=== PATIENT | female | born 1970 | race Caucasian/White ===

== ENCOUNTER 2020-11-17 12:54 | Outpatient (REF) | payer OTHER, SELFPAY | END 2020-11-17 12:55 | disposition home or self-care (01) | LOC: HO.LAB 12:54 | PROVIDERS: Visit Provider Internal Medicine | DX: Z20.822 Contact with and (suspected) exposure to COVID-19 (principal) | CPT/HCPCS: 36415; C9803; U0003; U0005 ==

== ENCOUNTER 2021-05-21 15:35 | Outpatient (REF) | payer OTHER, SELFPAY | END 2021-05-21 15:36 | disposition home or self-care (01) | LOC: HO.LNP 15:35 | PROVIDERS: Visit Provider Hospitalist | DX: Z20.822 Contact with and (suspected) exposure to COVID-19 (principal) | CPT/HCPCS: U0003; U0005 ==

== ENCOUNTER 2021-07-19 14:23 | Outpatient (REF) | payer OTHER, SELFPAY ==
--- NOTE | ~2021-07-19 | MM_ITS ---
EXAMINATION: MM SCREENING DIGITAL BREAST TOMOSYNTHESIS, BILATERAL CLINICAL INFORMATION: Screening. Asymptomatic. The lifetime risk of breast cancer based on the Tyrer-Cuzick Model is 16.9%. COMPARISON: Mammography: March 19, 2019 and studies dating back to April 08, 2013 TECHNIQUE: Digital breast tomosynthesis is performed in both the craniocaudal and mediolateral oblique views along with computer-aided detection (CAD). Synthesized 2D images are generated from the tomosynthesis. Bilateral exaggerated craniocaudal views also performed. FINDINGS: The breasts are heterogeneously dense, which may obscure small masses (ACR BI-RADS breast composition Category c). There are no significant masses, abnormal calcifications, or other abnormalities. MM/MM tomosynthesis screening BI IMPRESSION: There are no significant changes from prior study. ASSESSMENT: BI-RADS 1: Negative RECOMMENDATION: Routine annual mammography screening. This patient's information was entered into a reminder system with a target due date for their next mammogram.
== END 2021-07-19 14:24 | disposition home or self-care (01) ==
LOC: HO.MAMMO 14:23
PROVIDERS: Visit Provider Internal Medicine
DX: Z12.31 Encounter for screening mammogram for malignant neoplasm of breast (principal)
CPT/HCPCS: 77063; 77067

== ENCOUNTER 2022-04-06 11:19 | Outpatient (REF) | payer OTHER, SELFPAY ==
--- NOTE | ~2022-04-06 | XR_ITS ---
EXAMINATION: XR LUMBAR SPINE WITH BENDING VIEWS XR HIP, RIGHT CLINICAL INFORMATION: Low back pain. COMPARISON: None TECHNIQUE: Lumbar spine 6 views. Right hip 2 views. FINDINGS: LUMBAR SPINE: There is normal lumbar lordosis. The vertebral heights and alignment are normal. There is loss of the L5-S1 and L4-L5 disc heights. The rest of the disc heights are normal. There is mild ventral spondylosis throughout the lumbar spine. No acute fracture, lytic or sclerotic process seen. The neural foramina are patent bilaterally. On lateral bending views, the right lateral bending is limited. A normal left lateral bending is seen. There is mild bilateral facet joint hypertrophy at the L4-L5 and L5-S1 disc levels. There is no pars defect or listhesis. The SI joints are symmetrical and normal. The soft tissues are normal. Right hip: AP and frog-leg views right hip reveals a maintained hip joint space. No fracture, dislocation or loose body seen. No bony erosive changes. The soft tissues are normal. XR/XR lumbar spine 6V w bending IMPRESSION: Limited right lateral bending view. The left lateral bending is normal. No subluxation seen. No acute fracture, dislocation or lytic process seen. Mild L4-L5 and L5-S1 facet joint hypertrophy. No pars defect or listhesis seen. Unremarkable right hip exam.
--- NOTE | ~2022-04-06 | XR_ITS ---
EXAMINATION: XR LUMBAR SPINE WITH BENDING VIEWS XR HIP, RIGHT CLINICAL INFORMATION: Low back pain. COMPARISON: None TECHNIQUE: Lumbar spine 6 views. Right hip 2 views. FINDINGS: LUMBAR SPINE: There is normal lumbar lordosis. The vertebral heights and alignment are normal. There is loss of the L5-S1 and L4-L5 disc heights. The rest of the disc heights are normal. There is mild ventral spondylosis throughout the lumbar spine. No acute fracture, lytic or sclerotic process seen. The neural foramina are patent bilaterally. On lateral bending views, the right lateral bending is limited. A normal left lateral bending is seen. There is mild bilateral facet joint hypertrophy at the L4-L5 and L5-S1 disc levels. There is no pars defect or listhesis. The SI joints are symmetrical and normal. The soft tissues are normal. Right hip: AP and frog-leg views right hip reveals a maintained hip joint space. No fracture, dislocation or loose body seen. No bony erosive changes. The soft tissues are normal. XR/XR hip RT min 2V IMPRESSION: Limited right lateral bending view. The left lateral bending is normal. No subluxation seen. No acute fracture, dislocation or lytic process seen. Mild L4-L5 and L5-S1 facet joint hypertrophy. No pars defect or listhesis seen. Unremarkable right hip exam.
== END 2022-04-06 11:20 | disposition home or self-care (01) ==
LOC: HO.HMGCX 11:19
PROVIDERS: PCP Internal Medicine; Visit Provider Internal Medicine
DX: M54.50 Low back pain, unspecified (principal); M25.551 Pain in right hip
CPT/HCPCS: 72114; 73502

== ENCOUNTER 2022-07-13 15:46 | Outpatient (REF) | payer OTHER, SELFPAY ==
[2022-07-14 15:47] LABS: CT PCR NOT DETECTED (Not Detect.); NG PCR NOT DETECTED (Not Detect.)
[2022-07-15 11:50] LABS: BV Int Neg Control Negative (Negative); BV Int Pos Control Positive (Positive)
[2022-07-18 20:41] LABS: HPV mRNA E6/E7 rflx Not Detected (Not Detected)
== END 2022-07-13 15:47 | disposition home or self-care (01) ==
LOC: HO.LNP 15:46
PROVIDERS: Visit Provider Advanced Practice Midwife
DX: Z01.419 Encounter for gynecological examination (general) (routine) without abnormal findings (principal); N94.6 Dysmenorrhea, unspecified; N92.0 Excessive and frequent menstruation with regular cycle; L68.0 Hirsutism; Z11.51 Encounter for screening for human papillomavirus (HPV); Z11.3 Encounter for screening for infections with a predominantly sexual mode of transmission; Z11.8 Encounter for screening for other infectious and parasitic diseases
CPT/HCPCS: 87480; 87491; 87510; 87591; 87624; 87660; 88142

== ENCOUNTER 2022-07-20 14:45 | Outpatient (REF) | payer OTHER, SELFPAY ==
--- NOTE | ~2022-07-20 | MM_ITS ---
EXAMINATION: MM SCREENING DIGITAL BREAST TOMOSYNTHESIS, BILATERAL CLINICAL INFORMATION: Screening. Asymptomatic. The lifetime risk of breast cancer based on the Tyrer-Cuzick Model is 10%. COMPARISON: Mammography: July 19, 2021 and studies dating back to January 19, 2016 TECHNIQUE: Digital breast tomosynthesis is performed in both the craniocaudal and mediolateral oblique views along with computer-aided detection (CAD). Synthesized 2D images are generated from the tomosynthesis. FINDINGS: The breasts are heterogeneously dense, which may obscure small masses (ACR BI-RADS breast composition Category c). There are no significant masses, abnormal calcifications, or other abnormalities. MM/MM tomosynthesis screening BI IMPRESSION: No significant changes ASSESSMENT: BI-RADS 1: Negative RECOMMENDATION: Routine annual mammography screening. This patient's information was entered into a reminder system with a target due date for their next mammogram.
== END 2022-07-20 14:46 | disposition home or self-care (01) ==
LOC: HO.MAMMO 14:45
PROVIDERS: Visit Provider Internal Medicine
DX: Z12.31 Encounter for screening mammogram for malignant neoplasm of breast (principal)
CPT/HCPCS: 77063; 77067

== ENCOUNTER 2022-10-06 14:53 | Outpatient (REF) | payer OTHER, SELFPAY ==
--- NOTE | ~2022-10-06 | US_ITS ---
EXAMINATION: US PELVIS COMPLETE US PELVIS ENDOVAGINAL CLINICAL INFORMATION: Excessive and frequent menstruation with irregular cycle COMPARISON: None. TECHNIQUE: Transabdominal and transvaginal images of the pelvis were obtained. FINDINGS: UTERUS: Retroverted, retroflexed Normal size and contour, measuring 10.5 x 5.9 x 6.5 cm (cervix to fundus x AP x transverse). Uniform, homogeneous endometrium measures 0.8 cm in width. 1.0 and 0.6 cm small myomas seen in the uterine fundus. Small amount of anechoic fluid seen in the right uterine fundus. RIGHT OVARY: Normal size and echogenicity measuring 2.7 x 1.9 x 1.5 cm. LEFT OVARY: Normal size and echogenicity measuring 3.7 x 1.4 x 1.9 cm. FREE FLUID: No pelvic free fluid. US/US pelvic and transvaginal IMPRESSION: Small amount of anechoic fluid is seen in the right uterine fundus, possibly in a degenerated fibroid. Normal endometrial thickness.
== END 2022-10-06 14:54 | disposition home or self-care (01) ==
LOC: HO.US 14:53
PROVIDERS: PCP Internal Medicine; Visit Provider Advanced Practice Midwife
DX: N92.0 Excessive and frequent menstruation with regular cycle (principal)
CPT/HCPCS: 76830; 76856

== ENCOUNTER → 2022-10-11 13:16 | Outpatient (BNVA) | payer OTHER, SELFPAY | PROVIDERS: PCP Internal Medicine; Visit Provider Advanced Practice Midwife | DX: Z71.2 Person consulting for explanation of examination or test findings (principal); N92.0 Excessive and frequent menstruation with regular cycle; L68.0 Hirsutism; N94.6 Dysmenorrhea, unspecified; N95.1 Menopausal and female climacteric states; D25.9 Leiomyoma of uterus, unspecified | CPT/HCPCS: 99212 ==

== ENCOUNTER 2022-10-20 10:43 | Outpatient (REF) | payer OTHER, SELFPAY ==
[2022-10-20 11:42] LABS: Hematocrit 36.7 % (37.0-47.0); Hemoglobin 11.7 g/dl (12.0-16.0); Mean Corpuscular HGB Conc 31.9 g/dl (31.0-35.0); Mean Corpuscular Hemoglobin 25.8 pg (27.0-33.0); Mean Platelet Volume 10.5 fL (9.4-12.3); Platelet Count 246 X10*3/uL (160-400); Red Blood Count 4.53 X10*6/uL (4.20-5.50); Red Cell Distribution Width 14.3 % (11.0-16.0); White Blood Count 7.7 X10*3/uL (4.8-10.8)
[2022-10-20 12:45] LABS: Thyroid Stimulating Hormone 2.66 uIU/mL (0.32-4.0)
[2022-10-22 09:09] LABS: DHEA Sulfate 94 mcg/dL (15-205); Follicle Stimulating Hormone 6.5 mIU/mL; Prolactin 9.7 ng/mL
[2022-10-29 11:05] LABS: Testosterone, Free 2.4 pg/mL (0.1-6.4); Testosterone, Total 36 ng/dL (2-45)
== END 2022-10-20 10:44 | disposition home or self-care (01) ==
LOC: HO.LAB 10:43
PROVIDERS: PCP Internal Medicine; Visit Provider Advanced Practice Midwife
DX: L68.0 Hirsutism (principal); R23.2 Flushing; N92.0 Excessive and frequent menstruation with regular cycle
CPT/HCPCS: 36415; 82627; 83001; 83498; 84146; 84402; 84403; 84443; 85027

== ENCOUNTER 2022-11-02 09:00 | Outpatient (REF) | payer OTHER, SELFPAY ==
[2022-11-02 11:46] LABS: Estimated Average Glucose 117 mg/dL; Hemoglobin A1c % 5.7 %
[2022-11-02 11:54] LABS: Alanine Aminotransferase 15 U/L (0-31); Anion Gap 16 (12-20); Aspartate Amino Transferase 16 U/L (5-31); Blood Urea Nitrogen 15 mg/dL (9-16); Calcium 9.1 mg/dL (8.4-10.2); Carbon Dioxide 23 mmol/L (22-29); Chloride 108 mmol/L (96-108); Cholesterol 170 mg/dL; Estimated Glomerular Filt Rate > 60; Glucose Fasting 94 mg/dL (60-99); HDL Cholesterol 41 mg/dL; Iron 39 mcg/dL (30-160); LDL Cholesterol Calculated 108 mg/dl; Percent Iron Saturation 13 % (15-50); Potassium 4.5 mmol/L (3.3-5.1); Sodium 142 mmol/L (135-145); Total Iron Binding Capacity 291 mcg/dL (228-428); Triglycerides 105 mg/dL; Unsaturated Iron Binding 252 ug/dL
[2022-11-02 12:19] LABS: Vitamin D 25-OH Total 18.6 ng/mL (>30)
== END 2022-11-02 09:01 | disposition home or self-care (01) ==
LOC: HO.HMGCLDS 09:00
PROVIDERS: PCP Internal Medicine; Visit Provider Internal Medicine
DX: Z00.01 Encounter for general adult medical examination with abnormal findings (principal); D64.9 Anemia, unspecified; E66.9 Obesity, unspecified; N92.0 Excessive and frequent menstruation with regular cycle; R73.01 Impaired fasting glucose
CPT/HCPCS: 36415; 80048; 80061; 82306; 83036; 83540; 84450; 84460

== ENCOUNTER → 2022-12-07 11:46 | Outpatient (BNVA) | payer OTHER, SELFPAY | PROVIDERS: PCP Internal Medicine; Visit Provider Advanced Practice Midwife | DX: N92.6 Irregular menstruation, unspecified (principal) | CPT/HCPCS: 99212 ==

== ENCOUNTER 2022-12-12 13:33 | Observation (INO) | payer OTHER, SELFPAY ==
--- NOTE | ~2022-12-12 | CT_ITS ---
EXAMINATION: CT ANGIOGRAM NECK WITH CONTRAST CT ANGIOGRAM BRAIN WITH CONTRAST CLINICAL INFORMATION: Left-sided weakness which is since resolved. COMPARISON: Head CT 04/17/2016. TECHNIQUE: Test bolus sequences followed by intravenous administration 70 mL of Omnipaque 350. Helical imaging was performed in the axial plane from the thoracic inlet to the skull vertex. Delayed postcontrast imaging of the head was also performed. The data was processed at the lead radiologic technologist workstation for generation of MIP sequences. Angled MIPs and volume rendered reformatted images were also generated at an offline 3D workstation. Stenoses are assessed in accordance with NASCET criteria unless otherwise indicated. This CT examination was performed using dose optimization techniques as appropriate, variously including the following: *Automated exposure control *Adjustment of mA and/or kV according to patient size (this includes techniques or standardized protocols for targeted exams where dose is matched to indication/reason for exam; i.e. extremities or head) *Use of iterative reconstruction technique DLP: 2576 mGy-cm FINDINGS: Head CT: There is no intracranial hemorrhage, large acute infarction, or mass lesion. The ventricles are normal in size and configuration without evidence of hydrocephalus. There is no abnormal enhancement of the postcontrast images. The visualized paranasal sinuses and mastoid air cells are clear. Neck CTA: There is a normal aortic arch with no significant stenosis of the great vessel origins. The common and internal carotid arteries are normal in course and caliber. Both vertebral arteries are widely patent throughout their extracranial cervical course. Head CTA: No large vessel occlusion is seen. The anterior and posterior circulations are patent. There is no evidence of aneurysm. Non-vascular findings: The upper lungs are clear. Anterior cervical discectomy and fusion changes are seen from C4 to C7. There is pseudoarthrosis at C5-C6. There is severe spinal canal stenosis at C3-C4 largely related to ossification of the posterior longitudinal ligament. Additional multilevel high-grade spinal canal stenosis and high-grade neural foraminal stenosis is also demonstrated. CT/CT angio head neck IMPRESSION: CT HEAD: No intracranial hemorrhage or large acute infarction. CTA NECK: No hemodynamically significant stenosis in the major arteries of the neck. CTA HEAD: 1. No large vessel occlusion or significant stenosis within the intracranial circulation. Additional findings: Severe spinal canal stenosis at C3-C4 largely related to ossification of the posterior longitudinal ligament. Additional multilevel high-grade spinal canal stenosis and high-grade neural foraminal stenosis is also demonstrated. Neurosurgical follow-up recommended for assessment of spondylotic myelopathy.
--- NOTE | ~2022-12-12 | MR_ITS ---
EXAMINATION: MR BRAIN WITHOUT CONTRAST CLINICAL INFORMATION: Question TIA. COMPARISON: Head CT 12/12/2022. TECHNIQUE: Multiplanar, multisequence imaging of the brain was performed without intravenous contrast. FINDINGS: There is no acute infarction, mass, hemorrhage, or extra-axial collection. The ventricles, sulci, and basilar cisterns are normal in size and configuration. The flow voids of the major intracranial arteries appear intact. The bones and extracranial soft tissues are unremarkable. MR/MR head/brain wo con IMPRESSION: No acute infarct, mass lesion, intracranial hemorrhage, or evidence of hydrocephalus.
--- NOTE | 2022-12-12 13:44 | ECG_ITS ---
Test Reason : WEAKNESS Blood Pressure : / mmHG Vent. Rate : 091 BPM Atrial Rate : 091 BPM P-R Int : 170 ms QRS Dur : 086 ms QT Int : 386 ms P-R-T Axes : 046 019 042 degrees QTc Int : 474 ms Normal sinus rhythm Normal ECG When compared with ECG of 19-NOV-2019 18:53, No significant change was found Referred By: Derick Lino Electronically Signed By:BRAYDON LEI MD
[2022-12-12 14:06] VITALS: BP 127/77; PULSE 82; RESP 19; TEMP 36.6; O2SAT 98; BMI 38.4
[2022-12-12 15:36] LABS: MANUAL DIFF FLAG NO
[2022-12-12 15:41] VITALS: BP 133/94; PULSE 89; RESP 16; O2SAT 98
[2022-12-12 15:41] LABS: Basophils Percent Auto 0.3 % (0-2); Eosinophils Absolute Auto 0.2 X10*3/uL (0.0-0.4); Hemoglobin 11.9 g/dl (12.0-16.0); Imm Gran Abs Auto 0.02 X10*3/uL (0.00-0.03); Imm Gran Pct Auto 0.3 % (0.0-0.4); Lymphocytes Absolute Auto 1.7 X10*3/uL (1.2-4.9); Lymphocytes Percent Auto 21.6 % (20-40); Mean Corpuscular HGB Conc 31.3 g/dl (31.0-35.0); Mean Corpuscular Hemoglobin 25.4 pg (27.0-33.0); Mean Corpuscular Volume 81.2 fL (80.0-98.0); Mean Platelet Volume 10.2 fL (9.4-12.3); Monocytes Absolute Auto 0.4 X10*3/uL (0.1-1.2); Monocytes Percent Auto 5.6 % (2-11); Neutrophils Absolute Auto 5.3 x10*3/uL (2.0-8.3); Neutrophils Percent Auto 69.2 % (45-73); Platelet Count 228 X10*3/uL (160-400); Red Blood Count 4.68 X10*6/uL (4.20-5.50); Red Cell Distribution Width 14.4 % (11.0-16.0); White Blood Count 7.7 X10*3/uL (4.8-10.8)
--- NOTE | 2022-12-12 15:47 | ED.NEUROSD ---
HPI - Neuro Symptoms/Deficit General Chief Complaint: Stroke Stated Complaint: l side facial numbness/ migraine Time Seen by Provider: 12/12/22 15:36 Source: patient Mode of arrival: ambulatory Limitations: no limitations History of Present Illness HPI Narrative: Patient comes to the emergency room complaining of left-sided facial numbness, mouth drooping, in left arm and left leg numbness. Patient states it started around 07:30. Patient states that her symptoms lasted for about 4-1/2 hours. Patient states that people at work kept telling her that her face did not look right, mild on the left side was drooping. By the time the patient was seen in the emergency room, all her symptoms were resolved. Patient states this is the 1st time that this happens to her, patient denies any past medical history. Related Data Home Medications Medication Instructions Recorded Confirmed multivitamin 1 tab PO DAILY 12/12/22 12/12/22 vitamin C 45 mg-zinc citrate 3.75 3 tab PO WE 12/12/22 12/12/22 mg-elderberry 50 mg chewable tablet (Fandeavor) Previous Rx's Medication Instructions Recorded ferrous fumarate 324 mg (106 mg 324 mg PO DAILY #90 tabs 11/02/22 iron) tablet buspirone 5 mg tablet 5 mg PO TID #90 tabs 11/30/22 clobetasol-emollient 0.05 % 1 appl topical BID 2 weeks #30 11/30/22 topical cream grams Allergies Allergy/AdvReac Type Severity Reaction Status Date / Time naproxen [NAPROXEN] Allergy Mild HEART Verified 12/12/22 12:15 PALPATATIONS cyclobenzaprine Allergy Unknown SWELLING Verified 12/12/22 12:15 [From FLEXERIL] acetaminophen [From PERCOCET] AdvReac Unknown VOMITING Verified 12/12/22 12:15 Flexeril AdvReac Unknown heart palp Verified 12/12/22 12:15 oxycodone [From PERCOCET] AdvReac Unknown VOMITING Verified 12/12/22 12:15 Hydrocodone-Ibuprofen AdvReac Unknown stomach Uncoded 12/12/22 12:15 upset milk AdvReac Unknown stomach Uncoded 12/12/22 12:15 upset Review of Systems Review of Systems: Constitutional : No Weight loss, No Fever, No Chills, No Night Sweats, No Fatigue, No Malaise ENT/Mouth : No Hearing loss, No Ear Pain, No Nasal Congestion, No Sinus Pain, No Hoarseness, No sore throat, No Rhinorrhea, No Swallowing Difficulty Eyes: No Eye Pain, No Swelling, No Redness, No Foreign Body, No Discharge, No Vision Changes Cardiovascular : No Chest Pain, No SOB, No Dyspnea on Exertion, No Orthopnea, No Edema, No Palpitations Respiratory : No Cough, No Sputum, No Wheezing, No Smoke Exposure, No Dyspnea Gastrointestinal : No Nausea, No Vomiting, No Diarrhea, No Constipation, No abdominal Pain, No Hematochezia, No Melena Genitourinary : no irregular bleeding, No Dysuria, No Urinary Frequency, No Hematuria, No Urinary Incontinence, No Urgency, No Flank Pain, No Urinary Flow Changes, No Hesitancy Musculoskeletal : No joint pain, No Myalgias, No Joint Swelling Skin : No Skin Lesions, No rash Neuro : No Weakness, No Numbness, No Paresthesias, No Loss of Consciousness, early today complaining of a headache, left-sided mouth drooping, numbness and the pros, left arm and left leg Psych : No Anxiety/Panic, No Depression, No SI/HI/AH/VH, No Social Issues, Heme/Lymph: No Bruising, No Bleeding,No Lymphadenopathy Endocrine : No Polyuria, No Polydipsia, No Temperature Intolerance [facility] Past Medical History Medical History Anxiety and depression Bulging of lumbar intervertebral disc Constipation Degenerative disc disease, cervical Depression Eczema of lower extremity Hallux valgus (acquired) Heavy menstrual bleeding History of gallstones Impaired fasting glucose Left ankle pain Navel cellulitis Normocytic normochromic anemia Obesity (BMI 30-39.9) Surgical History History of bilateral tubal ligation History of bunionectomy History of bunionectomy of both great toes History of cervical discectomy History of laparoscopic cholecystectomy Status post section Family History Family History Mother Hypertension Depression Diabetes mellitus Hypercholesteremia SUZIE (obstructive sleep apnea) COPD (chronic obstructive pulmonary disease) Substance use disorder Mental health disorder Sister Breast cancer Uterine cancer Mental health disorder Maternal Grandmother Mental health disorder Maternal Aunt Mental health disorder Social History Social History Housing: Apartment Alcohol intake: never Patient Tobacco Use Status: Never used Tobacco Smoked in Last 30 Days: No e-Cigarette/Vaping Use: Never Used Use of substances other than those prescribed or required for medical reasons: No Advance Directives: No Advance Directives Information Provided: Yes Patient : No service: No Current occupational status: employed Cognitive needs: No Hearing needs: No Vision needs: Yes Physical Exam Vital Signs: Vital Signs: Last Vital Signs Temp 98.6 F 12/12/22 18:00 Pulse 87 12/12/22 18:00 Resp 18 12/12/22 18:00 BP 109/74 12/12/22 18:00 Pulse Ox 100 12/12/22 18:00 O2 Del Method 12/12/22 18:00 BMI result Body Mass Index 38.4 Const: Other: Appearance: Alert. Oriented X3. No acute distress. Eyes: Pupils equal, round and reactive to light. ENT: Pharynx normal. Neck: Normal inspection. Neck supple. No lymph nodes noted. No crepitus CVS: Normal heart rate and rhythm. Pulses normal. Normal S1 and S2 Respiratory: No respiratory distress. Breath sounds normal. No Wheezing. No rales Abdomen: Soft and nontender. No rigidity. No distention. Skin: Skin warm and dry. Normal skin color. Normal skin turgor. Extremities: No lower extremity edema. No Lacerations. No Rash Neuro: Oriented X 3. No motor deficit. No sensory deficit. Moving all extremities. No slurred speech. CN 2 through 12 grossly intact Psych: calm, cooperative, normal affect Course Course Course Narrative: -patient's NIH score is 0 -at this time, patient is asymptomatic. Patient's symptoms started over 8 hours ago, patient would not be a candidate for tPA if needed '-patient has no prior medical history, is possible the patient may have had a TIA Medications Administered Discontinued Medications Generic Name Dose Route Start Last Admin Trade Name Freq PRN Reason Stop Dose Admin Diphenhydramine HCl 25 mg 12/12/22 13:45 12/12/22 16:11 Diphenhydramine Hcl 50 Mg/Ml Vial IVPUSH 12/12/22 13:46 Not Given ONCE ONE Iohexol 100 ml 12/12/22 16:35 12/12/22 16:35 Iohexol 350 Mg/Ml 100 Ml Infus..Btl IV 12/12/22 16:36 70 ml ONCE ONE Administration Metoclopramide HCl 10 mg 12/12/22 13:45 12/12/22 16:11 Metoclopramide Hcl 10 Mg/2 Ml Vial IVPUSH 12/12/22 13:46 Not Given ONCE ONE Medical Decision Making Medical Decision Making [facility] Narrative: -patient's description of symptoms is concerning, likely patient had a TIA. Will go ahead and admit the patient for further evaluation. At this time, patient is asymptomatic. -labs unremarkable, CT and CTA of the neck and head do not show any acute abnormalities, patient does have chronic severe spinal canal stenosis, likely unrelated to her symptoms. -I discussed the patient with Dr. Andujar, patient being admitted. Differential Diagnosis Differential Diagnoses: The differential diagnosis associated with the presentation includes (TIA, CVA, migraine) Admission/Observation Consideration of admission/observation: Escalation of care including admission/observation considered Consult Healthcare Provider Management of the patient was discussed with: Hospitalist Lab Data [facility] Lab Attestation statement: I reviewed the patient's lab results. 12/12/22 15:28 12/12/22 15:28 Labs: Lab Results 12/12/22 12/12/22 12/12/22 Range/Units 15:28 15:28 15:28 WBC 7.7 (4.8-10.8) X10*3/uL RBC 4.68 (4.20-5.50) X10*6/uL Hgb 11.9 L (12.0-16.0) g/dl Hct 38.0 (37.0-47.0) % MCV 81.2 (80.0-98.0) fL MCH 25.4 L (27.0-33.0) pg MCHC 31.3 (31.0-35.0) g/dl RDW 14.4 (11.0-16.0) % Plt Count 228 (160-400) X10*3/uL MPV 10.2 (9.4-12.3) fL Immature Gran % (Auto) 0.3 (0.0-0.4) % Neut % (Auto) 69.2 (45-73) % Lymph % (Auto) 21.6 (20-40) % [place] % (Auto) 5.6 (2-11) % Eos % (Auto) 3.0 (0-4) % Baso % (Auto) 0.3 (0-2) % Lymph # (Auto) 1.7 (1.2-4.9) X10*3/uL [place] # (Auto) 0.4 (0.1-1.2) X10*3/uL Eos # (Auto) 0.2 (0.0-0.4) X10*3/uL Baso # (Auto) 0.0 (0.0-0.2) X10*3/uL Abs Immat Gran (auto) 0.02 (0.00-0.03) X10*3/uL Absolute Neuts (auto) 5.3 (2.0-8.3) x10*3/uL Absolute Nucleated RBC 0.000 (0.0-0.012) X10*3/uL Nucleated RBC % (auto) 0.0 (0.0-0.2) /100WBC PT (10.0-13.1) SEC INR (0.9-1.1) Sodium 140 (135-145) mmol/L Potassium 4.0 (3.3-5.1) mmol/L Chloride 107 (96-108) mmol/L Carbon Dioxide 22 (22-29) mmol/L Anion Gap 15 (12-20) BUN 14 (9-16) mg/dL Creatinine 0.81 (0.5-1.4) mg/dL Estim Creat Clear Calc 113.9 Estimated GFR > 60 POC Glucose (60-115) mg/dL Random Glucose 122 H (60-115) mg/dL Calcium 9.1 (8.4-10.2) mg/dL Magnesium 2.0 (1.6-2.6) mg/dL Total Bilirubin 0.2 (0.0-1.0) mg/dL AST 12 (5-31) U/L ALT 12 (0-31) U/L Alkaline Phosphatase 105 (39-117) U/L Troponin I High Sens < 3.5 (<3.5-17.0) ng/L Total Protein 7.1 (6.5-8.0) g/dL Albumin 3.8 (3.5-5.0) g/dL COVID-19 (INES) (Negative) COVID-19 Clin Com 12/12/22 12/12/22 12/12/22 Range/Units 15:28 15:28 16:19 WBC (4.8-10.8) X10*3/uL RBC (4.20-5.50) X10*6/uL Hgb (12.0-16.0) g/dl Hct (37.0-47.0) % MCV (80.0-98.0) fL MCH (27.0-33.0) pg MCHC (31.0-35.0) g/dl RDW (11.0-16.0) % Plt Count (160-400) X10*3/uL MPV (9.4-12.3) fL Immature Gran % (Auto) (0.0-0.4) % Neut % (Auto) (45-73) % Lymph % (Auto) (20-40) % [place] % (Auto) (2-11) % Eos % (Auto) (0-4) % Baso % (Auto) (0-2) % Lymph # (Auto) (1.2-4.9) X10*3/uL [place] # (Auto) (0.1-1.2) X10*3/uL Eos # (Auto) (0.0-0.4) X10*3/uL Baso # (Auto) (0.0-0.2) X10*3/uL Abs Immat Gran (auto) (0.00-0.03) X10*3/uL Absolute Neuts (auto) (2.0-8.3) x10*3/uL Absolute Nucleated RBC (0.0-0.012) X10*3/uL Nucleated RBC % (auto) (0.0-0.2) /100WBC PT 11.0 (10.0-13.1) SEC INR 1.0 (0.9-1.1) Sodium (135-145) mmol/L Potassium (3.3-5.1) mmol/L Chloride (96-108) mmol/L Carbon Dioxide (22-29) mmol/L Anion Gap (12-20) BUN (9-16) mg/dL Creatinine (0.5-1.4) mg/dL Estim Creat Clear Calc Estimated GFR POC Glucose 114 (60-115) mg/dL Random Glucose (60-115) mg/dL Calcium (8.4-10.2) mg/dL Magnesium (1.6-2.6) mg/dL Total Bilirubin (0.0-1.0) mg/dL AST (5-31) U/L ALT (0-31) U/L Alkaline Phosphatase (39-117) U/L Troponin I High Sens (<3.5-17.0) ng/L Total Protein (6.5-8.0) g/dL Albumin (3.5-5.0) g/dL COVID-19 (INES) Negative (Negative) COVID-19 Clin Com See Note Independent Interpretation I performed an independent interpretation of an: CT Scan (My interpretation of CT scan: No acute intracranial bleed) Radiology Impression Discussion of test interpretation with radiology: I have reviewed the radiologist's reading. Radiologist Impression: Head CT: There is no intracranial hemorrhage, large acute infarction, or mass lesion. The ventricles are normal in size and configuration without evidence of hydrocephalus. There is no abnormal enhancement of the postcontrast images. ? The visualized paranasal sinuses and mastoid air cells are clear. Neck CTA: There is a normal aortic arch with no significant stenosis of the great vessel origins. The common and internal carotid arteries are normal in course and caliber. Both vertebral arteries are widely patent throughout their extracranial cervical course. Head CTA: No large vessel occlusion is seen. The anterior and posterior circulations are patent. There is no evidence of aneurysm. Non-vascular findings: The upper lungs are clear. Anterior cervical discectomy and fusion changes are seen from C4 to C7. There is pseudoarthrosis at C5-C6. There is severe spinal canal stenosis at C3-C4 largely related to ossification of the posterior longitudinal ligament. Additional multilevel high-grade spinal canal stenosis and high-grade neural foraminal stenosis is also demonstrated. CT/CT angio head neck IMPRESSION: CT HEAD: No intracranial hemorrhage or large acute infarction. ? CTA NECK: No hemodynamically significant stenosis in the major arteries of the neck. ? CTA HEAD: 1.? No large vessel occlusion or significant stenosis within the intracranial circulation. ? Additional findings: Severe spinal canal stenosis at C3-C4 largely related to ossification of the posterior longitudinal ligament. Additional multilevel high-grade spinal canal stenosis and high-grade neural foraminal stenosis is also demonstrated. Neurosurgical follow-up recommended for assessment of spondylotic myelopathy. ? ? NIH Stroke Scale Level of Consciousness: Alert Level of Consciousness Questions: Answers both questions correctly Level of Consciousness Commands: Performs both tasks correctly Best Gaze: Normal Visual: No visual loss Facial Palsy: Normal Motor Arm (Right): No drift Motor Arm (Left): No drift Motor Leg (Right): No drift Motor Leg (Left): No drift Limb Ataxia: Absent Sensory: Normal Best Language: No aphasia Dysarthia: Normal Extinction and Inattention: No abnormality Score: 0 Critical Care Time Critical Care Time Critical Care Time: Yes Total Critical Care Time: 60 Attestation: I have personally provided critical care time. Time includes review of lab data, radiology results, discussion with consultants, and monitoring for potential decompensation. Intervention performed as documented. Discharge Plan Discharge Clinical Impression: Brain TIA Patient Disposition: Admitted As Inpatient Prescriptions: No Action multivitamin Tablet 1 tab PO DAILY Fandeavor 45-3.75-50 mg Tablet,Chewable 3 tab PO WE clobetasol-emollient 0.05 % cream 1 appl topical BID 14 Days Qty: 30 0RF buspirone 5 mg tablet 5 mg PO TID Qty: 90 0RF ferrous fumarate 324 mg (106 mg iron) tablet 324 mg PO DAILY Qty: 90 1RF
[2022-12-12 16:00] LABS: Alanine Aminotransferase 12 U/L (0-31); Albumin Level 3.8 g/dL (3.5-5.0); Alkaline Phosphatase 105 U/L (39-117); Anion Gap 15 (12-20); Aspartate Amino Transferase 12 U/L (5-31); Bilirubin Total 0.2 mg/dL (0.0-1.0); Blood Urea Nitrogen 14 mg/dL (9-16); Calcium 9.1 mg/dL (8.4-10.2); Carbon Dioxide 22 mmol/L (22-29); Chloride 107 mmol/L (96-108); Creatinine Clr Calc Pharmacy 113.9; Estimated Glomerular Filt Rate > 60; Glucose Random 122 mg/dL (60-115); Sodium 140 mmol/L (135-145); Total Protein 7.1 g/dL (6.5-8.0)
[2022-12-12 16:06] LABS: COVID-19 Test Negative (Negative); IDNOW Serial# 08D9AD1C
[2022-12-12 16:12] LABS: Troponin-I High Sensitivity < 3.5 ng/L (<3.5-17.0)
--- NOTE | 2022-12-12 16:20 | PC.NURSE ---
pt AOx3, vss. nuro exam stable, swallow screen pass. IV inserted, awaiting CT scan. POC 114. Cardiac montitor intact, will continue to monitor
--- NOTE | 2022-12-12 16:22 | PC.NURSE ---
pt denies nausea and refused reglan
[2022-12-12 16:28] LABS: Glucose, Whole Blood 114 mg/dL (60-115)
[2022-12-12] MEDS: iohexoL 350 MG/ML 100 ML INFUS..BTL IV (16:35)
--- NOTE | 2022-12-12 17:00 | PC.NURSE ---
pt returned from ct scan
[2022-12-12 18:00] VITALS: BP 109/74; PULSE 87; RESP 18; TEMP 37; O2SAT 100
--- NOTE | 2022-12-12 18:15 | PC.NURSE ---
pt AOx3, reports that they are feeling better no nausea, reporting a 5/10 headache
--- NOTE | 2022-12-12 18:22 | PHA.MEDREC ---
Pharmacy Consult ? Medication Reconciliation Pharmacy has completed the medication reconciliation.
--- NOTE | 2022-12-12 18:42 | P.HPHOSP_ITS ---
History of Present Illness Date of Service: 12/12/22 Attending physician on admission: Nella Romero Chief Complaint: facial droop 52-year-old female with history of iron deficiency anemia, depression/anxiety, PTSD presented to the ED earlier today for evaluation. She reports around 730 t his morning she developed a migraine like headache with associated heaviness/weakness in the bilateral upper extremities while at work. She states she then developed a brief episode of blurred vision that lasted for about 5 minutes. At some point early this morning, she states she also developed a left-sided facial droop that was noted by her coworkers who denies any slurred speech. Following this, she reports developing weakness of the left hand and then of the left leg. She states symptoms lasted for about 4 hours and she did present for evaluation at an urgent care. While waiting to be seen, she states she developed right-sided throbbing chest pain without radiation that lasted for several minutes and resolve spontaneously. She was advised by urgent care provider to be seen at the ED. on arrival, vital stable, no hypertension. Hematology studies unremarkable except for a mild normocytic anemia. PT/INR normal. Renal function, electrolyte levels normal. Troponin negative. 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 No hx diabetes, heart disease, pvd. Does have fh stroke in mother and maternal GM. Review of Systems Review of Systems: Yes all other systems are reviewed and are negative PENDING SALE TO [facility] Medical History Anxiety and depression Bulging of lumbar intervertebral disc Constipation Degenerative disc disease, cervical Depression Eczema of lower extremity Hallux valgus (acquired) Heavy menstrual bleeding History of gallstones Impaired fasting glucose Left ankle pain Navel cellulitis Normocytic normochromic anemia Obesity (BMI 30-39.9) Family History Mother Hypertension Depression Diabetes mellitus Hypercholesteremia SUZIE (obstructive sleep apnea) COPD (chronic obstructive pulmonary disease) Substance use disorder Mental health disorder Sister Breast cancer Uterine cancer Mental health disorder Maternal Grandmother Mental health disorder Maternal Aunt Mental health disorder Surgical History History of bilateral tubal ligation History of bunionectomy History of bunionectomy of both great toes History of cervical discectomy History of laparoscopic cholecystectomy Status post section Social History Housing: Apartment Alcohol intake: never Patient Tobacco Use Status: Never used Tobacco Smoked in Last 30 Days: No e-Cigarette/Vaping Use: Never Used Use of substances other than those prescribed or required for medical reasons: No Advance Directives: No Advance Directives Information Provided: Yes Nutrition Risks: No Nutritional Risk Patient : No service: No Current occupational status: employed Cognitive needs: No Hearing needs: No Vision needs: Yes Meds Allergies Allergy/AdvReac Type Severity Reaction Status Date / Time naproxen [NAPROXEN] Allergy Mild HEART Verified 12/12/22 12:15 PALPATATIONS cyclobenzaprine Allergy Unknown SWELLING Verified 12/12/22 12:15 [From FLEXERIL] acetaminophen [From PERCOCET] AdvReac Unknown VOMITING Verified 12/12/22 12:15 Flexeril AdvReac Unknown heart palp Verified 12/12/22 12:15 oxycodone [From PERCOCET] AdvReac Unknown VOMITING Verified 12/12/22 12:15 Hydrocodone-Ibuprofen AdvReac Unknown stomach Uncoded 12/12/22 12:15 upset milk AdvReac Unknown stomach Uncoded 12/12/22 12:15 upset Home Medications Medication Instructions Recorded Confirmed Last Taken Type multivitamin 1 tab PO DAILY 12/12/22 12/12/22 12/12/22 History vitamin C 45 mg-zinc citrate 3.75 3 tab PO WE 12/12/22 12/12/22 12/06/22 History mg-elderberry 50 mg chewable tablet (Cartagenia) Physical Exam Vital Signs and Narrative: Vital Signs: Last Vital Signs Temp 98.6 F 12/12/22 18:00 Pulse 87 12/12/22 18:00 Resp 18 12/12/22 18:00 BP 109/74 12/12/22 18:00 Pulse Ox 100 12/12/22 18:00 O2 Del Method 12/12/22 18:00 BMI result Body Mass Index 38.4 Constitutional - Awake and Alert, No apparent distress Eyes - PERRLA, EOMI Cardiovascular - S1S2, RRR, No edema Respiratory - Normal lung expansion, Normal respiratory effort, No respiratory d istress, CTA bilaterally Gastrointestinal - NT / ND; +BS; No rebound or guarding Extremities - no calf tenderness bilaterally, no swelling Musculoskeletal - Normal inspection, normal ROM Skin - Warm/Dry Neurological - Alert & oriented x3, CN II-XII in tact, 5/5 strength BUE and RLE, 4/5 strength LLE Psychological - Appropriate affect Results Labs 12/12/22 15:28 12/12/22 15:28 Labs: Laboratory Results - last 24 hr 12/12/22 12/12/22 12/12/22 15:28 15:28 15:28 MCV 81.2 MCH 25.4 L MCHC 31.3 RDW 14.4 Plt Count 228 MPV 10.2 Immature Gran % (Auto) 0.3 Neut % (Auto) 69.2 Lymph % (Auto) 21.6 [place] % (Auto) 5.6 Eos % (Auto) 3.0 Baso % (Auto) 0.3 Lymph # (Auto) 1.7 [place] # (Auto) 0.4 Eos # (Auto) 0.2 Baso # (Auto) 0.0 Abs Immat Gran (auto) 0.02 Absolute Neuts (auto) 5.3 Absolute Nucleated RBC 0.000 Nucleated RBC % (auto) 0.0 PT INR Anion Gap 15 Estim Creat Clear Calc 113.9 Estimated GFR > 60 POC Glucose Random Glucose 122 H Calcium 9.1 Magnesium 2.0 Total Bilirubin 0.2 AST 12 ALT 12 Alkaline Phosphatase 105 Troponin I High Sens < 3.5 Total Protein 7.1 Albumin 3.8 COVID-19 (INES) COVID-19 Clin Com 12/12/22 12/12/22 12/12/22 15:28 15:28 16:19 MCV MCH MCHC RDW Plt Count MPV Immature Gran % (Auto) Neut % (Auto) Lymph % (Auto) [place] % (Auto) Eos % (Auto) Baso % (Auto) Lymph # (Auto) [place] # (Auto) Eos # (Auto) Baso # (Auto) Abs Immat Gran (auto) Absolute Neuts (auto) Absolute Nucleated RBC Nucleated RBC % (auto) PT 11.0 INR 1.0 Anion Gap Estim Creat Clear Calc Estimated GFR POC Glucose 114 Random Glucose Calcium Magnesium Total Bilirubin AST ALT Alkaline Phosphatase Troponin I High Sens Total Protein Albumin COVID-19 (INES) Negative COVID-19 Clin Com See Note Imaging Radiologist's Impressions: Impressions Head/Neck CTA 12/12/22 16:49 IMPRESSION: CT HEAD: No intracranial hemorrhage or large acute infarction. CTA NECK: No hemodynamically significant stenosis in the major arteries of the neck. CTA HEAD: 1. No large vessel occlusion or significant stenosis within the intracranial circulation. Additional findings: Severe spinal canal stenosis at C3-C4 largely related to ossification of the posterior longitudinal ligament. Additional multilevel high-grade spinal canal stenosis and high-grade neural foraminal stenosis is also demonstrated. Neurosurgical follow-up recommended for assessment of spondylotic myelopathy. Assessment and Plan (1) Left-sided weakness: Status: Acute (2) Migraine: Status: Acute Plan 52-year-old female with history of iron deficiency anemia, depression/anxiety, PTSD to be observed for TIA vs complex migraine. Given gradual onset of symptoms associated with migraine headache, clinical presentation seems most consistent with complex migraine. However, she does have persistent LLE weakness on exam despite resolution of other symptoms, including migraine headache and as a result will be observed overnight for further work up. #?TIA vs complex migraine -Gradual onset blurred vision, left facial droop, left sided weakness associated with migraine headache. LLE weakness noted on exam -No significant risk factors for CVA. Will check Hgb A1c -Head CT and CTA head/neck negative for acute intracranial abnormality including LVO -MRI brain ordered -Given 325mg asa. Continue 81mg asa daily -Atorvastatin 40mg daily, lipid profile pending -Neuro checks -PT eval -Appreciate neuro input -Observe on telemetry #Mood disorder -continue home meds #Iron deficiency anemia -Hgb above transfusion threshold, stable -continue ferrous sulfate #Severe cervical central canal stenosis -Unlikely to be contributing to symptoms -Outpt neuropsych referral recommended to evaluated for myelopathy DVT prophylaxis- lovenox Full code Time Spent With Patient Time: Total time managing care of this patient today ____ minutes. Quality Stroke Does the patient have a stroke diagnosis?: No VTE Prior VTE?: No VTE Risk Level:: Medical - moderate - high VTE Device Contraindication: Treatment Not Indicated VTE Drug Contraindication: N/A - Med Ordered
--- NOTE | 2022-12-12 19:47 | PC.NURSE ---
MRI screening form filled out and faxed to MRI. Pt states that she has had neck surgery and has titanium plates
[2022-12-12 19:50] LABS: Estimated Average Glucose 114 mg/dL; Hemoglobin A1c % 5.6 %
[2022-12-12 19:52] LABS: Cholesterol 168 mg/dL; HDL Cholesterol 38 mg/dL; LDL Cholesterol Calculated 98 mg/dl; Triglycerides 163 mg/dL
--- NOTE | 2022-12-12 20:09 | PC.NURSE ---
mri called stating she could come to MRI around 830pm, this nurse mireya texted the hospitalist- jeannette chavez to see if the patient could come off the director of strategy & mobile for the mri which she stated yes she could. mri will be notified.
[2022-12-12] MEDS: Aspirin 325 MG TABLET PO (20:14)
[2022-12-12] MEDS: busPIRone HCl 5 MG TABLET PO (20:14)
[2022-12-12] MEDS: Atorvastatin Calcium 40 MG TABLET PO (20:14)
[2022-12-12] MEDS: Enoxaparin Sodium 40 MG/0.4 ML SYRINGE SUBCUT (20:14)
--- NOTE | 2022-12-12 20:24 | PC.NURSE ---
mri notified pt could go without laboratory monitor, transport will be notified by MRI when the patient is able to go.
--- NOTE | 2022-12-12 20:25 | PC.NURSE ---
pt medicated per order. awaiting transport to MRI
[2022-12-12 21:48] VITALS: BP 107/69; PULSE 74; RESP 20; O2SAT 97
--- NOTE | 2022-12-12 22:02 | PC.NURSE ---
pt returned from MRI, a&ox3, vss, GCS 15, reporting 6/10 h/a, no PRN medication in NOV, provider notified. secured entrance monitor applied. pt pending bed assignment.
--- NOTE | 2022-12-12 22:31 | MHC.CM.PN ---
[place] 12/12. Lives with . Employed. No DME/Services. [employer]. HCP reviewed, completed and signed. Copies given. Uploaded into [facility] and [facility]. D/C plan: Home without services. Family to transport. CM will follow for any discharge needs.
[2022-12-12] MEDS: Morphine Sulfate 4 MG/ML CARTRIDGE IVPUSH (22:44)
[2022-12-12 23:05] VITALS: BP 153/91; PULSE 79; RESP 20; O2SAT 98
--- NOTE | 2022-12-12 23:10 | PC.NURSE ---
Pt relating pain to right rib area after receiving morphine. Provider made aware via tiger connect.
--- NOTE | 2022-12-12 23:15 | PC.NURSE ---
Pt relates pain to right rib area is decreasing at this time. Provider aware.
[2022-12-12 23:42] LABS: Appearance Urine Clear; Color Urine Yellow; Glucose Urine UA Negative (Negative); Leukocyte Esterase Urine Negative (Negative); Nitrite Urine Negative (Negative); PH 6.5 (5.0-9.0); Urine Blood Negative (Negative); Urine Ketones Negative (Negative); Urine Protein Negative (Neg-Trace)
[2022-12-13] VITALS (7 sets, daily range): BP systolic 103–120; BP diastolic 56–73; PULSE 71–85; RESP 18–20; TEMP 36.1–37.1; O2SAT 96–98
[2022-12-13] MEDS: Ferrous Sulfate 324 MG TABLET.DR PO (09:35)
[2022-12-13] MEDS: busPIRone HCl 5 MG TABLET PO ×3 (09:36→21:45)
[2022-12-13] MEDS: Aspirin Enteric Coated 81 MG TABLET.DR PO (09:36)
[2022-12-13] MEDS: Multivitamin TABLET 1 TAB PO (09:36)
--- NOTE | 2022-12-13 11:42 | MHC.CM.PN ---
EMR REVIEWED, PT W/TIA VS COMPLEX MIGRAINE, MRI NEG FOR STROKE, PT RECOMMENDING HOME PT AND REFERRAL PLACED TO [facility], NEURO CONSULT PENDING, CM WILL CONT TO FOLLOW D/C NEEDS.
--- NOTE | 2022-12-13 13:53 | PM.NEUROCN ---
History of Present Illness Data of Consult Service Date: 12/13/22 Primary Care Provider: Brielle Ruiz MD HPI Reason for consult: Complicated migraine 52 years old woman with underlying history of cervical spine disease status post surgical decompression and chronic headaches. She was having 2-3 mild headaches every week and severe headaches were rare. She is admitted in hospital with severe migraine type of headaches and left-sided numbness and weakness. Imaging did not reveal any stroke. Now she was feeling better. Review of Systems Review of Systems: No cold or flu-like PMFSH Past Medical History Medical History Anxiety and depression Bulging of lumbar intervertebral disc Constipation Degenerative disc disease, cervical Depression Eczema of lower extremity Hallux valgus (acquired) Heavy menstrual bleeding History of gallstones Impaired fasting glucose Left ankle pain Navel cellulitis Normocytic normochromic anemia Obesity (BMI 30-39.9) Family History Family History Mother Hypertension Depression Diabetes mellitus Hypercholesteremia SUZIE (obstructive sleep apnea) COPD (chronic obstructive pulmonary disease) Substance use disorder Mental health disorder Sister Breast cancer Uterine cancer Mental health disorder Maternal Grandmother Mental health disorder Maternal Aunt Mental health disorder Surgical History Surgical History History of bilateral tubal ligation History of bunionectomy History of bunionectomy of both great toes History of cervical discectomy History of laparoscopic cholecystectomy Status post section Social History Social History Housing: Apartment Alcohol intake: never Patient Tobacco Use Status: Never used Tobacco Smoked in Last 30 Days: No e-Cigarette/Vaping Use: Never Used Use of substances other than those prescribed or required for medical reasons: No Advance Directives: No Advance Directives Information Provided: Yes Nutrition Risks: No Nutritional Risk Patient : No service: No Current occupational status: employed Cognitive needs: No Hearing needs: No Vision needs: Yes Meds Allergies Allergy/AdvReac Type Severity Reaction Status Date / Time naproxen [NAPROXEN] Allergy Mild HEART Verified 12/12/22 12:15 PALPATATIONS cyclobenzaprine Allergy Unknown SWELLING Verified 12/12/22 12:15 [From FLEXERIL] acetaminophen [From PERCOCET] AdvReac Unknown VOMITING Verified 12/12/22 12:15 Flexeril AdvReac Unknown heart palp Verified 12/12/22 12:15 oxycodone [From PERCOCET] AdvReac Unknown VOMITING Verified 12/12/22 12:15 Hydrocodone-Ibuprofen AdvReac Unknown stomach Uncoded 12/12/22 12:15 upset milk AdvReac Unknown stomach Uncoded 12/12/22 12:15 upset Active Medications: Current Medications Aspirin (Aspirin Enteric Coated 81 Mg Tablet.) 81 mg PO DAILY [facility] Last Admin: 12/13/22 09:36 Dose: 81 mg Atorvastatin Calcium (Atorvastatin Calcium 40 Mg Tablet) 40 mg PO BEDTIME [facility] Last Admin: 12/12/22 20:14 Dose: 40 mg Buspirone HCl (Buspirone Hcl 5 Mg Tablet) 5 mg PO TID [facility] Last Admin: 12/13/22 09:36 Dose: 5 mg Enoxaparin Sodium (Enoxaparin Sodium 40 Mg/0.4 Ml Syringe) 40 mg SUBCUT Q24H [facility] Last Admin: 12/12/22 20:14 Dose: 40 mg Ferrous Sulfate (Ferrous Sulfate 324 Mg Tablet.) 324 mg PO DAILY [facility] Last Admin: 12/13/22 09:35 Dose: 324 mg Multivitamins/Vitamin C (Multivitamin Tablet) 1 tab PO DAILY [facility] Last Admin: 12/13/22 09:36 Dose: 1 tab Ondansetron HCl (Ondansetron Hcl 4 Mg/2 Ml Vial) 4 mg IVPUSH Q8H PRN PRN Reason: Nausea and Vomiting Sodium Chloride (0.9 % Sodium Chloride Flush 3 Ml Syringe) 3 ml IVFLUSH QSHIFT [facility] Last Admin: 12/13/22 12:52 Dose: Not Given Home Medications Medication Instructions Recorded Confirmed Last Taken Type multivitamin 1 tab PO DAILY 12/12/22 12/12/22 12/12/22 History vitamin C 45 mg-zinc citrate 3.75 3 tab PO WE 12/12/22 12/12/22 12/06/22 History mg-elderberry 50 mg chewable tablet ([employer] Physical Exam Vital Signs: Vital Signs: Last Vital Signs Temp 98.3 F 12/13/22 12:00 Pulse 71 12/13/22 12:00 Resp 18 12/13/22 12:00 BP 109/59 L 12/13/22 12:00 Pulse Ox 97 12/13/22 12:00 O2 Del Method 12/13/22 04:00 BMI result Body Mass Index 38.4 Neuro: Other: She is alert and awake with normal spontaneity of speech fluency comprehension and affect. Face is symmetrical. Visual rey are full. There is no focal arm or leg weakness. Deep tendon reflexes are trace to absent with flexor plantars. Results Labs 12/12/22 15:28 12/12/22 15:28 Labs: Short CBC 12/12/22 Range/Units 15:28 WBC 7.7 (4.8-10.8) X10*3/uL Hgb 11.9 L (12.0-16.0) g/dl Hct 38.0 (37.0-47.0) % Plt Count 228 (160-400) X10*3/uL BMP 12/12/22 15:28 Sodium 140 Potassium 4.0 Chloride 107 Carbon Dioxide 22 BUN 14 Creatinine 0.81 Calcium 9.1 Liver Function 12/12/22 Range/Units 15:28 Total Bilirubin 0.2 (0.0-1.0) mg/dL AST 12 (5-31) U/L ALT 12 (0-31) U/L Alkaline Phosphatase 105 (39-117) U/L Albumin 3.8 (3.5-5.0) g/dL Urine 12/12/22 Range/Units 23:18 Urine Color Yellow Urine Appearance Clear Urine pH 6.5 (5.0-9.0) Ur Specific [place] 1.010 (1.005-1.025) Urine Protein Negative (Neg-Trace) mg/dL Urine Glucose (UA) Negative (Negative) mg/dL MRI of brain did not reveal any acute or significant chronic pathology. Cervical spine revealed moderate to severe spondylitic disease. CTA did not reveal any vascular lesion. Assessment and Plan (1) Complicated migraine: Status: Acute 52 years old woman with migraine without aura came to hospital with migraine type of headaches and left-sided numbness and weakness. No symptoms were resolved. Imaging did not reveal any acute lesion. She is known to have cervical spine discogenic disease and had surgical decompression. At this time she was reassured and educated. Treatment is sumatriptan 50 mg q.day p.r.n.. (2) Cervical spondylosis: Status: Acute Time Spent With Patient Time: Total time managing care of this patient today ____ minutes. Procedures Date of Service Date of Service: 12/13/22
[2022-12-13] MEDS: Butalb/Acetamin/Caff 50/325/40 TABLET 1 TAB PO ×2 (14:07→21:46)
--- NOTE | 2022-12-13 15:16 | W.MHC.F2F ---
Service Date Service Date: 12/13/22 Encounter Date of encounter: 12/13/22 Reasons for Services Signs and symptoms assessed: left sided weakness Reason for fpc: diabetic teaching and teach disease management Reason for physical therapy: home safety and mobility and therapeutic exercises Homebound: Leaving the home is medically contraindicated at this time without the asist of a device and/or another person due th the listed conditions above and below. Reason homebound: unsteady gait / fall risk Certification: Based on the above findings, I certify that this patient is confined to the home and needs intermittent fpc care, physical therapy and/or speech therapy, or continues to need occupational therapy. The patient is under my care, and I have initiated the establishment of the plan of care. The patient will be followed by a physician who will periodically review the plan of care. Time Spent With Patient Time: Total time managing care of this patient today ____ minutes.
--- NOTE | 2022-12-13 15:17 | P.DS_ITS ---
DS: Providers Provider Date of Service: 12/13/22 Date of admission: 12/12/22 19:17 Primary care physician: Brielle Ruiz MD Consults: 12/12/22 19:26 Consult to Neurology Routine Consulting Provider: Trip Reeves Reason for consultation: ?TIA vs complex migraine DS: Diagnosis Discharge Diagnosis (1) Complicated migraine: Status: Acute (2) Cervical spondylosis: Status: Acute DS: Summary Hospital Course Hospital Course: Admission note HPI 52-year-old female with history of iron deficiency anemia, depression/anxiety, PTSD presented to the ED earlier today for evaluation.? She reports around 730 this morning she developed a migraine like headache with associated heaviness/weakness in the bilateral upper extremities while at work.? She states she then developed a brief episode of blurred vision that lasted for about 5 minutes.? At some point early this morning, she states she also developed a left-sided facial droop that was noted by her coworkers who denies any slurred speech.? Following this, she reports developing weakness of the left hand and then of the left leg.? She states symptoms lasted for about 4 hours and she did present for evaluation at an urgent care.? While waiting to be seen, she states she developed right-sided throbbing chest pain without radiation that lasted for several minutes and resolve spontaneously.? She was advised by urgent care provider to be seen at the ED. on arrival, vital stable, no hypertension.? Hematology studies unremarkable except for a mild normocytic anemia.? PT/INR normal.? Renal function, electrolyte levels normal.? Troponin negative.? 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 No hx diabetes, heart disease, pvd. Does have fh stroke in mother and maternal GM. Hospital course The patient was admitted for evaluation of headache and left sided weakness. Images including CTA, MRI of brain where negative for any acute findings. started on ASA and statin on admission. Seen by neurologist who believe her symptoms are a result of complicated migraine. suggest physical therapy and Sumatriptan PRN for headache. PT recommended home therapy. Start Sumatriptan as needed for headache follow with neurology outpatient as needed w dr Reeves. Time Spent with Patient Time attestation: Total time managing care of this patient today ____ minutes. Discharge coordination time: Less than 30 minutes Quality: Safe Use of Opioids Does Pt have an Active Cancer Diagnosis on the Problem List?: No Quality: Stroke Does the patient have a stroke diagnosis?: No Physical Exam Vital Signs: Vital Signs: Last Vital Signs Temp 98.2 F 12/13/22 15:01 Pulse 81 12/13/22 15:01 Resp 20 12/13/22 15:01 BP 119/73 12/13/22 15:01 Pulse Ox 97 12/13/22 15:01 O2 Del Method 12/13/22 15:01 BMI result Body Mass Index 38.4 Const: Other: Constitutional : Awake, interactive, not in distress Neck : Normal inspection, Supple Cardiovascular : RRR, no JVP, no lower extremity edema Respiratory : good bilateral air entry, no crackles, wheezes or rhonchi Gastrointestinal: soft, lax, Normal bowel sounds, Non tender Skin : Warm, Dry Neurological : Alert & oriented x3, No focal deficit , CN 2-12 within normal, no focal weakness upper and lower extremities. fluent speech DS: Data Data Completed and Pending Labs on day of discharge: Laboratory Results - last 24 hr 12/12/22 12/12/22 12/12/22 15:28 15:28 15:28 WBC 7.7 RBC 4.68 Hgb 11.9 L Hct 38.0 MCV 81.2 MCH 25.4 L MCHC 31.3 RDW 14.4 Plt Count 228 MPV 10.2 Immature Gran % (Auto) 0.3 Neut % (Auto) 69.2 Lymph % (Auto) 21.6 [place] % (Auto) 5.6 Eos % (Auto) 3.0 Baso % (Auto) 0.3 Lymph # (Auto) 1.7 [place] # (Auto) 0.4 Eos # (Auto) 0.2 Baso # (Auto) 0.0 Abs Immat Gran (auto) 0.02 Absolute Neuts (auto) 5.3 Absolute Nucleated RBC 0.000 Nucleated RBC % (auto) 0.0 PT INR Sodium 140 Potassium 4.0 Chloride 107 Carbon Dioxide 22 Anion Gap 15 BUN 14 Creatinine 0.81 Estim Creat Clear Calc 113.9 Estimated GFR > 60 POC Glucose Random Glucose 122 H Estimat Average Glucose Hemoglobin A1c % Calcium 9.1 Magnesium 2.0 Total Bilirubin 0.2 AST 12 ALT 12 Alkaline Phosphatase 105 Troponin I High Sens < 3.5 Total Protein 7.1 Albumin 3.8 Triglycerides 163 Cholesterol 168 LDL Cholesterol, Calc 98 HDL Cholesterol 38 Urine Color Urine Appearance Urine pH Ur Specific [employer] Urine Protein Urine Glucose (UA) Urine Ketones Urine Blood Urine Nitrite Ur Leukocyte Esterase COVID-19 (INES) COVID-19 Clin Com 12/12/22 12/12/22 12/12/22 15:28 15:28 15:28 WBC RBC Hgb Hct MCV MCH MCHC RDW Plt Count MPV Immature Gran % (Auto) Neut % (Auto) Lymph % (Auto) [place] % (Auto) Eos % (Auto) Baso % (Auto) Lymph # (Auto) [place] # (Auto) Eos # (Auto) Baso # (Auto) Abs Immat Gran (auto) Absolute Neuts (auto) Absolute Nucleated RBC Nucleated RBC % (auto) PT 11.0 INR 1.0 Sodium Potassium Chloride Carbon Dioxide Anion Gap BUN Creatinine Estim Creat Clear Calc Estimated GFR POC Glucose Random Glucose Estimat Average Glucose 114 Hemoglobin A1c % 5.6 Calcium Magnesium Total Bilirubin AST ALT Alkaline Phosphatase Troponin I High Sens Total Protein Albumin Triglycerides Cholesterol LDL Cholesterol, Calc HDL Cholesterol Urine Color Urine Appearance Urine pH Ur Specific [employer] Urine Protein Urine Glucose (UA) Urine Ketones Urine Blood Urine Nitrite Ur Leukocyte Esterase COVID-19 (INES) Negative COVID-19 Clin Com See Note 12/12/22 12/12/22 16:19 23:18 WBC RBC Hgb Hct MCV MCH MCHC RDW Plt Count MPV Immature Gran % (Auto) Neut % (Auto) Lymph % (Auto) [place] % (Auto) Eos % (Auto) Baso % (Auto) Lymph # (Auto) [place] # (Auto) Eos # (Auto) Baso # (Auto) Abs Immat Gran (auto) Absolute Neuts (auto) Absolute Nucleated RBC Nucleated RBC % (auto) PT INR Sodium Potassium Chloride Carbon Dioxide Anion Gap BUN Creatinine Estim Creat Clear Calc Estimated GFR POC Glucose 114 Random Glucose Estimat Average Glucose Hemoglobin A1c % Calcium Magnesium Total Bilirubin AST ALT Alkaline Phosphatase Troponin I High Sens Total Protein Albumin Triglycerides Cholesterol LDL Cholesterol, Calc HDL Cholesterol Urine Color Yellow Urine Appearance Clear Urine pH 6.5 Ur Specific [employer] 1.010 Urine Protein Negative Urine Glucose (UA) Negative Urine Ketones Negative Urine Blood Negative Urine Nitrite Negative Ur Leukocyte Esterase Negative COVID-19 (INES) COVID-19 Clin Com Imaging MRI - head: Radiologist's impression: ITS Impressions Head/Neck CTA 12/12/22 16:49 IMPRESSION: CT HEAD: No intracranial hemorrhage or large acute infarction. CTA NECK: No hemodynamically significant stenosis in the major arteries of the neck. CTA HEAD: 1. No large vessel occlusion or significant stenosis within the intracranial circulation. Additional findings: Severe spinal canal stenosis at C3-C4 largely related to ossification of the posterior longitudinal ligament. Additional multilevel high-grade spinal canal stenosis and high-grade neural foraminal stenosis is also demonstrated. Neurosurgical follow-up recommended for assessment of spondylotic myelopathy. Brain MRI 12/12/22 21:15 IMPRESSION: No acute infarct, mass lesion, intracranial hemorrhage, or evidence of hydrocephalus. Discharge Plan Discharge Patient Disposition: Home Health Service Discharge Diagnosis: Complicated Migraine Referrals: Brielle Ruiz MD [Primary Care Provider] - 1 Week Discharge Medications: New sumatriptan succinate 50 mg tablet 50 mg PO Q2-4H PRN (Reason: migraine headache) Qty: 14 2RF Rx Instructions: do not exceed 4 doses per 24 hrs Continued multivitamin Tablet 1 tab PO DAILY [employer] 45-3.75-50 mg Tablet,Chewable 3 tab PO WE clobetasol-emollient 0.05 % cream 1 appl topical BID 14 Days Qty: 30 0RF buspirone 5 mg tablet 5 mg PO TID Qty: 90 0RF ferrous fumarate 324 mg (106 mg iron) tablet 324 mg PO DAILY Qty: 90 1RF Discharge Orders: Discharge Order (Routine); Ordered 12/13/22 Ordered By: Sierra Hall Diet: Advance to usual diet Activity on Discharge: As tolerated Stand Alone Forms: Patient Portal Discharge page Care Plan Goals: Read below Health Concerns: Read below Plan of Treatment: Read below Assessment: You were admitted to the hospital for eval of left sided weakness and headache. brain images of CT and MRI were negative for any acute stroke. we believe your symptoms are a result of complicated migraine as you were seen by neurologist. seen by physical therapy team who recommended home PT Start Sumatriptan as needed for headache follow with neurology outpatient as needed w dr Reeves.
--- NOTE | 2022-12-13 16:06 | MHC.CM.PN ---
CM STILL ATTEMPTING TO SECURE A VNA FOR HOME SERVICES FOR PT [facility] UNABLE TO ACCEPT, [facility] CHECKING ON CAPACITY AND WILL LET CM KNOW HOWEVER WOULD NOT BE ABLE TO DO SOC UNTIL SUNDAY. CM WILL CONT TO FOLLOW.
[2022-12-13] MEDS: Atorvastatin Calcium 40 MG TABLET PO (21:45)
[2022-12-13] MEDS: 0.9 % Sodium Chloride Flush 3 ML SYRINGE IVFLUSH (21:46)
[2022-12-13] MEDS: Enoxaparin Sodium 40 MG/0.4 ML SYRINGE SUBCUT (21:46)
[2022-12-14 03:14] VITALS: BP 111/76; PULSE 98; RESP 16; TEMP 36.5; O2SAT 97
[2022-12-14 08:00] VITALS: BP 130/80; PULSE 71; RESP 16; TEMP 36.6; O2SAT 97
--- NOTE | 2022-12-14 08:35 | MHC.CM.PN ---
Addendum entered by Shavon Ji 12/14/22 14:20: [facility] FOR [facility] AND P.T. FOR SOC 12/17. MD AND PT AWARE AND BOTH AGREEABLE. Addendum entered by Shavon Ji 12/14/22 10:24: CORRECTION: HOME SERVICES HAVE BEEN RECOMMENDED, REFERRALS PLACED. AWAITING RESPONSE Original Note: DP: PT HAS BEEN MEDICALLY CLEARED FOR DC HOME, NO SERVICES. FAMILY WILL TRANSPORT
[2022-12-14] MEDS: busPIRone HCl 5 MG TABLET PO (09:02)
[2022-12-14] MEDS: Multivitamin TABLET 1 TAB PO (09:02)
[2022-12-14] MEDS: Aspirin Enteric Coated 81 MG TABLET.DR PO (09:02)
[2022-12-14] MEDS: Ferrous Sulfate 324 MG TABLET.DR PO (09:02)
[2022-12-14] MEDS: 0.9 % Sodium Chloride Flush 3 ML SYRINGE IVFLUSH (09:02)
[2022-12-14 12:00] VITALS: BP 133/79; PULSE 71; RESP 18; O2SAT 96
== END 2022-12-14 15:16 | disposition home health service (06) ==
LOC: HO.ED 18:38 → HO.EDOVER 19:33 → HO.IMC 23:52
PROVIDERS: Physician Assistant; Admitting Provider Physician Assistant; Emergency Provider Emergency Medicine; PCP Internal Medicine; Visit Provider Student in an Organized Health Care Education/Training Program
DX: G43.109 Migraine with aura, not intractable, without status migrainosus (principal); M47.812 Spondylosis without myelopathy or radiculopathy, cervical region; Z20.822 Contact with and (suspected) exposure to COVID-19; R53.1 Weakness; D50.9 Iron deficiency anemia, unspecified; M50.30 Other cervical disc degeneration, unspecified cervical region; M51.26 Other intervertebral disc displacement, lumbar region; E66.9 Obesity, unspecified; Z68.38 Body mass index [BMI] 38.0-38.9, adult; F41.8 Other specified anxiety disorders
CPT/HCPCS: 36415; 70496; 70498; 70551; 80053; 80061; 81003; 82947; 83036; 83735; 84484; 85025; 85610; 87635; 93005; 96372; 96374; 97162; 99222; 99285; J1650; J2270; Q9967

== ENCOUNTER → 2023-01-17 10:38 | Outpatient (BNVA) | payer OTHER, SELFPAY | PROVIDERS: PCP Internal Medicine; Visit Provider Physician Assistant Surgical ==

== ENCOUNTER → 2023-01-24 11:35 | Outpatient (BNVA) | payer OTHER, SELFPAY | PROVIDERS: PCP Internal Medicine; Visit Provider Physician Assistant | DX: Z01.818 Encounter for other preprocedural examination (principal); K59.09 Other constipation | CPT/HCPCS: 99202 ==

== ENCOUNTER → 2023-02-02 12:58 | Outpatient (BNVA) | payer OTHER, SELFPAY | PROVIDERS: PCP Internal Medicine; Visit Provider Physician Assistant Surgical | DX: E66.9 Obesity, unspecified (principal); R40.0 Somnolence; Z68.39 Body mass index [BMI] 39.0-39.9, adult | CPT/HCPCS: 99202 ==

== ENCOUNTER → 2023-02-28 10:06 | Outpatient (REF) | payer OTHER, SELFPAY | LOC: HO.SL 10:06 | PROVIDERS: Visit Provider Physician Assistant Surgical | DX: G47.33 Obstructive sleep apnea (adult) (pediatric) (principal); R06.83 Snoring; R40.0 Somnolence; E66.9 Obesity, unspecified | CPT/HCPCS: 95806 ==

== ENCOUNTER 2023-03-02 11:12 | Outpatient (REF) | payer OTHER, SELFPAY ==
[2023-03-02 13:43] LABS: MANUAL DIFF FLAG NO
[2023-03-02 13:54] LABS: Basophils Percent Auto 0.5 % (0-2); Eosinophils Absolute Auto 0.3 X10*3/uL (0.0-0.4); Eosinophils Percent Auto 3.7 % (0-4); Hematocrit 38.6 % (37.0-47.0); Hemoglobin 12.5 g/dl (12.0-16.0); Imm Gran Abs Auto 0.02 X10*3/uL (0.00-0.03); Imm Gran Pct Auto 0.2 % (0.0-0.4); Lymphocytes Absolute Auto 1.8 X10*3/uL (1.2-4.9); Lymphocytes Percent Auto 21.3 % (20-40); Mean Corpuscular HGB Conc 32.4 g/dl (31.0-35.0); Mean Corpuscular Hemoglobin 27.1 pg (27.0-33.0); Mean Corpuscular Volume 83.7 fL (80.0-98.0); Mean Platelet Volume 11.2 fL (9.4-12.3); Monocytes Absolute Auto 0.5 X10*3/uL (0.1-1.2); Monocytes Percent Auto 5.8 % (2-11); Neutrophils Absolute Auto 5.9 x10*3/uL (2.0-8.3); Neutrophils Percent Auto 68.5 % (45-73); Platelet Count 237 X10*3/uL (160-400); Red Blood Count 4.61 X10*6/uL (4.20-5.50); Red Cell Distribution Width 14.5 % (11.0-16.0); White Blood Count 8.6 X10*3/uL (4.8-10.8)
[2023-03-02 14:07] LABS: Iron 48 mcg/dL (30-160); Percent Iron Saturation 16 % (15-50); Total Iron Binding Capacity 295 mcg/dL (228-428); Unsaturated Iron Binding 247 ug/dL
== END 2023-03-02 11:13 | disposition home or self-care (01) ==
LOC: HO.HMGCLDS 11:12
PROVIDERS: PCP Internal Medicine; Visit Provider Internal Medicine
DX: D64.9 Anemia, unspecified (principal)
CPT/HCPCS: 36415; 83540; 85025

== ENCOUNTER 2023-06-23 09:21 | Outpatient (AMB) | payer OTHER, SELFPAY ==
--- NOTE | 2023-06-23 10:08 | AM.OFFWIN_ITS ---
Intake Vital Signs 06/23/23 10:09 Height 5 ft 8.5 in Weight 256 lb BMI 38.4 BP 122/78 Blood Pressure Location Lt brachial Position Sitting Pulse 77 Pulse Source Pulse Oximeter Pulse Oximetry (%) 97 Oxygen Delivery Method Room Air Intake Visit Reasons: EP, Right foot pain Intake Note: Patient here for right foot pain, she believes its her Achilles tendon which has been bothersome for about 1 week. Patient Tobacco Use Status: Never used Tobacco Allergies naproxen [NAPROXEN] Allergy (Mild, Verified 06/23/23 10:22) HEART PALPATATIONS cyclobenzaprine [From FLEXERIL] Allergy (Unknown, Verified 06/23/23 10:22) SWELLING acetaminophen [From PERCOCET] Adverse Reaction (Unknown, Verified 06/23/23 10:22) VOMITING Flexeril Adverse Reaction (Unknown, Verified 06/23/23 10:22) heart palp oxycodone [From PERCOCET] Adverse Reaction (Unknown, Verified 06/23/23 10:22) VOMITING Hydrocodone-Ibuprofen Adverse Reaction (Unknown, Uncoded 06/23/23 10:22) stomach upset milk Adverse Reaction (Unknown, Uncoded 06/23/23 10:22) stomach upset Medication List - Last Reconciled 06/23/23 by Shavon Kowalski, NILDA albuterol 90 mcg/actuation mcg inhalation bisacodyl (Dulcolax (bisacodyl)) 10 mg (2 x 5 mg) PO ONCE 1 day buspirone 5 mg PO TID cane As directed clobetasol-emollient 0.05 % 1 appl topical BID 2 weeks ferrous fumarate 324 mg PO DAILY multivitamin 1 tab PO DAILY polyethylene glycol 3350 (Miralax) 238 grams PO ONCE PRN 1 day sumatriptan succinate 50 mg PO Q2-4H PRN topiramate 25 mg PO BID vit C-zinc citrate-elderberry 45-3.75-50 mg (Elderberry Protein Bar Health) 3 tabs PO WE Do you need a note to return to daycare/school/sports/work: Yes HPI HPI Comments History of Present Illness Details 52-year-old female presents today for si ck visit complaining of right foot pain x1 week, She reports pain started in right lower calf, radiating down to right heel, unable to walk on right foot due to severe pain; pain is lessen with rest, and worsens with activity. She describes right heel pain as constant, burning pressure with stiffness and swelling. She denies known injury, fall or trauma. She reports history of previous stroke w/ left sided weakness, ambulates with a cane and has been putting all her wait on right lower leg and foot. She denies fever, chills, CP, SOB, SOB, dizziness, abdominal pain, changes in bowels or bladder. [facility] Medical History Snoring Encounter for screening colonoscopy Cervical spondylosis Complicated migraine Left-sided weakness Brain TIA Eczema of lower extremity Anxiety and depression Normocytic normochromic anemia Heavy menstrual bleeding Bulging of lumbar intervertebral disc Left ankle pain Constipation Obesity (BMI 30-39.9) Navel cellulitis Hallux valgus (acquired) Degenerative disc disease, cervical History of gallstones Impaired fasting glucose Depression Surgical History Status post section History of bilateral tubal ligation History of bunionectomy of both great toes History of laparoscopic cholecystectomy History of cervical discectomy History of bunionectomy Family History Mother Hypertension Depression Diabetes mellitus Hypercholesteremia SUZIE (obstructive sleep apnea) COPD (chronic obstructive pulmonary disease) Substance use disorder Mental health disorder Sister Breast cancer Uterine cancer Mental health disorder Maternal Grandmother Mental health disorder Maternal Aunt Mental health disorder Social History Housing: Apartment Alcohol intake: never Patient Tobacco Use Status: Never used Tobacco e-Cigarette/Vaping Use: Never Used service: No Current occupational status: employed Cognitive needs: No Hearing needs: No Vision needs: Yes Review of Systems Const All systems reviewed & are unremarkable except as noted in HPI and below Physical Exam Vital Signs: Last Vital Signs Pulse 77 06/23/23 10:09 BP 122/78 06/23/23 10:09 Pulse Ox 97 06/23/23 10:09 Oxygen Delivery Method Room Air 06/23/23 10:09 BMI result Body Mass Index 38.4 Const General: healthy appearing and well developed Orientation/consciousness: patient oriented x3 Limitations: ambulation with cane HEENT Head: Yes normal to inspection, Yes normocephalic and Yes atraumatic Ears: hearing grossly normal bilaterally Mouth: moist mucous membranes Eyes General: appearance normal, both eyes and all related structures Chest Chest palpation & inspection: normal inspection of the chest Resp Effort & Inspection: normal respiratory effort, no cough, no respiratory distress and not tachypneic Auscultation: clear to auscultation bilaterally Cardio Rate: regular rate Rhythm: regular rhythm Heart sounds: S1 normal heart sound present and S2 normal heart sound present Peripheral pulses: Peripheral pulses 2+ throughout GI Palpation (GI): Soft to palpation, nontender and hepatosplenomegaly present Auscultation: normal bowel sounds Skin General skin exam: no rashes or lesions noted and turgor normal Neuro General: patient oriented x3 Extrem Other: Right heel painful to touch, achilles tendon edema +2, no erythema, +1 DP & PT pulses. Results Reviewed Results Reviewed: Ordering Physician: Shavon Kowalski CNP Date of Service: 06/23/23 Procedure(s): XR ankle RT min 3V Accession Number(s): [id number] cc: Brielle Ruiz MD; Shavon Kowalski CNP~ EXAMINATION: XR ANKLE, RIGHT CLINICAL INFORMATION: Achilles tendinitis COMPARISON: None available. TECHNIQUE: AP, lateral, and mortise views of the right ankle. FINDINGS: Bone alignment is normal. No fracture or dislocation. The ankle mortise is normal. Large calcaneal spurs. Soft tissue swelling and soft tissue calcification of the Achilles tendon insertion to the calcaneus. XR/XR ankle RT min 3V IMPRESSION: Large calcaneal spurs. Soft tissue swelling and calcification of the Achilles tendon insertion to the calcaneus Assessment & Plan Assessment & Plan (1) Calcific Achilles tendinitis of right lower extremity: Code(s): M65.28 - Calcific tendinitis, other site Plan: Xray of right ankle revealed bone spurs,arthritis of right heel, soft tissue swelling and soft tissue calcification of the Achilles tendon insertion to the calcaneus. Immobilization boot applied to right heel to reduce discomfort; encouraged to rest foot and limit pressure to right heel over the next 5 days. Will f/u with PCP for referral to Orthopedic footwear machinery instructor for further treatment, or physical therapy for stretching and strengthening exercises to promote heeling and strengthening to achilles tendon. Recommended Orthotic devices, shoe insert or wedge that slightly elevates your heel can relieve strain on the tendon. Ibuprofen 800 mg po q 8hrs for pain control, may alternate with acetaminophen. Apply ice packs to achilles tendon area 3-4 times a day. Encouraged to return to office for any worsening or unrelieved symptoms. Orders: Orders XR ankle RT min 3V 06/23/23 M76.60 - Achilles tendinitis, unspecified leg Medications: New ibuprofen 800 mg PO Q8H 5 days PRN 15 tabs 0RF pain M65.28 - Calcific tendinitis, other site Coding Level of Care Code Est Pt Level 4 (57290) Diagnoses Calcific Achilles tendinitis of right lower extremity M65.28
[2023-06-23 10:09] VITALS: BP 122/78; PULSE 77; O2SAT 97; BMI 38.4
== END 2023-06-23 11:28 | disposition home or self-care (01) ==
PROVIDERS: PCP Internal Medicine; Visit Provider Nurse Practitioner Acute Care
DX: M65.28 Calcific tendinitis, other site (principal)
CPT/HCPCS: 99051; 99214

== ENCOUNTER 2023-06-23 10:36 | Outpatient (REF) | payer OTHER, SELFPAY ==
--- NOTE | ~2023-06-23 | XR_ITS ---
EXAMINATION: XR ANKLE, RIGHT CLINICAL INFORMATION: Achilles tendinitis COMPARISON: None available. TECHNIQUE: AP, lateral, and mortise views of the right ankle. FINDINGS: Bone alignment is normal. No fracture or dislocation. The ankle mortise is normal. Large calcaneal spurs. Soft tissue swelling and soft tissue calcification of the Achilles tendon insertion to the calcaneus. XR/XR ankle RT min 3V IMPRESSION: Large calcaneal spurs. Soft tissue swelling and calcification of the Achilles tendon insertion to the calcaneus
== END 2023-06-23 10:37 | disposition home or self-care (01) ==
LOC: HO.HMGCX 10:36
PROVIDERS: PCP Internal Medicine; Visit Provider Nurse Practitioner Acute Care
DX: M76.61 Achilles tendinitis, right leg (principal)
CPT/HCPCS: 73610

== ENCOUNTER 2023-06-25 09:49 | Outpatient (AMB) | payer OTHER, SELFPAY ==
--- NOTE | 2023-06-25 09:55 | A.OFFPC_ITS ---
Intake Visit Reasons: foot pain follow up Intake Note: patient is here today for right foot pain F/U Allergies naproxen [NAPROXEN] Allergy (Mild, Verified 06/25/23 10:24) HEART PALPATATIONS cyclobenzaprine [From FLEXERIL] Allergy (Unknown, Verified 06/25/23 10:24) SWELLING acetaminophen [From PERCOCET] Adverse Reaction (Unknown, Verified 06/25/23 10:24) VOMITING Flexeril Adverse Reaction (Unknown, Verified 06/25/23 10:24) heart palp oxycodone [From PERCOCET] Adverse Reaction (Unknown, Verified 06/25/23 10:24) VOMITING Hydrocodone-Ibuprofen Adverse Reaction (Unknown, Uncoded 06/25/23 10:24) stomach upset milk Adverse Reaction (Unknown, Uncoded 06/25/23 10:24) stomach upset Medication List - Last Reconciled 06/25/23 by Brielle Ruiz MD albuterol 90 mcg/actuation mcg inhalation bisacodyl (Dulcolax (bisacodyl)) 10 mg (2 x 5 mg) PO ONCE 1 day buspirone 5 mg PO TID cane As directed clobetasol-emollient 0.05 % 1 appl topical BID 2 weeks ferrous fumarate 324 mg PO DAILY ibuprofen 800 mg PO Q8H PRN 5 days multivitamin 1 tab PO DAILY polyethylene glycol 3350 (Miralax) 238 grams PO ONCE PRN 1 day sumatriptan succinate 50 mg PO Q2-4H PRN topiramate 25 mg PO BID vit C-zinc citrate-elderberry 45-3.75-50 mg (Elderberry Immune Health) 3 tabs PO WE Tobacco use date assessed: 06/25/23 Dental Screening Dental Screen Date: 06/25/23 Did you have a dental visit in the last 12 months?: Yes Did you have a dental problem in the last 6 months where you did not have access to dental care?: No Was dental information given to patient?: Patient has dentist HPI foot pain follow up HPI Details 52-year-old lady here for follow-up afte r recent walk-in visit, complaining of sudden onset of severe pain in her right heel which has been present now for 1 week. Her pain started in right lower calf, radiating down to right heel, unable to walk on right foot due to severe pain; pain resolves with rest, and worsens with activity. She describes right heel pain as constant, burning pressure with stiffness and swelling. She denies known injury, fall or trauma. Currently takes ibuprofen, applying Biofreeze, which affords only temporary relief. X-ray of right foot showed large calcaneal spurs, soft tissue swelling and calcification of the Achilles tendon insertion to the calcaneus . 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 Patient however wants to withdraw from her studies on this semester due to difficulty concentrating and keeping her focus because of constant pain in her right foot. Would like a letter to [employer] informing her of her desire to withdraw from the semesters classes. She also would like a work note to give to [employer], as she is unable to stand or walk due to severe pain. [facility] Medical History (Updated 06/25/23 @ 10:36 by Brielle Riuz MD) Heel spur Snoring Encounter for screening colonoscopy Cervical spondylosis Complicated migraine Left-sided weakness Brain TIA Eczema of lower extremity Anxiety and depression Normocytic normochromic anemia Heavy menstrual bleeding Bulging of lumbar intervertebral disc Left ankle pain Constipation Obesity (BMI 30-39.9) Navel cellulitis Hallux valgus (acquired) Degenerative disc disease, cervical History of gallstones Impaired fasting glucose Depression Surgical History Status post section History of bilateral tubal ligation History of bunionectomy of both great toes History of laparoscopic cholecystectomy History of cervical discectomy History of bunionectomy Family History Mother Hypertension Depression Diabetes mellitus Hypercholesteremia SUZIE (obstructive sleep apnea) COPD (chronic obstructive pulmonary disease) Substance use disorder Mental health disorder Sister Breast cancer Uterine cancer Mental health disorder Maternal Grandmother Mental health disorder Maternal Aunt Mental health disorder Social History Housing: Apartment Alcohol intake: never Patient Tobacco Use Status: Never used Tobacco e-Cigarette/Vaping Use: Never Used service: No Current occupational status: employed Cognitive needs: No Hearing needs: No Vision needs: Yes Questionnaire PHQ-9 Over the last 2 weeks, how often have you been bothered by any of the following problems? 1. Little interest or pleasure in doing things: nearly every day 2. Feeling down, depressed, or hopeless: several days 3. Trouble falling or staying asleep, or sleeping too much: several days 4. Feeling tired or having little energy: nearly every day 5. Poor appetite or overeating: nearly every day 6. Feeling bad about yourself - or that you are a failure or have let yourself or your family down: several days 7. Trouble concentrating on things, such as reading the newspaper or watching television: nearly every day 8. Moving or speaking so slowly that other people could have noticed. Or the opposite - being so fidgety or restless that you have been moving around a lot more than usual: nearly every day 9. Thoughts that you would be better off or of hurting yourself in some way: not at all Total score: 18 Depression Screening Interpretation: Positive Depression Screening Follow-up: Existing condition and In treatment 31227 - PHQ-9 Billing: Yes Source: Developed by Drs. Kenneth Rhodes, Hoda Angela, Jay Dunn and colleagues, with an educational hiwot from [employer]. Thrive Questionnaire Date Thrive assessed: 06/25/23 I am a: Patient What is your living situation today?: I have a steady place to live Within the past 12 months, did the food you bought not last and you didn't have the money to get more?: Never true Within the past 12 months, did you worry whether your food would run out before you got money to buy more?: Never true Do you have trouble paying for medicines?: No Do you have trouble getting transportation to medical appointments?: Yes Do you have trouble paying your heating and electricity bill?: No Do you have trouble taking care of your child, family member or friend?: No Do you have trouble with day-to-day activities such as bathing, preparing meals, shopping, managing finances, etc.?: Yes Are you currently unemployed and looking for a job?: No Are you interested in more education?: No AUDIT C Alcohol Use Questionnaire (AUDIT-C) 1. How often do you have a drink containing alcohol?: Monthly or less 2. How many drinks containing alcohol do you have on a typical day when you are drinking?: 1 or 2 Total Score: 1 BRENDON-7 AMB Questionnaire BRENDON-7 Date BRENDON - 7 assessed: 06/25/23 Feeling nervous, anxious, or on edge: 3 = Nearly every day Not being able to stop or control worryin = Several days Worrying too much about different things: 3 = Nearly every day Trouble relaxin = Nearly every day Being so restless that it is hard to sit still: 3 = Nearly every day Becoming easily annoyed or irritable: 3 = Nearly every day Feeling afraid as if something awful might happen: 0 = Not at all Total BRENDON-7 score (0-4 normal; 5-9 mild; 10-14 moderate; 15-21 severe): 16 Source: Developed by Drs. Kenneth Rhodes, Hoda Angela, Jay Dunn and colleagues, with an educational hiwot from [employer]. BRENDON-7 Assessment Billing BRENDON-7 Assessment Tool: BRENDON-7 Assessment 37125 Review of Systems Const All systems reviewed & are unremarkable except as noted in HPI and below Physical exam (Primary Care) Tobacco/Smoking Status: Tobacco use Status Tobacco use date assessed 06/25/23 06/25/23 10:09 Patient Tobacco Use Status Never used Tobacco 06/25/23 09:55 e-Cigarette/Vaping Use Never Used 06/25/23 09:55 PHQ-9: PHQ-9 Score PHQ-9: Total score 18 06/25/23 10:09 Depression Screening Interpretation: Positive Depression Screening Follow-up: Existing condition and In treatment Thrive Assessment: Date of Thrive Assessment Date Thrive assessed 06/25/23 06/25/23 10:09 Const General: comfortable, no acute distress, alert and awake Nutritional Appearance: obese Orientation/consciousness: patient oriented x3 Limitations: ambulation with cane (And the immobilizer boot on right) Neck Neck: Yes full ROM, Yes no lymphadenopathy and Yes supple Skin General skin exam: no rashes or lesions noted Neuro General: patient oriented x3, moves all extremities, Normal light touch and pain sensation and no focal motor deficits Gait exam (Neuro): Antalgic gait present Extrem Other: Tenderness on palpation over right heel and insertion of right Achilles tendon, slight swelling noted over right heel and Achilles area. Patient is right foot is in an immobilizer boot. Assessment and Plan Assessment & Plan (1) Calcific Achilles tendinitis of right lower extremity: Code(s): M65.28 - Calcific tendinitis, other site Plan: Advised resting of joint, elevate foot as much as possible, apply ice for 15 minutes 3 times a day as needed. May take ibuprofen 400 mg every 8 hours as needed may alternate Tylenol arthritis. Wear heel cups/padding to relieve pressure on right heel. May try applying Salonpas patch to affected area every 12 hours as needed, Orthopedic consult ordered stat. Work note given excusing patient from work 06/25-03/16, and a letter was written to [facility] requesting to allow patient to withdraw from this years semester as she has difficulty keeping her focus and concentration her studies due to constant pain. (2) Pain in Achilles tendon: Code(s): M76.60 - Achilles tendinitis, unspecified leg (3) Heel spur: Code(s): M77.30 - Calcaneal spur, unspecified foot Qualifiers: Laterality: right Qualified Code(s): M77.31 - Calcaneal spur, right foot Orders: Referrals Orthopedics Referral M65.28 - Calcific tendinitis, other site, M77.30 - Calcaneal spur, unspecified foot Coding Level of Care Code Est Pt Level 3 (57858) Diagnoses Calcific Achilles tendinitis of right lower extremity M65.28 Pain in Achilles tendon M76.60 Calcaneal spur of right foot M77.31 Laterality: right Additional Codes BRENDON-7 Assessment Billing - BRENDON-7 Assessment Tool: BRENDON-7 Assessment [id number] ([id number])
== END 2023-06-25 12:29 | disposition home or self-care (01) ==
PROVIDERS: PCP Internal Medicine; Visit Provider Internal Medicine
DX: M65.28 Calcific tendinitis, other site (principal); M76.60 Achilles tendinitis, unspecified leg; M77.31 Calcaneal spur, right foot
CPT/HCPCS: 99213

== ENCOUNTER → 2023-08-10 13:45 | Outpatient (BNV) | payer OTHER, SELFPAY | PROVIDERS: PCP Internal Medicine; Visit Provider Radiology Diagnostic Radiology | DX: Z12.31 Encounter for screening mammogram for malignant neoplasm of breast (principal) | CPT/HCPCS: 77063; 77067 ==

== ENCOUNTER 2023-08-10 13:52 | Outpatient (REF) | payer OTHER, SELFPAY ==
--- NOTE | ~2023-08-10 | MM_ITS ---
EXAMINATION: MM SCREENING DIGITAL BREAST TOMOSYNTHESIS, BILATERAL CLINICAL INFORMATION: Screening. Asymptomatic. COMPARISON: Mammography: This study is compared with prior exams dating back to 2018. TECHNIQUE: Digital breast tomosynthesis is performed in both the craniocaudal and mediolateral oblique views along with computer-aided detection (CAD). Synthesized 2D images are generated from the tomosynthesis. FINDINGS: There are scattered areas of fibroglandular density (ACR BI-RADS breast composition Category b). There is a focal asymmetry in the of the left breast, just lateral to the posterior nipple line, which warrants additional mammographic and targeted sonographic evaluation. In the right breast, there are no significant masses, abnormal calcifications, or other abnormalities. MM/MM tomosynthesis screening BI IMPRESSION: Focal asymmetry of the left breast warrants additional mammographic and targeted sonographic evaluation. No mammographic signs of malignancy right breast. ASSESSMENT: BI-RADS BI-RADS 0 - Incomplete: Needs additional Imaging. RECOMMENDATION: 1. Additional views of the left breast 2. Targeted ultrasound if warranted after review of the additional views. 3. Radiology department staff will contact the patient for additional imaging. Additional Imaging required This examination should not preclude the clinical evaluation of a suspicious palpable abnormality. This patient's information was entered into a reminder system with a target due date for their next mammogram.
== END 2023-08-10 13:53 | disposition home or self-care (01) ==
LOC: HO.MAMMO 13:52
PROVIDERS: PCP Internal Medicine; Visit Provider Internal Medicine
DX: Z12.31 Encounter for screening mammogram for malignant neoplasm of breast (principal)
CPT/HCPCS: 77063; 77067

== ENCOUNTER 2023-09-08 13:04 | Outpatient (AMB) | payer OTHER, SELFPAY ==
--- NOTE | 2023-09-08 13:34 | AM.OFFWIN_ITS ---
Intake Vital Signs 09/08/23 13:37 Weight 110.677 kg BP 118/74 Blood Pressure Location Rt brachial Position Sitting Pulse 80 Pulse Source Pulse Oximeter Temp 97.2 F Temp Source Temporal Artery Scan Pulse Oximetry (%) 97 Oxygen Delivery Method Room Air Intake Visit Reasons: EP bronchitis headache Intake Note: Patient here because shes been sick since 07/18 which started off with chest pain so she started to use her inhaler but now it has worsened. She is now experiencing right sided lung from coughing, headache and fatigued. Patient Tobacco Use Status: Never used Tobacco Allergies naproxen [NAPROXEN] Allergy (Mild, Verified 09/08/23 13:37) HEART PALPATATIONS cyclobenzaprine [From FLEXERIL] Allergy (Unknown, Verified 09/08/23 13:37) SWELLING acetaminophen [From PERCOCET] Adverse Reaction (Unknown, Verified 09/08/23 13:37) VOMITING Flexeril Adverse Reaction (Unknown, Verified 09/08/23 13:37) heart palp oxycodone [From PERCOCET] Adverse Reaction (Unknown, Verified 09/08/23 13:37) VOMITING Hydrocodone-Ibuprofen Adverse Reaction (Unknown, Uncoded 09/08/23 13:37) stomach upset milk Adverse Reaction (Unknown, Uncoded 09/08/23 13:37) stomach upset Do you need a note to return to daycare/school/sports/work: No HPI HPI Comments History of Present Illness Details 53-year-old who presents with fatigue, m alaise, myalgias, cough, subjective fevers and chills that started 07/18/23 has been fluctuating improving and then getting worse..? No known sick contacts.? Denies chest pain, shortness of breath, nausea, vomiting, abdominal pain, headache vision change, dizziness, weakness, changes in bowel or urinary habits Physical exam benign History and physical exam concerning for viral illness versus bronchitis ( most likely) versus flu versus COVID versus RSV vs pna.? Unlikely ACS, dissection, pulmonary embolism, acute respiratory distress Plan at this time will discharge patient home with antibiotics, prednisone and albuterol.? Educated patient on diagnosis and treatment plan, answered all question, patient verbalizes understanding.? At this time patient will be discharged home, advised to return with new or worsening symptoms.? Educated on worrisome signs and symptoms and when to return.? At this time I feel comfortable discharge home. [facility] Medical History Heel spur Snoring Encounter for screening colonoscopy Cervical spondylosis Complicated migraine Left-sided weakness Brain TIA Eczema of lower extremity Anxiety and depression Normocytic normochromic anemia Heavy menstrual bleeding Bulging of lumbar intervertebral disc Left ankle pain Constipation Obesity (BMI 30-39.9) Navel cellulitis Hallux valgus (acquired) Degenerative disc disease, cervical History of gallstones Impaired fasting glucose Depression Surgical History Status post section History of bilateral tubal ligation History of bunionectomy of both great toes History of laparoscopic cholecystectomy History of cervical discectomy History of bunionectomy Family History Mother Hypertension Depression Diabetes mellitus Hypercholesteremia SUZIE (obstructive sleep apnea) COPD (chronic obstructive pulmonary disease) Substance use disorder Mental health disorder Sister Breast cancer Uterine cancer Mental health disorder Maternal Grandmother Mental health disorder Maternal Aunt Mental health disorder Social History Housing: Apartment Alcohol intake: never Patient Tobacco Use Status: Never used Tobacco e-Cigarette/Vaping Use: Never Used service: No Current occupational status: employed Cognitive needs: No Hearing needs: No Vision needs: Yes Review of Systems Const Details: Constitutional : No Weight loss, + Fever, + Chills, + Fatigue, + Malaise ENT/Mouth : No sore throat, No Rhinorrhea Eyes: No Eye Pain, No Swelling, No Redness Cardiovascular : No Chest Pain, No SOB, No Dyspnea on Exertion, No Orthopnea, No Edema, No Palpitations Respiratory : + Cough, No Sputum, No Wheezing Gastrointestinal : No Nausea, No Vomiting, No Diarrhea, No Constipation, No abdominal Pain, No Hematochezia, No Melena Genitourinary : No Dysuria, No Urinary Frequency, No Hematuria, Musculoskeletal : No joint pain, No Myalgias, No Joint Swelling Skin : No Skin Lesions, No rash Neuro : No Weakness, No Numbness, No Dizziness, No Headache Psych : No Anxiety/Panic, No Depression All other systems reviewed and are negative All systems reviewed & are unremarkable except as noted in HPI and below Physical Exam Vital Signs: Stable vital signs 97% even after ambulation Appearance: Alert.? Oriented X3.? No acute distress.? Head: Normocephalic, atraumatic, no step-offs or deformities Eyes: Pupils equal, round and reactive to light.? ENT: Pharynx normal.? Neck: Normal inspection.? Neck supple.? CVS: Normal heart rate and rhythm.? Pulses normal.? Respiratory: No respiratory distress.? Breath sounds normal.? Abdomen: Soft and nontender.? Skin: Skin warm and dry.? Normal skin color.? Normal skin turgor.? Extremities: No lower extremity edema.? No calf ttp. 5/5 strength to bilateral upper and lower extremities Back: No midline tenderness, no C-spine tenderness, full range of motion, no CVA tenderness bilaterally Neuro: Oriented X 3.? No motor deficit.? No sensory deficit. CN 2-12 intact Assessment & Plan Assessment & Plan (1) Bronchitis: Code(s): J40 - Bronchitis, not specified as acute or chronic Plan Take your medications as prescribed. If you were prescribed antibiotics today, it is important that you take your medication to their entirety, do not skip any doses, do not finish them early. Follow-up with your primary care provider this week. Return to the emergency department with new or worsening symptoms. Such as fevers, chills, chest pain, shortness of breath, nausea, vomiting, dizziness, headache, vision changes, lethargy In case of emergency call 911 Medications: New doxycycline hyclate 100 mg PO BID 7 days 14 caps 0RF prednisone 40 mg (2 x 20 mg) PO DAILY 5 days 10 tabs 0RF albuterol sulfate 90 mcg/actuation 2 puffs inhalation Q6H PRN 6.7 grams 0RF shortness of breath or wheezing Coding Level of Care Code Est Pt Level 3 (42697) Diagnoses Bronchitis J40
[2023-09-08 13:37] VITALS: BP 118/74; PULSE 80; TEMP 36.2; O2SAT 97
== END 2023-09-08 13:55 | disposition home or self-care (01) ==
PROVIDERS: PCP Internal Medicine; Visit Provider Physician Assistant
DX: J40 Bronchitis, not specified as acute or chronic (principal)
CPT/HCPCS: 99051; 99213

== ENCOUNTER 2023-09-12 13:28 | Outpatient (REF) | payer OTHER, SELFPAY ==
--- NOTE | ~2023-09-12 | MM_ITS ---
EXAMINATION: MM DIAGNOSTIC DIGITAL BREAST TOMOSYNTHESIS, LEFT US BREAST LIMITED, LEFT MAMMOGRAPHY: CLINICAL INFORMATION: Evaluate focal asymmetry left breast just lateral to the posterior nipple line seen on screening exam. COMPARISON: Mammography: July 1723, 07/20/2022, 07/19/2021, 03/19/2019. TECHNIQUE: Digital breast tomosynthesis is performed including left full-field mediolateral view, and 3-D spot compression left MLO view, and spot compression CC view x2. FINDINGS: The breasts are heterogeneously dense, which may obscure small masses (ACR BI-RADS breast composition Category c). Within the left breast, there are at least 3 circumscribed isodense masses, the largest at approximately 2:00, anterior depth, with smaller seen at the 12:00 axis, as well as a calcified oil cyst seen in the inferoposterior left breast, and a focus of fairly classic fat necrosis along the nipple line on the left ML projection. These findings will be evaluated by ultrasound. ULTRASOUND: CLINICAL INFORMATION: Evaluate asymmetric densities/masses seen in the anterior left breast. COMPARISON: None TECHNIQUE: Targeted sonographic evaluation was performed using a high frequency linear transducer. Selected archived documentation. FINDINGS: LEFT BREAST: At the 2:00 axis, 2 cm from the nipple, there is a large cyst measuring 4.8 x 3.6 x 1.5 cm in diameter. Just anterior to this is a small simple cyst measuring 6 mm in diameter. At the 12:00 axis, 2 cm from the nipple, there are 2 simple present, the larger measuring 1.6 cm in diameter, the smaller measuring 0.6 cm in diameter. There is no abnormal shadowing. There is no mass. No additional cystic findings. No edema within the soft tissue planes. MM/MM tomosynthesis added views L IMPRESSION: There are no findings suspicious for malignancy in the left breast. There are benign simple cysts, a focus of fat necrosis, and an oil cyst in the inferior left breast. These are benign. Recommend the patient resume routine annual screening. OVERALL ASSESSMENT: Mammography: BI-RADS 2 - Benign Findings Ultrasound: BI-RADS 2 - Benign Findings RECOMMENDATION: 1 year F/U Results were provided to the patient at time of visit by the technologist. This patient's information was entered into a reminder system with a target due date for their next mammogram.
== END 2023-09-12 13:29 | disposition home or self-care (01) ==
LOC: HO.MAMMO 13:28
PROVIDERS: PCP Internal Medicine; Visit Provider Internal Medicine
DX: N64.89 Other specified disorders of breast (principal)
CPT/HCPCS: 76642; 77061; 77065

== ENCOUNTER → 2023-09-12 13:30 | Outpatient (BNV) | payer OTHER, SELFPAY | PROVIDERS: PCP Internal Medicine; Visit Provider Radiology Diagnostic Radiology | DX: N64.89 Other specified disorders of breast (principal) | CPT/HCPCS: 76642; 77061; 77065 ==

== ENCOUNTER 2023-09-21 14:01 | Outpatient (AMB) | payer OTHER, SELFPAY ==
[2023-09-21 14:07] VITALS: BP 110/66; BMI 36.9
--- NOTE | 2023-09-21 14:07 | MHC.OFFVIS ---
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: No Information Interpreted: non-clinical & clinical Sprayer Machine: Sprayer Machine Present (Tammy Gomez DEVON) Accompanied by: Self / Same As Patient Allergies naproxen [NAPROXEN] Allergy (Mild, Verified 09/21/23 14:08) HEART PALPATATIONS cyclobenzaprine [From FLEXERIL] Allergy (Unknown, Verified 09/21/23 14:08) SWELLING acetaminophen [From PERCOCET] Adverse Reaction (Unknown, Verified 09/21/23 14:08) VOMITING Flexeril Adverse Reaction (Unknown, Verified 09/21/23 14:08) heart palp oxycodone [From PERCOCET] Adverse Reaction (Unknown, Verified 09/21/23 14:08) VOMITING Hydrocodone-Ibuprofen Adverse Reaction (Unknown, Uncoded 09/21/23 14:08) stomach upset milk Adverse Reaction (Unknown, Uncoded 09/21/23 14:08) stomach upset Post menopausal: Yes HPI HPI Comments History of Present Illness Details She is a premenopausal woman presenting for her annual obstetrician and gynaecologist examination. She is doing well with no concerns. Attempting to eat a healthy diet with calcium and vitamin D and stays active with exercise. Currently sexually active. Denies any vaginal dryness or irritation. Regular menses, x 3d. She declines STD testing. Last pap smear; 2021. Last mammogram; 2022. Colonoscopy is not UTD, planning to have it done in 2023. Denies any family history of ovarian or colon cancer. FH breast ca-sister. [facility] Medical History Heel spur Snoring Encounter for screening colonoscopy Cervical spondylosis Complicated migraine Left-sided weakness Brain TIA Eczema of lower extremity Anxiety and depression Normocytic normochromic anemia Heavy menstrual bleeding Bulging of lumbar intervertebral disc Left ankle pain Constipation Obesity (BMI 30-39.9) Navel cellulitis Hallux valgus (acquired) Degenerative disc disease, cervical History of gallstones Impaired fasting glucose Depression Surgical History Status post section History of bilateral tubal ligation History of bunionectomy of both great toes History of laparoscopic cholecystectomy History of cervical discectomy History of bunionectomy Family History Mother Hypertension Depression Diabetes mellitus Hypercholesteremia SUZIE (obstructive sleep apnea) COPD (chronic obstructive pulmonary disease) Substance use disorder Mental health disorder Sister Breast cancer Uterine cancer Mental health disorder Maternal Grandmother Mental health disorder Maternal Aunt Mental health disorder Social History Housing: Apartment Alcohol intake: never Patient Tobacco Use Status: Never used Tobacco e-Cigarette/Vaping Use: Never Used service: No Current occupational status: employed Cognitive needs: No Hearing needs: No Vision needs: Yes Female Reproductive History Menstrual Menopause type: natural Date of last pap smear: 07/14/22 Date of Mammogram: 09/12/23 Review of Systems Const All systems reviewed & are unremarkable except as noted in HPI and below Reports as per HPI Eyes Reports no additional complaints ENT Reports no additional complaints Card Reports no additional complaints Resp Reports no additional complaints GI Reports as per HPI and Reports no additional complaints Reports as per HPI Musc Reports no additional complaints Skin/Breast Reports as per HPI Neuro Reports no additional complaints Psych Reports no additional complaints Endo Reports no additional complaints Jordan/Lymph Reports no additional complaints Aller/Immun Reports no additional complaints Physical Exam Vital Signs: Last Vital Signs BP 110/66 09/21/23 14:07 BMI result Body Mass Index 36.9 Const General: cooperative, healthy appearing, no acute distress, well developed and alert Orientation/consciousness: patient oriented x3 HEENT Head: Yes normal to inspection Eyes General: appearance normal, both eyes and all related structures Neck Neck: Yes normal visual inspection Thyroid: Thyroid normal Chest Chest palpation & inspection: normal inspection of the chest and other (no puckering, dimpling, peau de orange, retraction, discharge, masses) Breast/axilla inspection: normal inspection of the breasts Breast/axilla palpation: normal palpation of the breasts Resp Effort & Inspection: normal respiratory effort GI Inspection: Yes normal to inspection and Yes obesity Palpation (GI): Soft to palpation Rectal Exam - Female: deferred General: Yes bladder normal to palpation External Female Exam: normal external appearance and normal appearance of the urethra Speculum Exam - Vagina: normal appearance of the vagina, normal palpation and normal vaginal discharge Speculum Exam - Cervix: normal appearance of the cervix and normal palpation Bimanual exam- vagina & uterus: normal bimanual exam, normal palpation, uterine size normal, bladder normal to palpation, normal palpation and non-tender Bimanual Exam- Adnexa, other: no masses Skin General skin exam: no rashes or lesions noted Rashes: no rashes Neuro General: patient oriented x3 Cognition (Neuro): normal cognition Extrem General: Yes normal to inspection Psych Attitude: cooperative Thought process: Normal thought process present Assessment & Plan Assessment & Plan (1) Encounter for well woman exam with routine gynecological exam: Code(s): Z01.419 - Encounter for gynecological examination (general) (routine) without abnormal findings Plan Discussed: Current recommendations for pap smears per ASCCP guidelines. Breast awareness, periodic self breast exams and yearly mammogram. Consider BRCA call if wanting a referral. She reports her PCP does all the monitoring at this time. Maintain a healthy lifestyle, well balanced diet including Calcium 1,200 mg and Vitamin D 600 IU daily, and routine exercise. Counseled re: perimenopause verses menopause changes. Monitor menstrual cycles, report any unscheduled bleeding, bleeding episodes <21 days apart or heavy/prolonged menstrual bleeding. Menopause occurs after a full 12 months of absent menses. If at risk for , use condoms, and if menses is late, take a home test. Call the office for further evaluation if a positive result or abnormal bleeding pattern occurs. All of her questions and concerns were addressed to the best of my ability. RTO in 1 year for annual obstetrician and gynaecologist exam. This note is constructed using voice recognition software. While every effort has been made to ensure accuracy, riding double errors may have been included. Coding Level of Care Code Est Pt Prev Care 40-64y(62766) Diagnoses Encounter for well woman exam with routine gynecological exam Z01.419
== END 2023-09-21 14:49 | disposition home or self-care (01) ==
LOC: HO.HWS 14:01
PROVIDERS: PCP Internal Medicine; Visit Provider Advanced Practice Midwife
DX: Z01.419 Encounter for gynecological examination (general) (routine) without abnormal findings (principal)
CPT/HCPCS: 99396

== ENCOUNTER → 2023-09-21 14:01 | Outpatient (BNVA) | payer OTHER, SELFPAY | PROVIDERS: PCP Internal Medicine; Visit Provider Advanced Practice Midwife | DX: Z01.419 Encounter for gynecological examination (general) (routine) without abnormal findings (principal) | CPT/HCPCS: 99396 ==

== ENCOUNTER 2023-11-09 11:03 | Outpatient (AMB) | payer OTHER, SELFPAY ==
[2023-11-09 11:39] VITALS: BP 110/72; PULSE 83; TEMP 36.2; O2SAT 98; BMI 37.0
--- NOTE | 2023-11-09 11:39 | AM.OFFWIN_ITS ---
Intake Vital Signs 11/09/23 11:39 Height 5 ft 8.5 in Weight 247 lb BMI 37.0 BP 110/72 Blood Pressure Location Lt brachial Position Sitting Pulse 83 Pulse Source Pulse Oximeter Temp 97.1 F Temp Source Temporal Artery Scan Pulse Oximetry (%) 98 Oxygen Delivery Method Room Air Intake Visit Reasons: EST/muscle reflex loss/ headaches (lobby masked) Intake Note: pt os here today for muscle reflex loss and headaches started june Patient Tobacco Use Status: Never used Tobacco Allergies naproxen [NAPROXEN] Allergy (Mild, Verified 11/09/23 11:40) HEART PALPATATIONS cyclobenzaprine [From FLEXERIL] Allergy (Unknown, Verified 11/09/23 11:40) SWELLING acetaminophen [From PERCOCET] Adverse Reaction (Unknown, Verified 11/09/23 11:40) VOMITING Flexeril Adverse Reaction (Unknown, Verified 11/09/23 11:40) heart palp oxycodone [From PERCOCET] Adverse Reaction (Unknown, Verified 11/09/23 11:40) VOMITING Hydrocodone-Ibuprofen Adverse Reaction (Unknown, Uncoded 09/21/23 14:08) stomach upset milk Adverse Reaction (Unknown, Uncoded 09/21/23 14:08) stomach upset Do you need a note to return to daycare/school/sports/work: No HPI HPI Comments History of Present Illness Details This is a 53-year-old female who presents to the walk-in clinic with multiple complaints. First, patient is complaining of persistent nasal/sinus congestion, rhinorrhea, chest congestion, and cough for the past 4 months. She believes her symptoms are related to mold exposure as her found mold in their apartment. She is requesting to be ?tested for mold?. She denies any chest pain or shortness of breath. She denies any fevers or chills. Second, patient states she has a history of migraines with ?TIAs? and she takes multiple migraine medications as well as prophylactic medications. She states she has had 2 ?TIAs? in the past 2 weeks. She states that she has been getting right-sided facial drooping and facial numbness with drooling. She states that these symptoms usually resolve after taking her migraine medications. Patient is currently asymptomatic without any facial drooping, slurred speech, numbness/weakness/paresthesias of her extremities, or visual disturbances. [facility] Medical History Heel spur Snoring Encounter for screening colonoscopy Cervical spondylosis Complicated migraine Left-sided weakness Brain TIA Eczema of lower extremity Anxiety and depression Normocytic normochromic anemia Heavy menstrual bleeding Bulging of lumbar intervertebral disc Left ankle pain Constipation Obesity (BMI 30-39.9) Navel cellulitis Hallux valgus (acquired) Degenerative disc disease, cervical History of gallstones Impaired fasting glucose Depression Surgical History Status post section History of bilateral tubal ligation History of bunionectomy of both great toes History of laparoscopic cholecystectomy History of cervical discectomy History of bunionectomy Family History Mother Hypertension Depression Diabetes mellitus Hypercholesteremia SUZIE (obstructive sleep apnea) COPD (chronic obstructive pulmonary disease) Substance use disorder Mental health disorder Sister Breast cancer Uterine cancer Mental health disorder Maternal Grandmother Mental health disorder Maternal Aunt Mental health disorder Social History Housing: Apartment Alcohol intake: never Patient Tobacco Use Status: Never used Tobacco e-Cigarette/Vaping Use: Never Used service: No Current occupational status: employed Cognitive needs: No Hearing needs: No Vision needs: Yes Review of Systems Const All systems reviewed & are unremarkable except as noted in HPI and below Reports no additional complaints Eyes Reports no additional complaints ENT Reports no additional complaints Card Reports no additional complaints Resp Reports no additional complaints GI Reports no additional complaints Reports no additional complaints Musc Reports no additional complaints Skin/Breast Reports system reviewed and no additional complaints, except as documented Neuro Reports no additional complaints Psych Reports no additional complaints Endo Reports no additional complaints Jordan/Lymph Reports no additional complaints Aller/Immun Reports no additional complaints Physical Exam Vital Signs: Last Vital Signs Temp 97.1 F 11/09/23 11:39 Pulse 83 11/09/23 11:39 BP 110/72 11/09/23 11:39 Pulse Ox 98 11/09/23 11:39 Oxygen Delivery Method Room Air 11/09/23 11:39 BMI result Body Mass Index 37.0 Const Other: Vital signs reviewed. Constitutional: Non-toxic appearing. No acute distress. Well-developed and well-nourished. HEENT: Normocephalic and atraumatic. Skin: Warm and dry. No rashes or lesions noted. Neck: Full and painless range of motion. No cervical lymphadenopathy. Cardio: Regular rate and rhythm. No murmurs, gallops, or rubs. No lower extremity edema. No JVD. Pulmonary: No respiratory distress. No accessory muscle usage. Clear to auscultation bilaterally without wheezing, crackles, or rhonchi. Gastrointestinal: Soft, nontender, and nondistended in all 4 quadrants. Normoactive bowel sounds in all 4 quadrants. Genitourinary: No CVA tenderness. Musculoskeletal: Normal range of motion in joints throughout the body. No deformity or other signs of injury. Neuro: Alert and oriented x4. Cranial nerves 2-12 intact. 5/5 strength of bilateral lower and upper extremities. Her facial movements are equal and symmetric. She has no ataxia with rapid alternating movement or [id number] bilaterally. Psych: Normal mood and affect. Assessment & Plan Assessment & Plan (1) Complicated migraine: Code(s): G43.109 - Migraine with aura, not intractable, without status migrainosus Plan: This is a 53-year-old female who has a history of complicated migraines with neurological symptoms who presented to the walk-in clinic today complaining of new neurological symptoms such as right-sided facial drooping, right-sided facial numbness, and drooling. She states these symptoms do occur with a migraine headache and seemed to resolve once she takes her migraine medications. She states she has been told she has had ?TIAs? in the past. She denies a history of essential hypertension, hyperlipidemia, or diabetes mellitus. I explained to the patient that there is a difference between a true transient ischemic attack versus a complicated migraine and a true transient ischemic attack is certainly more concerning and requires a comprehensive workup in the hospital. The patient is currently asymptomatic without facial drooping, numbness/weakness/paresthesias, visual disturbances, etc. and her neurological exam is completely normal without focal/unilateral deficits. The patient was advised to proceed directly to the emergency room if she were to develop any neurological symptoms as detailed above as this could indicate a more serious conditions such as a TIA or a CVA. She does not feel like going to the hospital at this time. Patient was instructed to follow-up with her primary care physician and neurologist in regards to these new neurological symptoms. (2) Mold suspected exposure: Code(s): Z77.120 - Contact with and (suspected) exposure to mold (toxic) Plan: This is a 53-year-old female who presented to the walk-in clinic complaining of persistent nasal/sinus congestion rhinorrhea, chest congestion, and cough for the past 4 months. Patient is concerned about old exposure as they found mold in her apartment. Recommended that patient get a dehumidifier to reduce moisture in her apartment as well as an air purifier to filter out any mold particles. She was advised to follow-up with her manager [employer] in regards to mold in her apartment. We will check a chest x-ray today to evaluate for any atelectasis/scarring although patient's lungs are clear to auscultation bilaterally. She was also given a prescription for p.o. benzonatate 200 mg 3 times daily as needed for cough. Patient is in agreement with this plan. Orders: Orders XR chest 2V Today Medications: New benzonatate 200 mg PO TID PRN 14 caps 0RF cough Coding Level of Care Code Est Pt Level 3 (61196) Diagnoses Complicated migraine G43.109 Mold suspected exposure Z77.120
== END 2023-11-09 12:55 | disposition home or self-care (01) ==
PROVIDERS: PCP Internal Medicine; Visit Provider Physician Assistant Medical
DX: G43.109 Migraine with aura, not intractable, without status migrainosus (principal); Z77.120 Contact with and (suspected) exposure to mold (toxic)
CPT/HCPCS: 99213

== ENCOUNTER 2023-11-09 12:23 | Outpatient (REF) | payer OTHER, SELFPAY ==
--- NOTE | ~2023-11-09 | XR_ITS ---
EXAMINATION: XR CHEST CLINICAL INFORMATION: Cough COMPARISON: Chest radiograph from 11/19/2019 TECHNIQUE: 2 views of the chest were obtained. FINDINGS: No focal consolidation. No pneumothorax. Trachea is midline. Cardiac mediastinal silhouette is not enlarged. No large pleural effusion. Lower cervical spinal hardware. Multilevel degenerative changes of the thoracolumbar spine with mild levocurvature of the thoracic spine. Soft tissues are unremarkable. Surgical clips in the upper abdomen. XR/XR chest 2V IMPRESSION: No acute cardiopulmonary process.
== END 2023-11-09 12:24 | disposition home or self-care (01) ==
LOC: HO.HMGCX 12:23
PROVIDERS: PCP Internal Medicine; Visit Provider Physician Assistant Medical
DX: R05.9 Cough, unspecified (principal)
CPT/HCPCS: 71046

== ENCOUNTER 2023-12-12 12:04 | Emergency (ER) | payer OTHER, SELFPAY ==
--- NOTE | ~2023-12-12 | CT_ITS ---
EXAMINATION: CT HEAD WITHOUT CONTRAST CLINICAL INFORMATION: History multiple TIAs COMPARISON: CT angiogram head from 12/12/2022 TECHNIQUE: Contiguous axial imaging was performed from the skull base to vertex without intravenous administration of contrast. This CT examination was performed using dose optimization techniques as appropriate, variously including the following: *Automated exposure control *Adjustment of mA and/or kV according to patient size (this includes techniques or standardized protocols for targeted exams where dose is matched to indication/reason for exam; i.e. extremities or head) *Use of iterative reconstruction technique DLP: 1339 mGy-cm FINDINGS: There is no evidence of acute intracranial hemorrhage or territorial infarction. No abnormal mass effect or midline shift is seen. Lindquist to white matter differentiation is well preserved. No extra-axial fluid collections are identified. The ventricles are normal in size. There is no abnormal attenuation within the brain parenchyma. The osseous structures and soft tissues are normal. The mastoid air cells and visualized portions of the paranasal sinuses are well aerated. CT/CT cervical spine wo IV con IMPRESSION: No acute intracranial pathology. EXAMINATION: Noncontrast CT scan of the cervical spine. INDICATION: Fall pain COMPARISON: None. TECHNIQUE: Helical, multidetector axial images were obtained from the occiput to the upper thorax. Coronal and sagittal reformats of the cervical spine were provided for interpretation. DLP: 1339 mGy-cm FINDINGS: No acute fractures or dislocations of the cervical spine are seen. Status post anterior cervical fusion of C4-C7. Spinal hardware is grossly intact. Multilevel degenerative changes with large anterior bridging osteophyte along the anterior spinal construct and ossification along the posterior longitudinal ligament. Anatomic alignment and positioning of the vertebral bodies and posterior elements is noted. The atlantoaxial joint and craniovertebral articulations are normal without evidence of subluxation. There is no prevertebral soft tissue swelling. Multiple mildly prominent submandibular lymph nodes are noted. Visualized portions of the thyroid are unremarkable. Visualized portions of the lungs are unremarkable. IMPRESSION: 1. No acute visible fracture or dislocation. 2. Status post anterior cervical fusion of C4-C7. Spinal hardware is grossly intact. 3. Multilevel degenerative changes with large anterior bridging osteophyte along the anterior spinal construct and ossification along the posterior longitudinal ligament.
--- NOTE | ~2023-12-12 | XR_ITS ---
EXAMINATION: XR KNEE, LEFT CLINICAL INFORMATION: Knee pain COMPARISON: None available. TECHNIQUE: Four views of the left knee. FINDINGS: There is mild narrowing of the medial joint space with marginal osteophyte formation but no fracture, dislocation or destructive lesion or joint effusion. Patellofemoral spurring noted as well. XR/XR knee LT 4V IMPRESSION: Degenerative changes noted but no joint effusion noted.
[2023-12-12 12:17] VITALS: BP 131/70; PULSE 85; RESP 20; TEMP 37.1; O2SAT 98; BMI 43.4
--- NOTE | 2023-12-12 12:40 | ED.NEUROSD ---
HPI - Neuro Symptoms/Deficit General Chief Complaint: Neuro Symptoms/Deficit Stated Complaint: Fall 12/07/23 - knee injury Time Seen by Provider: 12/12/23 12:29 Source: patient Mode of arrival: ambulatory Limitations: no limitations History of Present Illness HPI Narrative: Patient comes to the emergency room complaining of left-sided neck pain and right knee pain. Patient states that approximately 5 days ago, patient fell into a closet at home and hit the left side of her neck with something in the closet. Patient believes that she might have had a TIA at the time that she fell. Per patient, patient was evaluated yesterday by Neurology. Patient denies losing consciousness. Patient states that she has been doing well, but yesterday she started feeling that her left knee is getting swollen. Patient states that it feels more like pressure, no significant pain. Patient denies any other injuries. Patient states that yesterday she took a tablet of Percocet from her [id number]. Patient states that the knee swelling started yesterday when she came to follow-up with her neurologist for history of TIAs. Related Data Home Medications Medication Instructions Recorded Confirmed multivitamin 1 tab PO DAILY 12/12/22 03/05/23 vitamin C 45 mg-zinc citrate 3.75 3 tab PO WE 12/12/22 03/05/23 mg-elderberry 50 mg chewable tablet ([employer]) albuterol 90 mcg/actuation aerosol mcg inhalation 01/17/23 03/05/23 inhaler topiramate 25 mg tablet 25 mg PO BID 03/05/23 03/05/23 topiramate 50 mg tablet 50 mg PO DAILY 11/09/23 verapamil 40 mg tablet 40 mg PO BID 11/09/23 Previous Rx's Medication Instructions Recorded sumatriptan succinate 50 mg tablet 50 mg PO Q2-4H PRN migraine 12/13/22 headache #14 tabs cane #1 ea 12/14/22 bisacodyl 5 mg tablet,delayed 10 mg (2 x 5 mg) PO ONCE 01/24/23 release (Dulcolax (bisacodyl)) colonoscopy prep 1 day #2 tabs polyethylene glycol 3350 17 238 g PO ONCE PRN laxative effect 01/24/23 gram/dose oral powder (Miralax) 1 day #238 grams ibuprofen 800 mg tablet 800 mg PO Q8H PRN pain 5 days #15 06/23/23 tabs buspirone 5 mg tablet 5 mg PO TID #90 tabs 07/23/23 albuterol sulfate 90 mcg/actuation 2 puff inhalation Q6H PRN 09/08/23 aerosol inhaler shortness of breath or wheezing #6.7 grams benzonatate 200 mg capsule 200 mg PO TID PRN cough #14 caps 11/09/23 ferrous fumarate 324 mg (106 mg 324 mg PO DAILY #90 tabs 12/10/23 iron) tablet tramadol 50 mg tablet 50 mg PO BID PRN pain #7 tabs 12/12/23 Allergies Allergy/AdvReac Type Severity Reaction Status Date / Time naproxen [NAPROXEN] Allergy Mild HEART Verified 11/09/23 11:40 PALPATATIONS cyclobenzaprine Allergy Unknown SWELLING Verified 11/09/23 11:40 [From FLEXERIL] acetaminophen [From PERCOCET] AdvReac Unknown VOMITING Verified 11/09/23 11:40 Flexeril AdvReac Unknown heart palp Verified 11/09/23 11:40 oxycodone [From PERCOCET] AdvReac Unknown VOMITING Verified 11/09/23 11:40 Hydrocodone-Ibuprofen AdvReac Unknown stomach Uncoded 09/21/23 14:08 upset milk AdvReac Unknown stomach Uncoded 09/21/23 14:08 upset Review of Systems Review of Systems: Constitutional : No Weight loss, No Fever, No Chills, No Night Sweats, No Fatigue, No Malaise ENT/Mouth : No Hearing loss, No Ear Pain, No Nasal Congestion, No Sinus Pain, No Hoarseness, No sore throat, No Rhinorrhea, No Swallowing Difficulty Eyes: No Eye Pain, No Swelling, No Redness, No Foreign Body, No Discharge, No Vision Changes Cardiovascular : No Chest Pain, No SOB, No Dyspnea on Exertion, No Orthopnea, No Edema, No Palpitations Respiratory : No Cough, No Sputum, No Wheezing, No Smoke Exposure, No Dyspnea Gastrointestinal : No Nausea, No Vomiting, No Diarrhea, No Constipation, No abdominal Pain, No Hematochezia, No Melena Genitourinary : no irregular bleeding, No Dysuria, No Urinary Frequency, No Hematuria, No Urinary Incontinence, No Urgency, No Flank Pain, No Urinary Flow Changes, No Hesitancy Musculoskeletal : Complaining of left-sided neck pain, Complaining of left knee pain/pressure No Myalgias, No Joint Swelling Skin : No Skin Lesions, No rash Neuro : No Weakness, No Numbness, No Paresthesias, No Loss of Consciousness, No Dizziness, No Headache Psych : No Anxiety/Panic, No Depression, No SI/HI/AH/VH, No Social Issues, Heme/Lymph: No Bruising, No Bleeding,No Lymphadenopathy Endocrine : No Polyuria, No Polydipsia, No Temperature Intolerance [facility] Past Medical History Medical History Heel spur Snoring Encounter for screening colonoscopy Cervical spondylosis Complicated migraine Left-sided weakness Brain TIA Eczema of lower extremity Anxiety and depression Normocytic normochromic anemia Heavy menstrual bleeding Bulging of lumbar intervertebral disc Left ankle pain Constipation Obesity (BMI 30-39.9) Navel cellulitis Hallux valgus (acquired) Degenerative disc disease, cervical History of gallstones Impaired fasting glucose Depression Surgical History Status post section History of bilateral tubal ligation History of bunionectomy of both great toes History of laparoscopic cholecystectomy History of cervical discectomy History of bunionectomy Family History Family History Mother Hypertension Depression Diabetes mellitus Hypercholesteremia SUZIE (obstructive sleep apnea) COPD (chronic obstructive pulmonary disease) Substance use disorder Mental health disorder Sister Breast cancer Uterine cancer Mental health disorder Maternal Grandmother Mental health disorder Maternal Aunt Mental health disorder Social History Social History Housing: Apartment Alcohol intake: never Patient Tobacco Use Status: Never used Tobacco e-Cigarette/Vaping Use: Never Used Advance Directives: No Advance Directives Information Provided: No service: No Current occupational status: employed Cognitive needs: No Hearing needs: No Vision needs: Yes Physical Exam Vital Signs: Vital Signs: Last Vital Signs Temp 98.8 F 12/12/23 12:17 Pulse 85 12/12/23 12:17 Resp 20 12/12/23 12:17 BP 131/70 12/12/23 12:17 Pulse Ox 98 12/12/23 12:17 O2 Del Method Room Air 12/12/23 12:17 BMI result Body Mass Index 43.4 Const: Other: Appearance: Alert. Oriented X3. No acute distress. Eyes: Pupils equal, round and reactive to light. ENT: Pharynx normal. Neck: Normal inspection. Neck supple. No lymph nodes noted. No crepitus, no palpable step-offs, no crepitus CVS: Normal heart rate and rhythm. Pulses normal. Normal S1 and S2 Respiratory: No respiratory distress. Breath sounds normal. No Wheezing. No rales Abdomen: Soft and nontender. No rigidity. No distention. Skin: Skin warm and dry. Normal skin color. Normal skin turgor. Extremities: No lower extremity edema. No Lacerations. No Rash. The left knee does not seem to be swollen. Discomfort with flexion and extension, negative anterior /posterior drawer tests Psych: calm, cooperative, normal affect Course Course Course Narrative: -patient's CT scan of head neck and x-rays of the knee pending Medications Administered Discontinued Medications Generic Name Dose Route Start Last Admin Trade Name Freq PRN Reason Stop Dose Admin Tramadol HCl 50 mg 12/12/23 12:39 12/12/23 13:10 Tramadol Hcl 50 Mg Tablet PO 12/12/23 12:40 50 mg ONCE ONE Administration Medical Decision Making Medical Decision Making [facility] Narrative: -my interpretation of head CT: No intracranial bleed -my interpretation of knee x-ray: Normal alignment, no obvious effusion. -I discussed with the patient that she likely has musculoskeletal pain. Differential Diagnosis Differential Diagnoses: The differential diagnosis associated with the presentation includes (Cervical spine injury, musculoskeletal pain, muscle spasms) Admission/Observation Consideration of admission/observation: Escalation of care including admission/observation considered (Given patient's onset of symptoms and presentation, patient was considered) Independent Interpretation I performed an independent interpretation of an: CT Scan Radiology Impression Discussion of test interpretation with radiology: I have reviewed the radiologist's reading. Radiologist Impression: FINDINGS: No acute fractures or dislocations of the cervical spine are seen. Status post anterior cervical fusion of C4-C7. Spinal hardware is grossly intact. Multilevel degenerative changes with large anterior bridging osteophyte along the anterior spinal construct and ossification along the posterior longitudinal ligament. Anatomic alignment and positioning of the vertebral bodies and posterior elements is noted. The atlantoaxial joint and craniovertebral articulations are normal without evidence of subluxation. There is no prevertebral soft tissue swelling. Multiple mildly prominent submandibular lymph nodes are noted. Visualized portions of the thyroid are unremarkable. Visualized portions of the lungs are unremarkable. IMPRESSION: 1. No acute visible fracture or dislocation. 2. Status post anterior cervical fusion of C4-C7. Spinal hardware is grossly intact. 3. Multilevel degenerative changes with large anterior bridging osteophyte along the anterior spinal construct and ossification along the posterior longitudinal ligament. NIH Stroke Scale Internal: Initial- Upon Arrival Level of Consciousness: Alert Level of Consciousness Questions: Answers both questions correctly Level of Consciousness Commands: Performs both tasks correctly Best Gaze: Normal Visual: No visual loss Facial Palsy: Normal Motor Arm (Right): No drift Motor Arm (Left): No drift Motor Leg (Right): No drift Motor Leg (Left): No drift Limb Ataxia: Absent Sensory: Normal Best Language: No aphasia Dysarthia: Normal Extinction and Inattention: No abnormality Score: 0 Critical Care Time Critical Care Time Critical Care Time: Yes Total Critical Care Time: 30 Attestation: I have personally provided critical care time. Time includes review of lab data, radiology results, discussion with consultants, and monitoring for potential decompensation. Intervention performed as documented. Discharge Plan Discharge Clinical Impression: Musculoskeletal pain, Contusion of knee Patient Disposition: Home, Self-Care Instructions: Contusion in Adults (ED), Musculoskeletal Pain (ED) Additional Instructions: Please follow-up with your primary care physician tomorrow. If you have any worsening or new symptoms, please return to the emergency room or call 911 Prescriptions: New tramadol 50 mg tablet 50 mg PO BID PRN (Reason: pain) Qty: 7 0RF No Action buspirone 5 mg tablet 5 mg PO TID Qty: 90 5RF ferrous fumarate 324 mg (106 mg iron) tablet 324 mg PO DAILY Qty: 90 1RF multivitamin Tablet 1 tab PO DAILY [employer] 45-3.75-50 mg Tablet,Chewable 3 tab PO WE sumatriptan succinate 50 mg tablet 50 mg PO Q2-4H PRN (Reason: migraine headache) Qty: 14 2RF Rx Instructions: do not exceed 4 doses per 24 hrs (DME) cane Device See Rx Instructions .Route Qty: 1 0RF Rx Instructions: As directed topiramate 25 mg tablet 25 mg PO BID ibuprofen 800 mg tablet 800 mg PO Q8H PRN (Reason: pain) 5 Days Qty: 15 0RF albuterol sulfate 90 mcg/actuation HFA aerosol inhaler 2 puff inhalation Q6H PRN (Reason: shortness of breath or wheezing) Qty: 6.7 0RF verapamil 40 mg tablet 40 mg PO BID topiramate 50 mg tablet 50 mg PO DAILY benzonatate 200 mg capsule 200 mg PO TID PRN (Reason: cough) Qty: 14 0RF bisacodyl [Dulcolax (bisacodyl)] 5 mg tablet,delayed release (DR/EC) 10 mg PO ONCE 1 Days Qty: 2 0RF Rx Instructions: Take 2 tablets by mouth at 12:00pm the day before your procedure. polyethylene glycol 3350 [Miralax] 17 gram/dose powder 238 g PO ONCE PRN (Reason: laxative effect) 1 Days Qty: 238 0RF Rx Instructions: Take as directed by mouth the day before your procedure. albuterol 90 mcg/actuation aerosol inhalation
[2023-12-12] MEDS: traMADoL HCL 50 MG TABLET PO (13:10)
[2023-12-12 15:32] VITALS: BP 99/57; PULSE 72; RESP 18; TEMP 36.9; O2SAT 99
== END 2023-12-12 15:32 | disposition home or self-care (01) ==
PROVIDERS: Emergency Provider Emergency Medicine; PCP Internal Medicine
DX: S80.01XA Contusion of right knee, initial encounter (principal); M79.18 Myalgia, other site; Z86.73 Personal history of transient ischemic attack (TIA), and cerebral infarction without residual deficits; W19.XXXA Unspecified fall, initial encounter; Y93.9 Activity, unspecified; Y92.008 Other place in unspecified non-institutional (private) residence as the place of occurrence of the external cause; Y99.9 Unspecified external cause status
CPT/HCPCS: 70450; 72125; 73564; 99283; 99284

== ENCOUNTER 2023-12-17 14:47 | Outpatient (AMB) | payer OTHER, SELFPAY ==
--- NOTE | 2023-12-17 14:54 | MHC.PC.OV ---
Vital Signs 12/17/23 14:56 Height 5 ft 8.5 in Weight 247 lb 4 oz BMI 37.0 BP 120/76 Blood Pressure Location Rt brachial Position Sitting Pulse 79 Pulse Source Pulse Oximeter Pulse Oximetry (%) 99 Oxygen Delivery Method Room Air Intake Visit Reasons: f/u ER due to a fall at home Lt knee pain Intake Note: Pt is here for ER follow up from [facility] Left swollen knee Allergies naproxen [NAPROXEN] Allergy (Mild, Verified 12/17/23 15:12) HEART PALPATATIONS cyclobenzaprine [From FLEXERIL] Allergy (Unknown, Verified 12/17/23 15:12) SWELLING acetaminophen [From PERCOCET] Adverse Reaction (Unknown, Verified 12/17/23 15:12) VOMITING Flexeril Adverse Reaction (Unknown, Verified 12/17/23 15:12) heart palp oxycodone [From PERCOCET] Adverse Reaction (Unknown, Verified 12/17/23 15:12) VOMITING Hydrocodone-Ibuprofen Adverse Reaction (Unknown, Uncoded 12/17/23 15:12) stomach upset milk Adverse Reaction (Unknown, Uncoded 12/17/23 15:12) stomach upset Medication List - Last Reconciled 12/17/23 by Jimbo Gooden, ETL PROGRAMMER albuterol 90 mcg/actuation mcg inhalation albuterol sulfate 90 mcg/actuation 2 puffs inhalation Q6H PRN bisacodyl (Dulcolax (bisacodyl)) 10 mg (2 x 5 mg) PO ONCE 1 day buspirone 7.5 mg PO TID cane As directed capsaicin 0.1% (Arthritis Pain Relief (capsaicin)) 1 appl topical TID ferrous fumarate 324 mg PO DAILY multivitamin 1 tab PO DAILY polyethylene glycol 3350 (Miralax) 238 grams PO ONCE PRN 1 day prednisone 40 mg (2 x 20 mg) PO DAILY sumatriptan succinate 50 mg PO Q2-4H PRN topiramate 50 mg PO BID tramadol 50 mg PO BID PRN vit C-zinc citrate-elderberry 45-3.75-50 mg (Elderberry Immune Health) 3 tabs PO WE Tobacco use date assessed: 12/17/23 Dental Screening Dental Screen Date: 12/17/23 Did you have a dental visit in the last 12 months?: Yes Did you have a dental problem in the last 6 months where you did not have access to dental care?: No Was dental information given to patient?: Patient has dentist HPI HPI Comments History of Present Illness Details Patient is a 53-year-old female who I am meeting for the 1st time. This is for an emergency room follow-up. Patient was evaluated after a fall at home where she struck the left side of her neck and left knee on a closet. Patient has a past medical history significant for cervical spondylosis, migraine, anxiety and depression, TIA, lumbar pain. Patient had CT scan with no acute findings. At the appointment today patient states that she still has left knee pain. 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 Patient has several allergies to medications. Denies tingling or numbness but states that she is feeling some sciatica down the left side of her back into her left knee. Patient will be fitted with a knee brace in office. Patient will be given referral to Physical therapy. Patient straight leg test positive in office. Patient will be given prednisone and capsaicin cream to be taken as directed. She also states that she has noticed an increase in depression and anxiety. She denies SI/HI. Does state that she is feeling more and more hopeless which has been exacerbated by this recent injury. Patient does have past medical history of anxiety and depression is currently taking BuSpar V mg t.i.d. patient has been instructed to increase her dose to 7.5 mg t.i.d. she is also going to meet with in office community navigator to assist with finding therapist and psychiatrist. Patient is agreeable to this plan [facility] Medical History Heel spur Snoring Encounter for screening colonoscopy Cervical spondylosis Complicated migraine Left-sided weakness Brain TIA Eczema of lower extremity Anxiety and depression Normocytic normochromic anemia Heavy menstrual bleeding Bulging of lumbar intervertebral disc Left ankle pain Constipation Obesity (BMI 30-39.9) Navel cellulitis Hallux valgus (acquired) Degenerative disc disease, cervical History of gallstones Impaired fasting glucose Depression Surgical History Status post section History of bilateral tubal ligation History of bunionectomy of both great toes History of laparoscopic cholecystectomy History of cervical discectomy History of bunionectomy Family History Mother Hypertension Depression Diabetes mellitus Hypercholesteremia SUZIE (obstructive sleep apnea) COPD (chronic obstructive pulmonary disease) Substance use disorder Mental health disorder Sister Breast cancer Uterine cancer Mental health disorder Maternal Grandmother Mental health disorder Maternal Aunt Mental health disorder Social History Housing: Apartment Alcohol intake: never Patient Tobacco Use Status: Never used Tobacco e-Cigarette/Vaping Use: Never Used service: No Current occupational status: employed Cognitive needs: No Hearing needs: No Vision needs: Yes Questionnaire PHQ-9 Over the last 2 weeks, how often have you been bothered by any of the following problems? 1. Little interest or pleasure in doing things: more than half the days 2. Feeling down, depressed, or hopeless: more than half the days 3. Trouble falling or staying asleep, or sleeping too much: more than half the days 4. Feeling tired or having little energy: more than half the days 5. Poor appetite or overeating: more than half the days 6. Feeling bad about yourself - or that you are a failure or have let yourself or your family down: more than half the days 7. Trouble concentrating on things, such as reading the newspaper or watching television: more than half the days 8. Moving or speaking so slowly that other people could have noticed. Or the opposite - being so fidgety or restless that you have been moving around a lot more than usual: more than half the days 9. Thoughts that you would be better off or of hurting yourself in some way: more than half the days Total score: 18 Depression Screening Interpretation: Positive (Increase in medication doses. Referral to therapy and Psychiatry.) Depression Screening Follow-up: Change in Medication Depression Screening Done: Yes 88943 - PHQ-9 Billing: Yes Source: Developed by Drs. Kenneth Rhodes, Hoda Angela, Jay Dunn and colleagues, with an educational hiwot from [employer]. Thrive Questionnaire Date Thrive assessed: 06/25/23 I am a: Patient What is your living situation today?: I have a steady place to live Within the past 12 months, did the food you bought not last and you didn't have the money to get more?: Often true Within the past 12 months, did you worry whether your food would run out before you got money to buy more?: Often true Do you have trouble paying for medicines?: No Do you have trouble getting transportation to medical appointments?: Yes Do you have trouble paying your heating and electricity bill?: No Do you have trouble taking care of your child, family member or friend?: No Do you have trouble with day-to-day activities such as bathing, preparing meals, shopping, managing finances, etc.?: Yes Are you currently unemployed and looking for a job?: Yes Are you interested in more education?: No Please select the resources that you would like help with: Food, Transportation, Care for elder or disabled and Daily support THRIVE Score: 3 AUDIT C Alcohol Use Questionnaire (AUDIT-C) 1. How often do you have a drink containing alcohol?: Never Total Score: 0 BRENDON-7 AMB Questionnaire BRENDON-7 Date BRENDON - 7 assessed: 12/17/23 Feeling nervous, anxious, or on edge: 2 = More than half the days Not being able to stop or control worryin = Nearly every day Worrying too much about different things: 2 = More than half the days Trouble relaxin = More than half the days Being so restless that it is hard to sit still: 2 = More than half the days Becoming easily annoyed or irritable: 2 = More than half the days Feeling afraid as if something awful might happen: 3 = Nearly every day Total BRENDON-7 score (0-4 normal; 5-9 mild; 10-14 moderate; 15-21 severe): 16 Source: Developed by Drs. Kenneth Rhodes, Hoda Angela, Jay Dunn and colleagues, with an educational hiwot from [employer]. BRENDON-7 Assessment Billing BRENDON-7 Assessment Tool: BRENDON-7 Assessment 25141 Review of Systems Const All systems reviewed & are unremarkable except as noted in HPI and below Card Denies chest pain and Denies dyspnea Resp Denies dyspnea Musc Reports as per HPI, Reports back pain, Reports arthralgias, Denies numbness and Denies tingling Neuro Denies numbness and Denies tingling Physical exam (Primary Care) Vital Signs: Last Vital Signs Pulse 79 12/17/23 14:56 BP 120/76 12/17/23 14:56 Pulse Ox 99 12/17/23 14:56 Oxygen Delivery Method Room Air 12/17/23 14:56 Care Plan Goal for BP management: Vital signs reviewed stable. BMI result Body Mass Index 37.0 Tobacco/Smoking Status: Tobacco use Status Tobacco use date assessed 12/17/23 12/17/23 15:01 Patient Tobacco Use Status Never used Tobacco 12/17/23 14:54 e-Cigarette/Vaping Use Never Used 12/17/23 14:54 Depression Screening Interpretation: Positive (Increase in medication doses. Referral to therapy and Psychiatry.) Depression Screening Follow-up: Change in Medication Thrive Assessment: Date of Thrive Assessment Date Thrive assessed 06/25/23 12/17/23 14:54 Assessment and Plan Assessment & Plan (1) Contusion of knee: Comment: Patient fitted with knee brace in office. Patient given capsaicin cream. Patient has referral to physical therapy for left knee pain Code(s): S80.00XA - Contusion of unspecified knee, initial encounter Qualifiers: Encounter type: initial encounter Laterality: left Qualified Code(s): S80.02XA - Contusion of left knee, initial encounter Plan: Take your medications as prescribed. If you were prescribed antibiotics today, it is important that you take your medication to their entirety, do not skip any doses, do not finish them early. Follow-up with your primary care provider this week. Return to the emergency department with new or worsening symptoms. Such as fevers, chills, chest pain, shortness of breath, nausea, vomiting, dizziness, headache, vision changes, lethargy In case of emergency call 911 (2) Anxiety and depression: Comment: Patient boost prone increased from 5 mg t.i.d. to 7.5 mg t.i.d.. Patient also has referral to therapy and Psychiatry. Patient denies SI/HI. Code(s): F41.9 - Anxiety disorder, unspecified; F32.A - Depression, unspecified (3) Sciatica of left side: Comment: Will give prednisone to be taken as directed. Code(s): M54.32 - Sciatica, left side Plan Follow-up with PCP Orders: Orders PT Evaluation and Treatment Today S80.00XA - Contusion of unspecified knee, initial encounter Medications: New capsaicin 0.1% (Arthritis Pain Relief (capsaicin)) do not wash area for at least 30 min after application 1 appl topical TID 42.5 grams 0RF prednisone 40 mg (2 x 20 mg) PO DAILY 10 tabs 0RF Coding Level of Care Code Est Pt Level 4 (63772) Diagnoses Contusion of left knee, initial encounter S80.02XA Encounter type: initial encounter Laterality: left Anxiety and depression F41.9; F32.A Sciatica of left side M54.32 Additional Codes BRENDON-7 Assessment Billing - BRENDON-7 Assessment Tool: BRENDON-7 Assessment 95503 ([id number]) Time Spent (min) 32
[2023-12-17 14:56] VITALS: BP 120/76; PULSE 79; O2SAT 99; BMI 37.0
== END 2023-12-17 15:57 | disposition home or self-care (01) ==
PROVIDERS: PCP Internal Medicine; Visit Provider Nurse Practitioner Primary Care
DX: S80.02XA Contusion of left knee, initial encounter (principal); F41.9 Anxiety disorder, unspecified; F32.A Depression, unspecified; M54.32 Sciatica, left side
CPT/HCPCS: 96127; 99214

== ENCOUNTER 2024-01-02 15:35 | Outpatient (AMB) | payer OTHER, SELFPAY ==
[2024-01-02 15:36] VITALS: BP 122/84; PULSE 93; TEMP 36.2; O2SAT 97; BMI 38.3
--- NOTE | 2024-01-02 15:36 | AM.OFFWIN_ITS ---
Intake Vital Signs 01/02/24 15:36 Height 5 ft 8.5 in Weight 255 lb 6 oz BMI 38.3 BP 122/84 Blood Pressure Location Lt brachial Position Sitting Pulse 93 Pulse Source Pulse Oximeter Temp 97.2 F Temp Source Temporal Artery Scan Pulse Oximetry (%) 97 Oxygen Delivery Method Room Air Oxygen Flow Rate 97.2 Intake Visit Reasons: EP LT knee pain Intake Note: Pt presents to the office today for c/o left knee pain. Pt states her knee makes a popping noise . She fell 3 weeks ago and she states the pain keeps getting worse. Patient Tobacco Use Status: Never used Tobacco Allergies naproxen [NAPROXEN] Allergy (Mild, Verified 01/02/24 15:39) HEART PALPATATIONS cyclobenzaprine [From FLEXERIL] Allergy (Unknown, Verified 01/02/24 15:39) SWELLING acetaminophen [From PERCOCET] Adverse Reaction (Unknown, Verified 01/02/24 15:39) VOMITING Flexeril Adverse Reaction (Unknown, Verified 01/02/24 15:39) heart palp oxycodone [From PERCOCET] Adverse Reaction (Unknown, Verified 01/02/24 15:39) VOMITING Hydrocodone-Ibuprofen Adverse Reaction (Unknown, Uncoded 01/02/24 15:39) stomach upset milk Adverse Reaction (Unknown, Uncoded 01/02/24 15:39) stomach upset HPI HPI Comments History of Present Illness Details 53 y/o female patient who presents to [facility] in clinic with c/o ongoing chronic right knee pain. She has an upcoming an appointment for PT the end of December. 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 Reports taking Ibuprofen and Tramadol with minimal relief. Reports muscle spasm. [facility] Medical History Heel spur Snoring Encounter for screening colonoscopy Cervical spondylosis Complicated migraine Left-sided weakness Brain TIA Eczema of lower extremity Anxiety and depression Normocytic normochromic anemia Heavy menstrual bleeding Bulging of lumbar intervertebral disc Left ankle pain Constipation Obesity (BMI 30-39.9) Navel cellulitis Hallux valgus (acquired) Degenerative disc disease, cervical History of gallstones Impaired fasting glucose Depression Surgical History Status post section History of bilateral tubal ligation History of bunionectomy of both great toes History of laparoscopic cholecystectomy History of cervical discectomy History of bunionectomy Family History Mother Hypertension Depression Diabetes mellitus Hypercholesteremia SUZIE (obstructive sleep apnea) COPD (chronic obstructive pulmonary disease) Substance use disorder Mental health disorder Sister Breast cancer Uterine cancer Mental health disorder Maternal Grandmother Mental health disorder Maternal Aunt Mental health disorder Social History Housing: Apartment Alcohol intake: never Patient Tobacco Use Status: Never used Tobacco e-Cigarette/Vaping Use: Never Used service: No Current occupational status: employed Cognitive needs: No Hearing needs: No Vision needs: Yes Review of Systems Const All systems reviewed & are unremarkable except as noted in HPI and below Physical Exam Vital Signs: Last Vital Signs Temp 97.2 F 01/02/24 15:36 Pulse 93 01/02/24 15:36 BP 122/84 01/02/24 15:36 Pulse Ox 97 01/02/24 15:36 Oxygen Delivery Method Room Air 01/02/24 15:36 Oxygen Flow Rate 97.2 01/02/24 15:36 BMI result Body Mass Index 38.3 Const General: no acute distress; No comfortable Nutritional Appearance: obese Orientation/consciousness: patient oriented x3 Neuro Other: Walks with a limp due to pain. Has knee Brace on for support General: patient oriented x3 and moves all extremities Extrem Right lower extremity: normal to inspection and knee Details: tenderness Location: of the patella Details: medially, swelling (mild swelling ) Location: of the patella and abnormal ROM (limited due to pain); no ecchymosis and no crepitus Left lower extremity: normal to inspection and full ROM Psych Speech and movement: Normal speech and movement present Assessment & Plan Assessment & Plan (1) Osteoarthritis of right knee: Code(s): M17.11 - Unilateral primary osteoarthritis, right knee Qualifiers: Osteoarthritis type: unspecified Qualified Code(s): M17.11 - Unilateral primary osteoarthritis, right knee Plan: - Continue taking pain medications as directed. - Knee Brace - F/u for PT - IceHot Medications: New methocarbamol 750 mg PO TID 10 days 30 tabs 0RF M17.11 - Unilateral primary osteoarthritis, right knee Coding Level of Care Code Est Pt Level 3 (78686) Diagnoses Osteoarthritis of right knee, unspecified osteoarthritis type M17.11 Osteoarthritis type: unspecified Time Spent (min) 15
== END 2024-01-02 16:17 | disposition home or self-care (01) ==
PROVIDERS: PCP Internal Medicine; Visit Provider Nurse Practitioner Family
DX: M17.11 Unilateral primary osteoarthritis, right knee (principal)
CPT/HCPCS: 99213

== ENCOUNTER 2024-01-29 16:00 | Outpatient (RCR) | payer OTHER, SELFPAY ==
--- NOTE | 2024-01-22 18:47 | MHC.PT.EP ---
[facility] [place] [facility] [place] [facility] [place] [facility] [address] [phone] F: [phone] F: [phone] F: [phone] F: [phone] Physical Therapy Plan of Care Date of Evaluation: 01/22/24 Date of Surgery: Diagnosis: Contusion of L knee Assessment: Pt is a 53 y/o female with Hx of TIA with L sided residual weakness, and cervical fusions who is referred to PT for eval and treaty of L knee contusion after she reports she fell about a month ago at home which is resulting in decreased tolerance for walking, negotiating stairs, squatting activities and heavy HH chores secondary to decreased L knee ROM, decreased L LE strength, antalgic gait, TTP of L patella tendon and fat pad. Pt is deemed an appropriate candidate to receive skilled PT services to address their physical impairments in order to improve their functional ability. Frequency and Duration: The patient will be seen 2 x / wk x 4 wks. Short Term Goals: Initiate home program. Improve baseline pain with activities to < 4/10; initial: 6/10. Residential Goals: I with home program. Improve LEFI by at least 9 points. Improve R knee flexion AROM to at least 124 degrees ; initial: 95 with painful end. Pt will be able to ascend 1 fl of stairs with managed Sx; initial: quite a bit of difficulty. Pt will be able to tolerate walking long distances; initial: only short and moderate distances. Treatment Plan: Modalities to reduce pain, spasms and effusion. Manual therapy to restore motion and function. Therapeutic exercise to improve strength and flexibility. Neuromuscular re-education for posture and balance. Therapeutic activities to return to functional activities of daily living. Electronically signed by: Cholo Lynch PT. Please sign and return to therapist. Thank you for your referral.
--- NOTE | 2024-06-26 14:41 | MHC.PT.DC ---
[facility] [place] Office [place] Office [place] Office [address] Sonam Go [address] [facility] [phone] F: [phone] F: [phone] F: [phone] F: [phone] Physical Therapy Discharge Report Diagnosis: Contusion of L knee Date of Surgery: Date of Evaluation: 01/22/24 Date of Discharge: 06/26/24 Treatments to Date: 3 Cancellations to Date: No Shows to Date: Discharge Status: Patient Elected to Stop Visit Non-compliance Discharge Summary: Pt attended 3 visits before cancelling 3 appointments and logging a no show appointment. Electronically signed by: Cholo Lynch PT. Please sign and return to therapist. Thank you for your referral.
== END 2024-06-26 14:40 | disposition home or self-care (01) ==
LOC: HO.PT 16:00
PROVIDERS: PCP Internal Medicine; Visit Provider Nurse Practitioner Primary Care
DX: S80.02XD Contusion of left knee, subsequent encounter (principal)
CPT/HCPCS: 97110; 97140; 97161

== ENCOUNTER 2024-02-11 14:51 | Outpatient (REF) | payer OTHER, SELFPAY ==
[2024-02-11 15:24] LABS: Hematocrit 36.9 % (37.0-47.0); Mean Corpuscular HGB Conc 32.5 g/dl (31.0-35.0); Mean Corpuscular Hemoglobin 27.5 pg (27.0-33.0); Mean Corpuscular Volume 84.4 fL (80.0-98.0); Mean Platelet Volume 10.3 fL (9.4-12.3); Platelet Count 238 X10*3/uL (160-400); Red Blood Count 4.37 X10*6/uL (4.20-5.50); Red Cell Distribution Width 13.3 % (11.0-16.0); White Blood Count 7.9 X10*3/uL (4.8-10.8)
[2024-02-12 10:41] LABS: CT PCR NOT DETECTED (Not Detect.); NG PCR NOT DETECTED (Not Detect.)
== END 2024-02-11 14:52 | disposition home or self-care (01) ==
LOC: HO.LAB 14:51
PROVIDERS: PCP Internal Medicine; Visit Provider Obstetrics & Gynecology
DX: N93.9 Abnormal uterine and vaginal bleeding, unspecified (principal); Z32.02 Encounter for pregnancy test, result negative
CPT/HCPCS: 0353U; 36415; 81025; 85027; 99212

== ENCOUNTER 2024-02-11 15:06 | Outpatient (AMB) | payer OTHER, SELFPAY ==
--- NOTE | 2024-02-11 15:13 | MHC.OFFVIS ---
Vital Signs 02/11/24 15:21 Height 5 ft 8.5 in Weight 253 lb 8.505 oz BMI 38.0 BP 122/78 Intake Visit Reasons: vaginal bleeding Allergies naproxen [NAPROXEN] Allergy (Mild, Verified 01/02/24 15:39) HEART PALPATATIONS cyclobenzaprine [From FLEXERIL] Allergy (Unknown, Verified 01/02/24 15:39) SWELLING acetaminophen [From PERCOCET] Adverse Reaction (Unknown, Verified 01/02/24 15:39) VOMITING Flexeril Adverse Reaction (Unknown, Verified 01/02/24 15:39) heart palp oxycodone [From PERCOCET] Adverse Reaction (Unknown, Verified 01/02/24 15:39) VOMITING Hydrocodone-Ibuprofen Adverse Reaction (Unknown, Uncoded 01/02/24 15:39) stomach upset milk Adverse Reaction (Unknown, Uncoded 01/02/24 15:39) stomach upset HPI Comments Details: Presenting complaining of heavy vaginal bleeding over the last few days. Last co testing was in 07/15 Last mammogram was BI-RADS 2 in 09/15 H&H done today was /36.9 [facility] Medical History Heel spur Snoring Encounter for screening colonoscopy Cervical spondylosis Complicated migraine Left-sided weakness Brain TIA Eczema of lower extremity Anxiety and depression Normocytic normochromic anemia Heavy menstrual bleeding Bulging of lumbar intervertebral disc Left ankle pain Constipation Obesity (BMI 30-39.9) Navel cellulitis Hallux valgus (acquired) Degenerative disc disease, cervical History of gallstones Impaired fasting glucose Depression Surgical History Status post section History of bilateral tubal ligation History of bunionectomy of both great toes History of laparoscopic cholecystectomy History of cervical discectomy History of bunionectomy Family History Mother Hypertension Depression Diabetes mellitus Hypercholesteremia SUZIE (obstructive sleep apnea) COPD (chronic obstructive pulmonary disease) Substance use disorder Mental health disorder Sister Breast cancer Uterine cancer Mental health disorder Maternal Grandmother Mental health disorder Maternal Aunt Mental health disorder Social History Housing: Apartment Alcohol intake: never Patient Tobacco Use Status: Never used Tobacco e-Cigarette/Vaping Use: Never Used service: No Current occupational status: employed Cognitive needs: No Hearing needs: No Vision needs: Yes Review of Systems Const All systems reviewed & are unremarkable except as noted in HPI and below Physical Exam Vital Signs: Last Vital Signs BP 122/78 02/11/24 15:21 BMI result Body Mass Index 38.0 General: Yes no CVA tenderness External Female Exam: normal external appearance and normal appearance of the urethra Speculum Exam - Vagina: normal appearance of the vagina, normal palpation, no lesions and no masses Speculum Exam - Cervix: normal appearance of the cervix, normal palpation, no lesions, no masses, nontender and Other cervical findings present (No evidence of active vaginal bleed) Bimanual exam- vagina & uterus: normal bimanual exam, normal palpation, uterine size normal, normal palpation, uterine shape normal, No Cervical tenderness present and non-tender Bimanual Exam- Adnexa, other: normal adnexae Back/Spine/Pelvis Back: no CVA tenderness Assessment & Plan Assessment & Plan (1) Abnormal uterine bleeding (AUB): Code(s): N93.9 - Abnormal uterine and vaginal bleeding, unspecified Category: Medical Plan: Urine test done in the office was negative. GC/CT taken. CBC, TSH, prolactin, HCG, FSH/LH, and pelvic ultrasound ordered. Discussed with the patient the different causes of abnormal bleeding including thyroid disorders, uterine and ovarian pathology, endometrial hyperplasia, carcinoma and other potential causes. Discussed with the patient the work up including CBC (to r/o anemia), TSH, prolactin, pelvic Ultrasound, endometrial biopsy to r/o endometrial pathology. . Instructed the patient to schedule an appointment for an endometrial biopsy in 2 weeks, and to call or go to emergency room in case of persistence or worsening of her vaginal bleeding. All questions answered and the patient verbalized understanding Orders: Orders TSH reflex Free T4 Today N93.9 - Abnormal uterine and vaginal bleeding, unspecified Follicle Stimulating Hormone Today N93.9 - Abnormal uterine and vaginal bleeding, unspecified Complete Blood Count no Diff Today N93.9 - Abnormal uterine and vaginal bleeding, unspecified US pelvic and transvaginal Today N93.9 - Abnormal uterine and vaginal bleeding, unspecified Prolactin Today N93.9 - Abnormal uterine and vaginal bleeding, unspecified HCG Quantitative Today N93.9 - Abnormal uterine and vaginal bleeding, unspecified Coding Level of Care Code Est Pt Level 3 (81403) Diagnoses Abnormal uterine bleeding (AUB) N93.9
[2024-02-11 15:21] VITALS: BP 122/78; BMI 38.0
== END 2024-02-12 08:04 | disposition home or self-care (01) ==
LOC: HO.HWS 15:06
PROVIDERS: PCP Internal Medicine; Visit Provider Obstetrics & Gynecology
DX: N93.9 Abnormal uterine and vaginal bleeding, unspecified (principal); Z32.02 Encounter for pregnancy test, result negative
CPT/HCPCS: 99213

== ENCOUNTER 2024-02-11 16:00 | Outpatient (REF) | payer OTHER, SELFPAY | END 2024-02-11 16:01 | disposition home or self-care (01) | LOC: HO.LNP 16:00 | PROVIDERS: Visit Provider Obstetrics & Gynecology | DX: Z13.89 Encounter for screening for other disorder (principal) ==

== ENCOUNTER 2024-02-21 08:12 | Outpatient (REF) | payer OTHER, SELFPAY ==
[2024-02-21 08:58] LABS: Hematocrit 34.8 % (37.0-47.0); Hemoglobin 11.5 g/dl (12.0-16.0); Mean Corpuscular Hemoglobin 27.4 pg (27.0-33.0); Mean Corpuscular Volume 83.1 fL (80.0-98.0); Mean Platelet Volume 10.1 fL (9.4-12.3); Platelet Count 245 X10*3/uL (160-400); Red Blood Count 4.19 X10*6/uL (4.20-5.50); Red Cell Distribution Width 13.7 % (11.0-16.0); White Blood Count 8.9 X10*3/uL (4.8-10.8)
[2024-02-21 09:38] LABS: HCG Quantitative < 2 mIU/mL; TSH reflex Free T4 3.42 uIU/mL (0.32-4.0)
[2024-02-22 17:28] LABS: Follicle Stimulating Hormone 15.7 mIU/mL; Prolactin 22.4 ng/mL
== END 2024-02-21 08:13 | disposition home or self-care (01) ==
LOC: HO.LAB 08:12
PROVIDERS: PCP Nurse Practitioner Primary Care; Visit Provider Obstetrics & Gynecology
DX: N93.9 Abnormal uterine and vaginal bleeding, unspecified (principal)
CPT/HCPCS: 36415; 58100; 83001; 84146; 84443; 84702; 85027

== ENCOUNTER 2024-02-21 08:33 | Outpatient (AMB) | payer OTHER, SELFPAY ==
--- NOTE | 2024-02-21 08:46 | MHC.OFFVIS ---
Vital Signs 02/21/24 08:53 Height 5 ft 8.5 in Weight 253 lb 8.505 oz BMI 38.0 BP 124/76 Intake Visit Reasons: EMB Satellite Manager Required: No Information Interpreted: non-clinical & clinical Academic Computing Director: Academic Computing Director Present (Tammy Gomez DEVON) Accompanied by: Self / Same As Patient Allergies naproxen [NAPROXEN] Allergy (Mild, Verified 02/21/24 08:54) HEART PALPATATIONS cyclobenzaprine [From FLEXERIL] Allergy (Unknown, Verified 02/21/24 08:54) SWELLING acetaminophen [From PERCOCET] Adverse Reaction (Unknown, Verified 02/21/24 08:54) VOMITING Flexeril Adverse Reaction (Unknown, Verified 02/21/24 08:54) heart palp oxycodone [From PERCOCET] Adverse Reaction (Unknown, Verified 02/21/24 08:54) VOMITING Hydrocodone-Ibuprofen Adverse Reaction (Unknown, Uncoded 02/21/24 08:54) stomach upset milk Adverse Reaction (Unknown, Uncoded 02/21/24 08:54) stomach upset HPI Comments Details: Here for EMB [facility] Medical History Heel spur Snoring Encounter for screening colonoscopy Cervical spondylosis Complicated migraine Left-sided weakness Brain TIA Eczema of lower extremity Anxiety and depression Normocytic normochromic anemia Heavy menstrual bleeding Bulging of lumbar intervertebral disc Left ankle pain Constipation Obesity (BMI 30-39.9) Navel cellulitis Hallux valgus (acquired) Degenerative disc disease, cervical History of gallstones Impaired fasting glucose Depression Surgical History Status post section History of bilateral tubal ligation History of bunionectomy of both great toes History of laparoscopic cholecystectomy History of cervical discectomy History of bunionectomy Family History Mother Hypertension Depression Diabetes mellitus Hypercholesteremia SUZIE (obstructive sleep apnea) COPD (chronic obstructive pulmonary disease) Substance use disorder Mental health disorder Sister Breast cancer Uterine cancer Mental health disorder Maternal Grandmother Mental health disorder Maternal Aunt Mental health disorder Social History Housing: Apartment Alcohol intake: never Patient Tobacco Use Status: Never used Tobacco e-Cigarette/Vaping Use: Never Used service: No Current occupational status: employed Cognitive needs: No Hearing needs: No Vision needs: Yes Review of Systems Const All systems reviewed & are unremarkable except as noted in HPI and below Reports as per HPI and Reports no additional complaints GI Reports no additional complaints Reports no additional complaints Physical Exam Vital Signs: Last Vital Signs BP 124/76 02/21/24 08:53 BMI result Body Mass Index 38.0 Office Procedures Endometrial Biopsy Details: The patient was counseled regarding the indication and benefits of endometrial sampling to rule out endometrial pathology including not limited to endometrial hyperplasia or endometrial cancer and others; The alternatives (Either do nothing vs. hysteroscopy D&C) & the risks were discussed with the patient including but not limited: pain, uterine perforation, bleeding, infection, possible injury to bladder, bowel, ureter, possible need for blood transfusion with all its possible risks. The patient verbalized understanding all questions answered and signed consent. Urine test done in the office was negative The patient was placed into the dorsal lithotomy position; a speculum was inserted in the vagina. Using aseptic technique for the procedure, the cervix was cleansed with Betadine. The anterior lip of the cervix was grasped with a single tooth tenaculum. The uterus was sounded to 7 cm with a 4 mm Pipelle was used. Tissues samples were obtained and placed in formalin, in a patient labeled container and sent to the pathology department. At the end of the procedure, there was minimal bleeding noted The patient tolerated the procedure well and was discharged in good condition with the following instructions: Nothing in the vagina until the bleeding stops. No sex until the bleeding stops, to call if any of the following occurs: fever (>100.4), flu-like symptoms, abdominal pain, heavy bleeding, four smelling vaginal discharge. The patient was instructed to schedule a Follow up appointment in 2 weeks to discuss pathology results of the biopsy and treatment options. This note was generated with a voice recognition program. Some errors may have been overlooked during the review of this note. Sometimes these errors may affect the content or meaning of a given sentence. [id number] Biopsy Assessment & Plan Assessment & Plan (1) Abnormal uterine bleeding (AUB): Code(s): N93.9 - Abnormal uterine and vaginal bleeding, unspecified Category: Medical Plan: EMB done, see procedure note Orders: Orders AMB Endometrial Biopsy Today N93.9 - Abnormal uterine and vaginal bleeding, unspecified Coding Level of Care Code Procedure Only Diagnoses Abnormal uterine bleeding (AUB) N93.9 CPT Codes Endometrial Biopsy - CPT: 21937-[id number] Biopsy ([id number])
[2024-02-21 08:53] VITALS: BP 124/76; BMI 38.0
== END 2024-02-21 09:08 | disposition home or self-care (01) ==
PROVIDERS: PCP Internal Medicine; Visit Provider Obstetrics & Gynecology
DX: N93.9 Abnormal uterine and vaginal bleeding, unspecified (principal)
CPT/HCPCS: 58100

== ENCOUNTER 2024-02-21 09:08 | Outpatient (REF) | payer OTHER, SELFPAY | END 2024-02-21 09:09 | disposition home or self-care (01) | LOC: HO.LNP 09:08 | PROVIDERS: Visit Provider Obstetrics & Gynecology | DX: N93.9 Abnormal uterine and vaginal bleeding, unspecified (principal) | CPT/HCPCS: 88305 ==

== ENCOUNTER 2024-02-26 10:00 | Outpatient (REF) | payer OTHER, SELFPAY ==
--- NOTE | ~2024-02-26 | US_ITS ---
EXAMINATION: US PELVIS CLINICAL INFORMATION: Abnormal uterine and vaginal bleeding, unspecified LMP: One week ago COMPARISON: Pelvic ultrasound 10/06/2022 TECHNIQUE: Ultrasound of the pelvis is performed using both transabdominal and transvaginal transducers along with Doppler. Transvaginal imaging is performed due to inadequate visualization transabdominally. FINDINGS: Uterus: The uterus is retroverted and measures 10.8 x 5.5 x 7.0 cm. Intramural fibroids in the fundus include: 0.7 x 0.5 x 0.8 cm, previously measured 1.0 x 0.8 x 0.8 cm and 0.7 x 0.7 x 0.9 cm, previously measured 0.6 x 0.5 x 0.6 cm. The endometrial thickness is 1.1 cm. Adnexa: Both ovaries are visualized. There is normal color flow to the adnexa. There is no ovarian torsion. There is a small amount of free fluid adjacent to the fundus of the uterus. Right ovary measures 2.7 x 1.5 x 1.7 cm. Volume 6.1 mL. The right ovary is normal in appearance. Left ovary measures 3.3 x 3.3 x 2.2 cm. Volume 12.9 mL. 2.8 x 2.1 x 1.6 cm follicle, a normal finding, is seen in the left ovary; no follow-up imaging is recommended. US/US pelvic and transvaginal IMPRESSION: 1. Small intramural fibroids in the fundus of the uterus. 2. Normal ovaries.
== END 2024-02-26 10:01 | disposition home or self-care (01) ==
LOC: HO.US 10:00
PROVIDERS: PCP Internal Medicine; Visit Provider Obstetrics & Gynecology
DX: N93.9 Abnormal uterine and vaginal bleeding, unspecified (principal)
CPT/HCPCS: 76830; 76856

== ENCOUNTER 2024-03-24 08:04 | Outpatient (AMB) | payer OTHER, SELFPAY ==
[2024-03-24 08:08] VITALS: BP 112/74; BMI 37.9
--- NOTE | 2024-03-24 08:08 | MHC.OFFVIS ---
Vital Signs 03/24/24 08:08 Height 5 ft 8.5 in Weight 253 lb BMI 37.9 BP 112/74 Blood Pressure Location Lt brachial Position Sitting Intake Visit Reasons: EMB/US Results Allergies naproxen [NAPROXEN] Allergy (Mild, Verified 03/24/24 08:10) HEART PALPATATIONS cyclobenzaprine [From FLEXERIL] Allergy (Unknown, Verified 03/24/24 08:10) SWELLING acetaminophen [From PERCOCET] Adverse Reaction (Unknown, Verified 03/24/24 08:10) VOMITING Flexeril Adverse Reaction (Unknown, Verified 03/24/24 08:10) heart palp oxycodone [From PERCOCET] Adverse Reaction (Unknown, Verified 03/24/24 08:10) VOMITING Hydrocodone-Ibuprofen Adverse Reaction (Unknown, Uncoded 03/24/24 08:10) stomach upset milk Adverse Reaction (Unknown, Uncoded 03/24/24 08:10) stomach upset HPI Comments Details: The patient is presenting for follow-up to discuss the results of her abnormal uterine bleeding workup and options of treatment. The following workup was done.: H&H= 11.5/34.8 TSH, hCG, GC and chlamydia were negative. FSH 15.7 in the premenopausal range Endometrial biopsy pathology showed the following: Endometrium, biopsy: Disordered proliferative endometrium; no atypia or hyperplasia identified Co testing was done in 07/15 was negative. Mammogram in 09/15 was BI-RADS 2. Pelvic ultrasound showed the following: Uterus: The uterus is retroverted and measures 10.8 x 5.5 x 7.0 cm. Intramural fibroids in the fundus include: 0.7 x 0.5 x 0.8 cm, previously measured 1.0 x 0.8 x 0.8 cm and 0.7 x 0.7 x 0.9 cm, previously measured 0.6 x 0.5 x 0.6 cm. The endometrial thickness is 1.1 cm. Adnexa: Both ovaries are visualized. There is normal color flow to the adnexa. There is no ovarian torsion. There is a small amount of free fluid adjacent to the fundus of the uterus. Right ovary measures 2.7 x 1.5 x 1.7 cm. Volume 6.1 mL. The right ovary is normal in appearance. Left ovary measures 3.3 x 3.3 x 2.2 cm. Volume 12.9 mL. 2.8 x 2.1 x 1.6 cm follicle, a normal finding, is seen in the left ovary; no follow-up imaging is recommended. [facility] Medical History Heel spur Snoring Encounter for screening colonoscopy Cervical spondylosis Complicated migraine Left-sided weakness Brain TIA Eczema of lower extremity Anxiety and depression Normocytic normochromic anemia Heavy menstrual bleeding Bulging of lumbar intervertebral disc Left ankle pain Constipation Obesity (BMI 30-39.9) Navel cellulitis Hallux valgus (acquired) Degenerative disc disease, cervical History of gallstones Impaired fasting glucose Depression Surgical History Status post section History of bilateral tubal ligation History of bunionectomy of both great toes History of laparoscopic cholecystectomy History of cervical discectomy History of bunionectomy Family History Mother Hypertension Depression Diabetes mellitus Hypercholesteremia SUZIE (obstructive sleep apnea) COPD (chronic obstructive pulmonary disease) Substance use disorder Mental health disorder Sister Breast cancer Uterine cancer Mental health disorder Maternal Grandmother Mental health disorder Maternal Aunt Mental health disorder Social History Housing: Apartment Alcohol intake: never Patient Tobacco Use Status: Never used Tobacco e-Cigarette/Vaping Use: Never Used service: No Current occupational status: employed Cognitive needs: No Hearing needs: No Vision needs: Yes Review of Systems Const All systems reviewed & are unremarkable except as noted in HPI and below Reports as per HPI and Reports no additional complaints GI Reports no additional complaints Reports no additional complaints Physical Exam Vital Signs: Last Vital Signs BP 112/74 03/24/24 08:08 BMI result Body Mass Index 37.9 Assessment & Plan Assessment & Plan (1) Abnormal uterine bleeding (AUB): Comment: History of TIA Code(s): N93.9 - Abnormal uterine and vaginal bleeding, unspecified Category: Medical Plan: Discussed with the patient the results of the work up done , including the endometrial biopsy showed proliferative endometrium which will increase the risk of endometrial pathology including endometrial hyperplasia and/or malignancy if untreated and abnormal uterine bleeding persists, in addition discussed with the patient the options of treatment with history of TIA including Mirena IUD, endometrial ablation and hysterectomy. All pros, cons, risks and benefits if each option was discussed with the patient and the patient decided to think about it and get back to us, the patient understands that her endometrial biopsy showed proliferative endometrium which will increase the risk of endometrial pathology including endometrial hyperplasia and/or malignancy if untreated. All questions answered the patient verbalized understanding. (2) Uterine myoma: Code(s): D25.9 - Leiomyoma of uterus, unspecified Category: Medical Plan: Discussed with the patient the findings on pelvic ultrasound & the risk of myosarcoma; discussed with the patient the options of treatment including expectant management versus hysterectomy; the pros and cons, risks benefits of each approach were discussed with the patient including the fact that in cases of myosarcoma, surgical treatment can lead to early diagnosis and positively affects the prognosis; after further discussion, the patient decided to proceed with expectant management. Will repeat pelvic ultrasound periodically. Instructions given to patient to call in case any of the following occurs: pressure symptoms, abnormal uterine bleeding, pelvic pain; and to schedule a six-month ultrasound and a follow-up appointment . All questions answered, the patient verbalized understanding and agreed with the plan . Orders: Orders US pelvic and transvaginal 6 Months D25.9 - Leiomyoma of uterus, unspecified Coding Level of Care Code Est Pt Level 3 (39369) Diagnoses Abnormal uterine bleeding (AUB) N93.9 Uterine myoma D25.9
== END 2024-03-24 08:32 | disposition home or self-care (01) ==
PROVIDERS: PCP Nurse Practitioner Primary Care; Visit Provider Obstetrics & Gynecology
DX: N93.9 Abnormal uterine and vaginal bleeding, unspecified (principal); D25.9 Leiomyoma of uterus, unspecified
CPT/HCPCS: 99213

== ENCOUNTER → 2024-03-24 08:04 | Outpatient (BNVA) | payer OTHER, SELFPAY | PROVIDERS: PCP Nurse Practitioner Primary Care; Visit Provider Obstetrics & Gynecology | DX: N93.9 Abnormal uterine and vaginal bleeding, unspecified (principal); D25.9 Leiomyoma of uterus, unspecified; Z86.73 Personal history of transient ischemic attack (TIA), and cerebral infarction without residual deficits | CPT/HCPCS: 99212 ==

== ENCOUNTER 2024-04-16 14:06 | Outpatient (AMB) | payer OTHER, SELFPAY ==
[2024-04-16 14:15] VITALS: BP 112/70; PULSE 108; TEMP 36.2; O2SAT 98; BMI 38.4
--- NOTE | 2024-04-16 14:15 | MHC.OFFWIV ---
Intake Vital Signs 04/16/24 14:15 04/16/24 14:50 Height 5 ft 8.5 in Weight 256 lb 8 oz BMI 38.4 BP 112/70 Blood Pressure Location Rt brachial Position Sitting Pulse 108 H 103 H Pulse Source Pulse Oximeter Pulse Oximeter Temp 97.1 F Temp Source Temporal Artery Scan Pulse Oximetry (%) 98 97 Oxygen Delivery Method Room Air Room Air Intake Visit Reasons: EP ?sinus infection/ Sore throat/congestion Intake Note: Amanda is a 53 year old female who presents to the office today for c/o sore throat, congestion, headache, sinus pressure that started Thursday 04/12. Pt states she did an at home covid test yesterday which was negative. Patient Tobacco Use Status: Never used Tobacco Allergies naproxen [NAPROXEN] Allergy (Mild, Verified 04/16/24 14:17) HEART PALPATATIONS cyclobenzaprine [From FLEXERIL] Allergy (Unknown, Verified 04/16/24 14:17) SWELLING acetaminophen [From PERCOCET] Adverse Reaction (Unknown, Verified 04/16/24 14:17) VOMITING Flexeril Adverse Reaction (Unknown, Verified 04/16/24 14:17) heart palp oxycodone [From PERCOCET] Adverse Reaction (Unknown, Verified 04/16/24 14:17) VOMITING Hydrocodone-Ibuprofen Adverse Reaction (Unknown, Uncoded 04/16/24 14:17) stomach upset milk Adverse Reaction (Unknown, Uncoded 04/16/24 14:17) stomach upset HPI HPI Comments History of Present Illness Details Patient is a 53-year-old female who is complaining of 5 days of a sore throat, fatigue, headache, head congestion, sinus pain and pressure. She states she has some sort shortness of breath when she lays down at night because she finds it difficult to breathe when her nose is clogged but it seems to be better. She says she had some pain with deep inspiration but that also seems to be better. She does admit to a history of asthma and has been using her inhaler as needed with no relief. She has also been taking long hot showers, using steam and Mucinex which seems to help a little bit. She tested herself for COVID yesterday and her test came back negative. 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 COUNTS INCLUDE 234 BEDS AT THE [facility] Medical History Heel spur Snoring Encounter for screening colonoscopy Cervical spondylosis Complicated migraine Left-sided weakness Brain TIA Eczema of lower extremity Anxiety and depression Normocytic normochromic anemia Heavy menstrual bleeding Bulging of lumbar intervertebral disc Left ankle pain Constipation Obesity (BMI 30-39.9) Navel cellulitis Hallux valgus (acquired) Degenerative disc disease, cervical History of gallstones Impaired fasting glucose Depression Surgical History Status post section History of bilateral tubal ligation History of bunionectomy of both great toes History of laparoscopic cholecystectomy History of cervical discectomy History of bunionectomy Family History Mother Hypertension Depression Diabetes mellitus Hypercholesteremia SUZIE (obstructive sleep apnea) COPD (chronic obstructive pulmonary disease) Substance use disorder Mental health disorder Sister Breast cancer Uterine cancer Mental health disorder Maternal Grandmother Mental health disorder Maternal Aunt Mental health disorder Social History Housing: Apartment Alcohol intake: never Patient Tobacco Use Status: Never used Tobacco e-Cigarette/Vaping Use: Never Used service: No Current occupational status: employed Cognitive needs: No Hearing needs: No Vision needs: Yes Review of Systems Const All systems reviewed & are unremarkable except as noted in HPI and below Physical Exam Vital Signs: Last Vital Signs Temp 97.1 F 04/16/24 14:15 Pulse 108 H 04/16/24 14:15 BP 112/70 04/16/24 14:15 Pulse Ox 98 04/16/24 14:15 Oxygen Delivery Method Room Air 04/16/24 14:15 BMI result Body Mass Index 38.4 Const General: cooperative, healthy appearing, comfortable and no acute distress Orientation/consciousness: patient oriented x3 Limitations: no limitations HEENT Head: Yes normal to inspection Ears: hearing grossly normal bilaterally, external ears normal and TM's normal bilaterally General nose exam: Normal external nose present, Normal nares present and No nasal discharge present Face and sinus: Yes normal facial exam and Yes sinus tenderness Mouth: Normal oral and palatal mucosa present and moist mucous membranes Throat: Yes tonsils normal, Yes uvula midline and Yes posterior oropharynx abnormal (Erythema) Eyes General: appearance normal, both eyes and all related structures Neck Neck: Yes normal visual inspection Resp Effort & Inspection: normal respiratory effort, able to speak in complete sentences, Actively coughing, no respiratory distress, not tachypneic, no tripod positioning and no use of accessory muscles Auscultation: clear to auscultation bilaterally Cardio Rate: regular rate Rhythm: regular rhythm Heart sounds: normal S1 and S2 Skin General skin exam: no rashes or lesions noted Neuro General: patient oriented x3 Extrem General: Yes normal to inspection and Yes no clubbing, cyanosis or edema Results AMB Rapid Strep AMB Rapid Strep Negative Last Edit by Li Watson CMA on 04/16/24 14:35 Assessment & Plan Assessment & Plan (1) Sinusitis, acute: Code(s): J01.90 - Acute sinusitis, unspecified Qualifiers: Sinusitis location: maxillary Recurrence: non-recurrent Qualified Code(s): J01.00 - Acute maxillary sinusitis, unspecified Plan: Sent COVID, flu, RSV test, in office rapid strep was negative. Patient was a little bit tachycardic, repeat heart rate 103 beats per minute, explained she could be getting a little bit dehydrated so it is important to stay well hydrated and recommended she keep an eye on it. Previous heart rate recorded was 93 at last visit. Very low suspicion for PE as patient is satting 97% on room air, does not have unilateral leg swelling, is not on hormones, has no hemoptysis, or recent surgery or trauma or a history of a PE or DVT. However can not PERC out because she is 53 years old. Patient was educated to make sure her heart rate resolves when she gets home and is resting, if not, she should follow up with her PCP or go to the emergency department. Advised this is sinusitis likely due to COVID, if COVID test comes back negative, I will consider antibiotics. Plan See above Orders: Orders SARS-CoV2/FLU/RSV Today J06.9 - Acute upper respiratory infection, unspecified AMB Rapid Strep Screen Today Z13.9 - Encounter for screening, unspecified Coding Level of Care Code Est Pt Level 3 (73495) Diagnoses Acute non-recurrent maxillary sinusitis J01.00 Sinusitis location: maxillary Recurrence: non-recurrent
[2024-04-16 14:50] VITALS: PULSE 103; O2SAT 97
== END 2024-04-16 15:03 | disposition home or self-care (01) ==
PROVIDERS: PCP Nurse Practitioner Primary Care; Visit Provider Physician Assistant
DX: Z13.9 Encounter for screening, unspecified (principal); J01.00 Acute maxillary sinusitis, unspecified
CPT/HCPCS: 87880; 99213

== ENCOUNTER 2024-04-16 14:42 | Outpatient (REF) | payer OTHER, SELFPAY ==
[2024-04-16 18:00] LABS: Influenza A PCR NEGATIVE (Negative); Influenza B PCR NEGATIVE (Negative); Resp Syncy Virus RNA Qual PCR NEGATIVE (Negative); SARS COV2 PCR INHOUSE NEGATIVE (Negative)
== END 2024-04-16 14:43 | disposition home or self-care (01) ==
LOC: HO.LAB 14:42
PROVIDERS: Visit Provider Physician Assistant
DX: J06.9 Acute upper respiratory infection, unspecified (principal)
CPT/HCPCS: 0241U

== ENCOUNTER 2024-06-30 12:55 | Outpatient (AMB) | payer OTHER, SELFPAY ==
--- NOTE | 2024-06-30 13:16 | AM.OFFWIN_ITS ---
Intake Vital Signs 06/30/24 13:18 Height 5 ft 8.5 in Weight 255 lb BMI 38.2 BP 110/70 Blood Pressure Location Lt brachial Position Sitting Pulse 84 Pulse Source Pulse Oximeter Pulse Oximetry (%) 98 Oxygen Delivery Method Room Air Intake Visit Reasons: EP sore throat, headaches Intake Note: Patient here for sore throat, slurred speech and headaches which started Sunday. Patient Tobacco Use Status: Never used Tobacco Allergies naproxen [NAPROXEN] Allergy (Mild, Verified 06/30/24 13:20) HEART PALPATATIONS cyclobenzaprine [From FLEXERIL] Allergy (Unknown, Verified 06/30/24 13:20) SWELLING acetaminophen [From PERCOCET] Adverse Reaction (Unknown, Verified 06/30/24 13:20) VOMITING Flexeril Adverse Reaction (Unknown, Verified 06/30/24 13:20) heart palp oxycodone [From PERCOCET] Adverse Reaction (Unknown, Verified 06/30/24 13:20) VOMITING Hydrocodone-Ibuprofen Adverse Reaction (Unknown, Uncoded 06/30/24 13:20) stomach upset milk Adverse Reaction (Unknown, Uncoded 06/30/24 13:20) stomach upset Do you need a note to return to daycare/school/sports/work: No HPI EP sore throat, headaches HPI Details This note is constructed using voice recognition software. While every effort has been made to ensure accuracy, electrical logger errors may have been included. The patient is a 54 year old female who presents to the clinic today with sore throat, headaches, left-sided weakness since Sunday. She reports a history of TIAs, which have not been treated. She reports that about a week ago she had a ?TIA?, however was not evaluated for it. The headache seemed to go away, but came back on Sunday, when she developed some left arm and leg weakness as well as some slurred speech. She developed a sore throat, but it did not feel like a typical sore throat, but she was concerned due to this with the other symptoms. She elected not to be seen in the emergency room as she is worried about miles COVID due to ?the emergency room is filled with sick people?. She denies fever, chills, cough, shortness of breath. She reports that the sore throat feels like some difficulty swallowing, and she has had some dysphagia with it. She reports baseline confusion, no worsening. [facility] Medical History Heel spur Snoring Encounter for screening colonoscopy Cervical spondylosis Complicated migraine Left-sided weakness Brain TIA Eczema of lower extremity Anxiety and depression Normocytic normochromic anemia Heavy menstrual bleeding Bulging of lumbar intervertebral disc Left ankle pain Constipation Obesity (BMI 30-39.9) Navel cellulitis Hallux valgus (acquired) Degenerative disc disease, cervical History of gallstones Impaired fasting glucose Depression Surgical History Status post section History of bilateral tubal ligation History of bunionectomy of both great toes History of laparoscopic cholecystectomy History of cervical discectomy History of bunionectomy Family History Mother Hypertension Depression Diabetes mellitus Hypercholesteremia SUZIE (obstructive sleep apnea) COPD (chronic obstructive pulmonary disease) Substance use disorder Mental health disorder Sister Breast cancer Uterine cancer Mental health disorder Maternal Grandmother Mental health disorder Maternal Aunt Mental health disorder Social History Housing: Apartment Alcohol intake: never Patient Tobacco Use Status: Never used Tobacco e-Cigarette/Vaping Use: Never Used service: No Current occupational status: employed Cognitive needs: No Hearing needs: No Vision needs: Yes Review of Systems Const All systems reviewed & are unremarkable except as noted in HPI and below Physical Exam Vital Signs: Last Vital Signs Pulse 84 06/30/24 13:18 BP 110/70 06/30/24 13:18 Pulse Ox 98 06/30/24 13:18 Oxygen Delivery Method Room Air 06/30/24 13:18 BMI result Body Mass Index 38.2 Const General: cooperative, healthy appearing, comfortable, no acute distress and alert Orientation/consciousness: patient oriented x3 Limitations: no limitations Eyes General: appearance normal, both eyes and all related structures Neck Neck: Yes normal visual inspection, Yes full ROM and Yes no lymphadenopathy Resp Effort & Inspection: normal respiratory effort and able to speak in complete sentences Auscultation: clear to auscultation bilaterally Cardio Jugular venous distension: no JVD Palpation: normal PMI Rate: regular rate Heart sounds: S1 normal heart sound present, S2 normal heart sound present, no click, no gallops, no murmurs and no rubs Skin General skin exam: no rashes or lesions noted, elasticity normal and turgor normal Neuro Other: Left-sided facial droop. Hand grasp 4/5 on the left, 5/5 on the right. Leg strength 4/5 on the left, 5/5 on the right. General: patient oriented x3 Psych Appearance: grossly normal Mental Status: mental status grossly normal Speech and movement: Normal speech and movement present Affect: normal affect Assessment & Plan Assessment & Plan (1) Facial droop: Code(s): R29.810 - Facial weakness Plan: Left-sided facial droop with left arm and leg weakness, slurred speech, and ongoing headache with history of TIAs, concerning for acute CVA, with last known well Sunday. Advised emergency room for full evaluation, patient declined EMS transport, and her will drive her to the ER. (2) Headache: Code(s): R51.9 - Headache, unspecified Qualifiers: Headache type: unspecified Headache chronicity pattern: acute headache Intractability: intractable Qualified Code(s): R51.9 - Headache, unspecified Plan: Etiology unclear, it is concerning that this symptoms have been constant and recurring for the past several weeks, and are associated with neurologic changes. Advised emergency room for evaluation of source. Patient declined EMS. Patient agrees to be seen in the emergency room, and plans to present to [facility]. ER called ahead for expect. (3) Pharyngitis: Code(s): J02.9 - Acute pharyngitis, unspecified Qualifiers: Pharyngitis/tonsillitis etiology: unspecified etiology Qualified Code(s): J02.9 - Acute pharyngitis, unspecified Plan: In office rapid strep negative. Etiology unclear. May be related to weekend muscle structure. Advised follow up with ongoing or worsening. Plan See above for full details and plan. Coding Level of Care Code Est Pt Level 4 (76106) Diagnoses Facial droop R29.810 Acute intractable headache, unspecified headache type R51.9 Headache type: unspecified Headache chronicity pattern: acute headache Intractability: intractable Pharyngitis, unspecified etiology J02.9 Pharyngitis/tonsillitis etiology: unspecified etiology
[2024-06-30 13:18] VITALS: BP 110/70; PULSE 84; O2SAT 98; BMI 38.2
== END 2024-06-30 14:11 | disposition home or self-care (01) ==
PROVIDERS: PCP Nurse Practitioner Primary Care; Visit Provider Registered Nurse
DX: R29.810 Facial weakness (principal); R51.9 Headache, unspecified; J02.9 Acute pharyngitis, unspecified; Z13.9 Encounter for screening, unspecified

== ENCOUNTER → 2024-06-30 12:55 | Outpatient (BNVA) | payer OTHER, SELFPAY | PROVIDERS: PCP Nurse Practitioner Primary Care; Visit Provider Registered Nurse ==

== ENCOUNTER 2024-06-30 14:05 | Emergency (ER) | payer OTHER, SELFPAY ==
--- NOTE | ~2024-06-30 | CT_ITS ---
EXAMINATION: CT HEAD WITHOUT CONTRAST CLINICAL INFORMATION: 54-year-old female, left-sided weakness COMPARISON: Brain CT of 12/12/2023 TECHNIQUE: Contiguous axial imaging was performed from the skull base to vertex without intravenous administration of contrast. This CT examination was performed using dose optimization techniques as appropriate, variously including the following: *Automated exposure control *Adjustment of mA and/or kV according to patient size (this includes techniques or standardized protocols for targeted exams where dose is matched to indication/reason for exam; i.e. extremities or head) *Use of iterative reconstruction technique DLP: 725 mGy-cm FINDINGS: The ventricles and sulci are normal in size and configuration. No acute hemorrhage, mass effect or shift is evident. Lindquist-white differentiation is maintained. In the posterior fossa, the brainstem, cerebellum and fourth ventricle image normally. The orbits and calvarium are intact. Mucosal thickening is evident in the right frontal and left sphenoid sinuses as well as in bilateral ethmoid air cells and the right maxillary sinus. There is also a right maxillary air-fluid level. CT/CT head/brain wo IV con IMPRESSION: 1. No acute hemorrhage, mass effect or shift. 2. Extensive sinusitis, new since 12/12/2023. Electronically signed by: Kevin Lloyd MD 06/30/2024 03:46 PM EDT
--- NOTE | ~2024-06-30 | XR_ITS ---
EXAMINATION: XR CHEST CLINICAL INFORMATION: Chest pain COMPARISON: Chest x-ray November 09, 2023 TECHNIQUE: 2 views of the chest were obtained. FINDINGS: Lungs are clear. No pulmonary vascular congestion. There is no pleural effusion. The heart size is normal. The cardiac and mediastinal contours are normal. There are multilevel degenerative changes of dorsal spine. Orthopedic plate and screws and lower cervical spine. Surgical clips right upper quadrant of the abdomen. XR/XR chest 2V IMPRESSION: Unremarkable examination. Electronically signed by: Braydon Santillan MD 06/30/2024 03:17 PM EDT RP
[2024-06-30 14:12] VITALS: BP 123/66; PULSE 77; RESP 18; TEMP 36.6; O2SAT 98; BMI 38.5
--- NOTE | 2024-06-30 14:12 | ED.NEUROSD ---
HPI - Neuro Symptoms/Deficit General Chief Complaint: Neuro Symptoms/Deficit Stated Complaint: sore throat l side facial numbness sent from urge Time Seen by Provider: 06/30/24 22:48 Source: patient Limitations: no limitations History of Present Illness ED Provider: Francicsa Meredith PA-C HPI Narrative: 54-year-old female with a history of complex migraines presents with headache x1 week. Associated subjective fever, nasal congestion, postnasal drip and sore throat. Associated dry cough and chest discomfort. Patient states she has been using her migraine medication without relief from symptoms. Related Data Home Medications ?Medication ?Instructions ?Recorded ?Confirmed multivitamin 1 tab PO DAILY 12/12/22 12/17/23 vitamin C 45 mg-zinc citrate 3.75 3 tab PO WE 12/12/22 12/17/23 mg-elderberry 50 mg chewable tablet ([employer]) albuterol 90 mcg/actuation aerosol mcg inhalation 01/17/23 12/17/23 inhaler topiramate 50 mg tablet 50 mg PO BID 12/17/23 12/17/23 escitalopram oxalate 10 mg tablet 10 mg PO DAILY 04/16/24 prazosin 1 mg capsule 1 mg PO BEDTIME 06/30/24 trazodone 50 mg tablet 100 mg PO BEDTIME PRN 06/30/24 Previous Rx's ?Medication ?Instructions ?Recorded sumatriptan succinate 50 mg tablet 50 mg PO Q2-4H PRN migraine 12/13/22 headache #14 tabs cane #1 ea 12/14/22 bisacodyl 5 mg tablet,delayed 10 mg (2 x 5 mg) PO ONCE 01/24/23 release (Dulcolax (bisacodyl)) colonoscopy prep 1 day #2 tabs polyethylene glycol 3350 17 238 g PO ONCE PRN laxative effect 01/24/23 gram/dose oral powder (Miralax) 1 day #238 grams albuterol sulfate 90 mcg/actuation 2 puff inhalation Q6H PRN 09/08/23 aerosol inhaler shortness of breath or wheezing #6.7 grams capsaicin 0.1 % topical cream 1 appl topical TID #42.5 grams 12/17/23 (Arthritis Pain Relief (capsaicin)) buspirone 5 mg tablet 7.5 mg (1.5 x 5 mg) PO TID #90 tabs 02/12/24 ferrous fumarate 324 mg (106 mg 324 mg PO DAILY #90 tabs 06/08/24 iron) tablet amoxicillin 875 mg-potassium 1 tab PO Q12H #14 tabs 07/01/24 clavulanate 125 mg tablet Allergies Allergy/AdvReac Type Severity Reaction Status Date / Time naproxen [NAPROXEN] Allergy Mild HEART Verified 06/30/24 14:16 PALPATATIONS cyclobenzaprine Allergy Unknown SWELLING Verified 06/30/24 14:16 [From FLEXERIL] acetaminophen [From PERCOCET] AdvReac Unknown VOMITING Verified 06/30/24 14:16 Flexeril AdvReac Unknown heart palp Verified 06/30/24 14:16 oxycodone [From PERCOCET] AdvReac Unknown VOMITING Verified 06/30/24 14:16 Hydrocodone-Ibuprofen AdvReac Unknown stomach Uncoded 06/30/24 14:16 upset milk AdvReac Unknown stomach Uncoded 06/30/24 14:16 upset Review of Systems Review of Systems: Yes all other systems are reviewed and are negative Constitutional: Constitutional: Reports fever(s) and Reports headache(s) ENT: Reports headache(s), Reports nasal congestion, Reports nasal discharge, Denies neck pain and Reports sore throat Cardiovascular: Cardiovascular: Reports chest pain and Denies dyspnea Respiratory: Respiratory: Reports cough and Denies dyspnea Gastrointestinal: Gastrointestinal: Denies nausea and Denies vomiting Musculoskeletal: Musculoskeletal: Denies neck pain Neurologic: Reports headache(s) [facility] Past Medical History Attestation statement: The following information was validated with the patient. Medical History Heel spur Snoring Encounter for screening colonoscopy Cervical spondylosis Complicated migraine Left-sided weakness Brain TIA Eczema of lower extremity Anxiety and depression Normocytic normochromic anemia Heavy menstrual bleeding Bulging of lumbar intervertebral disc Left ankle pain Constipation Obesity (BMI 30-39.9) Navel cellulitis Hallux valgus (acquired) Degenerative disc disease, cervical History of gallstones Impaired fasting glucose Depression Surgical History Status post section History of bilateral tubal ligation History of bunionectomy of both great toes History of laparoscopic cholecystectomy History of cervical discectomy History of bunionectomy Family History Family History Mother Hypertension Depression Diabetes mellitus Hypercholesteremia SUZIE (obstructive sleep apnea) COPD (chronic obstructive pulmonary disease) Substance use disorder Mental health disorder Sister Breast cancer Uterine cancer Mental health disorder Maternal Grandmother Mental health disorder Maternal Aunt Mental health disorder Social History Social History Housing: Apartment Alcohol intake: never Patient Tobacco Use Status: Never used Tobacco Smoked in Last 30 Days: No e-Cigarette/Vaping Use: Never Used Use of substances other than those prescribed or required for medical reasons: No Advance Directives: No Advance Directives Information Provided: No Do you have a plan to hurt others: No Plan service: No Current occupational status: employed Cognitive needs: No Hearing needs: No Vision needs: Yes Physical Exam Vital Signs: Vital Signs: Last Vital Signs Temp 98.3 F 06/30/24 22:56 Pulse 71 06/30/24 22:56 Resp 16 06/30/24 22:56 BP 105/62 06/30/24 22:56 Pulse Ox 98 06/30/24 22:56 O2 Del Method Room Air 06/30/24 22:56 BMI result Body Mass Index 38.5 Const: Other: Alert, overall well in appearance Orientation/consciousness: patient oriented x3 Neck: Other: Soft supple, full range of motion no midline tenderness Resp: Effort & Inspection: normal respiratory effort Cardio: Other: Normal peripheral perfusion Skin: Other: Warm dry no rash Neuro: General: patient oriented x3, gait normal, no focal motor deficits and CN's II-XI intact bilaterally Psych: Other: Calm cooperative Course Course Course Narrative: This is a Rapid Medical Examination (RME) performed by Marah Marcum PA-C in triage. Full HPI, ROS, assessment and treatment plan per primary provider in the Main ED. 54 yo female with history of TIA, history of migraines who presents to the ER for evaluation of headache x1 week along left sided weakness for the last 1 week. overall the weakness is improving in the LUE, LLE persists. she reports history of similar presentations with her migraines. not on A/C, asa, plavix. she also reports difficulty swallowing and slurred speech last week, overall getting better in the last 1 week. headache stopped today. she reports chest pain for the last 4 days as well. left sided weakness in both UE and LE noted in triage, she reports pain with movement of the left side. Plan: CT head, labs, EKG Medical Decision Making Medical Decision Making MDM Narrative: 54-year-old female with a history of complex migraines presents with headache x1 week. Associated subjective fever, nasal congestion, postnasal drip and sore throat. Associated dry cough and chest discomfort. Patient states she has been using her migraine medication without relief from symptoms. Problem: Complex migraines History: Per patient I have considered the following differential diagnoses: Complex migraine, viral syndrome, meningitis, ACS, pneumonia Plan: Patient is assessment began from triage, screening labs, EKG, chest x-ray were obtained. This is not ACS, patient is complaining of generalized chest discomfort in the setting of having viral syndrome, this is likely costochondritis. Regard to the headache, she has complex migraines, she is not responding to therapy, a CT was obtained, she actually has significant sinusitis, this is the likely trigger for her ongoing headache. We will send on Augmentin, and she can follow up with her primary care provider. Thought about meningitis, however she has no meningeal signs on exam, is afebrile and not altered. I have independently reviewed the following tests: Labs: No leukocytosis, not anemic, no electrolyte abnormality, viral panel negative, U tox negative, EKG: Normal sinus rhythm, rate of 80, no ischemic changes no ectopy Chest x-ray:XR CHEST CLINICAL INFORMATION: Chest pain COMPARISON: Chest x-ray November 09, 2023 TECHNIQUE: 2 views of the chest were obtained. FINDINGS: Lungs are clear. No pulmonary vascular congestion. There is no pleural effusion. The heart size is normal. The cardiac and mediastinal contours are normal. There are multilevel degenerative changes of dorsal spine. Orthopedic plate and screws and lower cervical spine. Surgical clips right upper quadrant of the abdomen. XR/XR chest 2V IMPRESSION: CT brain:CT HEAD WITHOUT CONTRAST CLINICAL INFORMATION: 54-year-old female, left-sided weakness COMPARISON: Brain CT of 12/12/2023 TECHNIQUE: Contiguous axial imaging was performed from the skull base to vertex without intravenous administration of contrast. This CT examination was performed using dose optimization techniques as appropriate, variously including the following: *Automated exposure control *Adjustment of mA and/or kV according to patient size (this includes techniques or standardized protocols for targeted exams where dose is matched to indication/reason for exam; i.e. extremities or head) *Use of iterative reconstruction technique DLP: 725 mGy-cm FINDINGS: The ventricles and sulci are normal in size and configuration. No acute hemorrhage, mass effect or shift is evident. Lindquist-white differentiation is maintained. In the posterior fossa, the brainstem, cerebellum and fourth ventricle image normally. The orbits and calvarium are intact. Mucosal thickening is evident in the right frontal and left sphenoid sinuses as well as in bilateral ethmoid air cells and the right maxillary sinus. There is also a right maxillary air-fluid level. CT/CT head/brain wo IV con IMPRESSION: 1. No acute hemorrhage, mass effect or shift. 2. Extensive sinusitis, new since 12/12/2023. Electronically signed by: Kevin Lloyd MD 06/30/2024 03:46 PM EDT RP Lab Data 06/30/24 14:37 06/30/24 14:37 Labs: Lab Results 06/30/24 06/30/24 Range/Units 14:37 23:00 WBC 8.9 (4.8-10.8) X10*3/uL RBC 4.37 (4.20-5.50) X10*6/uL Hgb 11.4 L (12.0-16.0) g/dl Hct 35.2 L (37.0-47.0) % MCV 80.5 (80.0-98.0) fL MCH 26.1 L (27.0-33.0) pg MCHC 32.4 (31.0-35.0) g/dl RDW 13.6 (11.0-16.0) % Plt Count 248 (160-400) X10*3/uL MPV 10.2 (9.4-12.3) fL Immature Gran % (Auto) 0.2 (0.0-0.4) % Neut % (Auto) 71.4 (45-73) % Lymph % (Auto) 19.0 L (20-40) % [place] % (Auto) 7.2 (2-11) % Eos % (Auto) 1.8 (0-4) % Baso % (Auto) 0.4 (0-2) % Lymph # (Auto) 1.7 (1.2-4.9) X10*3/uL [place] # (Auto) 0.6 (0.1-1.2) X10*3/uL Eos # (Auto) 0.2 (0.0-0.4) X10*3/uL Baso # (Auto) 0.0 (0.0-0.2) X10*3/uL Abs Immat Gran (auto) 0.02 (0.00-0.03) X10*3/uL Absolute Neuts (auto) 6.3 (2.0-8.3) x10*3/uL Absolute Nucleated RBC 0.000 (0.0-0.012) X10*3/uL Nucleated RBC % (auto) 0.0 (0.0-0.2) /100WBC PT 10.6 L (10.9-12.4) SEC INR 0.9 (0.9-1.1) APTT 27.3 (26.0-36.8) SEC Sodium 139 (135-145) mmol/L Potassium 4.1 (3.3-5.1) mmol/L Chloride 109 H (96-108) mmol/L Carbon Dioxide 25 (22-29) mmol/L Anion Gap 9 L (12-20) BUN 11 (9-16) mg/dL Creatinine 0.86 (0.5-1.4) mg/dL Estim Creat Clear Calc 101.8 Estimated GFR > 60 Random Glucose 96 (60-115) mg/dL Calcium 9.3 (8.4-10.2) mg/dL Magnesium 2.0 (1.6-2.6) mg/dL Total Bilirubin 0.2 (0.0-1.0) mg/dL Direct Bilirubin < 0.2 (0.0-0.5) mg/dL AST 11 (5-31) U/L ALT 13 (0-31) U/L Alkaline Phosphatase 117 (39-117) U/L Troponin I High Sens < 2.7 (<3.5-17.0) ng/L Total Protein 7.8 (6.5-8.0) g/dL Albumin 3.9 (3.5-5.0) g/dL Urine Color Yellow Urine Appearance Clear Urine pH 6.0 (5.0-9.0) Ur Specific [place] >= 1.030 H (1.005-1.025) Urine Protein Negative (Neg-Trace) mg/dL Urine Glucose (UA) Negative (Negative) mg/dL Urine Ketones Negative (Negative) mg/dL Urine Blood Negative (Negative) Urine Nitrite Negative (Negative) Ur Leukocyte Esterase Negative (Negative) Urine Opiates Screen Not Detected (Not Detect) Ur Buprenorphine Scrn Not Detected (Not Detect) ng/mL Ur Oxycodone Screen Not Detected (Not Detect) ng/mL Urine Methadone Screen Not Detected (Not Detect) ng/mL Urine Fentanyl Screen Not Detected (Not Detect) Ur Barbiturates Screen Not Detected (Not Detect) Ur Phencyclidine Scrn Not Detected (Not Detect) Ur Amphetamines Screen Not Detected (Not Detect) U Benzodiazepines Scrn Not Detected (Not Detect) Urine Cocaine Screen Not Detected (Not Detect) U Marijuana (THC) Screen Not Detected (Not Detect) Influenza Type A (PCR) NEGATIVE (Negative) Influenza Type B (PCR) NEGATIVE (Negative) RSV RNA Qual (PCR) NEGATIVE (Negative) SARS-CoV-2 RNA (RT-PCR) NEGATIVE (Negative) Discharge Plan Discharge Clinical Impression: Sinusitis, Costochondritis Patient Disposition: Home, Self-Care Instructions: Sinusitis (ED), Costochondritis (ED) Additional Instructions: All of your screening labs including cardiac enzymes were normal. There were no concerning changes on her EKG in your chest x-ray is clear. On the CT scan of your head, you were found to have extensive sinusitis. See home care instructions. Use Augmentin as directed, take an [id number] probiotic to help prevent constipation. This is the likely trigger for your ongoing migraine. In regard to the chest discomfort, given you have been recently ill, you likely have what is called costochondritis, this is inflammation of the cartilage is between your ribs. You can use stzo-[id number]-[id number] ibuprofen 600 mg taken every 6 hours with food. Follow up with your primary care provider as needed. Prescriptions: New amoxicillin-pot clavulanate 875-125 mg tablet 1 tab PO Q12H Qty: 14 0RF No Action buspirone 5 mg tablet 7.5 mg PO TID Qty: 90 5RF ferrous fumarate 324 mg (106 mg iron) tablet 324 mg PO DAILY Qty: 90 1RF multivitamin Tablet 1 tab PO DAILY [employer] 45-3.75-50 mg Tablet,Chewable 3 tab PO WE sumatriptan succinate 50 mg tablet 50 mg PO Q2-4H PRN (Reason: migraine headache) Qty: 14 2RF Rx Instructions: do not exceed 4 doses per 24 hrs (DME) cane Device See Rx Instructions .Route Qty: 1 0RF Rx Instructions: As directed albuterol sulfate 90 mcg/actuation HFA aerosol inhaler 2 puff inhalation Q6H PRN (Reason: shortness of breath or wheezing) Qty: 6.7 0RF capsaicin [Arthritis Pain Relief(capsaic)] 0.1 % cream 1 appl topical TID Qty: 42.5 0RF Rx Instructions: do not wash area for at least 30 min after application escitalopram oxalate 10 mg tablet 10 mg PO DAILY topiramate 50 mg tablet 50 mg PO BID bisacodyl [Dulcolax (bisacodyl)] 5 mg tablet,delayed release (DR/EC) 10 mg PO ONCE 1 Days Qty: 2 0RF Rx Instructions: Take 2 tablets by mouth at 12:00pm the day before your procedure. polyethylene glycol 3350 [Miralax] 17 gram/dose powder 238 g PO ONCE PRN (Reason: laxative effect) 1 Days Qty: 238 0RF Rx Instructions: Take as directed by mouth the day before your procedure. albuterol 90 mcg/actuation aerosol inhalation trazodone 50 mg tablet 100 mg PO BEDTIME PRN prazosin 1 mg capsule 1 mg PO BEDTIME Stand Alone Forms: Work/School Release Print Language: Ecuadorean
--- NOTE | 2024-06-30 14:15 | ECG_ITS ---
Test Reason : cp Blood Pressure : / mmHG Vent. Rate : 080 BPM Atrial Rate : 080 BPM P-R Int : 160 ms QRS Dur : 074 ms QT Int : 406 ms P-R-T Axes : 040 008 031 degrees QTc Int : 468 ms Normal sinus rhythm Normal ECG When compared with ECG of 12-DEC-2022 15:14, No significant change was found Referred By: Maritza Marcum Electronically Signed By:DL ROMANO
[2024-06-30 14:41] LABS: MANUAL DIFF FLAG NO
[2024-06-30 14:42] LABS: Basophils Percent Auto 0.4 % (0-2); Eosinophils Absolute Auto 0.2 X10*3/uL (0.0-0.4); Eosinophils Percent Auto 1.8 % (0-4); Hematocrit 35.2 % (37.0-47.0); Hemoglobin 11.4 g/dl (12.0-16.0); Imm Gran Abs Auto 0.02 X10*3/uL (0.00-0.03); Imm Gran Pct Auto 0.2 % (0.0-0.4); Lymphocytes Absolute Auto 1.7 X10*3/uL (1.2-4.9); Mean Corpuscular HGB Conc 32.4 g/dl (31.0-35.0); Mean Corpuscular Hemoglobin 26.1 pg (27.0-33.0); Mean Corpuscular Volume 80.5 fL (80.0-98.0); Mean Platelet Volume 10.2 fL (9.4-12.3); Monocytes Absolute Auto 0.6 X10*3/uL (0.1-1.2); Monocytes Percent Auto 7.2 % (2-11); Neutrophils Absolute Auto 6.3 x10*3/uL (2.0-8.3); Neutrophils Percent Auto 71.4 % (45-73); Platelet Count 248 X10*3/uL (160-400); Red Blood Count 4.37 X10*6/uL (4.20-5.50); Red Cell Distribution Width 13.6 % (11.0-16.0); White Blood Count 8.9 X10*3/uL (4.8-10.8)
[2024-06-30 14:48] LABS: INTERNATIONAL NORM RATIO 0.9 (0.9-1.1); Prothrombin Time 10.6 SEC (10.9-12.4)
[2024-06-30 14:51] LABS: Partial Thromboplastin Time 27.3 SEC (26.0-36.8)
[2024-06-30 14:56] LABS: Alanine Aminotransferase 13 U/L (0-31); Albumin Level 3.9 g/dL (3.5-5.0); Alkaline Phosphatase 117 U/L (39-117); Anion Gap 9 (12-20); Aspartate Amino Transferase 11 U/L (5-31); Bilirubin Direct < 0.2 mg/dL (0.0-0.5); Bilirubin Total 0.2 mg/dL (0.0-1.0); Blood Urea Nitrogen 11 mg/dL (9-16); Calcium 9.3 mg/dL (8.4-10.2); Carbon Dioxide 25 mmol/L (22-29); Chloride 109 mmol/L (96-108); Creatinine Clr Calc Pharmacy 101.8; Estimated Glomerular Filt Rate > 60; Glucose Random 96 mg/dL (60-115); Potassium 4.1 mmol/L (3.3-5.1); Sodium 139 mmol/L (135-145); Total Protein 7.8 g/dL (6.5-8.0)
[2024-06-30 15:10] LABS: Troponin-I High Sensitivity < 2.7 ng/L (<3.5-17.0)
[2024-06-30 15:21] LABS: Influenza A PCR NEGATIVE (Negative); Influenza B PCR NEGATIVE (Negative); Resp Syncy Virus RNA Qual PCR NEGATIVE (Negative); SARS COV2 PCR INHOUSE NEGATIVE (Negative)
[2024-06-30 22:56] VITALS: BP 105/62; PULSE 71; RESP 16; TEMP 36.8; O2SAT 98
[2024-06-30 23:20] LABS: Amphetamine Screen Urine Not Detected (Not Detect); Barbiturates, Urine Not Detected (Not Detect); Benzodiazepines Screen Urine Not Detected (Not Detect); Buprenorphine Scr Not Detected (Not Detect); Cannabinoid Screen Urine Not Detected (Not Detect); Cocaine Screen Urine Not Detected (Not Detect); Fentanyl, urine Not Detected (Not Detect); Methadone Screen, Urine Not Detected (Not Detect); Opiate Screen Urine Not Detected (Not Detect); Oxycodone Screen Urine Not Detected (Not Detect); Phencyclidine Screen Urine Not Detected (Not Detect)
[2024-06-30 23:41] LABS: Appearance Urine Clear; Color Urine Yellow; Glucose Urine UA Negative (Negative); Leukocyte Esterase Urine Negative (Negative); Nitrite Urine Negative (Negative); Specific Gravity - Urine >= 1.030 (1.005-1.025); Urine Blood Negative (Negative); Urine Ketones Negative (Negative); Urine Protein Negative (Neg-Trace)
[2024-07-01] MEDS: Amoxicillin/Potassium Clav 875 MG TABLET PO (01:01)
[2024-07-01 01:02] VITALS: BP 108/59; PULSE 69; RESP 20; O2SAT 98
== END 2024-07-01 01:07 | disposition home or self-care (01) ==
PROVIDERS: Physician Assistant; Emergency Provider Emergency Medicine; PCP Nurse Practitioner Primary Care
DX: J32.8 Other chronic sinusitis (principal); M94.0 Chondrocostal junction syndrome [Tietze]; R50.9 Fever, unspecified; Z03.818 Encounter for observation for suspected exposure to other biological agents ruled out; R05.9 Cough, unspecified; Z79.899 Other long term (current) drug therapy
CPT/HCPCS: 0241U; 70450; 71046; 80048; 80076; 80307; 81003; 83735; 84484; 85025; 85610; 85730; 87880; 93005; 99212; 99284

== ENCOUNTER 2024-07-25 09:33 | Day surgery (SDC) | payer OTHER, SELFPAY ==
[2024-07-23 12:42] VITALS: BMI 37.9
[2024-07-25 09:37] VITALS: BP 143/71; PULSE 98; RESP 18; TEMP 36.9; O2SAT 97; BMI 38.1
--- NOTE | 2024-07-25 09:52 | MHC.SHP ---
Pre-Procedural Eval Section A - 24 Hr Update-Section A only Date of Service: 07/25/24 Section B - Complete if H&P > 30 days Chief Complaint: Encounter for screening for malignant neoplasm of Relevant Family History (Specify if Yes): No Relevant Social History: None Present Medications: see Short Stay Collaborative assessment Medical History: Significant History (Brain TIA Bulging of lumbar intervertebral disc Cervical spondylosis Complicated migraine Constipation Degenerative disc disease, cervical Depression Eczema of lower extremity Hallux valgus (acquired) Heavy menstrual bleeding History of gallstones Impaired fasting glucose Left ankle pain Left-sided ) History of Previous Operations: Relevant previous surgery/procedure and date(s) (History of bilateral tubal ligation History of bunionectomy History of bunionectomy of both great toes History of cervical discectomy History of laparoscopic cholecystectomy Status post section) Allergies: Allergies Allergy/AdvReac Type Severity Reaction Status Date / Time cyclobenzaprine Allergy Intermediate SWELLING Verified 07/23/24 12:38 [From FLEXERIL] naproxen [NAPROXEN] Allergy Mild HEART Verified 06/30/24 14:16 PALPATATIONS hydrocodone AdvReac Intermediate Gastrointestinal Verified 07/23/24 12:37 Upset milk AdvReac Intermediate Gastrointestinal Verified 07/23/24 12:37 Upset oxycodone [From PERCOCET] AdvReac Intermediate VOMITING Verified 07/23/24 12:37 Review of Systems Sugical H&P ROS: Negative: Constitution, Cardiovascular, Respiratory and Gastrointestinal Exam Surgical H&P Exam: Normal: Heart, Normal: Lungs, Normal: Extremities and Normal: Abdomen Plan Diagnosis/Plan: Unchanged I have reviewed the history and physical and performed a pertinent physical examination on my patient. No changes have occurred unless specified. Time Spent With Patient Time: Total time managing care of this patient today ____ minutes.
[2024-07-25] MEDS: Lactated Ringers 1,000 ML 50 ML IVCONT (09:57)
--- NOTE | 2024-07-25 10:38 | P.CONAN_ITS ---
[facility] Active Problems Active Problems: All Active Problems Sinusitis, acute (Acute) Uterine myoma (Acute) Sciatica of left side (Acute) Calcific Achilles tendinitis of right lower extremity (Acute) Pain in Achilles tendon (Acute) Chronic constipation (Acute) Hirsutism (Acute) Abnormal uterine bleeding (AUB) (Acute) Dysmenorrhea (Acute) Heel spur (Acute) Complicated migraine (Acute) Eczema of lower extremity (Acute) Anxiety and depression (Acute) Heavy menstrual bleeding (Acute) Bulging of lumbar intervertebral disc (Acute) Obesity (BMI 30-39.9) (Acute) Degenerative disc disease, cervical (Acute) Impaired fasting glucose (Acute) Depression (Acute) Past Medical History Medical History (Updated 07/23/24 @ 12:41 by Francisca Whittaker RN) Migraines Heel spur Snoring Encounter for screening colonoscopy Cervical spondylosis Complicated migraine Left-sided weakness Brain TIA Eczema of lower extremity Anxiety and depression Normocytic normochromic anemia Heavy menstrual bleeding Bulging of lumbar intervertebral disc Left ankle pain Constipation Obesity (BMI 30-39.9) Navel cellulitis Hallux valgus (acquired) Degenerative disc disease, cervical History of gallstones Impaired fasting glucose Depression Family History Family History Mother Hypertension Depression Diabetes mellitus Hypercholesteremia SUZIE (obstructive sleep apnea) COPD (chronic obstructive pulmonary disease) Substance use disorder Mental health disorder Sister Breast cancer Uterine cancer Mental health disorder Maternal Grandmother Mental health disorder Maternal Aunt Mental health disorder Family history of problems with anesthesia: No Surgical History Surgical History Status post section History of bilateral tubal ligation History of bunionectomy of both great toes History of laparoscopic cholecystectomy History of cervical discectomy History of bunionectomy History of Problems with Anesthesia: No Social History Social History Housing: Apartment Alcohol intake: never Patient Tobacco Use Status: Never used Tobacco e-Cigarette/Vaping Use: Never Used Have you been hit, kicked, punched, or otherwise hurt by someone within the past year? If so, by whom?: No Advance Directives: No Advance Directives Information Provided: Yes service: No Current occupational status: employed Cognitive needs: No Hearing needs: No Vision needs: Yes Meds Allergies Allergy/AdvReac Type Severity Reaction Status Date / Time cyclobenzaprine Allergy Intermediate SWELLING Verified 07/23/24 12:38 [From FLEXERIL] naproxen [NAPROXEN] Allergy Mild HEART Verified 06/30/24 14:16 PALPATATIONS hydrocodone AdvReac Intermediate Gastrointestinal Verified 07/23/24 12:37 Upset milk AdvReac Intermediate Gastrointestinal Verified 07/23/24 12:37 Upset oxycodone [From PERCOCET] AdvReac Intermediate VOMITING Verified 07/23/24 12:37 Active Medications: Current Medications Lactated Ringer's (Lr) 1,000 mls @ 50 mls/hr IVCONT .Q20H HERSON Last Admin: 07/25/24 09:57 Dose: 50 mls/hr Naloxone HCl (Naloxone Hcl 0.4 Mg/Ml Vial) 0.04 mg IVPUSH Q5M PRN PRN Reason: Excessive sedation or RR < 8 Home Medications ?Medication ?Instructions ?Recorded ?Confirmed ?Last Taken ?Type multivitamin 1 tab PO DAILY 12/12/22 07/23/24 12/12/22 History topiramate 50 mg tablet 50 mg PO BID 12/17/23 07/23/24 Unknown History escitalopram oxalate 10 mg tablet 10 mg PO DAILY 04/16/24 07/23/24 Unknown History prazosin 1 mg capsule 1 mg PO BEDTIME 06/30/24 07/23/24 Unknown History trazodone 50 mg tablet 100 mg PO BEDTIME PRN Insomnia 06/30/24 07/23/24 Unknown History Exam Height,Weight and Vital Signs: Height 5 ft 8.5 in Weight 115.23 kg Last Vital Signs Temp 98.5 F 07/25/24 09:37 Pulse 98 07/25/24 09:37 Resp 18 07/25/24 09:37 BP 143/71 H 07/25/24 09:37 Pulse Ox 97 07/25/24 09:37 O2 Del Method Room Air 07/25/24 09:37 Airway Mallampati Class: II (missing teeth, denies anything loose, limited neck mobility) TM Dist: >3cm Neck ROM: Full Heart: rrr Lungs: cts Assessment and Plan Assessment Anesthesia Assessment: Anesthesia Plan Discussed and Chart Reviewed Final Anesthetic Review Family History of Problems with Anesthesia: No History of Problems with Anesthesia: No NPO: Yes ASA Class: II Final Preanesthetic Review: No Changes in Pt Med Stat, Meds/Allgs Chart Reviewed and Consent Obtained/Reviewed Patient Risk: Low Procedure Risk: Low Anesthetic Plan Anesthetic Plan: MAC: Disposition: Standard PACU
[2024-07-25 11:29] VITALS: BP 118/73; PULSE 83; RESP 16; TEMP 36.3; O2SAT 96
--- NOTE | 2024-07-25 11:32 | P.OPN-COLO_ITS ---
Colonoscopy Operative Note Operative Note Date of Service: 07/25/24 Narrative: COLONOSCOPY TILL CECUM WITH SNARE POLYPECTOMY AND HEMOCLIP PLACEMENT Pre-op diagnosis: Colon cancer screening (First colon). Post-op diagnosis:? Colon polyp, Diverticulosis, hemorrhoids Endoscopist:? Ethel Cook MD Anesthesia:?MAC Consent: Indications for the procedure and potential complications of bleeding, perforation, reaction to medications and missed diagnosis were discussed with the patient and informed consent was obtained. Instrument: Olympus PCF H 190 L variable stiffness pediatric colonoscope Monitoring: Vital signs and clinical assessment, intermittent blood pressure monitoring, continuous EKG monitoring, Pulse oximetry and Carbon Dioxide monitoring were done throughout the procedure. Please see anesthesia flowsheet. Colon withdrawl time was 21 minutes. Procedure: The patient was placed in the left lateral decubitis position and pre-procedure medications were administered. After a digital rectal examination of the ano-rectum, the video colonoscope was inserted into the rectum and advanced through the colon to the cecum. The colonoscope was slowly withdrawn in a retrograde panoramic fashion and the colon mucosa was carefully examined including a retroflexed view of the rectum. Findings and interventions are described below. Procedure Difficulty: Colon was long and tortuous and there was some loop formation. LLQ pressure was applied to intubate the cecum/ascending colon Findings: Terminal Ileum: Not evaluated Cecum: Normal Ascending Colon: Normal Transverse Colon: Normal Descending Colon: Normal Sigmoid Colon: Moderate diverticulosis Rectum: A 15 to 18 mm sessile polyp at 5-6 cms from the anal verge. Polyp was removed with a stiff hot snare and polypectomy site was closed with 1 hemoclip Ano-rectum: Moderate internal hemorrhoids Colon preparation: Good after copious irrigation. [place] Bowel Preparation Scale Right colon; 2 Transverse colon: 2 Left colon; 2 (0 = Unprepared colon segment with mucosa not seen due to solid stool that cannot be cleared. 1 = Portion of mucosa of the colon segment seen, but other areas of the colon segment not well seen due to staining, residual stool and/or opaque liquid. 2 = Minor amount of residual staining, small fragments of stool and/or opaque liquid, but mucosa of colon segment seen well. 3 = Entire mucosa of colon segment seen well with no residual staining, small fragments of stool or opaque liquid) Impression and Post Procedure Diagnosis: Colonoscopy Findings: One medium sized polyp was removed Moderate diverticulosis seen in the sigmoid colon Moderate hemorrhoids on retroflexed exam. Plan: I will send a letter with biopsy results Repeat Colonoscopy in 3 years if polyps are adenomatous and 10 year if polyps are hyperplastic. Above findings were reviewed with the patient and relevant handouts were given and the discharge area.
[2024-07-25 11:44] VITALS: BP 123/76; PULSE 73; RESP 16; O2SAT 96
[2024-07-25 12:00] VITALS: BP 123/76; PULSE 76; RESP 16; O2SAT 98
[2024-07-25 12:15] VITALS: BP 103/56; PULSE 68; RESP 16; TEMP 36.2; O2SAT 98
== END 2024-07-25 13:00 | disposition home or self-care (01) ==
PROVIDERS: PCP Nurse Practitioner Primary Care; Visit Provider Internal Medicine Gastroenterology
PROC: 0DJD8ZZ Inspection of Lower Intestinal Tract, Via Natural or Artificial Opening Endoscopic (ICD-10-PCS; CPT 45378; principal; 2024-07-25 11:00)
DX: Z12.11 Encounter for screening for malignant neoplasm of colon (principal); D12.8 Benign neoplasm of rectum; K57.30 Diverticulosis of large intestine without perforation or abscess without bleeding; K64.8 Other hemorrhoids; K56.2 Volvulus; Z79.899 Other long term (current) drug therapy; Z86.73 Personal history of transient ischemic attack (TIA), and cerebral infarction without residual deficits; Z98.51 Tubal ligation status; Z90.49 Acquired absence of other specified parts of digestive tract
CPT/HCPCS: 45385; 88305; J2003; J2704

== ENCOUNTER → 2024-07-25 09:33 | Outpatient (BNV) | payer OTHER, SELFPAY | PROVIDERS: PCP Nurse Practitioner Primary Care; Visit Provider Internal Medicine Gastroenterology | DX: Z12.11 Encounter for screening for malignant neoplasm of colon (principal); D12.8 Benign neoplasm of rectum; K57.30 Diverticulosis of large intestine without perforation or abscess without bleeding; K64.8 Other hemorrhoids | CPT/HCPCS: 45385 ==

== ENCOUNTER 2024-08-12 15:04 | Outpatient (REF) | payer OTHER, SELFPAY ==
--- NOTE | ~2024-08-12 | MM_ITS ---
EXAMINATION: MM SCREENING DIGITAL BREAST TOMOSYNTHESIS, BILATERAL CLINICAL INFORMATION: Screening. Asymptomatic. COMPARISON: Mammography: Comparison is made with available priors TECHNIQUE: Digital breast mammography with tomosynthesis is performed in both the craniocaudal and mediolateral oblique views along with computer-aided detection (CAD). FINDINGS: The breasts are heterogeneously dense, which may obscure small masses (ACR BI-RADS breast composition Category c). There are no significant masses, abnormal calcifications, or other abnormalities. MM/MM tomosynthesis screening BI IMPRESSION: No mammographic evidence of malignancy. ASSESSMENT: BI-RADS BI-RADS 1 - Negative RECOMMENDATION: Routine annual mammography screening. 1 year F/U This examination should not preclude the clinical evaluation of a suspicious palpable abnormality. This patient's information was entered into a reminder system with a target due date for their next mammogram. Electronically signed by: Kirsten Stoddard DO 08/20/2024 08:18 AM MARCK
== END 2024-08-12 15:05 | disposition home or self-care (01) ==
LOC: HO.MAMMO 15:04
PROVIDERS: PCP Internal Medicine; Visit Provider Internal Medicine
DX: Z12.31 Encounter for screening mammogram for malignant neoplasm of breast (principal)
CPT/HCPCS: 77063; 77067

== ENCOUNTER → 2024-08-12 15:15 | Outpatient (BNV) | payer OTHER, SELFPAY | PROVIDERS: PCP Internal Medicine; Visit Provider Internal Medicine | DX: Z12.31 Encounter for screening mammogram for malignant neoplasm of breast (principal) | CPT/HCPCS: 77063; 77067 ==

== ENCOUNTER 2024-09-02 11:57 | Outpatient (AMB) | payer OTHER, SELFPAY ==
--- NOTE | 2024-09-02 13:00 | A.OFFPC_ITS ---
Vital Signs 09/02/24 13:01 Height 5 ft 8.5 in Weight 265 lb BMI 39.7 BP 100/70 Blood Pressure Location Rt brachial Position Sitting Pulse 81 Pulse Source Pulse Oximeter Pulse Oximetry (%) 97 Oxygen Delivery Method Room Air Intake Visit Reasons: PE Intake Note: Pt is here today for her PE: last mammogram 08/12/24, papsmear 07/14/22, colonoscopy 07/25/24 Allergies cyclobenzaprine [From FLEXERIL] Allergy (Intermediate, Verified 09/02/24 13:17) SWELLING naproxen [NAPROXEN] Allergy (Mild, Verified 09/02/24 13:17) HEART PALPATATIONS hydrocodone Adverse Reaction (Intermediate, Verified 09/02/24 13:17) Gastrointestinal Upset milk Adverse Reaction (Intermediate, Verified 09/02/24 13:17) Gastrointestinal Upset oxycodone [From PERCOCET] Adverse Reaction (Intermediate, Verified 09/02/24 13:17) VOMITING Medication List - Last Reconciled 09/02/24 by Brielle Ruiz MD albuterol sulfate 90 mcg/actuation 2 puffs inhalation Q6H PRN cane As directed escitalopram oxalate 10 mg PO DAILY ferrous fumarate 324 mg PO DAILY multivitamin 1 tab PO DAILY prazosin 1 mg PO BEDTIME sumatriptan succinate 50 mg PO Q2-4H PRN topiramate 50 mg PO BID trazodone 100 mg PO BEDTIME PRN Tobacco use date assessed: 09/02/24 Dental Screening Dental Screen Date: 09/02/24 Did you have a dental visit in the last 12 months?: No Did you have a dental problem in the last 6 months where you did not have access to dental care?: No Was dental information given to patient?: Patient has dentist [facility] Medical History (Updated 09/02/24 @ 13:36 by Brielle Ruiz MD) Left anterior knee pain Achilles tendinitis of left lower extremity Intractable left heel pain Acquired deformity of toenail Migraines Heel spur Snoring Encounter for screening colonoscopy Cervical spondylosis Complicated migraine Left-sided weakness Brain TIA Eczema of lower extremity Anxiety and depression Normocytic normochromic anemia Heavy menstrual bleeding Bulging of lumbar intervertebral disc Left ankle pain Constipation Obesity (BMI 30-39.9) Navel cellulitis Hallux valgus (acquired) Degenerative disc disease, cervical History of gallstones Impaired fasting glucose Depression Surgical History Status post section History of bilateral tubal ligation History of bunionectomy of both great toes History of laparoscopic cholecystectomy History of cervical discectomy History of bunionectomy Family History Mother Hypertension Depression Diabetes mellitus Hypercholesteremia SUZIE (obstructive sleep apnea) COPD (chronic obstructive pulmonary disease) Substance use disorder Mental health disorder Sister Breast cancer Uterine cancer Mental health disorder Maternal Grandmother Mental health disorder Maternal Aunt Mental health disorder Social History Housing: Apartment Alcohol intake: never Patient Tobacco Use Status: Never used Tobacco e-Cigarette/Vaping Use: Never Used service: No Current occupational status: employed Cognitive needs: No Hearing needs: No Vision needs: Yes Questionnaire PHQ-9 Over the last 2 weeks, how often have you been bothered by any of the following problems? 1. Little interest or pleasure in doing things: several days 2. Feeling down, depressed, or hopeless: several days 3. Trouble falling or staying asleep, or sleeping too much: not at all 4. Feeling tired or having little energy: several days 5. Poor appetite or overeating: several days 6. Feeling bad about yourself - or that you are a failure or have let yourself or your family down: not at all 7. Trouble concentrating on things, such as reading the newspaper or watching television: more than half the days 8. Moving or speaking so slowly that other people could have noticed. Or the opposite - being so fidgety or restless that you have been moving around a lot more than usual: more than half the days 9. Thoughts that you would be better off or of hurting yourself in some way: not at all Total score: 8 Source: Developed by Drs. Kenneth Rhodes, Hoda Angela, Jay Dunn and colleagues, with an educational hiwot from [employer]. Thrive Questionnaire Date Thrive assessed: 08/30/24 I am a: Patient What is your living situation today?: I have a place to live, but I am worried about losing it in the future Within the past 12 months, did the food you bought not last and you didn't have the money to get more?: Sometimes True Within the past 12 months, did you worry whether your food would run out before you got money to buy more?: Sometimes True Do you have trouble paying for medicines?: No Do you have trouble getting transportation to medical appointments?: Yes Do you have trouble paying your heating and electricity bill?: No Do you have trouble taking care of your child, family member or friend?: No Do you have trouble with day-to-day activities such as bathing, preparing meals, shopping, managing finances, etc.?: Yes Are you currently unemployed and looking for a job?: Yes Are you interested in more education?: No Please select the resources that you would like help with: Housing/[facility], Transportation, Utilities, Care for elder or disabled and Daily support Currently or been in a relationship where the following occur: No concerns reported THRIVE Score: 4 AUDIT C Alcohol Use Questionnaire (AUDIT-C) 1. How often do you have a drink containing alcohol?: Never Total Score: 0 BRENDON-7 AMB Questionnaire BRENDON-7 Date BRENDON - 7 assessed: 12/17/23 Feeling nervous, anxious, or on edge: 1 = Several days Not being able to stop or control worryin = Nearly every day Worrying too much about different things: 1 = Several days Trouble relaxin = Nearly every day Being so restless that it is hard to sit still: 3 = Nearly every day Becoming easily annoyed or irritable: 1 = Several days Feeling afraid as if something awful might happen: 1 = Several days Total BRENDON-7 score (0-4 normal; 5-9 mild; 10-14 moderate; 15-21 severe): 13 Source: Developed by Drs. Kenneth Rhodes, Hoda Angela, Jay Dunn and colleagues, with an educational hiwot from [employer]. Review of Systems Eyes Details: was seeing [place] [facility] Physical exam (Primary Care) Vital Signs: Last Vital Signs Pulse 81 09/02/24 13:01 BP 100/70 09/02/24 13:01 Pulse Ox 97 09/02/24 13:01 Oxygen Delivery Method Room Air 09/02/24 13:01 BMI result Body Mass Index 39.7 Tobacco/Smoking Status: Tobacco use Status Tobacco use date assessed 09/02/24 09/02/24 13:05 Patient Tobacco Use Status Never used Tobacco 09/02/24 13:05 e-Cigarette/Vaping Use Never Used 09/02/24 13:05 PHQ-9: PHQ-9 Score PHQ-9: Total score 8 09/02/24 13:31 Thrive Assessment: Date of Thrive Assessment Date Thrive assessed 08/30/24 09/02/24 13:05 Currently or been in a relationship where the following occur: No concerns reported Office Procedures Flu Questionnaire Does the patient have a severe egg allergy?: No Does the patient have severe life threatening allergies?: No Does the patient have a fever or illness today?: No Has the patient ever had Guillain-[place] Syndrome?: No Has the patient ever had any past reaction to a flu shot?: No Immunizations Fluarix Triv [id number] (PF) 45 mcg (15 mcg x 3)/0.5 mL IM syringe Performing Provider: Brielle Ruiz MD Performing Location: [facility] Administered by: Nuzhat Valadez CMA on 09/02/24 13:45 Dose Route Admin Location Dispensed Lot Number Expiration Date [facility] 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 [employer] 0.5 mL IM Right Deltoid 0.5 mL [id number] 03/23/25 10945-570-64 [employer] VIS Given Date VIS Provided VIS Publication Date 09/02/24 Single Vaccine 21 Eligibility Eligibility Date Funding Source Not [facility] Eligible 09/02/24 Private Coding Level of Care Code Est Pt Prev Care 40-64y(22206) Diagnoses Left anterior knee pain M25.562 Obesity (BMI 30-39.9) E66.9 Annual visit for general adult medical examination with abnormal findings Z00.01 Acquired deformity of toenail L60.8 Achilles tendinitis of left lower extremity M76.62 Uterine myoma D25.9 Chronic constipation K59.09 Calcaneal spur of right foot M77.31 Laterality: right Depression F32.9 Needs flu shot Z23 Assessment & Plan Assessment & Plan (1) Left anterior knee pain: Code(s): M25.562 - Pain in left knee Category: Medical (2) Obesity (BMI 30-39.9): Code(s): E66.9 - Obesity, unspecified Category: Medical (3) Annual visit for general adult medical examination with abnormal findings: Code(s): Z00.01 - Encounter for general adult medical examination with abnormal findings (4) Acquired deformity of toenail: Code(s): L60.8 - Other nail disorders Category: Medical (5) Achilles tendinitis of left lower extremity: Code(s): M76.62 - Achilles tendinitis, left leg Category: Medical (6) Uterine myoma: Code(s): D25.9 - Leiomyoma of uterus, unspecified Category: Medical (7) Chronic constipation: Code(s): K59.09 - Other constipation Category: Medical (8) Heel spur: Code(s): M77.30 - Calcaneal spur, unspecified foot Category: Medical Qualifiers: Laterality: right Qualified Code(s): M77.31 - Calcaneal spur, right foot (9) Depression: Comment: reyes [facility] and [facility] - Dr Alexander Porter Code(s): F32.9 - Major depressive disorder, single episode, unspecified Category: Medical (10) Needs flu shot: Code(s): Z23 - Encounter for immunization Orders: Orders Vitamin D 25-OH Total Today E66.9 - Obesity, unspecified, N92.0 - Excessive and frequent menstruation with regular cycle, Z00.01 - Encounter for general adult medical examination with abnormal findings, Z13.220 - Encounter for screening for lipoid disorders Complete Blood Count Auto Diff Today E66.9 - Obesity, unspecified, N92.0 - Excessive and frequent menstruation with regular cycle, Z00.01 - Encounter for general adult medical examination with abnormal findings, Z13.220 - Encounter for screening for lipoid disorders IRON PROFILE Today E66.9 - Obesity, unspecified, N92.0 - Excessive and frequent menstruation with regular cycle, Z00.01 - Encounter for general adult medical examination with abnormal findings, Z13.220 - Encounter for screening for lipoid disorders Lipid Panel Today E66.9 - Obesity, unspecified, N92.0 - Excessive and frequent menstruation with regular cycle, Z00.01 - Encounter for general adult medical examination with abnormal findings, Z13.220 - Encounter for screening for lipoid disorders Influenza [id number] Immunization Today Z23 - Encounter for immunization Referrals Podiatry Referral L60.8 - Other nail disorders, M76.62 - Achilles tendinitis, left leg, M79.672 - Pain in left foot Orthopedics Referral M25.562 - Pain in left knee Medications: New omeprazole 20 mg PO DAILY 30 caps 1RF Fluarix Triv [id number] (PF) (flu vacc [id number] 6mos up(PF)) 0.5 mL IM ONCE 0.5 mL 0RF NS Z23 - Encounter for immunization Refilled albuterol sulfate 90 mcg/actuation 2 puffs inhalation Q6H PRN 8.5 grams 0RF shortness of breath or wheezing
[2024-09-02 13:01] VITALS: BP 100/70; PULSE 81; O2SAT 97; BMI 39.7
== END 2024-09-02 13:46 | disposition home or self-care (01) ==
PROVIDERS: PCP Nurse Practitioner Primary Care; Visit Provider Internal Medicine
DX: Z23 Encounter for immunization (principal)

== ENCOUNTER 2024-09-02 11:57 | Outpatient (REF) | payer OTHER, SELFPAY ==
[2024-09-02 16:04] LABS: MANUAL DIFF FLAG NO
[2024-09-02 16:13] LABS: Basophils Percent Auto 0.5 % (0-2); Eosinophils Absolute Auto 0.2 X10*3/uL (0.0-0.4); Eosinophils Percent Auto 2.5 % (0-4); Hematocrit 33.7 % (37.0-47.0); Hemoglobin 10.4 g/dl (12.0-16.0); Imm Gran Abs Auto 0.02 X10*3/uL (0.00-0.03); Imm Gran Pct Auto 0.3 % (0.0-0.4); Lymphocytes Absolute Auto 1.9 X10*3/uL (1.2-4.9); Lymphocytes Percent Auto 24.5 % (20-40); Mean Corpuscular HGB Conc 30.9 g/dl (31.0-35.0); Mean Corpuscular Hemoglobin 25.2 pg (27.0-33.0); Mean Corpuscular Volume 81.6 fL (80.0-98.0); Mean Platelet Volume 10.7 fL (9.4-12.3); Monocytes Absolute Auto 0.4 X10*3/uL (0.1-1.2); Monocytes Percent Auto 5.8 % (2-11); Neutrophils Percent Auto 66.4 % (45-73); Platelet Count 286 X10*3/uL (160-400); Red Blood Count 4.13 X10*6/uL (4.20-5.50); Red Cell Distribution Width 15.7 % (11.0-16.0); White Blood Count 7.5 X10*3/uL (4.8-10.8)
[2024-09-02 16:33] LABS: Cholesterol 182 mg/dL (<200); HDL Cholesterol 45 mg/dL (>40); Iron 32 mcg/dL (30-160); LDL Cholesterol Calculated 106 mg/dL (<100); Percent Iron Saturation 8 % (15-50); Total Iron Binding Capacity 379 mcg/dL (228-428); Triglycerides 158 mg/dL (<150); Unsaturated Iron Binding 347 ug/dL
[2024-09-02 16:50] LABS: Vitamin D 25-OH Total 18.6 ng/mL (>30)
== END 2024-09-02 11:58 | disposition home or self-care (01) ==
LOC: HO.HMGCLDS 11:57
PROVIDERS: PCP Internal Medicine; Visit Provider Internal Medicine
DX: Z00.01 Encounter for general adult medical examination with abnormal findings (principal); Z23 Encounter for immunization; M25.562 Pain in left knee; M17.9 Osteoarthritis of knee, unspecified; E66.9 Obesity, unspecified; L60.8 Other nail disorders; M76.62 Achilles tendinitis, left leg; D25.9 Leiomyoma of uterus, unspecified; K59.09 Other constipation; M77.31 Calcaneal spur, right foot; F32.9 Major depressive disorder, single episode, unspecified; K21.9 Gastro-esophageal reflux disease without esophagitis; N92.0 Excessive and frequent menstruation with regular cycle; Z13.220 Encounter for screening for lipoid disorders
CPT/HCPCS: 36415; 80061; 82306; 83540; 85025; 90471; 90656; 96127; 99396

== ENCOUNTER 2024-09-25 10:53 | Outpatient (REF) | payer OTHER, SELFPAY ==
--- NOTE | ~2024-09-25 | US_ITS ---
CLINICAL HISTORY: D25.9 - Leiomyoma of uterus, unspecified Exam: Pelvic ultrasound, transabdominal and transvaginal evaluation. Comparison: February 26, 2024. Findings: Transabdominal and transvaginal pelvic ultrasound study was performed. Urinary bladder is moderately distended on the transabdominal images. Uterus is retroverted. Uterus measures 11.0 x 5.7 x 6.6 cm in size. Myometrium is diffusely heterogeneous. However, the fibroids seen on prior examination are not evident on this exam. Endometrial stripe measures 15 mm in thickness without mass, polyp, or focal thickening. Scattered nabothian cysts. Right ovary measures 2.8 x 1.6 x 1.9 cm in size. Left ovary measures 3.6 x 1.8 x 1.1 cm in size. Ovaries are unremarkable in appearance bilaterally. Small volume free pelvic fluid. Impression: 1. Diffuse heterogeneity of the myometrium without discrete fibroid identified on this exam. This raises the possibility of adenomyosis. 2. Unremarkable ultrasound of the ovaries. This document has been electronically signed by: Diego Green MD on 09/27/2024 07:58:27
== END 2024-09-25 10:54 | disposition home or self-care (01) ==
LOC: HO.US 10:53
PROVIDERS: PCP Internal Medicine; Visit Provider Obstetrics & Gynecology
DX: D25.9 Leiomyoma of uterus, unspecified (principal)
CPT/HCPCS: 76830; 76856

== ENCOUNTER → 2024-09-25 10:56 | Outpatient (BNV) | payer OTHER, SELFPAY | PROVIDERS: PCP Internal Medicine; Visit Provider Radiology Diagnostic Radiology | DX: D25.9 Leiomyoma of uterus, unspecified (principal) | CPT/HCPCS: 76830; 76856 ==

== ENCOUNTER 2024-10-08 13:06 | Outpatient (REF) | payer OTHER, SELFPAY ==
--- NOTE | ~2024-10-08 | XR_ITS ---
CLINICAL HISTORY: M25.561 - Pain in right knee Standing AP view of both knees Comparison: None Findings: No fractures or dislocations. Moderate medial compartment joint space narrowing on the left. Mild medial compartment joint space narrowing on the right. No joint effusion. No radiopaque foreign body. IMPRESSION: 1. No acute findings. 2. Degenerative changes involving the medial compartment bilaterally. This document has been electronically signed by: Mario Tracey MD on 10/09/2024 13:02:36
--- NOTE | ~2024-10-08 | XR_ITS ---
CLINICAL HISTORY: M25.562 - Pain in left knee 1 view left knee Comparison: None Findings: No patellar dislocation or fracture. No significant patellofemoral degenerative change. Impression: No acute findings. This document has been electronically signed by: Mario Tracey MD on 10/09/2024 13:02:15
== END 2024-10-08 13:07 | disposition home or self-care (01) ==
LOC: HO.HOSX 13:06
PROVIDERS: Visit Provider Physician Assistant
DX: M25.561 Pain in right knee (principal); M25.562 Pain in left knee; R20.0 Anesthesia of skin; R26.2 Difficulty in walking, not elsewhere classified
CPT/HCPCS: 20610; 73560; 99202; J1010; J2003

== ENCOUNTER 2024-10-08 14:08 | Outpatient (AMB) | payer OTHER, SELFPAY ==
--- NOTE | 2024-10-08 14:20 | A.OFFVIS_ITS ---
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 Patient reports her pain has been present for a while and has been getting worse. States constant pain that radiates up and down her leg. Numbness and tingling in her foot and intermittent swelling in her knee. Difficulty with prolong standing and walking. She uses a cane with ambulation. She mentions a fall about 2 years ago hitting her left knee, she is unsure if knee gave out or if it was her migraine that caused her to fall. Finds no relief with taking Tylenol and Advil, she has temporary relief with topical cream. She has tried and failed PT in the past. Allergies cyclobenzaprine [From FLEXERIL] Allergy (Intermediate, Verified 10/08/24 14:23) SWELLING naproxen [NAPROXEN] Allergy (Mild, Verified 10/08/24 14:23) HEART PALPATATIONS hydrocodone Adverse Reaction (Intermediate, Verified 10/08/24 14:23) Gastrointestinal Upset milk Adverse Reaction (Intermediate, Verified 10/08/24 14:23) Gastrointestinal Upset oxycodone [From PERCOCET] Adverse Reaction (Intermediate, Verified 10/08/24 14:23) VOMITING Medication List - Last Reconciled 10/08/24 by Ish Evans PA-C albuterol sulfate 90 mcg/actuation 2 puffs inhalation Q6H PRN cane As directed escitalopram oxalate 10 mg PO DAILY ferrous fumarate 324 mg PO DAILY loratadine (Allergy Relief (loratadine)) 10 mg PO DAILY multivitamin 1 tab PO DAILY omeprazole 20 mg PO DAILY prazosin 1 mg PO BEDTIME sumatriptan succinate 50 mg PO Q2-4H PRN topiramate 50 mg PO BID trazodone 100 mg PO BEDTIME PRN HPI 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 She states the pain is along the anterior portion of the knee. She has pain with sitting to standing and pain with stairs. She feels like it will give out . She did do PT on the left knee but felt like it made it worse. PFSH Medical History (Updated 10/08/24 @ 14:58 by Ish Evans PA-C) Left anterior knee pain Achilles tendinitis of left lower extremity Intractable left heel pain Acquired deformity of toenail Migraines Heel spur Snoring Encounter for screening colonoscopy Cervical spondylosis Complicated migraine Left-sided weakness Brain TIA Eczema of lower extremity Anxiety and depression Normocytic normochromic anemia Heavy menstrual bleeding Bulging of lumbar intervertebral disc Left ankle pain Constipation Obesity (BMI 30-39.9) Navel cellulitis Hallux valgus (acquired) Degenerative disc disease, cervical History of gallstones Impaired fasting glucose Depression Surgical History Status post section History of bilateral tubal ligation History of bunionectomy of both great toes History of laparoscopic cholecystectomy History of cervical discectomy History of bunionectomy Family History Mother Hypertension Depression Diabetes mellitus Hypercholesteremia SUZIE (obstructive sleep apnea) COPD (chronic obstructive pulmonary disease) Substance use disorder Mental health disorder Sister Breast cancer Uterine cancer Mental health disorder Maternal Grandmother Mental health disorder Maternal Aunt Mental health disorder Social History (Updated 10/08/24 @ 14:25 by DEVON Coleman) Housing: Apartment Alcohol intake: never Patient Tobacco Use Status: Never used Tobacco e-Cigarette/Vaping Use: Never Used service: No Current occupational status: unemployed Cognitive needs: No Hearing needs: No Vision needs: Yes Review of Systems Const All systems reviewed & are unremarkable except as noted in HPI and below Physical Exam Vital Signs: BMI result Body Mass Index 39.7 Const General: cooperative and no acute distress Orientation/consciousness: patient oriented x3 Resp Effort & Inspection: normal respiratory effort and able to speak in complete sentences Cardio Peripheral pulses: Peripheral pulses 2+ throughout Neuro General: patient oriented x3 Extrem Other: Left knee normal to inspection no joint effusion present she has full range of motion with crepitus. Lateral retropatellar tenderness. Pain with patellar grind. Calf supple nontender neurovascularly intact. Office Procedures AMB Joint Injection/Aspiration Joint Injection/Aspiration Primary Site: left knee Prep: site was prepped using aseptic technique, ethochloride spray was applied and injection warnings given Injected: 80 mg of, DepoMedrol, with 8 mL of, 1% plain lidocaine and in the joint Approach Used: anterolateral Procedure: The patient tolerated the procedure well and there was some relief with the local anesthesia Coding 50277 - Glenohumeral/Tronchanteric Bursa/Intraarticular Procedure code (CPT) selection complete Results Reviewed Results Reviewed: X-rays of the left knee obtained in the office today and reviewed by me show medial compartment arthritis with lateralization of the patella. Assessment & Plan Assessment & Plan (1) Osteoarthritis of left knee: Code(s): M17.12 - Unilateral primary osteoarthritis, left knee Category: Medical Plan: We discussed options today which include physical therapy and cortisone injections. She is interested in cortisone injection today. Proceed with injection which she tolerated well. I did recommend a course of geophysical laboratory supervisor apy to work on strengthening exercises. If symptoms persist or worsen she will contact our office otherwise follow up as needed. Orders: Orders XR knee RT 1V Today M25.561 - Pain in right knee XR knee LT 2V Today M25.562 - Pain in left knee Coding Level of Care Code New Pt Level 3 (70588) Complex EM visit Add On G2211 Diagnoses Osteoarthritis of left knee M17.12 CPT Codes Coding - Joint 7: 63290 - Glenohumeral/Tronchanteric Bursa/Intraarticular ([id number])
[2024-10-08 14:21] VITALS: BMI 39.7
== END 2024-10-08 15:07 | disposition home or self-care (01) ==
PROVIDERS: PCP Internal Medicine; Visit Provider Physician Assistant
DX: M17.12 Unilateral primary osteoarthritis, left knee (principal)
CPT/HCPCS: 20610; 99203

== ENCOUNTER 2024-10-22 08:50 | Outpatient (AMB) | payer OTHER, SELFPAY ==
--- NOTE | 2024-10-22 09:00 | A.OFFVIS_ITS ---
Intake Visit Reasons: US follow up Services Tech: Services Tech Present (Kenia) Accompanied by: Self / Same As Patient Allergies cyclobenzaprine [From FLEXERIL] Allergy (Intermediate, Verified 10/22/24 09:02) SWELLING naproxen [NAPROXEN] Allergy (Mild, Verified 10/22/24 09:02) HEART PALPATATIONS hydrocodone Adverse Reaction (Intermediate, Verified 10/22/24 09:02) Gastrointestinal Upset milk Adverse Reaction (Intermediate, Verified 10/22/24 09:02) Gastrointestinal Upset oxycodone [From PERCOCET] Adverse Reaction (Intermediate, Verified 10/22/24 09:02) VOMITING HPI Comments Details: Presenting for ultrasound follow-up regarding previously identified fibroids an ultrasound done in 03/17. Ultrasound done in 10/18 showed the following: Impression: 1. Diffuse heterogeneity of the myometrium without discrete fibroid identified on this exam. This raises the possibility of adenomyosis. 2. Unremarkable ultrasound of the ovaries. [facility] Medical History Left anterior knee pain Achilles tendinitis of left lower extremity Intractable left heel pain Acquired deformity of toenail Migraines Heel spur Snoring Encounter for screening colonoscopy Cervical spondylosis Complicated migraine Left-sided weakness Brain TIA Eczema of lower extremity Anxiety and depression Normocytic normochromic anemia Heavy menstrual bleeding Bulging of lumbar intervertebral disc Left ankle pain Constipation Obesity (BMI 30-39.9) Navel cellulitis Hallux valgus (acquired) Degenerative disc disease, cervical History of gallstones Impaired fasting glucose Depression Surgical History Status post section History of bilateral tubal ligation History of bunionectomy of both great toes History of laparoscopic cholecystectomy History of cervical discectomy History of bunionectomy Family History Mother Hypertension Depression Diabetes mellitus Hypercholesteremia SUZIE (obstructive sleep apnea) COPD (chronic obstructive pulmonary disease) Substance use disorder Mental health disorder Sister Breast cancer Uterine cancer Mental health disorder Maternal Grandmother Mental health disorder Maternal Aunt Mental health disorder Social History Housing: Apartment Alcohol intake: never Patient Tobacco Use Status: Never used Tobacco e-Cigarette/Vaping Use: Never Used service: No Current occupational status: unemployed Cognitive needs: No Hearing needs: No Vision needs: Yes Review of Systems Const All systems reviewed & are unremarkable except as noted in HPI and below Reports as per HPI and Reports no additional complaints GI Reports no additional complaints Reports no additional complaints Assessment & Plan Assessment & Plan (1) Uterine myoma: Code(s): D25.9 - Leiomyoma of uterus, unspecified Category: Medical Qualifiers: Uterine leiomyoma location: unspecified location Qualified Code(s): D25.9 - Leiomyoma of uterus, unspecified Plan: Discussed with the patient the results of the recent ultrasound, no evidence of myomas. Instructions given the patient to call in case of pelvic pain, pressure or abnormal vaginal bleeding. All questions answered the patient verbalized understanding. Coding Level of Care Code Est Pt Level 3 (48758) Diagnoses Uterine leiomyoma, unspecified location D25.9 Uterine leiomyoma location: unspecified location
--- OUTSIDE RECORDS SUMMARY | 2024-10-22 09:46 | XMS_ITS | Clinical Summary ---
Author Organization [address] [place] [address] Address [address] [place] [address] Phone Care Team Providers Care Community Development Manager Name Role Phone Brielle Ruiz MD Primary Care Provider Allergies Active Allergy Reactions Criticality Noted Date Comments Acetaminophen 12/22/2022 vomiting Cyclobenzaprine 12/22/2022 swelling Hydrocodone GI intolerance 12/22/2022 Naproxen 12/22/2022 Heart palpatations Oxycodone-Acetaminophen 12/22/2022 vomiting Medications Medication Sig Dispensed Refills Start Date End Date Status busPIRone (BUSPAR) 5 mg tablet Take 1 tablet (5 mg total) by mouth 3 (three) times a day. Active clobetasoL (TEMOVATE) 0.05 % cream Apply topically. Active ferrous fumarate 324 mg (106 mg iron) tablet Take by mouth. Active SUMAtriptan (IMITREX) 50 mg tablet Take 1 Tablet by mouth daily as needed. May repeat dose once after 2 hours, if needed. Active Active Problems Problem Noted Date Diagnosed Date Mid back pain 02/15/2023 Overview (10/07/2024): Last Assessment & Plan: Ms. [place] describes significant mid back pain that radiates to lumbar spine and affects her throughout the day. We obtained x-rays of the thoracic and lumbar spine which revealed mild degenerative changes. She has a mild levoscoliosis with an apex at T6-7. She is going to physical therapy for her neck and I gave her a prescription to add her mid back as well. She will follow-up with us in February for repeat evaluation after finishing some physical therapy for her neck and mid back. Cervical spondylosis 12/22/2022 Overview (10/07/2024): Last Assessment & Plan: I reviewed the information from the CT in detail with Ms. Stapleton and suspect that she has cord compression causing or contributing to her left-sided weakness. There may be signal change in the cord causing the left hand clumsiness all fitting with myelopathy. We will need to order cervical spine MRI to verify the severity of the situation and make recommendations from there. We discussed the possibility of anterior versus posterior procedures as she is already fused from C4-7 anteriorly but the calcified ligament at C3-4 will be difficult to resect and it may be safer to perform a posterior decompression instead. I will follow-up with her once these images are available. Immunizations Name Administration Dates Next Due Influenza trivalent, 0.5mL, preservative free (Fluarix; FluLaval; Fluzone) ages 6mo and older (Afluria) 3 years and older 11/02/2022,11/24/2020,07/25/2018,2016,07/05/2017 Tdap Tetanus diptheria acell ular pertussis (Boostrix; Adacel) 7yo and older 12/20/2018 Surgical History Surgery Date Site/Laterality Comments NECK SURGERY PROCEDURE: HISTORICAL NECK SURGERY; COMMENT: [id number] acdf Medical History Medical History Date Comments Migraines DX:Migraines Social History Tobacco Use Types Packs/Day Years Used Date Smoking Tobacco: Never Smokeless Tobacco: Never Sex and Gender Information Value Date Recorded Sex Assigned at Not on file Gender Identity Not on file Sexual Orientation Not on file Obstetrics History Last Filed Vital Signs Vital Sign Reading Time Taken Comments Blood Pressure - - Pulse - - Temperature - - Respiratory Rate - - Oxygen Saturation - - Inhaled Oxygen Concentration - - Weight 120 kg (264 lb) 02/15/2023 1:54 PM EDT Height 172.7 cm (5' 8 ) 02/15/2023 1:54 PM EDT Body Mass Index 40.14 02/15/2023 1:54 PM EDT Plan of Treatment Upcoming Encounters Date Type Department Care Team (Late st Contact Info) Description 12/09/2024 8:45 AM EDT Consult Orthopedic Surgery - [place] [address] [address] Stephen Pop, DPM [address] [place] [address] Health Maintenance Due Date Last Done Comments Breast Cancer Screening 1972 Hepatitis B Vaccines (1 of 3 - 19+ 3-dose series) 1991 Cervical Cancer Screening: Pap Smear 1993 Zoster Vaccines (1 of 2) 2022 Colorectal Cancer Screening: Colonoscopy 08/27/2022 Depression Screening 08/27/2022 HIV Screening 08/27/2022 Hepatitis C Screening 08/27/2022 Social Influencers of Health Screening 08/27/2022 COVID-19 Vaccine ( season) 2024 02/03/2021, 01/06/2021 Influenza Vaccine (#1) 2024 , 11/24/2020, 07/25/2018, Additional history exists DTaP,Tdap,and Td Vaccines (2 - Td or Tdap) 12/20/2028 12/20/2018 HIB Vaccines Aged Out No longer eligi ble based on patient's age to complete this topic HPV Vaccines Aged Out No longer eligi ble based on patient's age to complete this topic Hepatitis A Vaccines Aged Out No long er eligible based on patient's age to complete this topic IPV Vaccines Aged Out No longer eligi ble based on patient's age to complete this topic MMR Vaccines Aged Out No longer eligi ble based on patient's age to complete this topic Meningococcal ACWY Vaccine Aged Out N o longer eligible based on patient's age to complete this topic Pneumococcal Vaccine: Pediatrics (0 to 5 Years) and At-Risk Patients (6 to 64 Years) Aged Out No longer eligible based on patient's age to complete this topic RSV Immunization Patients Under 20 months Aged Out No longer eligible based on patient's age to complete this topic Varicella Vaccines Aged Out No longer eligible based on patient's age to complete this topic Care Teams Community Development Manager Relationship Specialty Start Date End Date Brielle Ruiz MD [address] [place] [address] PCP - General Internal Medicine 01/11/16
== END 2024-10-22 10:36 | disposition home or self-care (01) ==
PROVIDERS: PCP Nurse Practitioner Primary Care; Visit Provider Obstetrics & Gynecology
DX: D25.9 Leiomyoma of uterus, unspecified (principal)
CPT/HCPCS: 99213

== ENCOUNTER → 2024-10-22 08:50 | Outpatient (BNVA) | payer OTHER, SELFPAY | PROVIDERS: PCP Nurse Practitioner Primary Care; Visit Provider Obstetrics & Gynecology | DX: D25.9 Leiomyoma of uterus, unspecified (principal) | CPT/HCPCS: 99212 ==

== ENCOUNTER 2024-11-04 07:59 | Outpatient (RCR) | payer OTHER, SELFPAY ==
--- NOTE | 2024-10-28 16:21 | MHC.PT.EP ---
[facility] [place] Office [place] Office [place] Office [address] [phone] F: [phone] F: [phone] F: [phone] F: [phone] Physical Therapy Plan of Care Date of Evaluation: 10/28/24 Date of Surgery: NA Diagnosis: L KNEE PAIN Assessment: Pt IS 54 YO F REFERRED TO PT FROM [facility] ([facility])WITH L KNEE PAIN. REPORTS L KNEE INJURTY IN PAST AND GENERAL KNEE ISSUES WITH SPORTS WHEN YOUNGER. Pt PRESENTS WITH DECREASED L LE STRENGTH, LLD, ANTALGIC GT. SHOULD BENEFIT FROM PT TO ADDRESS THESE ISSUES Frequency and Duration: The patient will be seen 2X/WK X 2 WKS THEN 1X/WK X 4 WKS Short Term Goals: 1. INCREASED AWARENESS KNEE CARE 2. I TAPING IF INDICATED 3. I HOME WALKING PROGRAM Residential Goals: 1. I HEP WITH DC EX PLAN 2. DECREASED L KNEE PAIN AT LEAST 50% WITH ADLS Treatment Plan: Modalities to reduce pain, spasms and effusion. Manual therapy to restore motion and function. Therapeutic exercise to improve strength and flexibility. Neuromuscular re-education for posture and balance. Therapeutic activities to return to functional activities of daily living. Electronically signed by: JACOBO ARELLANO PT Please sign and return to therapist. Thank you for your referral.
--- NOTE | 2024-11-26 11:52 | MHC.PT.DC ---
[facility] [place] Office [place] Office [place] [facility] [address] [phone] F: [phone] F: [phone] F: [phone] F: [phone] Physical Therapy Discharge Report Diagnosis: L KNEE PAIN Date of Surgery: NA Date of Evaluation: 10/28/24 Date of Discharge: 11/26/24 Treatments to Date: 2 Cancellations to Date: No Shows to Date: Discharge Status: Visit Non-compliance Discharge Summary: PER ASSESSMENT FROM LAST SESSION ON 11/04/21 BY Eugenie KHANNA PTA Pt presents w/ no increase or decrease in pain. Reports that pain is felt after walking for prolonged period of time. Able to complete exercises w/o adverse effect. Continue w/ stretching-strengthening to tolerance. Pt THEN CANCELLED NEXT APPT, THEN NS X 2 Electronically signed by: JACOBO ARELLANO PT Please sign and return to therapist. Thank you for your referral.
== END 2024-11-26 11:52 | disposition home or self-care (01) ==
LOC: HO.PT 07:59
PROVIDERS: PCP Internal Medicine; Visit Provider Physician Assistant
DX: M17.12 Unilateral primary osteoarthritis, left knee (principal)
CPT/HCPCS: 97110; 97140; 97161

== ENCOUNTER 2025-02-27 09:24 | Day surgery (SDC) | payer OTHER, SELFPAY ==
--- OUTSIDE RECORDS SUMMARY | 2025-02-02 13:28 | XMS_ITS | Clinical Summary ---
Author Organization 175 [facility] Address [address] [place] [address] Phone Care Team Providers Care Residence Supervisor Name Role Phone Brielle Ruiz MD Primary Care Provider Allergies Active Allergy Reactions Criticality Noted Date Comments Acetaminophen 12/22/2022 vomiting Cyclobenzaprine 12/22/2022 swelling Hydrocodone GI intolerance 12/22/2022 Naproxen 12/22/2022 Heart palpatations Oxycodone-Acetaminophen 12/22/2022 vomiting Medications busPIRone (BUSPAR) 5 mg tablet Take 1 tablet (5 mg total) by mouth 3 (three) times a day. Active clobetasoL (TEMOVATE) 0.05 % cream Apply topically. Active ferrous fumarate 324 mg (106 mg iron) tablet Take by mouth. Activ e SUMAtriptan (IMITREX) 50 mg tablet Take 1 Tablet by mouth daily as needed. May repeat dose once after 2 hours, if needed. Active terbinafine (LamISIL) 250 mg tablet Take 1 tablet (250 mg total) by mouth 1 (one) time each day. 90 each 5 03/09/20 25 Active ciclopirox (LOPROX) 0.77 % gelIndications: Dermatophytosis of nail Apply topically 2 (two) times a day. 45 g 5 04/14/20 25 Active Active Problems Problem Noted Date Diagnosed [...] with her once these images are available. Encounters Date Type Department Care Team Description 01/14/2025 8:45 AM EDT Office Visit Orthopedic Surgery [address] [address] Stephen Pop DPM Dermatophytosis of nail (Primary Dx) 12/09/2024 8:45 AM EDT Consult Orthopedic Surgery [address] [phone] Stephen Pop DPM Dermatophytosis of nail (Primary Dx); Other nail disorders; Pain in left foot; Achilles tendinitis, left leg from Last 3 Months Immunizations Name Administration Dates Next Due Influenza [...] Date Smoking Tobacco: Never Smokeless Tobacco: Never Comments Unknown Sex and Gender Information Value Date Recorded Sex Assigned at Not on file Legal Sex Female 12:21 AM EST Gender Identity Not on file Sexual Orientation Not on file Obstetrics History Last Filed Vital Signs Vital Sign Reading Time Taken Comments Blood Pressure - - Pulse - - Temperature - - Respiratory Rate - - Oxygen Saturation - - Inhaled Oxygen Concentration - - Weight 120 kg (264 lb) 01/14/2025 8:44 AM EDT Height 172.7 cm (5' 7.99 ) 01/14/2025 8:44 AM ED T Body Mass Index 40.15 01/14/2025 8:44 AM EDT Plan of Treatment Upcoming Encounters Date Type Department Care Team (Late st Contact Info) Description 05/18/2025 8:30 AM EDT Office Visit Orthopedic Surgery - [place] [address] [address] Stephen Pop, DPM [address] [address] Health Maintenance Due Date Last Done Comments Breast Cancer Screening 1972 Hepatitis B Vaccines (1 of 3 - 19+ 3-dose series) 1991 Cervical Cancer Screening: Pap Smear 1993 Pneumococcal Vaccine: 50+ Years (1 of 1 - PCV) 2022 Zoster Vaccines (1 of 2) 2022 Colorectal Cancer Screening: Colonoscopy 08/27/2022 Depression Screening 08/27/2022 HIV Screening 08/27/2022 Hepatitis C Screening 08/27/2022 Social Influencers of Health Screening 08/27/2022 COVID-19 Vaccine (3 - 2023- season) 2024 02/03/2021, 01/06/2021 DTaP,Tdap,and Td Vaccines (2 - Td or Tdap) 12/20/2028 12/20/2018 Influenza Vaccine Completed 12/04/2024, , 11/02/2022, Additional history exists HIB Vaccines Aged Out No longer eligi [...] patient's age to complete this topic Meningococcal B Vaccine Aged Out No l onger eligible based on patient's age to complete [...] on patient's age to complete this topic Procedures Procedure Name Priority Date/Time Associated Diagnosis Comments HEPATIC FUNCTION PANEL Routine 12/10/2024 8:29 AM EDT Dermatophytosis of nail from Last 3 Months Results * (ABNORMAL) Hepatic function panel (12/10/2024 8:29 AM EDT) Total Protein 7.3 6.0 - 8.0 g/dL LAB CHEMISTRY METHOD [facility] Albumin 3.2 3.2 - 5.0 g/dL LAB CHEMISTRY METHOD 12/10/2024 9:46 AM EDT [facility] Total Bilirubin 0.2 0.0 - 1.4 mg/dL LAB CHEMISTRY METHOD 12/10/2024 9:46 AM [facility] Bilirubin, Direct <0.1 0.0 - 0.3 mg/dL LAB CHEMISTRY METHOD 12/10/2024 9:46 AM [facility] Bilirubin, Indirect LAB CHEMISTRY METHOD 12/10/2024 9:46 AM [facility] Comment:Unable to calculate Indirect Bilirubin. ALT (SGPT) 16 10 - 60 unit/L LAB CHEMISTRY METHOD 12/10/2024 9:46 AM EDT [facility] AST (SGOT) 11 10 - 42 unit/L LAB CHEMISTRY METHOD 12/10/2024 9:46 AM EDT [facility] Alkaline Phosphatase 129(H) 42 - 121 unit/L LAB CHEMISTRY METHOD 12/10/2024 9:46 AM EDT [facility] Blood Venous blood specimen / Unknown Venipuncture / Unknown 12/10/2024 8:29 AM EDT 12/10/2024 9:08 AM EDT us Stephen Pop DPM LAB BLOOD ORDERABLES Deloris l Result [facility] [address] [place] [address], from Last 3 Months Insurance MEDICAID - [place] Care Teams Residence Supervisor Relationship Specialty Start Date End Date Brielle Ruiz MD [address] [place] [address] PCP - General Internal Medicine 01/11/16
[2025-02-25 14:25] VITALS: BMI 38.8
--- NOTE | 2025-02-26 14:09 | P.CONAN_ITS ---
Documented by User: Debora Bunch NP 02/26/25 14:10 HPI - Anesthesia Eval Consult details Narrative: 54yo F for Sigmoidoscopy Flexible PMFSH Active Problems Active Problems: All Active Problems Osteoarthritis of left knee (Acute) Left anterior knee pain (Acute) Achilles tendinitis of left lower extremity (Acute) Acquired deformity of toenail (Acute) Uterine myoma (Acute) Calcific Achilles tendinitis of right lower extremity (Acute) Chronic constipation (Acute) Hirsutism (Acute) Abnormal uterine bleeding (AUB) (Acute) Dysmenorrhea (Acute) Heel spur (Acute) Complicated migraine (Acute) Anxiety and depression (Acute) Heavy menstrual bleeding (Acute) Bulging of lumbar intervertebral disc (Acute) Obesity (BMI 30-39.9) (Acute) Degenerative disc disease, cervical (Acute) Impaired fasting glucose (Acute) Depression (Acute) Past Medical History Medical History Left anterior knee pain Achilles tendinitis of left lower extremity Intractable left heel pain Acquired deformity of toenail Migraines Heel spur Snoring Encounter for screening colonoscopy Cervical spondylosis Complicated migraine Left-sided weakness Brain TIA Eczema of lower extremity Anxiety and depression Normocytic normochromic anemia Heavy menstrual bleeding Bulging of lumbar intervertebral disc Left ankle pain Constipation Obesity (BMI 30-39.9) Navel cellulitis Hallux valgus (acquired) Degenerative disc disease, cervical History of gallstones Impaired fasting glucose Depression Family History Family History Mother Hypertension Depression Diabetes mellitus Hypercholesteremia SUZIE (obstructive sleep apnea) COPD (chronic obstructive pulmonary disease) Substance use disorder Mental health disorder Sister Breast cancer Uterine cancer Mental health disorder Maternal Grandmother Mental health disorder Maternal Aunt Mental health disorder Family history of problems with anesthesia: No Surgical History Surgical History Status post section History of bilateral tubal ligation History of bunionectomy of both great toes History of laparoscopic cholecystectomy History of cervical discectomy History of bunionectomy History of Problems with Anesthesia: No Social History Social History Housing: Apartment Are you a primary pediatric acute care unit nurse to a significant other at home: No Do you presently have visiting nurse or other home services: No Alcohol intake: never Patient Tobacco Use Status: Never used Tobacco e-Cigarette/Vaping Use: Never Used Have you been hit, kicked, punched, or otherwise hurt by someone within the past year? If so, by whom?: No Are you DNR?: No Advance Directives: No Advance Directives Information Provided: Yes Poor oral hygiene: No service: No Current occupational status: unemployed Cognitive needs: No Hearing needs: No Vision needs: Yes Meds Allergies Allergy/AdvReac Type Severity Reaction Status Date / Time cyclobenzaprine Allergy Intermediate SWELLING Verified 02/27/25 09:38 [From FLEXERIL] naproxen [NAPROXEN] Allergy Mild HEART Verified 02/27/25 09:38 PALPATATIONS hydrocodone AdvReac Intermediate Gastrointestinal Verified 02/27/25 09:38 Upset milk AdvReac Intermediate Gastrointestinal Verified 02/27/25 09:38 Upset oxycodone [From PERCOCET] AdvReac Intermediate VOMITING Verified 02/27/25 09:38 Home Medications ?Medication ?Instructions ?Recorded ?Confirmed ?Last Taken ?Type multivitamin 1 tab PO DAILY 12/12/22 02/27/25 12/12/22 History topiramate 50 mg tablet 50 mg PO BID 12/17/23 02/27/25 Unknown History escitalopram oxalate 10 mg tablet 10 mg PO DAILY 04/16/24 02/27/25 Unknown History prazosin 1 mg capsule 1 mg PO BEDTIME 06/30/24 02/27/25 Unknown History trazodone 50 mg tablet 100 mg PO BEDTIME PRN Insomnia 06/30/24 02/27/25 Unknown History loratadine 10 mg tablet (Allergy 10 mg PO DAILY 10/08/24 02/27/25 Unknown History Relief (loratadine)) Exam Height,Weight and Vital Signs: Height 5 ft 8.5 in Weight 117.48 kg Assessment and Plan Assessment Anesthesia Assessment: Chart Reviewed Final Anesthetic Review Family History of Problems with Anesthesia: No History of Problems with Anesthesia: No Documented by User: Mindy Shukla MD 02/27/25 10:06 [facility] Past Medical History Medical History Left anterior knee pain Achilles tendinitis of left lower extremity Intractable left heel pain Acquired deformity of toenail Migraines Heel spur Snoring Encounter for screening colonoscopy Cervical spondylosis Complicated migraine Left-sided weakness Brain TIA Eczema of lower extremity Anxiety and depression Normocytic normochromic anemia Heavy menstrual bleeding Bulging of lumbar intervertebral disc Left ankle pain Constipation Obesity (BMI 30-39.9) Navel cellulitis Hallux valgus (acquired) Degenerative disc disease, cervical History of gallstones Impaired fasting glucose Depression Family History Family History Mother Hypertension Depression Diabetes mellitus Hypercholesteremia SUZIE (obstructive sleep apnea) COPD (chronic obstructive pulmonary disease) Substance use disorder Mental health disorder Sister Breast cancer Uterine cancer Mental health disorder Maternal Grandmother Mental health disorder Maternal Aunt Mental health disorder Surgical History Surgical History Status post section History of bilateral tubal ligation History of bunionectomy of both great toes History of laparoscopic cholecystectomy History of cervical discectomy History of bunionectomy Social History Social History Housing: Apartment Are you a primary pediatric acute care unit nurse to a significant other at home: No Do you presently have visiting nurse or other home services: No Alcohol intake: never Patient Tobacco Use Status: Never used Tobacco e-Cigarette/Vaping Use: Never Used Have you been hit, kicked, punched, or otherwise hurt by someone within the past year? If so, by whom?: No Are you DNR?: No Advance Directives: No Advance Directives Information Provided: Yes Poor oral hygiene: No service: No Current occupational status: unemployed Cognitive needs: No Hearing needs: No Vision needs: Yes Meds Allergies Allergy/AdvReac Type Severity Reaction Status Date / Time cyclobenzaprine Allergy Intermediate SWELLING Verified 02/27/25 09:38 [From FLEXERIL] naproxen [NAPROXEN] Allergy Mild HEART Verified 02/27/25 09:38 PALPATATIONS hydrocodone AdvReac Intermediate Gastrointestinal Verified 02/27/25 09:38 Upset milk AdvReac Intermediate Gastrointestinal Verified 02/27/25 09:38 Upset oxycodone [From PERCOCET] AdvReac Intermediate VOMITING Verified 02/27/25 09:38 Home Medications ?Medication ?Instructions ?Recorded ?Confirmed ?Last Taken ?Type multivitamin 1 tab PO DAILY 12/12/22 02/27/25 12/12/22 History topiramate 50 mg tablet 50 mg PO BID 12/17/23 02/27/25 Unknown History escitalopram oxalate 10 mg tablet 10 mg PO DAILY 04/16/24 02/27/25 Unknown History prazosin 1 mg capsule 1 mg PO BEDTIME 06/30/24 02/27/25 Unknown History trazodone 50 mg tablet 100 mg PO BEDTIME PRN Insomnia 06/30/24 02/27/25 Unknown History loratadine 10 mg tablet (Allergy 10 mg PO DAILY 10/08/24 02/27/25 Unknown Hi story Relief (loratadine)) Exam Airway Mallampati Class: II TM Dist: >3cm Neck ROM: Full Heart: rrr Lungs: cta Assessment and Plan Assessment Anesthesia Assessment: Anesthesia Plan Discussed Final Anesthetic Review NPO: Yes ASA Class: III Final Preanesthetic Review: No Changes in Pt Med Stat, Meds/Allgs Chart Reviewed and Consent Obtained/Reviewed Patient Risk: Low Procedure Risk: Low Anesthetic Plan Anesthetic Plan: MAC: Disposition: Standard PACU
[2025-02-27] MEDS: Lactated Ringers 1,000 ML 100 ML IVCONT (09:46)
[2025-02-27 09:56] VITALS: BP 123/61; PULSE 79; RESP 18; TEMP 36.6; O2SAT 96
--- NOTE | 2025-02-27 10:05 | MHC.SHP ---
Pre-Procedural Eval Section A - 24 Hr Update-Section A only Date of Service: 02/27/25 The patient is an INPATIENT: No The patient has been examined within 24 hours of the surgical procedure. The History & Physical has been completed within 30 days and I have reviewed it.: No Section B - Complete if H&P > 30 days Chief Complaint: Follow-up of rectal polyp Relevant Family History (Specify if Yes): No Relevant Social History: None Present Medications: see Short Stay Collaborative assessment Medical History: Significant History (Anxiety and depression Brain TIA Bulging of lumbar intervertebral disc Cervical spondylosis Complicated migraine Constipation Degenerative disc disease, cervical Depression Eczema of lower extremity Hallux valgus (acquired) Heavy menstrual bleeding History of gallstones) History of Previous Operations: Relevant previous surgery/procedure and date(s) (History of bilateral tubal ligation History of bunionectomy History of bunionectomy of both great toes History of cervical discectomy History of laparoscopic cholecystectomy Status post section) Allergies: Allergies Allergy/AdvReac Type Severity Reaction Status Date / Time cyclobenzaprine Allergy Intermediate SWELLING Verified 02/27/25 09:38 [From FLEXERIL] naproxen [NAPROXEN] Allergy Mild HEART Verified 02/27/25 09:38 PALPATATIONS hydrocodone AdvReac Intermediate Gastrointestinal Verified 02/27/25 09:38 Upset milk AdvReac Intermediate Gastrointestinal Verified 02/27/25 09:38 Upset oxycodone [From PERCOCET] AdvReac Intermediate VOMITING Verified 02/27/25 09:38 Review of Systems Sugical H&P ROS: Negative: Constitution, Cardiovascular, Respiratory and Gastrointestinal Exam Surgical H&P Exam: Normal: Heart, Normal: Lungs, Normal: Extremities and Normal: Abdomen Plan Diagnosis/Plan: Change (Proceed with flexible sigmoidoscopy) I have reviewed the history and physical and performed a pertinent physical examination on my patient. No changes have occurred unless specified. Time Spent With Patient Time: Total time managing care of this patient today ____ minutes.
--- NOTE | 2025-02-27 11:55 | P.OPN-COLO_ITS ---
Colonoscopy Operative Note Operative Note Date of Service: 02/27/25 Narrative: FLEXIBLE SIGMOIDOSCOPY TO 30 CM WITH BIOPSIES, SNARE POLYPECTOMY AND SUBMUCOSAL INJECTION Pre-op diagnosis: Follow-up of rectal polyp (Tubulovillous adenoma (adenomatous glands appear to extend to the base on biopsy). Post-op diagnosis:? Rectal polyp, Diverticulosis, hemorrhoids Endoscopist:? Ethel Cook MD Anesthesia:?MAC Consent: Indications for the procedure and potential complications of bleeding, perforation, reaction to medications and missed diagnosis were discussed with the patient and informed consent was obtained. Instrument: Olympus Mid size upper endoscope Monitoring: Vital signs and clinical assessment, intermittent blood pressure monitoring, continuous EKG monitoring, Pulse oximetry and Carbon Dioxide monitoring were done throughout the procedure. Please see anesthesia flowsheet. Procedure: The patient was placed in the left lateral decubitis position and pre-procedure medications were administered. After a digital rectal examination of the ano-rectum, the video colonoscope was inserted into the rectum and advanced to the sigmoid colon. The colonoscope was slowly withdrawn in a retrograde panoramic fashion and the colon mucosa was carefully examined including a retroflexed view of the rectum. Findings and interventions are described below. Procedure Difficulty: without difficulty Findings: Sigmoid Colon: Moderate diverticulosis Rectum: Polypectomy site visualized at 6-7 cms with residual polypoidal tissue. Polypectomy site was raised with 3 cc of Eleview and removed with a stiff hot snare. Site was ablated with cautery using the snare tip. Biopsies were obtained. Ano-rectum: Moderate internal hemorrhoids Colon preparation: Excellent. [place] Bowel Preparation Scale Left colon; 3 (0 = Unprepared colon segment with mucosa not seen due to solid stool that cannot be cleared. 1 = Portion of mucosa of the colon segment seen, but other areas of the colon segment not well seen due to staining, residual stool and/or opaque liquid. 2 = Minor amount of residual staining, small fragments of stool and/or opaque liquid, but mucosa of colon segment seen well. 3 = Entire mucosa of colon segment seen well with no residual staining, small fragments of stool or opaque liquid) Impression and Post Procedure Diagnosis: Flexible sigmoidoscopy Findings: Polypectomy site visualized with residual polypoidal tissue - removed with a stiff hot snare. Moderate diverticulosis seen in the sigmoid colon Moderate hemorrhoids on retroflexed exam. Plan: Pt has a FU appointment on 03/11/[address] Cook Repeat Colonoscopy in 3 years if polyps are adenomatous and due to history of adenomatous colon polyps Above findings were reviewed with the patient and relevant handouts were given and the discharge area. Letter sent to the patient with biopsy results. Patient was placed on the colonoscopy recall list for repeat colonoscopy in 3 years.
[2025-02-27 11:58] VITALS: BP 99/51; PULSE 71; RESP 16; TEMP 36.6; O2SAT 98
[2025-02-27 12:13] VITALS: BP 106/72; PULSE 82; RESP 20; TEMP 36.2; O2SAT 98
== END 2025-02-27 12:39 | disposition home or self-care (01) ==
PROVIDERS: PCP Internal Medicine; Visit Provider Internal Medicine Gastroenterology
PROC: 0DJD8ZZ Inspection of Lower Intestinal Tract, Via Natural or Artificial Opening Endoscopic (ICD-10-PCS; CPT 45330; principal; 2025-02-27 11:00)
DX: Z12.11 Encounter for screening for malignant neoplasm of colon (principal); Z86.0101 Personal history of adenomatous and serrated colon polyps; K62.1 Rectal polyp; K57.30 Diverticulosis of large intestine without perforation or abscess without bleeding; K64.8 Other hemorrhoids; K59.09 Other constipation; R13.10 Dysphagia, unspecified; K21.9 Gastro-esophageal reflux disease without esophagitis; D64.9 Anemia, unspecified; G43.109 Migraine with aura, not intractable, without status migrainosus; R73.01 Impaired fasting glucose; E66.9 Obesity, unspecified; F41.8 Other specified anxiety disorders; Z68.38 Body mass index [BMI] 38.0-38.9, adult; Z86.73 Personal history of transient ischemic attack (TIA), and cerebral infarction without residual deficits; Z79.899 Other long term (current) drug therapy; Z99.89 Dependence on other enabling machines and devices; Z88.6 Allergy status to analgesic agent; Z88.8 Allergy status to other drugs, medicaments and biological substances; Z91.011 Allergy to milk products; Z98.890 Other specified postprocedural states
CPT/HCPCS: 45338; 45331; 88305; J2250; J2704

== ENCOUNTER → 2025-02-27 09:24 | Outpatient (BNV) | payer OTHER, SELFPAY | PROVIDERS: PCP Internal Medicine; Visit Provider Internal Medicine Gastroenterology | DX: D12.8 Benign neoplasm of rectum (principal); K57.30 Diverticulosis of large intestine without perforation or abscess without bleeding; K64.8 Other hemorrhoids | CPT/HCPCS: 45335; 45338 ==

== ENCOUNTER 2025-04-02 08:49 | Outpatient (REF) | payer OTHER, SELFPAY ==
[2025-04-02 08:58] LABS: MANUAL DIFF FLAG NO
--- OUTSIDE RECORDS SUMMARY | 2025-04-02 09:08 | XMS_ITS | Clinical Summary ---
Author Organization [facility] Address [address] [place] [address] Phone Care Team Providers Care Vinyl Flooring Installer Name Role Phone Brielle Ruiz MD Primary [...] once after 2 hours, if needed. Active ciclopirox (LOPROX) 0.77 % gelIndications: Dermatophytosis of nail Apply topically 2 (two) times a day. 45 g 5 04/14/20 25 Active terbinafine (LamISIL) 250 mg tablet Take 1 tablet (250 mg total) by mouth 1 (one) time each day. 90 each 5 03/09/20 25 Active Problems Problem Noted Date Diagnosed Date [...] 8:45 AM EDT Office Visit Orthopedic Surgery - [address] [address] Stephen Pop, DPM Dermatophytosis of nail (Primary Dx) from Last 3 Months Immunizations Name Administration [...] Care Team (Late st Contact Info) Description 05/19/2025 8:30 AM EDT Office Visit Orthopedic Surgery - [place] [address] [phone] Stephen Pop, [place] [address] [address] Health Maintenance Due Date Last Done Comments [...] season) 2024 02/03/2021, 01/06/2021 Influenza Vaccine (#1) 2025 , 09/02/2024, 11/02/2022, Additional history exists DTaP,Tdap,and Td Vaccines (2 [...] on patient's age to complete this topic Insurance MEDICAID - [place] Care Teams Vinyl Flooring Installer Relationship Specialty Start Date End Date Brielle Ruiz MD [address] [place] [address] PCP - General Internal Medicine 01/11/16
--- OUTSIDE RECORDS SUMMARY | 2025-04-02 09:09 | XMS_ITS | Patient Health Record ---
Author Organization [facility] Address [address] [place] [address] Care Team Providers Care Upholstery Cleaner Name Role Phone Joseph MARIO, Brielle Barkley Primary Care Provider Un available Angel López Unavailable [phone] Allergies Allergen (clinical drug ingredient) Drug/Non Drug Allergy documented on EMR Reaction Allergy Type Onset Date Status bupropion BuPROPion HCl heart palpitations Drug Allergy Active acetaminophen Tylenol nausea and vomiting Drug Allergy Active acetaminophen / oxycodone Percocet nausea and vomiting Drug Allergy Active ibuprofen Ibuprofen nausea and vomiting Drug Allergy Active Reason For Referral No Information Medications Medication SIG (Take, Route, Frequency, Duration) Notes Start Date End Date Status QUEtiapine Fumarate Active PriLOSEC Active Cymbalta 40 MG Orally Once a day Active Crutches Use Daily; Duration: as needed Active Walking Boot/Pneumatic As directed Wear Daily; Duration: Until further notice Active Bupropion & Diet Manage Prod Not-Taking Keflex 500 MG 1 capsule Orally Twi ce a day; Duration: 10 Day(s) 03/23/2018 Not-Myron ing Tylenol Active Social History Tobacco Use: Social History Observation Description Date Details (start date - stop date) Former Smoker NA - NA Tobacco Use/Smoking Question Answer Notes Are you a: former smoker When did you stop smoking? 10/2017 Additional Findings: Tobacco Non-User Current no n-smoker Alcohol Screen Question Answer Notes Did you have a drink containing alcohol in the p ast year? Yes Points 0 Interpretation Negative Tobacco use other than smoking: Question Answer Notes Are you an other tobacco user? No Problems Problem Type SNOMED Code ICD Code Onset Dates Problem Status W/U Status Risk Notes Problem Acquired hallux valgus (08288946) Hallux valgus (acquired), left foot (M20.12) Active confirmed Problem Achilles tendinitis, left leg (M76.62) Active confirmed Encounters Encounter Location Date Provider Diagnosis [facility] [place] [address] [place] [address] 03/31/2025 Angel López Plan Of Treatment No Information Insurance Providers Payer Name Payer Address Payer Phone Subscriber Number Group Number Insured Name Patient Relationship to Insured Coverage Start Date Coverage End Date [facility] All Others [address] [place] [address] [phone] [id number] Amanda Stapleton Self - patient is the insured Medical (General) History Medical History History ICD Code Anxiety Arthritis Back,Hip,and Knee pain Depression Gall bladder problems Headaches Sciatica Joint implants/screws Surgical History Surgery Date(Month/Year) Fusion C4,C5 11/2016 Fusion C5,C6,C7 02/02 section 11/24/1996 Bunionectomy B/L 1989
[2025-04-02 09:42] LABS: Hematocrit 33.7 % (37.0-47.0); Hemoglobin 10.6 g/dl (12.0-16.0); Imm Gran Abs Auto 0.03 X10*3/uL (0.00-0.03); Imm Gran Pct Auto 0.4 % (0.0-0.4); Lymphocytes Absolute Auto 1.9 X10*3/uL (1.2-4.9); Mean Corpuscular HGB Conc 31.5 g/dl (31.0-35.0); Mean Corpuscular Hemoglobin 24.9 pg (27.0-33.0); Mean Corpuscular Volume 79.3 fL (80.0-98.0); NRBC Abs Auto 0.000 X10*3/uL (0.0-0.012); NRBC Pct Auto 0.0 /100WBC (0.0-0.2); Platelet Count 238 X10*3/uL (160-400); Red Blood Count 4.25 X10*6/uL (4.20-5.50); White Blood Count 7.2 X10*3/uL (4.8-10.8)
[2025-04-02 10:10] LABS: Alanine Aminotransferase 13 U/L (0-31); Anion Gap 10 (12-20); Aspartate Amino Transferase 16 U/L (5-31); Blood Urea Nitrogen 11 mg/dL (9-16); Calcium 8.8 mg/dL (8.4-10.2); Carbon Dioxide 25 mmol/L (22-29); Chloride 107 mmol/L (96-108); Cholesterol 158 mg/dL (<200); Estimated Glomerular Filt Rate > 60; HDL Cholesterol 39 mg/dL (>40); Iron 33 mcg/dL (30-160); Percent Iron Saturation 11 % (15-50); Potassium 3.8 mmol/L (3.3-5.1); Sodium 138 mmol/L (135-145); Total Iron Binding Capacity 314 mcg/dL (228-428); Triglycerides 150 mg/dL (<150); Unsaturated Iron Binding 281 ug/dL
== END 2025-04-02 08:50 | disposition home or self-care (01) ==
LOC: HO.LAB 08:49
PROVIDERS: Visit Provider Internal Medicine
DX: N92.0 Excessive and frequent menstruation with regular cycle (principal); N93.9 Abnormal uterine and vaginal bleeding, unspecified; N94.6 Dysmenorrhea, unspecified; D25.9 Leiomyoma of uterus, unspecified; R73.01 Impaired fasting glucose; E66.9 Obesity, unspecified
CPT/HCPCS: 36415; 80048; 80061; 82306; 83540; 84450; 84460; 85025

== ENCOUNTER 2025-04-06 08:01 | Outpatient (AMB) | payer OTHER, SELFPAY ==
--- OUTSIDE RECORDS SUMMARY | 2025-03-23 07:30 | XMS_ITS | Continuity of Care Document ---
Author Organization [facility] Address [address] [place] [address] [address] [place] [address] Phone Care Team Providers Care Associate Professor Of Physics Name Role Phone Wu COOK, Nan Unavailable [...] Mi- [place] & [place] [facility], [address] [place] [address] Dr [address] [place], [id number], [place] tel:[phone] CV[place] Localized edemaPain in right lower legPain in left lower legPain in right legPain in left legRestless legs syndromePrurit us, unspecified 0 5 Washburn PA-C Nan. [address] [facility], [address], [place], [place], [id number], [place]. tel:[phone] Referring Provider: Brielle Ruiz MD Filippo, [address] [facility] [address] [facility], [place], [address]. tel:[phone] [facility], [address] [place] [address] [address], [place], [id number], [place] tel:[phone] CVR - [facility] Chronic venous hypertension (idiopathic) with other complications of bilateral lower extremity April Miller. [address] [place] [address], [facility] [address], [place], [place], [id number], [place]. tel:[phone] Referring Provider: Angela Chen MD, [address] [place] [address], [place], [address] . tel:[phone] Family History Family Member Type Diagnosis Age At Onset No Information Payers Payer name Insurance type Covered democrat ID Enedina allan(s) [facility] [id number] Social History Type Description Quantity Date [...] No Information Instructions Date Instruction Additional Infor dulce Pre and post instruc tions reviewed and provided Related to Pain in right lower leg Patient education booklet given Related to Pain in right lower leg Lifestyle education Related to B carol mass index (BMI) 38.0-38.9, adult Giving Encouragement to exercise Related to Body mass index (BMI) 38.0-38.9, adult Diet education Related to Body mass index (BMI) 38.0-38.9, adult Assessments Type Assessment Date No Information Patient Care Teams Name Effective Dates (start - stop) Status Members No Information
--- OUTSIDE RECORDS SUMMARY | 2025-04-06 08:04 | XMS_ITS | Clinical Summary ---
Author Organization [address] [facility] Address [address] [place] [address] Phone Care Team Providers Care Fire Investigation Lieutenant Name Role Phone Brielle Ruiz MD Primary [...] AM EDT Office Visit Orthopedic Surgery - [address] [address] Stephen Pop, DPM Dermatophytosis of [...] AM EDT Office Visit Orthopedic Surgery - [place] [address] [phone] Stephen Pop, [place] [address] [address] Health Maintenance Due Date Last Done Comments [...] topic Insurance MEDICAID - [place] Care Teams Fire Investigation Lieutenant Relationship Specialty Start Date End Date Brielle Ruiz MD [address] [place] [address] PCP - General Internal Medicine 01/11/16
--- OUTSIDE RECORDS SUMMARY | 2025-04-06 08:05 | XMS_ITS | Patient Health Record ---
[facility] Address [address] [place] [address] Care Team Providers Care Kelp Or Seagrass Gatherer Name Role Phone Joseph MARIO, Brielle Barkley Primary Care Provider Un available Angel López Unavailable [phone] Allergies Allergen (clinical drug ingredient) Drug/Non Drug [...] Problem Status W/U Status Risk Notes Problem Hallux valgus (acquired), left foot (M20.12) Active confirmed Problem Achilles bursitis (810177851) Achilles tendinitis, left leg (M76.62) Active confirmed Encounters Encounter Location Date Provider Diagnosis [facility] [place] [address] [place] [address] 03/31/2025 Angel López Plan Of Treatment No Information Insurance Providers Payer Name Payer Address Payer Phone Subscriber Number Group Number Insured Name Patient Relationship to Insured Coverage Start Date Coverage End Date [facility] [id number] [place] [address] [phone] [id number] Amanda Stapleton Self - patient is the insured Medical (General) History Medical History History ICD Code Anxiety Arthritis Back,Hip,and Knee pain Depression Gall bladder problems Headaches Sciatica Joint implants/screws Surgical History Surgery Date(Month/Year) Fusion C4,C5 11/2016 Fusion C5,C6,C7 02/02 section 11/24/1996 Bunionectomy B/L 1989
[2025-04-06 08:08] VITALS: BP 110/72; PULSE 81; RESP 16; TEMP 36.8; O2SAT 98; BMI 40.5
--- NOTE | 2025-04-06 08:08 | A.OFFPC_ITS ---
Vital Signs 04/06/25 08:08 Height 5 ft 8.5 in Weight 270 lb BMI 40.5 BP 110/72 Blood Pressure Location Rt brachial Position Sitting Respiration 16 Pulse 81 Pulse Source Pulse Oximeter Temp 98.2 F Temp Source Oral Pulse Oximetry (%) 98 Oxygen Delivery Method Room Air Intake Visit Reasons: 6 months follow up Intake Note: Pt is here today for her 6mo. f/u Allergies cyclobenzaprine (From FLEXERIL) Allergy (Intermediate, Verified 04/06/25 08:23) SWELLING naproxen (NAPROXEN) Allergy (Mild, Verified 04/06/25 08:23) HEART PALPATATIONS hydrocodone Adverse Reaction (Intermediate, Verified 04/06/25 08:23) Gastrointestinal Upset milk Adverse Reaction (Intermediate, Verified 04/06/25 08:23) Gastrointestinal Upset oxycodone (From PERCOCET) Adverse Reaction (Intermediate, Verified 04/06/25 08:23) VOMITING Medication List - Last Reconciled 04/06/25 by Brielle Ruiz MD albuterol sulfate 90 mcg/actuation 2 puffs inhalation Q6H PRN bupropion HCl 75 mg PO ONCE cane As directed ferrous fumarate 324 mg PO DAILY loratadine (Allergy Relief (loratadine)) 10 mg PO DAILY multivitamin 1 tab PO DAILY omeprazole 20 mg PO DAILY prazosin 1 mg PO BEDTIME sumatriptan succinate 50 mg PO Q2-4H PRN topiramate 50 mg PO BID trazodone 100 mg PO BEDTIME PRN Tobacco use date assessed: 04/06/25 Dental Screening Dental Screen Date: 04/06/25 Did you have a dental visit in the last 12 months?: No Did you have a dental problem in the last 6 months where you did not have access to dental care?: No Was dental information given to patient?: Patient has dentist [facility] Medical History (Updated 04/06/25 @ 08:41 by Brielle Ruiz MD) Iron deficiency anemia Vitamin D deficiency Numbness and tingling of both lower extremities Left anterior knee pain Achilles tendinitis of left lower extremity Intractable left heel pain Acquired deformity of toenail Migraines Heel spur Snoring Encounter for screening colonoscopy Cervical spondylosis Complicated migraine Left-sided weakness Brain TIA Eczema of lower extremity Anxiety and depression Normocytic normochromic anemia Heavy menstrual bleeding Bulging of lumbar intervertebral disc Left ankle pain Constipation Obesity (BMI 30-39.9) Navel cellulitis Hallux valgus (acquired) Degenerative disc disease, cervical History of gallstones Impaired fasting glucose Depression Surgical History Status post section History of bilateral tubal ligation History of bunionectomy of both great toes History of laparoscopic cholecystectomy History of cervical discectomy History of bunionectomy Family History Mother Hypertension Depression Diabetes mellitus Hypercholesteremia SUZIE (obstructive sleep apnea) COPD (chronic obstructive pulmonary disease) Substance use disorder Mental health disorder Sister Breast cancer Uterine cancer Mental health disorder Maternal Grandmother Mental health disorder Maternal Aunt Mental health disorder Social History Housing: Apartment Are you a primary primary care nurse practitioner to a significant other at home: No Do you presently have visiting nurse or other home services: No Alcohol intake: never Patient Tobacco Use Status: Never used Tobacco e-Cigarette/Vaping Use: Never Used service: No Current occupational status: unemployed Cognitive needs: No Hearing needs: No Vision needs: Yes Questionnaire PHQ-9 Over the last 2 weeks, how often have you been bothered by any of the following problems? 1. Little interest or pleasure in doing things: several days 2. Feeling down, depressed, or hopeless: more than half the days 3. Trouble falling or staying asleep, or sleeping too much: nearly every day 4. Feeling tired or having little energy: more than half the days 5. Poor appetite or overeating: more than half the days 6. Feeling bad about yourself - or that you are a failure or have let yourself or your family down: several days 7. Trouble concentrating on things, such as reading the newspaper or watching television: more than half the days 8. Moving or speaking so slowly that other people could have noticed. Or the opposite - being so fidgety or restless that you have been moving around a lot more than usual: more than half the days 9. Thoughts that you would be better off or of hurting yourself in some way: not at all Total score: 15 Source: Developed by Drs. Kenneth L. CarmeloHoda geronimo, Jay Dunn and colleagues, with an educational hiwot from [employer] Thrive Questionnaire Date Thrive assessed: 08/30/24 I am a: Patient What is your living situation today?: I have a steady place to live Within the past 12 months, did the food you bought not last and you didn't have the money to get more?: Sometimes True Within the past 12 months, did you worry whether your food would run out before you got money to buy more?: Sometimes True Do you have trouble paying for medicines?: Yes Do you have trouble getting transportation to medical appointments?: Yes Do you have trouble paying your heating and electricity bill?: No Do you have trouble taking care of your child, family member or friend?: No Do you have trouble with day-to-day activities such as bathing, preparing meals, shopping, managing finances, etc.?: Yes Are you currently unemployed and looking for a job?: Yes Are you interested in more education?: No Please select the resources that you would like help with: Food, Paying for medicine, Transportation and Daily support Currently or been in a relationship where the following occur: No concerns reported THRIVE Score: 3 AUDIT C Alcohol Use Questionnaire (AUDIT-C) 1. How often do you have a drink containing alcohol?: Never Total Score: 0 BRENDON-7 AMB Questionnaire BRENDON-7 Date BRENDON - 7 assessed: 12/17/23 Feeling nervous, anxious, or on edge: 2 = More than half the days Not being able to stop or control worryin = Nearly every day Worrying too much about different things: 3 = Nearly every day Trouble relaxin = Nearly every day Being so restless that it is hard to sit still: 3 = Nearly every day Becoming easily annoyed or irritable: 3 = Nearly every day Feeling afraid as if something awful might happen: 2 = More than half the days Total BRENDON-7 score (0-4 normal; 5-9 mild; 10-14 moderate; 15-21 severe): 19 Source: Developed by Hoda Machado, Jay Dunn and colleagues, with an educational hiwot from [employer] Physical exam (Primary Care) Vital Signs: Last Vital Signs Temp 98.2 F 04/06/25 08:08 Pulse 81 04/06/25 08:08 Resp 16 04/06/25 08:08 BP 110/72 04/06/25 08:08 Pulse Ox 98 04/06/25 08:08 Oxygen Delivery Method Room Air 04/06/25 08:08 BMI result Body Mass Index 40.5 Tobacco/Smoking Status: Tobacco use Status Tobacco use date assessed 04/06/25 04/06/25 08:16 Patient Tobacco Use Status Never used Tobacco 04/06/25 08:10 e-Cigarette/Vaping Use Never Used 04/06/25 08:10 PHQ-9: PHQ-9 Score PHQ-9: Total score 15 04/06/25 08:22 Thrive Assessment: Date of Thrive Assessment Date Thrive assessed 08/30/24 04/06/25 08:10 Currently or been in a relationship where the following occur: No concerns reported Results AMB Hemoglobin A1c AMB Hemoglobin A1c 5.7 % Last Edit by Nuzhat Valadez CMA on 04/06/25 08:23 Results Reviewed Results Reviewed: Laboratory Last Values Hgb A1c (Clinic) 5.7 % (4.0-6.0) 04/06/25 08:19 Name: Amanda Stapleton Age/Sex: 54/F : 1970 Unit#: [id number] Attend Dr: Brielle Ruiz MD Re04/02/25 Status: DEP [facility] Disch: SPEC : [id number] LING: 04/02/25 STATUS: COMP REQ : [id number] RECD: 04/02/[address]: Brielle Ruiz MD COMP: 04/02/25 ENTERED: 04/02/[address]: ORDERED: CBC Auto Diff Test Result Flag Reference WBC 7.2 4.8-10.8 X10*3/uL RBC 4.25 4.20-5.50 X10*6/uL HGB 10.6 L 12.0-16.0 g/dl HCT 33.7 L 37.0-47.0 % MCV 79.3 L 80.0-98.0 fL MCH 24.9 L 27.0-33.0 pg MCHC 31.5 31.0-35.0 g/dl RDW 15.9 11.0-16.0 % PLT 238 160-400 X10*3/uL MPV 10.3 9.4-12.3 fL Neut Pct Auto 63.2 45-73 % ImGran Pct Auto 0.4 0.0-0.4 % Lymp Pct Auto 26.8 20-40 % Tillman Pct Auto 6.4 2-11 % Eos Pct Auto 2.8 0-4 % Baso Pct Auto 0.4 0-2 % NRBC Pct Auto 0.0 0.0-0.2 /100WBC ANC Neut Abs # 4.6 2.0-8.3 x10*3/uL ImGran Abs Auto 0.03 0.00-0.03 X10*3/uL Lymph Abs Auto 1.9 1.2-4.9 X10*3/uL Tillman Abs Auto 0.5 0.1-1.2 X10*3/uL Eos Abs Auto 0.2 0.0-0.4 X10*3/uL Baso Abs Auto 0.0 0.0-0.2 X10*3/uL NRBC Abs Auto 0.000 0.0-0.012 X10*3/uL Name: Amanda Stapleton Age/Sex: 54/F : 1970 Unit#: [id number] Attend Dr: Brielle Ruiz MD Re04/02/25 Status: DEP [facility]F [facility] Disch: SPEC : [id number] LING: 04/02/25 STATUS: COMP REQ : [id number] RECD: 04/02/[address]: Brielle Ruiz MD COMP: 04/02/251028 ENTERED: 04/02/[address]: ORDERED: Met Prof Fast, IRON PROF, AST, ALT, Lipid Panel, Vitamin D 25-OH Test Result Flag Reference Sodium 138 135-145 mmol/L Potassium 3.8 3.3-5.1 mmol/L CL 107 96-108 mmol/L CO2 25 22-29 mmol/L Gap 10 L 12-20 BUN 11 9-16 mg/dL Creat 0.87 0.5-1.4 mg/dL eGFR > 60 Chronic Kidney Disease: Estimated GFR < 60 mL/min/1.73m2 Severe Kidney Disease: Estimated GFR < 15 mL/min/ 1.73m2 FBS 103 H 60-99 mg/dL A fasting glucose from 100-125 mg/dl is considered impaired (pre-diabetes). CA 8.8 8.4-10.2 mg/dL Iron 33 30-160 mcg/dL TIBC 314 228-428 mcg/dL Saturation 11 L 15-50 % UIBC 281 ug/dL AST (GOT) 16 5-31 U/L ALT (GPT) 13 0-31 U/L Triglyceride 150 H <150 mg/dL Desirable Triglyceride: less than 150 mg/dL Borderline High Triglyceride 150-199 mg/dL High Triglyceride: 200-499 mg/dL Very High Triglyceride: greater than or equal to 5OO mg/dL Cholesterol 158 <200 mg/dL Desirable Cholesterol: less than 200 mg/dL Borderline High Cholesterol: 200-239 mg/dL High Cholesterol: greater than 239 mg/dL LDL Calculated 89 <100 mg/dL Desirable LDL: less than 100 mg/dL Near Optimal/Above Optimal LDL: 110-129 mg/dL Borderline High LDL: 130-159 mg/dL High LDL: 160-189 mg/dL Very High LDL: greater than or equal to 190 mg/dL HDL 39 L >40 mg/dL Desirable HDL: greater than 40 mg/dL Note: This HDL assay may give artificially low results in patients with liver disease. Vitamin D 25-OH 21.1 L >30 ng/mL Health Based Reference Values* < 20 ng/mL Deficient 20-30 ng/mL Insufficient > 30 ng/mL Sufficient Coding Level of Care Code Est Pt Level 4 (44329) Diagnoses Numbness and tingling of both lower extremities R20.0; R20.2 Impaired fasting glucose R73.01 Obesity (BMI 30-39.9) E66.9 Vitamin D deficiency E55.9 Heavy menstrual bleeding N92.0 Iron deficiency anemia D50.9 Assessment & Plan Assessment & Plan (1) Numbness and tingling of both lower extremities: Code(s): R20.0 - Anesthesia of skin; R20.2 - Paresthesia of skin Category: Medical (2) Impaired fasting glucose: Code(s): R73.01 - Impaired fasting glucose Category: Medical (3) Obesity (BMI 30-39.9): Code(s): E66.9 - Obesity, unspecified Category: Medical (4) Vitamin D deficiency: Code(s): E55.9 - Vitamin D deficiency, unspecified Category: Medical (5) Heavy menstrual bleeding: Code(s): N92.0 - Excessive and frequent menstruation with regular cycle Category: Medical (6) Iron deficiency anemia: Code(s): D50.9 - Iron deficiency anemia, unspecified Category: Medical Orders: Orders NE nerve conduction velocity Today R20.0 - Anesthesia of skin, R20.2 - Paresthesia of skin AMB Hemoglobin A1c Today Z13.9 - Encounter for screening, unspecified Medications: New cholecalciferol (vitamin D3) 1,250 mcg PO QWEEK 13 caps 0RF 3 months E55.9 - Vitamin D deficiency, unspecified
== END 2025-04-06 08:48 | disposition home or self-care (01) ==
LOC: HO.HMCC 08:02
PROVIDERS: Visit Provider Internal Medicine
DX: Z13.9 Encounter for screening, unspecified (principal)

== ENCOUNTER → 2025-04-06 08:01 | Outpatient (BNVA) | payer OTHER, SELFPAY | PROVIDERS: Visit Provider Internal Medicine | DX: R20.0 Anesthesia of skin (principal); R20.2 Paresthesia of skin; R73.01 Impaired fasting glucose; E55.9 Vitamin D deficiency, unspecified; N92.4 Excessive bleeding in the premenopausal period; D50.9 Iron deficiency anemia, unspecified; Z79.899 Other long term (current) drug therapy; Z13.31 Encounter for screening for depression | CPT/HCPCS: 83036; 96127; 99212 ==

== ENCOUNTER 2025-05-01 08:00 | Outpatient (AMB) | payer OTHER, SELFPAY ==
--- OUTSIDE RECORDS SUMMARY | 2025-05-01 08:04 | XMS_ITS | Patient Health Record ---
Author Organization [facility] Address [address] [place] [address] Care Team Providers Care Equipment Sales Specialist Name Role Phone Joseph MARIO, Brielle Barkley Primary Care Provider Un available Angel López Unavailable [phone] Allergies Allergen (clinical drug ingredient) Drug/Non Drug [...] Status Risk Notes Problem Acquired hallux valgus (77733860) Hallux valgus (acquired), left foot (M20.12) Active confirmed Problem Achilles bursitis (773491284) Achilles tendinitis, left leg (M76.62) Active confirmed Encounters Encounter Location Date Provider Diagnosis [facility] [place] [address] [place] [address] 03/31/2025 Angel López Plan Of Treatment No Information Insurance Providers Payer Name Payer Address Payer Phone Subscriber Number Group Number Insured Name Patient Relationship to Insured Coverage Start Date Coverage End Date [facility] [address] [place] [address] [phone] [id number] Amanda Stapleton Self - patient is the insured Medical (General) History Medical History History ICD Code Anxiety Arthritis Back,Hip,and Knee pain Depression Gall bladder problems Headaches Sciatica Joint implants/screws Surgical History Surgery Date(Month/Year) Fusion C4,C5 11/2016 Fusion C5,C6,C7 02/02 section 11/24/1996 Bunionectomy B/L 1989
--- NOTE | 2025-05-01 08:09 | MHC.PC.OV ---
Intake Visit Reasons: FMLA paperwork/ andriod Allergies cyclobenzaprine (From FLEXERIL) Allergy (Intermediate, Verified 05/01/25 08:33) SWELLING naproxen (NAPROXEN) Allergy (Mild, Verified 05/01/25 08:33) HEART PALPATATIONS hydrocodone Adverse Reaction (Intermediate, Verified 05/01/25 08:33) Gastrointestinal Upset milk Adverse Reaction (Intermediate, Verified 05/01/25 08:33) Gastrointestinal Upset oxycodone (From PERCOCET) Adverse Reaction (Intermediate, Verified 05/01/25 08:33) VOMITING Medication List - Last Reconciled 05/01/25 by Brielle Ruiz MD albuterol sulfate 90 mcg/actuation 2 puffs inhalation Q6H PRN bupropion HCl 75 mg PO ONCE cane As directed cholecalciferol (vitamin D3) 1,250 mcg PO QWEEK 3 months ferrous fumarate 324 mg PO DAILY loratadine (Allergy Relief (loratadine)) 10 mg PO DAILY multivitamin 1 tab PO DAILY omeprazole 20 mg PO DAILY prazosin 1 mg PO BEDTIME sumatriptan succinate 50 mg PO Q2-4H PRN topiramate 50 mg PO BID trazodone 100 mg PO BEDTIME PRN Tobacco use date assessed: 04/06/25 Dental Screening Dental Screen Date: 04/06/25 HPI FMLA paperwork/ andriod HPI Details - The patient is a 54-year-old female was recently seen at the ER at [facility] complaining of abnormal uterine bleeding and found to have thickening of the uterine lining on ultrasound done. She was started on Medroxyprogesterone was prescribed to manage the bleeding, taken twice daily for 90 days - found to be anemic with hemoglobin at 10.9, no further bleeding noted at present. - She also has a spinal curvature impacting her lungs and heart, causing a choking sensation. - Scheduled for a nerve conduction study and EMG in May, with a neurology appointment in July. -she is requesting for an FMLA application completed for her who is going to be driving her to her doctor's appointments and therapy sessions, which she expect with last until August this year. She is already scheduled to start physical therapy twice a week, and has an appointment to see her OBGYN for further evaluation and management of her abnormal uterine bleeding. [facility] Medical History (Updated 05/04/25 @ 02:30 by Brielle Ruiz MD) Endometrial thickening on ultrasound Iron deficiency anemia Vitamin D deficiency Numbness and tingling of both lower extremities Left anterior knee pain Achilles tendinitis of left lower extremity Intractable left heel pain Acquired deformity of toenail Migraines Heel spur Snoring Encounter for screening colonoscopy Cervical spondylosis Complicated migraine Left-sided weakness Brain TIA Eczema of lower extremity Anxiety and depression Normocytic normochromic anemia Heavy menstrual bleeding Bulging of lumbar intervertebral disc Left ankle pain Constipation Obesity (BMI 30-39.9) Navel cellulitis Hallux valgus (acquired) Degenerative disc disease, cervical History of gallstones Impaired fasting glucose Depression Surgical History Status post section History of bilateral tubal ligation History of bunionectomy of both great toes History of laparoscopic cholecystectomy History of cervical discectomy History of bunionectomy Family History Mother Hypertension Depression Diabetes mellitus Hypercholesteremia SUZIE (obstructive sleep apnea) COPD (chronic obstructive pulmonary disease) Substance use disorder Mental health disorder Sister Breast cancer Uterine cancer Mental health disorder Maternal Grandmother Mental health disorder Maternal Aunt Mental health disorder Social History Housing: Apartment Are you a primary careers counsellor to a significant other at home: No Do you presently have visiting nurse or other home services: No Alcohol intake: never Patient Tobacco Use Status: Never used Tobacco e-Cigarette/Vaping Use: Never Used service: No Current occupational status: unemployed Cognitive needs: No Hearing needs: No Vision needs: Yes Questionnaire PHQ-9 Over the last 2 weeks, how often have you been bothered by any of the following problems? 1. Little interest or pleasure in doing things: several days 2. Feeling down, depressed, or hopeless: more than half the days 3. Trouble falling or staying asleep, or sleeping too much: nearly every day 4. Feeling tired or having little energy: more than half the days 5. Poor appetite or overeating: more than half the days 6. Feeling bad about yourself - or that you are a failure or have let yourself or your family down: several days 7. Trouble concentrating on things, such as reading the newspaper or watching television: more than half the days 8. Moving or speaking so slowly that other people could have noticed. Or the opposite - being so fidgety or restless that you have been moving around a lot more than usual: more than half the days 9. Thoughts that you would be better off or of hurting yourself in some way: not at all Total score: 15 Depression Screening Interpretation: Positive (Followed by Diego Porter) Depression Screening Follow-up: Existing condition, In treatment and Community Mental Health Worker F/U Depression Screening Done: Yes 27359 - PHQ-9 Billing: Yes Source: Developed by Drs. Kenneth Rhodes, Hoad Angela, Jay Dunn and colleagues, with an educational hiwot from [address]. Thrive Questionnaire Date Thrive assessed: 04/06/25 BRENDON-7 AMB Questionnaire BRENDON-7 Date BRENDON - 7 assessed: 12/17/23 Feeling nervous, anxious, or on edge: 2 = More than half the days Not being able to stop or control worryin = Nearly every day Worrying too much about different things: 3 = Nearly every day Trouble relaxin = Nearly every day Being so restless that it is hard to sit still: 3 = Nearly every day Becoming easily annoyed or irritable: 3 = Nearly every day Feeling afraid as if something awful might happen: 2 = More than half the days Total BRENDON-7 score (0-4 normal; 5-9 mild; 10-14 moderate; 15-21 severe): 19 Source: Developed by Drs. Kenneth Rhodes, Hoda Angela, Jay Dunn and colleagues, with an educational hiwot from [address]. BREDNON-7 Assessment Billing BRENDON-7 Assessment Tool: BRENDON-7 Assessment 62353 (Followed by psychiatrist, Dr. Diego Porter) Review of Systems Const Reports body aches, Reports fatigue, Denies fever(s), Reports malaise and Reports weakness Eyes Details: was seeing [facility] Reports requires corrective lenses ENT Reports no additional complaints and Reports Normal hearing present Card Reports no additional complaints Resp Reports no additional complaints GI Reports no additional complaints Reports as per HPI Musc Reports as per HPI Skin/Breast Denies lesions and Denies rash Neuro Reports as per HPI, Reports Normal hearing present and Reports weakness Psych Reports as per HPI Endo Reports no additional complaints and Reports fatigue Jordan/Lymph Denies easy bruising Aller/Immun Reports no additional complaints Physical exam (Primary Care) Tobacco/Smoking Status: Tobacco use Status Tobacco use date assessed 04/06/25 05/01/25 08:10 Patient Tobacco Use Status Never used Tobacco 05/01/25 08:10 e-Cigarette/Vaping Use Never Used 05/01/25 08:10 PHQ-9: PHQ-9 Score PHQ-9: Total score 15 05/01/25 08:33 Depression Screening Interpretation: Positive (Followed by Diego Porter) Depression Screening Follow-up: Existing condition, In treatment and Community Mental Health Worker F/U Thrive Assessment: Date of Thrive Assessment Date Thrive assessed 04/06/25 05/01/25 08:10 Neuro Cranial nerves: Yes Normal hearing present Telehealth Telehealth Telehealth Platform: SnapYeti Location of provider rendering services: practice address Location of patient: address on file Patient Identification confirmed using: Name, : Yes Telehealth method: video Patient verbally consented to treatment: Yes Patient verbally consented to billing insurance company: Yes Patient informed of any privacy concerns related to visit: Yes Minutes spent on Phone/Video with Pt.: 15 Coding Level of Care Code Tele Est Pt Level 4 (55324) Diagnoses Endometrial thickening on ultrasound R93.89 Abnormal uterine bleeding (AUB) N93.9 Bulging of lumbar intervertebral disc M51.26 Numbness and tingling of both lower extremities R20.0; R20.2 Additional Codes BRENDON-7 Assessment Billing - BRENDON-7 Assessment Tool: BRENDON-7 Assessment 41972 ([id number]) PHQ-9 - 25780 - PHQ-9 Billing: Yes ([id number]) Assessment & Plan Assessment & Plan (1) Endometrial thickening on ultrasound: Code(s): R93.89 - Abnormal findings on diagnostic imaging of other specified body structures Category: Medical (2) Abnormal uterine bleeding (AUB): Code(s): N93.9 - Abnormal uterine and vaginal bleeding, unspecified Category: Medical (3) Bulging of lumbar intervertebral disc: Comment: Seen on MRI of lumbar spine done in 03/20/2019 which showed very mild findings, right central disc bulge at L4-5 and left L5-S1 with no central stenosis or significant degenerative changes seen. Code(s): M51.26 - Other intervertebral disc displacement, lumbar region Category: Medical (4) Numbness and tingling of both lower extremities: Code(s): R20.0 - Anesthesia of skin; R20.2 - Paresthesia of skin Category: Medical Plan will continue taking medroxyprogesterone twice daily for 90 days to manage the uterine lining thickening and associated bleeding. Follow-up with the RN OBSERVATION is necessary for further evaluation and management of endometrial thickening. A nerve conduction study and EMG are scheduled for May, to evaluate ongoing numbness and tingling in both lower extremities. The patient is advised to contact the GI clinic regarding the choking sensation , may need an upper endoscopy Patient was informed and verbally consented to the use of an ambient scribe for clinic note documentation during this visit.
== END 2025-05-01 09:28 | disposition home or self-care (01) ==
LOC: HO.HMCC 08:00
PROVIDERS: PCP Internal Medicine; Visit Provider Internal Medicine
DX: R93.89 Abnormal findings on diagnostic imaging of other specified body structures (principal); N93.9 Abnormal uterine and vaginal bleeding, unspecified; M51.26 Other intervertebral disc displacement, lumbar region; R20.0 Anesthesia of skin; R20.2 Paresthesia of skin

== ENCOUNTER → 2025-05-01 08:00 | Outpatient (BNVA) | payer OTHER, SELFPAY | PROVIDERS: PCP Internal Medicine; Visit Provider Internal Medicine | DX: R93.89 Abnormal findings on diagnostic imaging of other specified body structures (principal); D64.9 Anemia, unspecified; N93.9 Abnormal uterine and vaginal bleeding, unspecified; M51.26 Other intervertebral disc displacement, lumbar region; R20.0 Anesthesia of skin; R20.2 Paresthesia of skin | CPT/HCPCS: 96127 ==

== ENCOUNTER 2025-05-06 13:56 | Outpatient (REF) | payer OTHER, SELFPAY ==
[2025-05-06 15:21] LABS: Hematocrit 30.4 % (37.0-47.0); Hemoglobin 9.9 g/dl (12.0-16.0); Mean Corpuscular HGB Conc 32.6 g/dl (31.0-35.0); Mean Corpuscular Hemoglobin 25.8 pg (27.0-33.0); Mean Corpuscular Volume 79.2 fL (80.0-98.0); NRBC Abs Auto 0.000 X10*3/uL (0.0-0.012); NRBC Pct Auto 0.0 /100WBC (0.0-0.2); Platelet Count 231 X10*3/uL (160-400); Red Blood Count 3.84 X10*6/uL (4.20-5.50); White Blood Count 6.2 X10*3/uL (4.8-10.8)
[2025-05-06 21:54] LABS: CT PCR NOT DETECTED (Not Detect.); NG PCR NOT DETECTED (Not Detect.)
[2025-05-07 05:23] LABS: Follicle Stimulating Hormone 5.3 mIU/mL
== END 2025-05-06 13:57 | disposition home or self-care (01) ==
LOC: HO.LNP 13:56
PROVIDERS: PCP Internal Medicine; Visit Provider Obstetrics & Gynecology
DX: N93.9 Abnormal uterine and vaginal bleeding, unspecified (principal); N92.0 Excessive and frequent menstruation with regular cycle; Z32.02 Encounter for pregnancy test, result negative
CPT/HCPCS: 81025; 83001; 83002; 84443; 84702; 85027; 87491; 87591; 99212

== ENCOUNTER 2025-05-06 13:56 | Outpatient (AMB) | payer OTHER, SELFPAY ==
--- NOTE | 2025-05-06 13:59 | A.OFFVIS_ITS ---
Vital Signs 05/06/25 14:14 Height 5 ft 8.5 in Weight 270 lb BMI 40.5 Intake Visit Reasons: AUB Food Technician Required: No Information Interpreted: non-clinical & clinical Entry Level Mechanical Engineer: Entry Level Mechanical Engineer Present (Tammy OSORIO) Accompanied by: Self / Same As Patient Allergies cyclobenzaprine (From FLEXERIL) Allergy (Intermediate, Verified 05/06/25 14:15) SWELLING naproxen (NAPROXEN) Allergy (Mild, Verified 05/06/25 14:15) HEART PALPATATIONS hydrocodone Adverse Reaction (Intermediate, Verified 05/06/25 14:15) Gastrointestinal Upset milk Adverse Reaction (Intermediate, Verified 05/06/25 14:15) Gastrointestinal Upset oxycodone (From PERCOCET) Adverse Reaction (Intermediate, Verified 05/06/25 14:15) VOMITING HPI Comments Details: The patient is presenting for follow-up regarding heavy menstrual cycles that lasted 3 week prior to going to ER at [facility] , no records available according to the patient pelvic ultrasound showed thickening of the endometrium . Hemoglobin was 10.9 , She was started on Medroxyprogesterone was prescribed to manage the bleeding, 10 mg p.o. b.i.d. for 90 days The patient is doing well and her bleeding has slowed down markedly since then Last co testing was in 07/15 was negative Last mammogram in 08/17 was BI-RADS [facility] Medical History Endometrial thickening on ultrasound Iron deficiency anemia Vitamin D deficiency Numbness and tingling of both lower extremities Left anterior knee pain Achilles tendinitis of left lower extremity Intractable left heel pain Acquired deformity of toenail Migraines Heel spur Snoring Encounter for screening colonoscopy Cervical spondylosis Complicated migraine Left-sided weakness Brain TIA Eczema of lower extremity Anxiety and depression Normocytic normochromic anemia Heavy menstrual bleeding Bulging of lumbar intervertebral disc Left ankle pain Constipation Obesity (BMI 30-39.9) Navel cellulitis Hallux valgus (acquired) Degenerative disc disease, cervical History of gallstones Impaired fasting glucose Depression Surgical History Status post section History of bilateral tubal ligation History of bunionectomy of both great toes History of laparoscopic cholecystectomy History of cervical discectomy History of bunionectomy Family History Mother Hypertension Depression Diabetes mellitus Hypercholesteremia SUZIE (obstructive sleep apnea) COPD (chronic obstructive pulmonary disease) Substance use disorder Mental health disorder Sister Breast cancer Uterine cancer Mental health disorder Maternal Grandmother Mental health disorder Maternal Aunt Mental health disorder Social History Housing: Apartment Are you a primary healthcare management consultant to a significant other at home: No Do you presently have visiting nurse or other home services: No Alcohol intake: never Patient Tobacco Use Status: Never used Tobacco e-Cigarette/Vaping Use: Never Used service: No Current occupational status: unemployed Cognitive needs: No Hearing needs: No Vision needs: Yes Review of Systems Const All systems reviewed & are unremarkable except as noted in HPI and below Card Reports as per HPI Resp Reports as per HPI GI Reports as per HPI and Reports no additional complaints Reports as per HPI Physical Exam Vital Signs: BMI result Body Mass Index 40.5 Const General: cooperative, healthy appearing and comfortable Chest Chest palpation & inspection: normal inspection of the chest and normal palpation of entire chest wall Breast/axilla inspection: normal inspection of the breasts and normal inspection of the axillae Breast/axilla palpation: normal palpation of the breasts, normal palpation of the axillae and no axillary lymphadenopathy Resp Effort & Inspection: normal respiratory effort Auscultation: clear to auscultation bilaterally Percussion: percussion normal Cardio Palpation: normal PMI Rate: regular rate Rhythm: regular rhythm Heart sounds: no murmurs and no rubs Peripheral pulses: Peripheral pulses 2+ throughout GI Inspection: Yes normal to inspection Palpation (GI): Soft to palpation, nontender, no guarding, not rigid and No hepatosplenomegaly present Percussion: Yes normal to percussion Auscultation: normal bowel sounds Rectal Exam - Female: deferred General: Yes bladder normal to palpation External Female Exam: No lesion Speculum Exam - Vagina: normal appearance of the vagina, normal palpation, normal vaginal discharge and not erythematous Speculum Exam - Cervix: normal appearance of the cervix and normal palpation Bimanual exam- vagina & uterus: normal bimanual exam, normal palpation, uterine size normal, bladder normal to palpation, consistency normal and normal palpation Bimanual Exam- Adnexa, other: normal adnexae, no masses and no tenderness Results AMB Test Urine AMB Test Urine Negative Last Edit by Tammy Gomez CMA on 14:20 Assessment & Plan Assessment & Plan (1) Abnormal uterine bleeding (AUB): Code(s): N93.9 - Abnormal uterine and vaginal bleeding, unspecified Category: Medical Plan: GC and chlamydia taken CBC, TSH, HCG, and pelvic ultrasound ordered. Discussed with the patient the different causes of abnormal bleeding including thyroid disorders, uterine and ovarian pathology, endometrial hyperplasia, carcinoma and other potential causes. Discussed with the patient the work up including CBC (to r/o anemia), TSH, FSH/LH, pelvic Ultrasound, endometrial biopsy to r/o endometrial pathology. All questions answered and the patient verbalized understanding. Instructed the patient to schedule an appointment for an endometrial biopsy in 2 weeks. Orders: Orders Complete Blood Count no Diff Today N93.9 - Abnormal uterine and vaginal bleeding, unspecified TSH reflex Free T4 Today N93.9 - Abnormal uterine and vaginal bleeding, unspecified Lutenizing Hormone Today N93.9 - Abnormal uterine and vaginal bleeding, unspecified Follicle Stimulating Hormone Today N93.9 - Abnormal uterine and vaginal bleeding, unspecified AMB HCG Urine Test Today Z32.02 - Encounter for test, result negative HCG Quantitative Today N93.9 - Abnormal uterine and vaginal bleeding, unspecified US pelvic and transvaginal Today N93.9 - Abnormal uterine and vaginal bleeding, unspecified Coding Level of Care Code Est Pt Level 3 (31880) Diagnoses Abnormal uterine bleeding (AUB) N93.9
[2025-05-06 14:14] VITALS: BMI 40.5
--- OUTSIDE RECORDS SUMMARY | 2025-05-06 14:18 | XMS_ITS | Encounter Summary ---
Author Organization [facility] Address [address] [place] [address] Care Team Providers Care Assembly Adjuster Name Role Phone Brielle Ruiz MD Primary Care Provider [phone] Reason for Referral * Imaging (Routine) - Pending Review Specialty Diagnoses / Procedures Referred By Contac t Referred To Contact Radiology Diagnoses Chronic bilateral low back pain with bilateral sciatica Procedures MR Lumbar Spine wo Contrast Junior Brar PA [address] [address] Phone: tel: fax: [address] [phone] Phone: tel: Referral ID Status Reason Start Date Expiration Date V isits Requested Visits Authorized [id number] Pending Review 05/01/2025 05/01/2026 1 1 * Imaging (Routine) - Pending Review Specialty Diagnoses / Procedures Referred By Contac t Referred To Contact Radiology Diagnoses Mid back pain Procedures MR Thoracic Spine wo Contrast Junior Brar PA [address] [address] Phone: tel: fax: [address] [phone] Phone: tel: Referral ID Status Reason Start Date Expiration Date V isits Requested Visits Authorized [id number] Pending Review 05/01/2025 05/01/2026 1 1 Encounter Details Date Type Department Care Team (Late st Contact Info) Description 05/01/2025 Telephone [facility] [address] [phone] Junior Brar PA [address] [address] Social History Tobacco Use Types Packs/Day Years Used Date Smoking Tobacco: Never Passive Smoke Exposure: Never Smokeless Tobacco: Never Comments Unknown Sex and Gender Information Value Date Recorded Sex Assigned at Female 04/30/2025 12:32 PM EDT Legal Sex Female 12:21 AM EST Gender Identity Female 04/30/2025 12:32 PM EDT Sexual Orientation Straight 04/30/2025 12 :32 PM EDT documented as of this encounter Progress Notes * YONI Gooden - 05/01/2025 10:07 AM EDT Poke to the patient and let her know that her x-rays of her thoracic and lumbar spine showed mild degenerative changes with mild scoliosis (7 degrees in the thoracic spine and 12 degrees in the lumbar spine). There is no abnormal motion with flexion and extension views. I am going to order the MRIsof her thoracic and lumbar spine to better understand the situation. documented in this encounter Plan of Treatment Upcoming Encounters Date Type Department Care Team (Late st Contact Info) Description 05/15/2025 1:30 PM EDT Office Visit [facility] [address] [phone] Junior Brar PA [address] [address] 05/19/2025 8:30 AM EDT Office Visit Orthopedic [place] [address] [address] [phone] Stephen Pop, DPM [address] [address] Scheduled Orders Name Type Priority Associated Diagnoses Orde r Schedule MR Thoracic Spine wo Contrast Imaging Routine Mid back pain Expected: 05/01/2025, Expires: 05/01/2026 MR Lumbar Spine wo Contrast Imaging Routine Chronic bilateral low back pain with bilateral sciatica Expected: 05/01/2025, Expires: 05/01/2026 documented as of this encounter Visit Diagnoses Diagnosis Mid back pain- Primary Chronic bilateral low back pain with bilateral sciatica documented in this encounter Care Teams Assembly Adjuster Relationship Specialty Start Date End Date Brielle Ruiz MD [address] [place] [address] PCP - General Internal Medicine 01/11/16 documented as of this encounter
--- OUTSIDE RECORDS SUMMARY | 2025-05-06 14:18 | XMS_ITS | Clinical Summary ---
Author Organization [facility] Address [address] [place] [phone] Phone Care Team Providers Care Leverman Name Role Phone Unavailable Primary Care Provider Unavailabl e Social History Tobacco Use Types Packs/Day Years Used Date Smoking Tobacco: Never Assessed Education Answer Date Recorded Are you interested in more education? Not on chayo e 01/20/2023 Are you concerned about learning? Not on file 01/20/2023 No 01/20/2023 No 01/20/2023 Digital Access Answer Date Recorded No 02/20/2023 No 02/20/2023 Reliable internet access at home? Not on file 02/20/2023 Device with a working camera? Not on file Comments Unknown Sex and Gender Information Value Date Recorded Sex Assigned at Not on file Legal Sex Female 4:02 PM EDT Gender Identity Not on file Sexual Orientation Not on file Plan of Treatment Not on file Medical Devices Not on file Additional Source Comments The information contained in this document represents components of the legal health record. It is not the complete legal health record.[facility]
--- OUTSIDE RECORDS SUMMARY | 2025-05-06 14:19 | XMS_ITS | Patient Health Record ---
[facility] Address [address] [place] [address] Care Team Providers Care Senior Grants Officer Name Role Phone Joseph MARIO, Brielle Barkley Primary Care Provider Un available Angel López Unavailable [phone] Allergies Allergen (clinical drug ingredient) Drug/Non Drug [...] Status Risk Notes Problem Acquired hallux valgus ([id number]) Hallux valgus (acquired), left foot (M20.12) Active confirmed Problem Achilles bursitis (311324964) Achilles tendinitis, left leg (M76.62) Active confirmed Encounters Encounter Location Date Provider Diagnosis [facility] [place] [address] 03/31/2025 Angel López Plan Of Treatment No Information Insurance Providers Payer Name Payer Address Payer Phone Subscriber Number Group Number Insured Name Patient Relationship to Insured Coverage Start Date Coverage End Date [facility] [address] [place] [address] [phone] [id number] Stapleton Self - patient is the insured Medical (General) History Medical History History ICD Code Anxiety Arthritis Back,Hip,and Knee pain Depression Gall bladder problems Headaches Sciatica Joint implants/screws Surgical History Surgery Date(Month/Year) Fusion C4,C5 11/2016 Fusion C5,C6,C7 02/02 section 11/24/1996 Bunionectomy B/L 1989
== END 2025-05-06 14:49 | disposition home or self-care (01) ==
LOC: HO.HWS 13:56
PROVIDERS: PCP Internal Medicine; Visit Provider Obstetrics & Gynecology
DX: Z32.02 Encounter for pregnancy test, result negative (principal); N93.9 Abnormal uterine and vaginal bleeding, unspecified
CPT/HCPCS: 99213

== ENCOUNTER 2025-05-11 13:26 | Outpatient (REF) | payer OTHER, SELFPAY ==
--- OUTSIDE RECORDS SUMMARY | 2025-03-23 07:30 | XMS_ITS | Continuity of Care Document ---
Author Organization [facility] Address [address] [place] [address] [address] [place] [phone] Phone Care Team Providers Care Line Erector Apprentice Name Role Phone Wu COOK, Nan Unavailable [...] Mi- [place] & [place] [facility], [address] [place] [address] [address] [place], [id number], [place] tel:[phone] CVR [place] Localized edemaPain in right lower legPain in left lower legPain in right legPain in left legRestless legs syndromePrurit us, unspecified 0 5 Washburn PA-C Nan. [address] [facility], [address], [place], [place], [id number], [place]. tel:[phone] Referring Provider: Brielle Ruiz MD Filippo, [address] [facility] [address] [facility], [place], [address]. tel:[phone] [facility], [address] [place] [address] [address], [place], [id number], [place] tel:[phone] CVR - [facility] Chronic venous hypertension (idiopathic) with other complications of bilateral lower extremity April Miller. [address] [place] [address], [facility] [address], [place], [place], [id number], [place]. tel:[phone] Referring Provider: Angela Chen MD, [address] [place] [address], [place], [address] . tel:[phone] Family History Family Member Type Diagnosis Age At Onset No Information Payers Payer name Insurance type Covered alliance party ID Enedina allan(s) [facility] [id number] Social History Type Description Quantity Date [...]
--- NOTE | ~2025-05-11 | US_ITS ---
EXAMINATION: US PELVIS TRANSABDOMINAL AND TRANSVAGINAL HISTORY: N93.9 - Abnormal uterine and vaginal bleeding, unspecified COMPARISON: Comparison is made with the prior examination dated 09/25/2024. TECHNIQUE: Transabdominal and endovaginal real-time 2D patricio-scale ultrasound was performed. FINDINGS: Uterus: The uterus is normal in size, measuring 10.1 x 5.3 x 8.1 cm. Myometrium has a normal echotexture. No fibroids are identified. Endometrium: The endometrial stripe measures 20 mm in thickness and is heterogeneous in appearance. There are nabothian cysts in the cervix. Right ovary: The right ovary measures 5.6 x 4.6 x 5.0 cm. There is a 4.2 x 4.1 x 4.8 cm cystic structure which demonstrates internal echoes. Left ovary: The left ovary measures 3.6 x 1.8 x 1.1 cm. The left ovary is normal in size and echotexture. Pelvic fluid: none. US/US pelvic and transvaginal IMPRESSION: 1. Thickened heterogeneous endometrial stripe measuring 20 mm in thickness. Direct visualization is suggested. 2. 4.2 x 4.1 x 4.8 cm right ovarian cystic structure demonstrating internal echoes. Follow-up is recommended. Electronically signed by: Kenneth Rodriguez MD 05/11/2025 02:06 PM EDT
--- OUTSIDE RECORDS SUMMARY | 2025-05-11 14:16 | XMS_ITS | Clinical Summary ---
Author Organization [facility] Address [address] [place] [phone] Phone Care Team Providers Care Cycle Director Name Role Phone Unavailable Primary Care Provider [...] It is not the complete legal health record.[facility]
--- OUTSIDE RECORDS SUMMARY | 2025-05-11 14:16 | XMS_ITS | Clinical Summary ---
Author Organization 175 [facility] Address [address] [place] [address] Phone Care Team Providers Care Crop Roller Name Role Phone Brielle Ruiz MD Primary Care Provider Allergies Active Allergy Reactions Criticality Noted Date Comments Acetaminophen 12/22/2022 vomiting Cyclobenzaprine 12/22/2022 swelling Hydrocodone GI intolerance 12/22/2022 Milk 04/28/2025 Naproxen 12/22/2022 Heart palpatations Oxycodone-Acetaminophen 12/22/2022 vomiting [...] once after 2 hours, if needed. Active Ventolin HFA 90 mcg/actuation inhaler inhale 2 puffs every 6 hours as needed for shortness of breath or wheezing 5 Active amoxicillin-cla vulanate (AUGMENTIN) 875-125 mg per tablet Take 1 tablet by mouth every 12 (twelve) hours. 4 Active Laxative, bisacodyl, 5 mg EC tablet THE DAY BEFORE COLONOSCOPY TAKE 2 TABS AT 12 PM AND 2 TABS AT 5 PM WITH PLENTY OF WATER 5 Active buPROPion (WELLBUTRIN) 75 mg tablet Take 1 tablet (75 mg total) by mouth 1 (one) time each day in the morning. Active cholecalciferol (VITAMIN D-3) 1,250 mcg (50,000 unit) capsule TAKE 1 CAPSULE ORALLY EVERY WEEK FOR 3 MONTHS 5 Active escitalopram (LEXAPRO) 10 mg tablet Take 1 tablet (10 mg total) by mouth 1 (one) time each day. 5 Active escitalopram (LEXAPRO) 20 mg tablet Take 1 tablet (20 mg total) by mouth 1 (one) time each day. 5 Active ferrous sulfate 325 mg (65 mg elemental iron) tablet Take 1 tablet (325 mg total) by mouth 1 (one) time each day. 4 Active medroxyPROGESTE Chaparro (PROVERA) 10 mg tablet TAKE 1 TABLET BY MOUTH EVERY 12 HOURS FOR 90 DAYS 5 Active omeprazole (PriLOSEC) [address] capsule Take 1 capsule (20 mg total) by mouth 1 (one) time each day. 5 Active Gavilax 17 gram/dose oral powder PLEASE SEE ATTACHED FOR DETAILED DIRECTIONS 5 Active prazosin (MINIPRESS) 1 mg capsule Take 1 capsule (1 mg total) by mouth. at bedtime 5 Active topiramate (TOPAMAX) 50 mg tablet Take 1 tablet (50 mg total) by mouth 2 (two) times a day. for 90 days 5 Active traZODone (DESYREL) 50 mg tablet TAKE 1-2 TABLET BY MOUTH EVERY NIGHT AT BEDTIME NEEDED FOR INSOMNIA 5 Active ciclopirox (LOPROX) 0.77 % gelIndications: Dermatophytosis of nail Apply topically 2 (two) times a day. 45 g 5 04/14/20 25 Active Problems Problem Noted Date Diagnosed Date Chronic bilateral low back pain with bilateral s ciatica 04/28/2025 Assessment & Plan (04/28/2025 4:34 PM EDT): Ms. Stapleton describes worsening low back pain with radiation down the left greater than right leg. She has anterior thigh pain and numbness. At times she says it feels like her left knee is just gone and she could fall. She went to physical therapy after our last visit without relief. She continues to practice the exercises and stretches that she learned at therapy but to no avail. NSAIDs do not seem to help. She is neurologically intact with a positive left-sided straight leg raise. X- rays from 2022 show very mild degenerative changes in the lumbar spine. I would like to obtain a new set of x-rays followed by an MRI of the lumbar spine to better understand her situation. Mid back pain 02/15/2023 Overview (10/07/2024): Last [...] therapy for her neck and mid back. Assessment & Plan (04/28/2025 4:32 PM EDT): Ms. Stapleton describes worsening mid back pain between her shoulder blades with radiation around the right greater than left chest wall just below her breast line. It is worse with inspiration. She went to physical therapy since our last visit without any relief. She continues to practice the exercises and stretches that she learned without relief. She takes ibuprofen but that does not seem to help either. On exam she is intact with diminished lower extremity reflexes. X-rays from 2022 revealed a mild levoscoliosis with the apex at T6-7. I will send her for a new set of x-rays and an MRI to better understand what is going on. Cervical spondylosis 12/22/2022 Overview (10/07/2024): Last Assessment [...] Encounters Date Type Department Care Team Description 05/01/2025 Telephone Neurosurgery [facility] [address] [phone] Junior Brar PA 04/28/2025 4:40 PM EDT - 04/28/2025 11:59 PM EDT Hospital Encounter [facility] Xray [address] [place] [address] Mid back pain Discharge Disposition: Home or Self Care 04/28/2025 4:39 PM EDT - 04/28/2025 11:59 PM EDT Hospital Encounter [facility] Xray [address] [place] [address] Chronic bilateral low back pain with bilateral sciatica Discharge Disposition: Home or Self Care 04/28/2025 3:15 PM EDT Office Visit Neurosurgery [address] [phone] Junior Brar PA Mid back pain (Primary Dx); Chronic bilateral low back pain with bilateral sciatica from Last 3 Months Immunizations Name Administration [...] Passive Smoke Exposure: Never Smokeless Tobacco: Never Tobacco Cessation:Counseling Given: Not Answered Comments Unknown Sex and Gender Information Value Date Recorded Sex Assigned at Female 04/30/2025 12:32 PM EDT Legal Sex Female 12:21 AM EST Gender Identity Female 04/30/2025 12:32 PM EDT Sexual Orientation Straight 04/30/2025 12 :32 PM EDT Obstetrics History Last Filed Vital Signs Vital Sign Reading Time Taken Comments Blood Pressure - - Pulse - - Temperature - - Respiratory Rate - - Oxygen Saturation - - Inhaled Oxygen Concentration - - Weight 118 kg (260 lb) 04/28/2025 3:40 PM EDT Height 172.7 cm (5' 8 ) 04/28/2025 3:40 PM EDT Body Mass Index 39.53 04/28/2025 3:40 PM EDT Plan of Treatment Upcoming Encounters Date Type Department Care Team (Late st Contact Info) Description 05/15/2025 1:30 PM EDT Office Visit Neurosurgery [facility] [address] [phone] Junior Brar PA [address] [address] 05/19/2025 8:30 AM EDT Office Visit Orthopedic Surgery [facility] [address] [phone] Stephen Pop, DPM [address] [address] Health Maintenance Due Date Last Done Comments Breast Cancer Screening 1972 Hepatitis B Vaccines (1 of 3 - 19+ 3-dose series) 1991 Cervical Cancer Screening: Pap Smear 1993 Pneumococcal Vaccine: 50+ Years (1 of 1 - PCV) 2022 Zoster Vaccines (1 of 2) 2022 Colorectal Cancer Screening: Colonoscopy 08/27/2022 HIV Screening 08/27/2022 Hepatitis C Screening 08/27/2022 Social Influencers of Health Screening 08/27/2022 COVID-19 Vaccine (3 - season) 2024 02/03/2021, 01/06/2021 Depression Screening 09/24/2024 Influenza Vaccine (#1) 2025 , 09/02/2024, 11/02/2022, [...] Procedure Name Priority Date/Time Associated Diagnosis Comments XR THORACIC SPINE 2 VIEWS Routine 04/28/2025 4:57 PM EDT Mid back pain XR LUMBAR SPINE 4+ VIEWS Routine 04/28/2025 4:57 PM EDT Chronic bilateral low back pain with bilateral sciatica from Last 3 Months Results * XR Lumbar Spine 4+ Views (04/28/2025 4:57 PM EDT) Anatomical Region Laterality Modality Spine, L-spine Radiographic Dayna ging 04/29/2025 8:13 AM EDT Impressions 04/29/2025 8:16 AM EDT No acute findings. 12 degree dextroscoliosis with the apex at L1-2. There is no abnormal relative bony motion with flexion and extension. Range of motion with flexion is limited. There are small degenerative osteophytes throughout the lumbar spine and large bridging anterior and lateral osteophytes in the included portion of the thoracic spine. There is evidence of constipation. Code 22934 -------- FINAL REPORT -------- Dictated By: Kevin Hart Dictated Date: 04/29/2025 08:13 ET Assigned Physician: Kevin Hart Reviewed and Electronically Signed By: Kevin Hart Signed Date: 04/29/2025 08:16 ET Workstation ID: [id number] Transcribed By: Self Edit Transcribed Date: 04/29/2025 08:13 ET Narrative 04/29/2025 8:16 AM EDT HISTORY: The patient is a 54-year-old female with chronic low back pain. No history of trauma is provided. FINDINGS: Lateral views of the lumbosacral spine in neutral, flexion, and extension positions, along with an AP view, are obtained. The study demonstrates 12 degree dextroscoliosis of the thoracolumbar spine with the apex at the L1-2 level. The alignment of the bony structures is otherwise anatomic. No fracture is seen. Small degenerative osteophytes are present throughout the lumbar spine and large bridging anterior and lateral osteophytes are present in the included portion of the thoracic spine. There is narrowing of the L3-4, L4-5, and L5-S1 disc spaces consistent with degenerative disc disease. The remaining disc spaces are well-maintained. There is no abnormal relative bony motion with flexion and extension. Range of motion in flexion is somewhat limited. Cholecystectomy clips are present. The included portion of the colon demonstrates a moderate amount of fecal material consistent with constipation. Procedure Note Kevin Hart MD - 04/29/2025 HISTORY: The patient is a 54-year-old female with chronic low back pain.No history of trauma is provided. FINDINGS: Lateral views of the lumbosacral spine in neutral, flexion, andextension positions, along with an AP view, are obtained. The studydemonstrates 12 degree dextroscoliosis of the thoracolumbar spine with theapex at the L1-2 level. The alignment of the bony structures is otherwiseanatomic. No fracture is seen. Small degenerative osteophytes are presentthroughout the lumbar spine and large bridging anterior and lateralosteophytes are present in the included portion of the thoracic spine.There is narrowing of the L3-4, L4-5, and L5-S1 disc spaces consistentwith degenerative disc disease. The remaining disc spaces arewell-maintained. There is no abnormal relative bony motion with flexionand extension. Range of motion in flexion is somewhat limited. Cholecystectomy clips are present. The included portion of the colondemonstrates a moderate amount of fecal material consistent withconstipation. IMPRESSION: No acute findings. 12 degree dextroscoliosis with the apex at L1-2. Thereis no abnormal relative bony motion with flexion and extension. Range ofmotion with flexion is limited. There are small degenerative osteophytesthroughout the lumbar spine and large bridging anterior and lateralosteophytes in the included portion of the thoracic spine. There isevidence of constipation. Code 87442 -------- FINAL REPORT -------- Dictated By: Kevin Hart Dictated Date: 04/29/2025 08:13 ET Assigned Physician: Kevin Hart Reviewed and Electronically Signed By: Kevin Hart Signed Date: 04/29/2025 08:16 ET Workstation ID: [id number] Transcribed By: Self Edit Transcribed Date: 04/29/2025 08:13 ET us Junior VALLEJO IMG XR PROCEDURES Final Resul t * XR Thoracic Spine 2 Views (04/28/2025 4:57 PM EDT) Anatomical Region Laterality Modality Spine, T-spine Radiographic Dayna ging 04/29/2025 8:10 AM EDT Impressions 04/29/2025 8:13 AM EDT The study is limited by motion artifact. No acute findings. 7 degree levoscoliosis with the apex at T7-8. There are degenerative osteophytes throughout the mid and lower thoracic spine. The patient is seen to have undergone previous anterior fusion in the lower cervical spine. Code 62611 -------- FINAL REPORT -------- Dictated By: Kevin Hart Dictated Date: 04/29/2025 08:10 ET Assigned Physician: Kevin Hart Reviewed and Electronically Signed By: Kevin Hart Signed Date: 04/29/2025 08:13 ET Workstation ID: [id number] Transcribed By: Self Edit Transcribed Date: 04/29/2025 08:10 ET Narrative 04/29/2025 8:13 AM EDT HISTORY: The patient is a 54-year-old female with upper back pain. No history of trauma is provided. FINDINGS: AP and lateral radiographs of the thoracic spine are obtained. The study is degraded by motion artifact. Posterior fixation hardware is seen in the lower cervical spine. There is 7 degree levoscoliosis of the thoracic spine with the apex at the T7-8 level. The alignment of the bony structures is otherwise anatomic. No fracture is seen and no osteolytic or osteoblastic lesion is demonstrated. Bridging anterior and lateral osteophytes are present throughout the mid and lower thoracic spine. The disc spaces are well-maintained. Procedure Note Kevin Hart MD - 04/29/2025 HISTORY: The patient is a 54-year-old female with upper back pain. Nohistory of trauma is provided. FINDINGS: AP and lateral radiographs of the thoracic spine are obtained.The study is degraded by motion artifact. Posterior fixation hardware isseen in the lower cervical spine. There is 7 degree levoscoliosis of thethoracic spine with the apex at the T7-8 level. The alignment of the bonystructures is otherwise anatomic. No fracture is seen and no osteolytic orosteoblastic lesion is demonstrated. Bridging anterior and lateralosteophytes are present throughout the mid and lower thoracic spine. Thedisc spaces are well-maintained. IMPRESSION: The study is limited by motion artifact. No acute findings. 7 degreelevoscoliosis with the apex at T7-8. There are degenerative osteophytesthroughout the mid and lower thoracic spine. The patient is seen to haveundergone previous anterior fusion in the lower cervical spine. Code 98582 -------- FINAL REPORT -------- Dictated By: Kevin Hart Dictated Date: 04/29/2025 08:10 ET Assigned Physician: Kevin Hart Reviewed and Electronically Signed By: Kevin Hart Signed Date: 04/29/2025 08:13 ET Workstation ID: [id number] Transcribed By: Self Edit Transcribed Date: 04/29/2025 08:10 ET us Junior VALLEJO IMG XR PROCEDURES Final Resul t from Last 3 Months Insurance [facility] Care Teams Crop Roller Relationship Specialty Start Date End Date Brielle Ruiz MD [address] [place] [address] PCP - General Internal Medicine 01/11/16
--- OUTSIDE RECORDS SUMMARY | 2025-05-11 14:16 | XMS_ITS | Patient Health Record ---
Author [facility] Address [address] [place] [address] Care Team Providers Care Equities Trader Name Role Phone Joseph MARIO, Brielle Barkley Primary Care Provider Un available Angel López Unavailable [phone] Allergies Allergen (clinical drug ingredient) Drug/Non Drug [...] Status Risk Notes Problem Acquired hallux valgus (66166355) Hallux valgus (acquired), left foot (M20.12) Active confirmed Problem Achilles tendinitis, left leg (M76.62) Active confirmed Encounters Encounter Location Date Provider Diagnosis [facility] [address] [place] [address] 03/31/2025 Angel López Plan Of Treatment No Information Insurance Providers Payer Name Payer Address Payer Phone Subscriber Number Group Number Insured Name Patient Relationship to Insured Coverage Start Date Coverage End Date [facility] [employer] [address] [place] [address] [phone] [id number] Amanda Stapleton Self - patient is the insured Medical (General) History Medical History History ICD Code Anxiety Arthritis Back,Hip,and Knee pain Depression Gall bladder problems Headaches Sciatica Joint implants/screws Surgical History Surgery Date(Month/Year) Fusion C4,C5 11/2016 Fusion C5,C6,C7 02/02 section 11/24/1996 Bunionectomy B/L 1989
== END 2025-05-11 13:27 | disposition home or self-care (01) ==
LOC: HO.HMGCX 13:26
PROVIDERS: PCP Internal Medicine; Visit Provider Obstetrics & Gynecology
DX: N93.9 Abnormal uterine and vaginal bleeding, unspecified (principal)
CPT/HCPCS: 76830; 76856

== ENCOUNTER → 2025-05-11 13:28 | Outpatient (BNV) | payer OTHER, SELFPAY | PROVIDERS: PCP Internal Medicine; Visit Provider Radiology Diagnostic Radiology | DX: N85.00 Endometrial hyperplasia, unspecified (principal) | CPT/HCPCS: 76830; 76856 ==

== ENCOUNTER 2025-05-12 11:32 | Outpatient (AMB) | payer OTHER, SELFPAY ==
--- NOTE | 2025-05-12 11:34 | A.OFFVIS_ITS ---
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 Recycling Worker: Computer Recycling Worker Present Accompanied by: Son Allergies cyclobenzaprine (From FLEXERIL) Allergy (Intermediate, Verified 05/12/25 11:40) SWELLING naproxen (NAPROXEN) Allergy (Mild, Verified 05/12/25 11:40) HEART PALPATATIONS hydrocodone Adverse Reaction (Intermediate, Verified 05/12/25 11:40) Gastrointestinal Upset milk Adverse Reaction (Intermediate, Verified 05/12/25 11:40) Gastrointestinal Upset oxycodone (From PERCOCET) Adverse Reaction (Intermediate, Verified 05/12/25 11:40) VOMITING Is last menstrual period known: Yes Last menstrual period: 07/22/20 Post menopausal: No Patient : No Do you need a note to return to daycare/school/sports/work: Yes (for surgery on sunday) HPI Comments Details: Presenting for follow-up . The following workup was done so far: H&H 9.9/30.4 TSH, hCG negative FSH/LH= 5.3/2.2 Pelvic ultrasound done on 05/11/25 which showed the following: Uterus: The uterus is normal in size, measuring 10.1 x 5.3 x 8.1 cm. Myometrium has a normal echotexture. No fibroids are identified. Endometrium: The endometrial stripe measures 20 mm in thickness and is heterogeneous in appearance. There are nabothian cysts in the cervix. Right ovary: The right ovary measures 5.6 x 4.6 x 5.0 cm. There is a 4.2 x 4.1 x 4.8 cm cystic structure which demonstrates internal echoes. Left ovary: The left ovary measures 3.6 x 1.8 x 1.1 cm. The left ovary is normal in size and echotexture. Pelvic fluid: none. US/US pelvic and transvaginal IMPRESSION: 1. Thickened heterogeneous endometrial stripe measuring 20 mm in thickness. Direct visualization is suggested. 2. 4.2 x 4.1 x 4.8 cm right ovarian cystic structure demonstrating internal echoes. Follow-up is recommended. [facility] Medical History Endometrial thickening on ultrasound Iron deficiency anemia Vitamin D deficiency Numbness and tingling of both lower extremities Left anterior knee pain Achilles tendinitis of left lower extremity Intractable left heel pain Acquired deformity of toenail Migraines Heel spur Snoring Encounter for screening colonoscopy Cervical spondylosis Complicated migraine Left-sided weakness Brain TIA Eczema of lower extremity Anxiety and depression Normocytic normochromic anemia Heavy menstrual bleeding Bulging of lumbar intervertebral disc Left ankle pain Constipation Obesity (BMI 30-39.9) Navel cellulitis Hallux valgus (acquired) Degenerative disc disease, cervical History of gallstones Impaired fasting glucose Depression Surgical History Status post section History of bilateral tubal ligation History of bunionectomy of both great toes History of laparoscopic cholecystectomy History of cervical discectomy History of bunionectomy Family History Mother Hypertension Depression Diabetes mellitus Hypercholesteremia SUZEI (obstructive sleep apnea) COPD (chronic obstructive pulmonary disease) Substance use disorder Mental health disorder Sister Breast cancer Uterine cancer Mental health disorder Maternal Grandmother Mental health disorder Maternal Aunt Mental health disorder Social History Housing: Apartment Are you a primary landcare officer to a significant other at home: No Do you presently have visiting nurse or other home services: No Alcohol intake: never Patient Tobacco Use Status: Never used Tobacco e-Cigarette/Vaping Use: Never Used service: No Current occupational status: unemployed Cognitive needs: No Hearing needs: No Vision needs: Yes Female Reproductive History Menstrual Date of last menstrual period: 07/22/20 Total pregnancies: 2 Full term: 2 Review of Systems Card Reports as per HPI and Reports no additional complaints Resp Reports as per HPI and Reports no additional complaints GI Reports as per HPI and Reports no additional complaints Reports as per HPI Physical Exam Vital Signs: BMI result Body Mass Index 40.5 Const General: cooperative, healthy appearing and comfortable Resp Effort & Inspection: normal respiratory effort Auscultation: clear to auscultation bilaterally Percussion: percussion normal Cardio Palpation: normal PMI Rate: regular rate Rhythm: regular rhythm Heart sounds: no murmurs and no rubs Peripheral pulses: Peripheral pulses 2+ throughout GI Inspection: Yes normal to inspection Palpation (GI): Soft to palpation, nontender, no guarding, not rigid and No hepatosplenomegaly present Percussion: Yes normal to percussion Auscultation: normal bowel sounds Rectal Exam - Female: deferred Assessment & Plan Assessment & Plan (1) Endometrial thickening on ultrasound: Code(s): R93.89 - Abnormal findings on diagnostic imaging of other specified body structures Category: Medical Plan: Discussed with the patient the finding on ultrasound showing abnormally thickened endometrium. Recommended to the patient that the next step is an endometrial sampling via hysteroscopy D&C possible polypectomy versus endometrial biopsy to r/o endometrial pathology including hyperplasia or cancer. All the pros and cons risks and benefits of each approach were discussed with the patient, endometrial biopsy being less invasive, office procedure with less sensitivity and inability diagnose a polyp and removal versus hysteroscopy done under anesthesia more invasive more sensitive to endometrial cancer and possibility of diagnosing and endometrial polyp with the possibility of polypectomy. All questions were answered pt verbalized understanding and decided to proceed with hysteroscopy D&C possible polypectomy/myomectomy. Discussed with the patient the procedure , all benefits and risks including but not limited to inability to complete the procedure , insufficient endometrial tissue for a complete evaluation of the endometrial cavity , bleeding, infection, possible need for blood transfusion with all its risk ( HIV,syphilis, Hepatitis, anaphylaxis shock, others..), injury to bladder, rectum, possible need for laparoscopy/laparotomy or hysterectomy. The patient verbalized understanding and signed the consent. Instructions given the patient to stay NPO after midnight the day prior to the procedure and to take only the specific medication (s) discussed the morning of the surgical procedure and to schedule a 2 week postoperative appointment (2) Complex ovarian cyst: Code(s): N83.299 - Other ovarian cyst, unspecified side Category: Medical Plan: Discussed with the patient the complex ovarian cyst by ultrasound. Discussed with the patient the Ultrasound findings, the main limitation of transvaginal ultrasonography alone as a diagnostic tool to distinguish benign from malignant masses relates to its lack of specificity and low positive predictive value for cancer. The differential diagnosis discussed with the patient includes the following but not limited to: benign and malignant gynecological and non-gynecological causes. CA 125 CEA and CA 19-9 ordered with pelvic MRI. Instructions given the patient to schedule an appointment within 1-2 weeks (3) Abnormal uterine bleeding (AUB): Comment: With a anemia Code(s): N93.9 - Abnormal uterine and vaginal bleeding, unspecified Category: Medical Plan: The patient is on Provera 10 mg p.o. q.d. and iron sulfate 325 mg p.o. b.i.d. instructions given to the patient to stay on both medication and to call or go to emergency room in case of vaginal bleeding. All questions answered, the patient verbalized understanding next Orders: Orders Carcinoembryonic Antigen Today N83.299 - Other ovarian cyst, unspecified side MR pelvis w con Today N83.299 - Other ovarian cyst, unspecified side CA-125 Today N83.299 - Other ovarian cyst, unspecified side Carbohydrate Antigen 19-9 Today N83.299 - Other ovarian cyst, unspecified side Coding Level of Care Code Est Pt Level 3 (81041) Diagnoses Endometrial thickening on ultrasound R93.89 Complex ovarian cyst N83.299 Abnormal uterine bleeding (AUB) N93.9
[2025-05-12 11:39] VITALS: BMI 40.5
--- OUTSIDE RECORDS SUMMARY | 2025-05-12 13:06 | XMS_ITS | Encounter Summary ---
Author Organization [facility] Address [address] [place] [address] Care Team Providers Care Web Services Architect Name Role Phone Brielle Ruiz MD Primary Care Provider [phone] Reason for Referral * Imaging (Routine) - Pending Review Specialty Diagnoses / Procedures Referred By Contac t Referred To Contact Radiology Diagnoses Chronic bilateral low back pain with bilateral sciatica Procedures MR Lumbar Spine wo Contrast Junior Brar PA [address] [address] Phone: tel: fax: [facility] MRI [address] [place] [address] Phone: tel: Referral ID Status Reason Start Date Expiration Date V isits Requested Visits Authorized [id number] Pending Review 05/01/2025 05/01/2026 1 1 * Imaging (Routine) - Pending Review Specialty Diagnoses / Procedures Referred By Contac t Referred To Contact Radiology Diagnoses Mid back pain Procedures MR Thoracic Spine wo Contrast Junior Brar PA [address] [address] Phone: tel: fax: [facility] MRI [address] [place] [address] Phone: tel: Referral ID Status Reason Start Date Expiration Date V isits Requested Visits Authorized [id number] Pending Review 05/01/2025 05/01/2026 1 1 Encounter Details Date Type Department Care Team (Late Contact Info) Description 05/01/2025 Telephone Neurosurgery [facility] [address] [phone] Junior Brar PA [address] [place] [address] Social History Tobacco Use Types Packs/Day Years [...] Encounters Date Type Department Care Team (Late Contact Info) Description 05/15/2025 1:30 PM EDT Office Visit [facility] [address] [phone] Junior Brar PA [address] [place] [address] 05/19/2025 8:30 AM EDT Office Visit Orthopedic Surgery [facility] [address] [phone] Stephen Pop DPM [address] [address] Scheduled Orders Name Type Priority Associated Diagnoses [...] sciatica documented in this encounter Care Teams Web Services Architect Relationship Specialty Start Date End Date Brielle Ruiz MD [address] [place] [address] PCP - General Internal Medicine 01/11/16 documented as of this encounter
--- OUTSIDE RECORDS SUMMARY | 2025-05-12 13:06 | XMS_ITS | Patient Health Record ---
Author Organization [facility] Address [address] [place] [address] Care Team Providers Care Financial Compliance Manager Name Role Phone Joseph MARIO, Brielle Barkley Primary Care Provider Un available Angel López Unavailable [phone] Allergies Allergen (clinical drug ingredient) Drug/Non Drug [...] Status Risk Notes Problem Acquired hallux valgus (25834560) Hallux valgus (acquired), left foot (M20.12) Active confirmed Problem Achilles bursitis (991842915) Achilles tendinitis, left leg (M76.62) Active confirmed Encounters Encounter Location Date Provider Diagnosis [facility] [address] [place] [address] 03/31/2025 Angel López Plan Of Treatment No Information Insurance Providers Payer Name Payer Address Payer Phone Subscriber Number Group Number Insured Name Patient Relationship to Insured Coverage Start Date Coverage End Date [facility] [address] [place] [address] [phone] [id number] Amanda Stapleton Self - patient is the insured Medical (General) History Medical History History ICD Code Anxiety Arthritis Back,Hip,and Knee pain Depression Gall bladder problems Headaches Sciatica Joint implants/screws Surgical History Surgery Date(Month/Year) Fusion C4,C5 11/2016 Fusion C5,C6,C7 02/02 section 11/24/1996 Bunionectomy B/L 1989
--- OUTSIDE RECORDS SUMMARY | 2025-05-12 13:06 | XMS_ITS | Clinical Summary ---
Author Organization [facility] Address [address] [place] [address] Phone Care Team Providers Care Sandstone Splitter Name Role Phone Unavailable Primary Care Provider [...] It is not the complete legal health record.[facility]
== END 2025-05-12 11:57 | disposition home or self-care (01) ==
LOC: HO.HWS 11:32
PROVIDERS: PCP Internal Medicine; Visit Provider Obstetrics & Gynecology
DX: R93.89 Abnormal findings on diagnostic imaging of other specified body structures (principal); N83.299 Other ovarian cyst, unspecified side; N93.9 Abnormal uterine and vaginal bleeding, unspecified
CPT/HCPCS: 99213

== ENCOUNTER → 2025-05-12 11:32 | Outpatient (BNVA) | payer OTHER, SELFPAY | PROVIDERS: PCP Internal Medicine; Visit Provider Obstetrics & Gynecology | DX: Z71.2 Person consulting for explanation of examination or test findings (principal); R93.89 Abnormal findings on diagnostic imaging of other specified body structures; N83.201 Unspecified ovarian cyst, right side; N93.9 Abnormal uterine and vaginal bleeding, unspecified | CPT/HCPCS: 99212 ==

== ENCOUNTER 2025-05-13 09:19 | Outpatient (REF) | payer OTHER, SELFPAY ==
[2025-05-13 11:19] LABS: Blood Urea Nitrogen 11 mg/dL (9-16); Estimated Glomerular Filt Rate > 60
[2025-05-13 11:44] LABS: Carcinoembryonic Antigen < 1.73 ng/mL
[2025-05-14 10:32] LABS: CA-125 11 U/mL (<35)
== END 2025-05-13 09:20 | disposition home or self-care (01) ==
LOC: HO.LAB 09:19
PROVIDERS: PCP Internal Medicine; Visit Provider Obstetrics & Gynecology
DX: N83.299 Other ovarian cyst, unspecified side (principal)
CPT/HCPCS: 36415; 82378; 82565; 84520; 86301; 86304

== ENCOUNTER 2025-05-15 09:27 | Day surgery (SDC) | payer OTHER, SELFPAY ==
--- OUTSIDE RECORDS SUMMARY | 2025-05-13 06:37 | XMS_ITS | Encounter Summary ---
Author Organization [facility] Address [address] [place] [address] Care Team Providers Care Chief Fundraising Officer Name Role Phone Brielle Ruiz MD Primary Care Provider [phone] Reason for Referral * Imaging (Routine) - Pending Review Specialty Diagnoses / Procedures Referred By Contac t Referred To Contact Radiology Diagnoses Chronic bilateral low back pain with bilateral sciatica Procedures MR Lumbar Spine wo Contrast Junior Brar PA [address] [address] Phone: tel: fax: [facility] [address] [place] [address] Phone: tel: Referral ID Status Reason Start Date Expiration Date V isits Requested Visits Authorized [id number] Pending Review 05/01/2025 05/01/2026 1 1 * Imaging (Routine) - Pending Review Specialty Diagnoses / Procedures Referred By Contac t Referred To Contact Radiology Diagnoses Mid back pain Procedures MR Thoracic Spine wo Contrast Junior Brar PA [address] [address] Phone: tel: fax: [facility] [address] [place] [address] Phone: tel: Referral ID Status Reason Start Date Expiration Date V isits Requested Visits Authorized [id number] Pending Review 05/01/2025 05/01/2026 1 1 Encounter Details Date Type Department Care Team (Late Contact Info) Description 05/01/2025 Telephone Neurosurgery [facility] [address] [phone] Junior Brar PA [address] [place] [address] Social History Tobacco Use Types Packs/Day Years [...] Description 05/15/2025 1:30 PM EDT Office Visit [facility] [address] [phone] Junior Brar PA [address] [place] [address] 05/19/2025 8:30 AM EDT Office Visit Orthopedic Surgery [facility] [address] [phone] Stephen Pop DPM [address] [address] Scheduled Orders Name Type Priority Associated Diagnoses [...] sciatica documented in this encounter Care Teams Chief Fundraising Officer Relationship Specialty Start Date End Date Brielle Ruiz MD [address] [place] [address] PCP - General Internal Medicine 01/11/16 documented as of this encounter
--- OUTSIDE RECORDS SUMMARY | 2025-05-13 06:37 | XMS_ITS | Patient Health Record ---
Author Organization [facility] Address [address] [place] [address] Care Team Providers Care Life Teacher Name Role Phone Joseph MARIO, Brielle Barkley Primary Care Provider Un available Angel López Unavailable [phone] Allergies Allergen (clinical drug ingredient) Drug/Non Drug [...] Status Risk Notes Problem Acquired hallux valgus (87196257) Hallux valgus (acquired), left foot (M20.12) Active confirmed Problem Achilles bursitis (210451481) Achilles tendinitis, left leg (M76.62) Active confirmed Encounters Encounter Location Date Provider Diagnosis [facility] [place] [address] [place] [address] 03/31/2025 Angel López Plan Of Treatment No Information Insurance Providers Payer Name Payer Address Payer Phone Subscriber Number Group Number Insured Name Patient Relationship to Insured Coverage Start Date Coverage End Date [facility] [address] [place] [address] [phone] [id number] Amanda Stapleton Self - patient is the insured Medical (General) History Medical History History ICD Code Anxiety Arthritis Back,Hip,and Knee pain Depression Gall bladder problems Headaches Sciatica Joint implants/screws Surgical History Surgery Date(Month/Year) Fusion C4,C5 11/2016 Fusion C5,C6,C7 02/02 section 11/24/1996 Bunionectomy B/L 1989
--- OUTSIDE RECORDS SUMMARY | 2025-05-13 06:37 | XMS_ITS | Clinical Summary ---
Author Organization [facility] Address [address] [place] [address] Phone Care Team Providers Care Split Leather Mosser Name Role Phone Unavailable Primary Care Provider [...] It is not the complete legal health record.[facility]
[2025-05-15] VITALS (9 sets, daily range): BP systolic 114–131; BP diastolic 68–87; PULSE 70–86; RESP 12–20; TEMP 36.1–36.3; O2SAT 97–100
[2025-05-15] MEDS: Lactated Ringers 1,000 ML 100 ML IVCONT (09:59)
--- NOTE | 2025-05-15 10:04 | HO.ANESPROP2 ---
Documented by User: Debora Bunch NP 05/13/25 13:08 HPI - Anesthesia Eval Consult details Narrative: 54yo F for D&C Hysteroscopy,possible myomectomy,possible polypectomy PMFSH Active Problems Active Problems: All Active Problems Complex ovarian cyst (Acute) Endometrial thickening on ultrasound (Acute) Iron deficiency anemia (Acute) Vitamin D deficiency (Acute) Numbness and tingling of both lower extremities (Acute) Osteoarthritis of left knee (Acute) Left anterior knee pain (Acute) Achilles tendinitis of left lower extremity (Acute) Acquired deformity of toenail (Acute) Uterine myoma (Acute) Calcific Achilles tendinitis of right lower extremity (Acute) Chronic constipation (Acute) Hirsutism (Acute) Abnormal uterine bleeding (AUB) (Acute) Dysmenorrhea (Acute) Heel spur (Acute) Complicated migraine (Acute) Anxiety and depression (Acute) Heavy menstrual bleeding (Acute) Bulging of lumbar intervertebral disc (Acute) Obesity (BMI 30-39.9) (Acute) Degenerative disc disease, cervical (Acute) Impaired fasting glucose (Acute) Depression (Acute) Past Medical History Medical History Endometrial thickening on ultrasound Iron deficiency anemia Vitamin D deficiency Numbness and tingling of both lower extremities Left anterior knee pain Achilles tendinitis of left lower extremity Intractable left heel pain Acquired deformity of toenail Migraines Heel spur Snoring Encounter for screening colonoscopy Cervical spondylosis Complicated migraine Left-sided weakness Brain TIA Eczema of lower extremity Anxiety and depression Normocytic normochromic anemia Heavy menstrual bleeding Bulging of lumbar intervertebral disc Left ankle pain Constipation Obesity (BMI 30-39.9) Navel cellulitis Hallux valgus (acquired) Degenerative disc disease, cervical History of gallstones Impaired fasting glucose Depression Family History Family History Mother Hypertension Depression Diabetes mellitus Hypercholesteremia SUZIE (obstructive sleep apnea) COPD (chronic obstructive pulmonary disease) Substance use disorder Mental health disorder Sister Breast cancer Uterine cancer Mental health disorder Maternal Grandmother Mental health disorder Maternal Aunt Mental health disorder Family history of problems with anesthesia: No Surgical History Surgical History Status post section History of bilateral tubal ligation History of bunionectomy of both great toes History of laparoscopic cholecystectomy History of cervical discectomy History of bunionectomy History of Problems with Anesthesia: No Social History Social History Housing: Apartment Are you a primary care technician to a significant other at home: No Do you presently have visiting nurse or other home services: No Alcohol intake: never Patient Tobacco Use Status: Never used Tobacco e-Cigarette/Vaping Use: Never Used Use of substances other than those prescribed or required for medical reasons: No Advance Directives: No Advance Directives Information Provided: Yes service: No Current occupational status: unemployed Cognitive needs: No Hearing needs: No Vision needs: Yes Meds Allergies Allergy/AdvReac Type Severity Reaction Status Date / Time cyclobenzaprine (From Allergy Intermediate SWELLING Verified 05/12/25 11:40 FLEXERIL) naproxen (NAPROXEN) Allergy Mild HEART Verified 05/12/25 11:40 PALPATATIONS hydrocodone AdvReac Intermediate Gastrointestinal Verified 05/12/25 11:40 Upset milk AdvReac Intermediate Gastrointestinal Verified 05/12/25 11:40 Upset oxycodone (From PERCOCET) AdvReac Intermediate VOMITING Verified 05/12/25 11:40 Home Medications ?Medication ?Instructions ?Recorded ?Confirmed ?Last Taken ?Type multivitamin 1 tab PO DAILY 12/12/22 05/01/25 12/12/22 History topiramate 50 mg tablet 50 mg PO BID 12/17/23 05/01/25 Unknown History prazosin 1 mg capsule 1 mg PO BEDTIME 06/30/24 05/01/25 Unknown History trazodone 50 mg tablet 100 mg PO BEDTIME PRN Insomnia 06/30/24 05/01/25 Unknown History loratadine 10 mg tablet (Allergy 10 mg PO DAILY 10/08/24 05/01/25 Unknown History Relief (loratadine)) bupropion HCl 75 mg tablet 75 mg PO ONCE 04/06/25 05/01/25 Unknown History Exam Pertinent Lab Results Pertinent Lab Results: Laboratory Tests 04/02/25 05/06/25 05/13/25 08:58 14:45 09:39 WBC 6.2 Hgb 9.9 L Hct 30.4 L Plt Count 231 Sodium 138 Potassium 3.8 Chloride 107 Carbon Dioxide 25 BUN 11 Creatinine 0.84 Narrative Narrative: EKG 06/2024 Vent. Rate : 080 BPM Atrial Rate : 080 BPM P-R Int : 160 ms QRS Dur : 074 ms QT Int : 406 ms P-R-T Axes : 040 008 031 degrees QTc Int : 468 ms Normal sinus rhythm Normal ECG When compared with ECG of 12-DEC-2022 15:14, No significant change was found Assessment and Plan Assessment Anesthesia Assessment: Chart Reviewed Final Anesthetic Review Family History of Problems with Anesthesia: No History of Problems with Anesthesia: No Documented by User: Melba Santo DO 05/15/25 10:05 PMFSH Past Medical History Medical History Endometrial thickening on ultrasound Iron deficiency anemia Vitamin D deficiency Numbness and tingling of both lower extremities Left anterior knee pain Achilles tendinitis of left lower extremity Intractable left heel pain Acquired deformity of toenail Migraines Heel spur Snoring Encounter for screening colonoscopy Cervical spondylosis Complicated migraine Left-sided weakness Brain TIA Eczema of lower extremity Anxiety and depression Normocytic normochromic anemia Heavy menstrual bleeding Bulging of lumbar intervertebral disc Left ankle pain Constipation Obesity (BMI 30-39.9) Navel cellulitis Hallux valgus (acquired) Degenerative disc disease, cervical History of gallstones Impaired fasting glucose Depression Family History Family History Mother Hypertension Depression Diabetes mellitus Hypercholesteremia SUZIE (obstructive sleep apnea) COPD (chronic obstructive pulmonary disease) Substance use disorder Mental health disorder Sister Breast cancer Uterine cancer Mental health disorder Maternal Grandmother Mental health disorder Maternal Aunt Mental health disorder Family history of problems with anesthesia: No Surgical History Surgical History Status post section History of bilateral tubal ligation History of bunionectomy of both great toes History of laparoscopic cholecystectomy History of cervical discectomy History of bunionectomy History of Problems with Anesthesia: No Social History Social History Housing: Apartment Are you a primary care technician to a significant other at home: No Do you presently have visiting nurse or other home services: No Alcohol intake: never Patient Tobacco Use Status: Never used Tobacco e-Cigarette/Vaping Use: Never Used Use of substances other than those prescribed or required for medical reasons: No Advance Directives: No Advance Directives Information Provided: Yes service: No Current occupational status: unemployed Cognitive needs: No Hearing needs: No Vision needs: Yes Meds Allergies Allergy/AdvReac Type Severity Reaction Status Date / Time cyclobenzaprine (From Allergy Intermediate SWELLING Verified 05/12/25 11:40 FLEXERIL) naproxen (NAPROXEN) Allergy Mild HEART Verified 05/12/25 11:40 PALPATATIONS hydrocodone AdvReac Intermediate Gastrointestinal Verified 05/12/25 11:40 Upset milk AdvReac Intermediate Gastrointestinal Verified 05/12/25 11:40 Upset oxycodone (From PERCOCET) AdvReac Intermediate VOMITING Verified 05/12/25 11:40 Home Medications ?Medication ?Instructions ?Recorded ?Confirmed ?Last Taken ?Type multivitamin 1 tab PO DAILY 12/12/22 05/01/25 12/12/22 History topiramate 50 mg tablet 50 mg PO BID 12/17/23 05/01/25 Unknown History prazosin 1 mg capsule 1 mg PO BEDTIME 06/30/24 05/01/25 Unknown History trazodone 50 mg tablet 100 mg PO BEDTIME PRN Insomnia 06/30/24 05/01/25 Unknown History loratadine 10 mg tablet (Allergy 10 mg PO DAILY 10/08/24 05/01/25 Unknown History Relief (loratadine)) bupropion HCl 75 mg tablet 75 mg PO ONCE 04/06/25 05/01/25 Unknown History Exam Exam Date and Time: 05/15/25 1003 Height,Weight and Vital Signs: Vital Signs Temperature 97.1 F 05/15/25 09:57 Pulse Rate 86 05/15/25 09:57 Respiratory Rate 16 05/15/25 09:57 Blood Pressure 114/68 05/15/25 09:57 Pulse Oximetry 97 05/15/25 09:57 Oxygen Delivery Method Room Air 05/15/25 09:57 Temperature 97.1 F 05/15/25 09:57 Pulse Rate 86 05/15/25 09:57 Respiratory Rate 16 05/15/25 09:57 Blood Pressure 114/68 05/15/25 09:57 Pulse Oximetry 97 05/15/25 09:57 Oxygen Delivery Method Room Air 05/15/25 09:57 Height 5 ft 8 in Airway Mallampati Class: I TM Dist: >3cm Neck ROM: Full Loose/Missing/Broken Teeth: Yes (broken molar right side; patient denies any loose teeth) Heart: S1S2 Lungs: CTAB Assessment and Plan Assessment Anesthesia Assessment: Anesthesia Plan Discussed and Chart Reviewed Final Anesthetic Review Family History of Problems with Anesthesia: No History of Problems with Anesthesia: No NPO: Yes ASA Class: II Final Preanesthetic Review: No Changes in Pt Med Stat, Meds/Allgs Chart Reviewed, Consent Obtained/Reviewed and Anes Risks/Benef Reviewed Patient Risk: Low Procedure Risk: Low Anesthetic Plan Anesthetic Plan: GA and Agree w/ Assess. and Plan Disposition: Standard PACU
--- NOTE | 2025-05-15 10:35 | MHC.SHP ---
Pre-Procedural Eval Section A - 24 Hr Update-Section A only Date of Service: 05/15/25 The patient is an INPATIENT: No Changes since office visit: No Cold of Flu in the past 2 weeks, No New Medical Problems, No Changes in Medication and No Patient answered all questions The patient has been examined within 24 hours of the surgical procedure. The History & Physical has been completed within 30 days and I have reviewed it.: Yes Section B - Complete if H&P > 30 days Chief Complaint: Abnormal findings on diagnostic imaging Allergies: Allergies Allergy/AdvReac Type Severity Reaction Status Date / Time cyclobenzaprine (From Allergy Intermediate SWELLING Verified 05/12/25 11:40 FLEXERIL) naproxen (NAPROXEN) Allergy Mild HEART Verified 05/12/25 11:40 PALPATATIONS hydrocodone AdvReac Intermediate Gastrointestinal Verified 05/12/25 11:40 Upset milk AdvReac Intermediate Gastrointestinal Verified 05/12/25 11:40 Upset oxycodone (From PERCOCET) AdvReac Intermediate VOMITING Verified 05/12/25 11:40 Plan Diagnosis/Plan: Unchanged I have reviewed the history and physical and performed a pertinent physical examination on my patient. No changes have occurred unless specified. Time Spent With Patient Time: Total time managing care of this patient today ____ minutes.
--- NOTE | 2025-05-15 11:19 | PM.OP ---
Brief Operative Note Date of Service: 05/15/25 Pre-op diagnosis: Thick endometrium by ultrasound Post-op diagnosis: same Procedure: Hysteroscopy D&C, Polypectomy Surgeon: Luciano Dawn MD Anesthesia: GLMA Was an Brake Linings Coater used for this Procedure?: No Estimated blood loss (mL): 0 Pathology: other (Endometrial Scrapping. Polyp) Condition: stable Disposition: PACU
--- NOTE | 2025-05-15 11:20 | W.PM.OPN ---
Operative Note Operative Note Date of Service: 05/15/25 Narrative: Preop Diagnosis: Thick endometrium by US Operation: Diagnostic Hysteroscopy, Dilataion & Curettage and polypectomy Post Op Diagnosis: Endometrial Polyp QBL: Minimal Anesthesia: GLMA Surgeon: Luciano Dawn MD Sling Operator: None Complication: None Pathology: Endometrial Scrapings, Endometrial polyp Procedure: The patient was put in the dorsal lithotomy position, scrubbed, and draped in the usual manner. A sterile speculum was inserted in the patient's vagina. The anterior lip of the cervix was grasped with a single tooth tenaculum. The cervix was dilated up to 5 mm, then the scope was inserted in the patient's uterus. Inspection revealed endometrial polyp. The Myosure Reach device was used; it was introduced through the operative channel and polypectomy done with no complications. The scope was then taken out from the uterine cavity, sharp curettings was carried on with minimal to moderate amount of tissues retrieved. At the end of the procedure, all instruments were taken out of the patient uterine and vaginal cavity. The single tooth tenaculum was removed and homeostasis was assured using pressure,. The patient tolerated the procedure well and was transferred to the PACU in a stable condition.
== END 2025-05-15 12:20 | disposition home or self-care (01) ==
PROVIDERS: PCP Internal Medicine; Visit Provider Obstetrics & Gynecology
PROC: 0UDB8ZZ Extraction of Endometrium, Via Natural or Artificial Opening Endoscopic (ICD-10-PCS; CPT 58558; principal; 2025-05-15 12:00)
DX: N84.0 Polyp of corpus uteri (principal); N88.8 Other specified noninflammatory disorders of cervix uteri; N83.299 Other ovarian cyst, unspecified side; N93.9 Abnormal uterine and vaginal bleeding, unspecified; G43.109 Migraine with aura, not intractable, without status migrainosus; D50.9 Iron deficiency anemia, unspecified; D64.9 Anemia, unspecified; E55.9 Vitamin D deficiency, unspecified; R73.01 Impaired fasting glucose; E66.9 Obesity, unspecified; Z68.41 Body mass index [BMI] 40.0-44.9, adult; M50.30 Other cervical disc degeneration, unspecified cervical region; M25.562 Pain in left knee; R20.0 Anesthesia of skin; R20.2 Paresthesia of skin; F41.8 Other specified anxiety disorders; Z91.011 Allergy to milk products; Z88.8 Allergy status to other drugs, medicaments and biological substances; Z88.6 Allergy status to analgesic agent; Z88.5 Allergy status to narcotic agent; Z86.73 Personal history of transient ischemic attack (TIA), and cerebral infarction without residual deficits; Z98.51 Tubal ligation status; Z90.49 Acquired absence of other specified parts of digestive tract; Z56.0 Unemployment, unspecified; Z98.890 Other specified postprocedural states
CPT/HCPCS: 58558; 36415; 84702; 88305; J1100; J2003; J2250; J2405; J2704; J3010

== ENCOUNTER → 2025-05-15 09:27 | Outpatient (BNV) | payer OTHER, SELFPAY | PROVIDERS: PCP Internal Medicine; Visit Provider Obstetrics & Gynecology | DX: N84.0 Polyp of corpus uteri (principal) | CPT/HCPCS: 58558 ==

== ENCOUNTER 2025-05-26 09:30 | Outpatient (REF) | payer OTHER, SELFPAY ==
--- OUTSIDE RECORDS SUMMARY | 2025-03-23 07:30 | XMS_ITS | Continuity of Care Document ---
Author Organization [facility] Address [address] [place] [address] [address] [place] [address] Phone Care Team Providers Care Senior Chemist Name Role Phone Wu COOK, Nan Unavailable Unavailable Procedures Procedure Date Offic Cons New/estab Low 30 Mi- CT & [place] [facility] CVR Reveal Knee High Duplex Scan-extrem Veins; Comp- CT & [place] Advance Directives Directive Yes / No Effective Date File Name No Information Encounters Encounter Description Practice Location Reason(s) For Visit Diagnoses Date Provider Providers Copied on Encounter Offic Cons New/estab Low 30 Mi- [place] & [place] [facility], [address] [place] [address] Dr Jones [address]Suite [place], [id number], [place] tel:[phone] CVR - [place] Localized edemaPain in right lower legPain in left lower legPain in right legPain in left legRestless legs syndromePrurit us, unspecified 0 5 Washburn PA-C Nan. [address] [facility], [address], [place], [place], [id number], [place]. tel:[phone] Referring Provider: Brielle Ruiz MD Filippo, [address] [facility] [address] [facility], [place], [address]. tel:[phone] [facility], [address] [place] [address] Dr [address], [place], [id number], [place] tel:[phone] CVR - [facility] Chronic venous hypertension (idiopathic) with other complications of bilateral lower extremity April Miller. [address] [place] [address], [facility] [address], [place], [place], [id number], [place]. tel:[phone] Referring Provider: Angela Chen MD, [address] [place] [address], [place], [address] . tel:[phone] Family History Family Member Type Diagnosis Age At Onset No Information Payers Payer name Insurance type Covered alliance party ID Enedina allan(s) [facility] [id number] Social History Type Description Quantity Date Captured Comments Alcohol Use Details Unknown Caffeine Use Details Unknown Tobacco Use Status Current non-smoker Smoking Status Never Smoker Non-Smoking Tobacco Use Details : No Details Available : No Details Available Sex Female Vital Signs Date / Time: Height Weight BMI Pulse Rate Blood Pressure Temperature Respiratory Rate Body Surface Area Head Circumference Head Circ. Percentile Wt./José. Percentile BMI percentile Pulse Ox Inhaled Ox 115.210 kg (254.00 lbs) 38.7 6 kg/m eter (2) 124/70 mm[Hg] Chief Complaint And Reason For Visit No Information Reason For Referral Reason For Referral No Information Plan Of Treatment Date Type Action Status Goal Diet education completed Referral Ordered: Weight management: Referral to physician timeframe: 3 Months (related to Body mass index (BMI) 38.0-38.9, adult) ordered Appointment Amanda Stapleton BOOKED Appointment Amanda Stapleton BOOKED Appointment Amanda Stapleton BOOKED Appointment Amanda Stapleton BOOKED Appointment Amanda Stapleton BOOKED Appointment Amanda Stapleton BOOKED Appointment Amanda Stapleton BOOKED History Of Present Illness Encounter Date Complaint History Of Prese nt Illness No Information Functional Status Date Functional Assessmen t No Information Instructions Date Instruction Additional Infor mation Diet education Related to Body mass index (BMI) 38.0-38.9, adult Giving Encouragement to exercise Related to Body mass index (BMI) 38.0-38.9, adult Lifestyle education Related to B carol mass index (BMI) 38.0-38.9, adult Patient education booklet given Related to Pain in right lower leg Pre and post instruc tions reviewed and provided Related to Pain in right lower leg Assessments Type Assessment Date No Information Patient Care Teams Name Effective Dates (start - stop) Status Members No Information
--- NOTE | 2025-05-26 09:33 | EMG_ITS ---
Bilateral tibial and peroneal motor studies were performed. Bilateral superficial peroneal, and sural sensory studies were performed bilateral tibial H reflexes were obtained. Bilateral mixed median and lateral plantar sensory studies were performed and EMG needle examination was performed. 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
--- OUTSIDE RECORDS SUMMARY | 2025-05-26 10:31 | XMS_ITS | Clinical Summary ---
Author Organization [facility] Address [address] [place] [address] Phone Care Team Providers Care Living Advisor Name Role Phone Unavailable Primary Care Provider [...] It is not the complete legal health record.[facility]
--- OUTSIDE RECORDS SUMMARY | 2025-05-26 10:31 | XMS_ITS | Clinical Summary ---
Author Organization [facility] Address [address] [place] [address] Phone Care Team Providers Care Roller Inspector And Mender Name Role Phone Brielle Ruiz MD Primary Care Provider Allergies Active Allergy Reactions Criticality Noted Date Comments Acetaminophen 12/22/2022 vomiting Cyclobenzaprine 12/22/2022 swelling Hydrocodone GI intolerance 12/22/2022 Milk 04/28/2025 Naproxen 12/22/2022 Heart palpatations Oxycodone-Acetaminophen 12/22/2022 vomiting Medications busPIRone (BUSPAR) 5 mg tablet Take 1 tablet (5 mg total) by mouth 3 (three) times a day. Active clobetasoL (TEMOVATE) 0.05 % cream Apply topically. Act robin ferrous fumarate 324 mg (106 mg iron) [...] AT BEDTIME NEEDED FOR INSOMNIA 5 Active Active Problems Problem Noted Date Diagnosed [...] Department Care Team Description 05/01/2025 Telephone Neurosurgery [facility] [address] [place] [address] Junior Brar PA 04/28/2025 4:40 PM EDT - 04/28/2025 11:59 PM EDT Hospital Encounter [facility] [address] [place] [address] Mid back pain Discharge Disposition: Home or Self Care 04/28/2025 4:39 PM EDT - 04/28/2025 11:59 PM EDT Hospital Encounter [facility] [address] [place] [address] Chronic bilateral low back pain with bilateral sciatica Discharge Disposition: Home or Self Care 04/28/2025 3:15 PM EDT Office Visit Neurosurgery [facility] [address] [place] [address] Junior Brar PA Mid back pain (Primary [...] Care Team (Late st Contact Info) Description 06/05/2025 10:00 AM EDT Office Visit Neurosurgery [facility] [address] [facility] [address] [place] [phone] Junior Brar PA 175 [facility] [address] [place] [address] 07/30/2025 3:30 PM EST Office Visit Orthopedic [facility] [address] [phone] Stephen Pop DPM [address] [phone] Health Maintenance Due Date Last Done Comments Breast Cancer Screening 1972 Hepatitis B Vaccines (1 of 3 - 19+ 3-dose series) 1991 Cervical Cancer Screening: Pap Smear 1993 Pneumococcal Vaccine: 50+ Years (1 of 1 - PCV) 2022 Zoster Vaccines (1 of 2) 2022 Colorectal Cancer Screening: Colonoscopy 08/27/2022 HIV Screening 08/27/2022 Hepatitis C Screening 08/27/2022 Social Influencers of Health Screening 08/27/2022 Depression Screening 09/24/2024 COVID-19 Vaccine ( - season) 2025 02/03/2021, 01/06/2021 Influenza Vaccine (#1) 2025 5, 09/02/2024, 11/02/2022, Additional history exists DTaP,Tdap,and Td [...] spine. There is evidence of constipation. Code 38959 -------- FINAL REPORT -------- Dictated By: Kevin Hart Dictated Date: 04/29/2025 08:13 ET Assigned Physician: Kevin Hart Reviewed and Electronically Signed By: Kevin Hart Signed Date: 04/29/2025 08:16 ET Workstation ID: [id number] Transcribed By: Self Edit Transcribed Date: 04/29/2025 [...] thoracic spine. There isevidence of constipation. Code 50379 -------- FINAL REPORT -------- Dictated By: Kevin Hart Dictated Date: 04/29/2025 08:13 ET Assigned Physician: Kevin Hart Reviewed and Electronically Signed By: Kevin Hart Signed Date: 04/29/2025 08:16 ET Workstation ID: [id number] Transcribed By: Self Edit Transcribed Date: 04/29/2025 08:13 ET Junior VALLEJO IMG XR PROCEDURES Final Resul [...] fusion in the lower cervical spine. Code 08731 -------- FINAL REPORT -------- Dictated By: Kevin Hart Dictated Date: 04/29/2025 08:10 ET Assigned Physician: Kevin Hart Reviewed and Electronically Signed By: Kevin Hart Signed Date: 04/29/2025 08:13 ET Workstation ID: [id number] Transcribed By: Self Edit Transcribed Date: 04/29/2025 [...] fusion in the lower cervical spine. Code 94305 -------- FINAL REPORT -------- Dictated By: Kevin Hart Dictated Date: 04/29/2025 08:10 ET Assigned Physician: Kevin Hart Reviewed and Electronically Signed By: Kevin Hart Signed Date: 04/29/2025 08:13 ET Workstation ID: [id number] Transcribed By: Self Edit Transcribed Date: 04/29/2025 08:10 ET us Junior VALLEJO IMG XR PROCEDURES Final Resul t from Last 3 Months Insurance [facility] [employer] Care Teams Roller Inspector And Mender Relationship Specialty Start Date End Date Brielle Ruiz MD [address] [place] [address] PCP - General Internal Medicine 01/11/16
--- OUTSIDE RECORDS SUMMARY | 2025-05-26 10:31 | XMS_ITS | Patient Health Record ---
[facility] Address [address] [place] [address] Care Team Providers Care Technical Sales Consultant Name Role Phone Joseph MARIO, Brielle Barkley Primary Care Provider Un available Angel López Unavailable [phone] Allergies Allergen (clinical drug ingredient) Drug/Non Drug [...] foot (M20.12) Active confirmed Problem Achilles bursitis (685084267) Achilles tendinitis, left leg (M76.62) Active confirmed Encounters Encounter Location Date Provider Diagnosis [facility] [place] [address] [place] [address] 03/31/2025 Angel López Plan Of Treatment No Information Insurance Providers Payer Name Payer Address Payer Phone Subscriber Number Group Number Insured Name Patient Relationship to Insured Coverage Start Date Coverage End Date [facility] [id number] [place] [address] [phone] [id number] 300 Amanda Stapleton Self - patient is the insured Medical (General) History Medical History History ICD Code Anxiety Arthritis Back,Hip,and Knee pain Depression Gall bladder problems Headaches Sciatica Joint implants/screws Surgical History Surgery Date(Month/Year) Fusion C4,C5 11/2016 Fusion C5,C6,C7 02/02 section 11/24/1996 Bunionectomy B/L 1989
== END 2025-05-26 09:31 | disposition home or self-care (01) ==
LOC: HO.NEURO 09:30
PROVIDERS: PCP Internal Medicine; Visit Provider Internal Medicine
DX: R20.0 Anesthesia of skin (principal); R20.2 Paresthesia of skin
CPT/HCPCS: 95886; 95913

== ENCOUNTER → 2025-05-26 09:33 | Outpatient (BNV) | payer OTHER, SELFPAY | PROVIDERS: PCP Internal Medicine; Visit Provider Psychiatry & Neurology Neurology | DX: G62.89 Other specified polyneuropathies (principal) | CPT/HCPCS: 95886; 95913 ==

== ENCOUNTER 2025-05-28 13:50 | Outpatient (REF) | payer OTHER, SELFPAY ==
--- NOTE | ~2025-05-28 | MR_ITS ---
EXAMINATION: MR PELVIS WITHOUT AND WITH CONTRAST CLINICAL INFORMATION: Ovarian cyst. N83.299 COMPARISON: Correlated to pelvic ultrasound dated May 11, 2025 demonstrated a 4.8 cm cyst, right ovary. TECHNIQUE: Multiplanar, multisequence MRI pelvis without and following the IV contrast administration 10 cc of gadolinium based without reported immediate complications. FINDINGS: The uterus measures 67 x 63 x 74 mm. Uterus is in retroversion flexion position. Junctional zone measures 7 mm. Homogeneous enhancement throughout uterus without gross uterine fibroid. Cervix measures 52 mm in maximal length with multiple cystic lesions without gross enhancement. The right ovary measures 2 x 1 x 2 cm. No gross solid or cystic lesion.. The left ovary measures 4 x 2 x 2 cm. No gross solid or cystic lesion. No free fluid in the cul-de-sac. No free fluid in the pelvic peritoneal cavity. Bladder is fluid-filled and collapsed. Spondylosis at L5-S1. No bone marrow signal abnormality. Trace amount of fluid coxofemoral joints bilaterally. Normal flow signal within the mean vessels. Nonspecific prominent inguinal lymph nodes. Small tiny fat-containing umbilical hernia. No gross inguinal hernias. MR/MR pelvis wo/w con IMPRESSION: No solid or cystic lesion in the adnexa. Uterus is in retroversion flexion position with multiple Nabothian cyst. No uterine fibroid. Normal junctional zone. Electronically signed by: Lc Galloway MD 05/28/2025 03:29 PM EDT
--- OUTSIDE RECORDS SUMMARY | 2025-05-28 15:08 | XMS_ITS | Clinical Summary ---
Author Organization [facility] Address [address] [place] [address] Phone Care Team Providers Care Flat Cutter Name Role Phone Unavailable Primary Care Provider [...] It is not the complete legal health record.[facility]
--- OUTSIDE RECORDS SUMMARY | 2025-05-28 15:08 | XMS_ITS | Clinical Summary ---
Author Organization [facility] Address [address] [place] [address] Phone Care Team Providers Care Store Director Name Role Phone Brielle Ruiz MD Primary [...] Department Care Team Description 05/01/2025 Telephone Neurosurgery [facility] [address] [place] [address] Junior Brar PA 04/28/2025 4:40 PM EDT - 04/28/2025 11:59 PM EDT Hospital Encounter [facility] [address] [place] [address] Mid back pain Discharge Disposition: Home or Self Care 04/28/2025 4:39 PM EDT - 04/28/2025 11:59 PM EDT Hospital Encounter [facility] [address] [place] [address] Chronic bilateral low back pain with bilateral sciatica Discharge Disposition: Home or Self Care 04/28/2025 3:15 PM EDT Office Visit Neurosurgery [facility] [address] [place] [address] Junior Brar PA Mid back pain (Primary [...] Care Team (Late st Contact Info) Description 05/29/2025 7:45 AM EDT Appointment [facility] [address] [place] [address] 05/29/2025 7:50 AM EDT Appointment [facility] [address] [place] [address] 06/05/2025 10:00 AM EDT Office Visit Neurosurgery [facility] [address] [phone] Junior Brar PA [address] [address] 07/30/2025 3:30 PM EST Office Visit Orthopedic [facility] [address] [phone] Stephen Pop DPM [address] [phone] Health Maintenance Due Date Last Done Comments [...] 08/27/2022 Depression Screening 09/24/2024 COVID-19 Vaccine ( season) 2025 02/03/2021, 01/06/2021 Influenza Vaccine (#1) 2025 , [...] spine. There is evidence of constipation. Code 19187 -------- FINAL REPORT -------- Dictated By: Kevin Hart Dictated Date: 04/29/2025 08:13 ET Assigned Physician: Kevin Hart Reviewed and Electronically Signed By: Kevin Hart Signed Date: 04/29/2025 08:16 ET Workstation ID: [id number] Transcribed By: Self Edit Transcribed Date: 04/29/2025 [...] thoracic spine. There isevidence of constipation. Code 93474 -------- FINAL REPORT -------- Dictated By: Kevin Hart Dictated Date: 04/29/2025 08:13 ET Assigned Physician: Kevin Hart Reviewed and Electronically Signed By: Kevin Hart Signed Date: 04/29/2025 08:16 ET Workstation ID: [id number] Transcribed By: Self Edit Transcribed Date: 04/29/2025 [...] fusion in the lower cervical spine. Code 11748 -------- FINAL REPORT -------- Dictated By: Kevin Hart Dictated Date: 04/29/2025 08:10 ET Assigned Physician: Kevin Hart Reviewed and Electronically Signed By: Kevin Hart Signed Date: 04/29/2025 08:13 ET Workstation ID: [id number] Transcribed By: Self Edit Transcribed Date: 04/29/2025 [...] fusion in the lower cervical spine. Code 27031 -------- FINAL REPORT -------- Dictated By: Kevin Hart Dictated Date: 04/29/2025 08:10 ET Assigned Physician: Kevin Hart Reviewed and Electronically Signed By: Kevin Hart Signed Date: 04/29/2025 08:13 ET Workstation ID: [id number] Transcribed By: Self Edit Transcribed Date: 04/29/2025 08:10 ET us Junior VALLEJO IMG XR PROCEDURES Final Resul t from Last 3 Months Insurance [facility] PL[facility] Care Teams Store Director Relationship Specialty Start Date End Date Brielle Ruiz MD [address] [place] [address] PCP - General Internal Medicine 01/11/16
--- OUTSIDE RECORDS SUMMARY | 2025-05-28 15:08 | XMS_ITS | Patient Health Record ---
Author [facility] Address [address] [place] [address] Care Team Providers Care Special Educator Name Role Phone Joseph MARIO, Brielle Barkley Primary Care Provider Un available Angel López Unavailable [phone] Allergies Allergen (clinical drug ingredient) Drug/Non Drug [...] Status Risk Notes Problem Acquired hallux valgus (55228544) Hallux valgus (acquired), left foot (M20.12) Active confirmed Problem Achilles bursitis (402470621) Achilles tendinitis, left leg (M76.62) Active confirmed Encounters Encounter Location Date Provider Diagnosis [facility] [place] [address] [place] [address] 03/31/2025 Angel López Plan Of Treatment No Information Insurance Providers Payer Name Payer Address Payer Phone Subscriber Number Group Number Insured Name Patient Relationship to Insured Coverage Start Date Coverage End Date [facility] [address] [place] [address] [phone] [id number] 300 Amanda Stapleton Self - patient is the insured Medical (General) History Medical History History ICD Code Anxiety Arthritis Back,Hip,and Knee pain Depression Gall bladder problems Headaches Sciatica Joint implants/screws Surgical History Surgery Date(Month/Year) Fusion C4,C5 11/2016 Fusion C5,C6,C7 02/02 section 11/24/1996 Bunionectomy B/L 1989
== END 2025-05-28 13:51 | disposition home or self-care (01) ==
LOC: HO.MRI 13:50
PROVIDERS: PCP Internal Medicine; Visit Provider Obstetrics & Gynecology
DX: N83.299 Other ovarian cyst, unspecified side (principal)
CPT/HCPCS: 72197; A9585

== ENCOUNTER → 2025-05-28 13:57 | Outpatient (BNV) | payer OTHER, SELFPAY | PROVIDERS: PCP Internal Medicine; Visit Provider Radiology Diagnostic Radiology | DX: N88.8 Other specified noninflammatory disorders of cervix uteri (principal) | CPT/HCPCS: 72197 ==

== ENCOUNTER 2025-06-02 14:39 | Outpatient (AMB) | payer OTHER, SELFPAY ==
--- OUTSIDE RECORDS SUMMARY | 2025-05-29 07:45 | XMS_ITS | Encounter Summary ---
Author Organization [facility] Address [address] [place] [address] Care Team Providers Care Autocad Designer Name Role Phone Brielle Ruiz MD Primary Care Provider Reason for Referral * Imaging (Routine) - Authorized Specialty Diagnoses / Procedures Referred By Contac t Referred To Contact Radiology Diagnoses Mid back pain Procedures MR Thoracic Spine wo Contrast Junior Brar PA [address] [address] Phone: tel: fax: [address] [address] Phone: tel: Referral ID Status Reason Start Date Expiration Date V isits Requested Visits Authorized [id number] Authorized 05/01/2025 05/01/2026 1 1 Reason for Visit * Imaging (Routine) - Authorized Specialty Diagnoses / Procedures Referred By Contac t Referred To Contact Radiology Diagnoses Mid back pain Procedures MR Thoracic Spine wo Contrast Junior Brar PA [address] [address] Phone: tel: fax: [facility] [address] [place] [address] Phone: tel: Referral ID Status Reason Start Date Expiration Date V isits Requested Visits Authorized [id number] Authorized 05/01/2025 05/01/2026 1 1 Encounter Details Date Type Department Care Team (Latest Contact Info) Description 05/29/2025 7:45 AM EDT - 05/29/2025 11:59 PM EDT Hospital Encounter [facility] [address] [place] [phone] Mid back pain Discharge Disposition: Home or Self Care Social History Tobacco Use Types Packs/Day Years Used Date Smoking Tobacco: Never Passive Smoke Exposure: Never Smokeless Tobacco: Never Comments Unknown Sex and Gender Information Value Date Recorded Sex Assigned at Female 04/30/2025 12:32 PM EDT Legal Sex Female 12:21 AM EST Gender Identity Female 04/30/2025 12:32 PM EDT Sexual Orientation Straight 04/30/2025 12 :32 PM EDT documented as of this encounter Medications at Time of Discharge amoxicillin-clav ulanate (AUGMENTIN) 875-125 mg per tablet Take 1 tablet by mouth every 12 (twelve) hours. 07/01/2024 buPROPion (WELLBUTRIN) 75 mg tablet Take 1 tablet (75 mg total) by mouth 1 (one) time each day in the morning. busPIRone (BUSPAR) 5 mg tablet Take 1 tablet (5 mg total) by mouth 3 (three) times a day. cholecalciferol (VITAMIN D-3) 1,250 mcg (50,000 unit) capsule TAKE 1 CAPSULE ORALLY EVERY WEEK FOR 3 MONTHS 04/06/2025 clobetasoL (TEMOVATE) 0.05 % cream Apply topically. escitalopram (LEXAPRO) 10 mg tablet Take 1 tablet (10 mg total) by mouth 1 (one) time each day. 11/04/2024 escitalopram (LEXAPRO) 20 mg tablet Take 1 tablet (20 mg total) by mouth 1 (one) time each day. 03/10/2025 ferrous fumarate 324 mg (106 mg iron) tablet Take by mouth. ferrous sulfate 325 mg (65 mg elemental iron) tablet Take 1 tablet (325 mg total) by mouth 1 (one) time each day. 06/08/2024 Gavilax 17 gram/dose oral powder PLEASE SEE ATTACHED FOR DETAILED DIRECTIONS 02/25/2025 Laxative, bisacodyl, 5 mg EC tablet THE DAY BEFORE COLONOSCOPY TAKE 2 TABS AT 12 PM AND 2 TABS AT 5 PM WITH PLENTY OF WATER 02/25/2025 medroxyPROGESTER one (PROVERA) 10 mg tablet TAKE 1 TABLET BY MOUTH EVERY 12 HOURS FOR 90 DAYS 04/24/2025 omeprazole (PriLOSEC) [address] capsule Take 1 capsule (20 mg total) by mouth 1 (one) time each day. 02/01/2025 prazosin (MINIPRESS) 1 mg capsule Take 1 capsule (1 mg total) by mouth. at bedtime 03/10/2025 SUMAtriptan (IMITREX) 50 mg tablet Take 1 Tablet by mouth daily as needed. May repeat dose once after 2 hours, if needed. topiramate (TOPAMAX) 50 mg tablet Take 1 tablet (50 mg total) by mouth 2 (two) times a day. for 90 days 02/05/2025 traZODone (DESYREL) 50 mg tablet TAKE 1-2 TABLET BY MOUTH EVERY NIGHT AT BEDTIME NEEDED FOR INSOMNIA 03/30/2025 Ventolin HFA 90 mcg/actuation inhaler inhale 2 puffs every 6 hours as needed for shortness of breath or wheezing 09/25/2024 documented as of this encounter Discharge Disposition Disposition Code Departure Means Destination Home or Self Care documented in this encounter Plan of Treatment Upcoming Encounters Date Type Department Care Team (Late st Contact Info) Description 06/05/2025 10:00 AM EDT Office Visit Neurosurgery [facility] [address] [phone] Junior Brar PA 175 [facility] [address] [place] [address] 07/30/2025 3:30 PM EST Office Visit Orthopedic Surgery [facility] [address] [phone] Stephen Pop DPM [address] [phone] documented as of this encounter Procedures Procedure Name Priority Date/Time Associated Diagnosis Comments MR THORACIC SPINE WO CONTRAST Routine 05/29/2025 9:10 AM EDT Mid back pain documented in this encounter Results * MR Thoracic Spine wo Contrast (05/29/2025 9:10 AM EDT) Anatomical Region Laterality Modality T-spine, Spine Magnetic Resonan ce 06/01/2025 4:18 PM EDT Impressions 06/01/2025 4:39 PM EDT Exaggerated thoracic kyphosis with levoconvex thoracic curvature. Multilevel degenerative disc and facet changes without significant foraminal or spinal canal stenosis in the thoracic spine. -------- FINAL REPORT -------- Dictated By: GUILLERMO TYLER Dictated Date: 06/01/2025 16:18 ET Assigned Physician: GUILLERMO TYLER Reviewed and Electronically Signed By: GUILLERMO TYLER Signed Date: 06/01/2025 16:39 ET Workstation ID: [id number] Transcribed By: Self Edit Transcribed Date: 06/01/2025 16:18 ET Narrative 06/01/2025 4:39 PM EDT PROCEDURE: Thoracic spine MRI INDICATION: Pain TECHNIQUE: Multiplanar, multisequence MRI of the thoracic spine Without contrast. COMPARISON: 02/15 radiograph FINDINGS: Exaggerated thoracic kyphosis with levoconvex thoracic curvature. No fracture or suspicious marrow replacing lesion Multilevel degenerative loss of normal disc height and signal throughout the thoracic spine with associated degenerative endplate spurring and osteophyte formation. No significant focal disc protrusion, spinal canal stenosis, or mass effect upon the cord. Thoracic cord is normal in signal and morphology. No epidural collection or mass is seen within the spinal canal. Degenerative facet arthritis seen throughout the thoracic spine without significant foraminal stenosis. Degenerative facet changes are most pronounced on the left at T4-5 and T5-6 as well as on the left at T11-12. Paraspinal muscles are within normal limits. Visualized intra-abdominal and intrathoracic structures are within normal limits. Procedure Note Guillermo Tyler MD - 06/01/2025 PROCEDURE: Thoracic spine MRI INDICATION: Pain TECHNIQUE: Multiplanar, multisequence MRI of the thoracic spine Withoutcontrast. COMPARISON: 02/15 radiograph FINDINGS: Exaggerated thoracic kyphosis with levoconvex thoracic curvature. No fracture or suspicious marrow replacing lesion Multilevel degenerative loss of normal disc height and signal throughoutthe thoracic spine with associated degenerative endplate spurring andosteophyte formation. No significant focal disc protrusion, spinal canalstenosis, or mass effect upon the cord. Thoracic cord is normal in signal and morphology. No epidural collectionor mass is seen within the spinal canal. Degenerative facet arthritis seen throughout the thoracic spine withoutsignificant foraminal stenosis. Degenerative facet changes are mostpronounced on the left at T4-5 and T5-6 as well as on the left [id number]. Paraspinal muscles are within normal limits. Visualized intra-abdominaland intrathoracic structures are within normal limits. IMPRESSION: Exaggerated thoracic kyphosis with levoconvex thoracic curvature.Multilevel degenerative disc and facet changes without significantforaminal or spinal canal stenosis in the thoracic spine. -------- FINAL REPORT -------- Dictated By: GUILLERMO TYLER Dictated Date: 06/01/2025 16:18 ET Assigned Physician: GUILLERMO TYLER Reviewed and Electronically Signed By: GUILLERMO TYLER Signed Date: 06/01/2025 16:39 ET Workstation ID: [id number] Transcribed By: Self Edit Transcribed Date: 06/01/2025 16:18 ET Junior VALLEJO IMG MRI PROCEDURES Final Resu lt documented in this encounter Visit Diagnoses Diagnosis Mid back pain documented in this encounter Care Teams Autocad Designer Relationship Specialty Start Date End Date Brielle Ruiz MD [address] [place] [address] PCP - General Internal Medicine 01/11/16 documented as of this encounter
--- OUTSIDE RECORDS SUMMARY | 2025-05-29 07:50 | XMS_ITS | Encounter Summary ---
Author Organization [facility] Address [address] [place] [address] Care Team Providers Care Oil Lease Operator Name Role Phone Brielle Ruiz MD Primary Care Provider [phone] Reason for Referral * Imaging (Routine) - Authorized Specialty Diagnoses / Procedures Referred By Contac t Referred To Contact Radiology Diagnoses Chronic bilateral low back pain with bilateral sciatica Procedures MR Lumbar Spine wo Contrast Junior Brar PA [address] [address] Phone: tel: fax: [facility] [address] [place] [address] Phone: tel: Referral ID Status Reason Start Date Expiration Date V isits Requested Visits Authorized [id number] Authorized 05/01/2025 05/01/2026 1 1 Reason for Visit * Imaging (Routine) - Authorized Specialty Diagnoses / Procedures Referred By Contac t Referred To Contact Radiology Diagnoses Chronic bilateral low back pain with bilateral sciatica Procedures MR Lumbar Spine wo Contrast Junior Brar PA [address] [address] Phone: tel: fax: [facility] [address] [place] [address] Phone: tel: Referral ID Status Reason Start Date Expiration Date V isits Requested Visits Authorized [id number] Authorized 05/01/2025 05/01/2026 1 1 Encounter Details Date Type Department Care Team (Latest Contact Info) Description 05/29/2025 7:50 AM EDT - 05/29/2025 11:59 PM EDT Hospital Encounter [facility] [address] [place] [address] Chronic bilateral low back pain with bilateral sciatica Discharge Disposition: Home or Self Care Social [...] 06/05/2025 10:00 AM EDT Office Visit Neurosurgery [facility] [address] [phone] Junior Brar PA 175 [facility] [address] [place] [address] 07/30/2025 3:30 PM EST Office Visit Orthopedic Surgery [facility] [address] [phone] Stephen Pop DPM [address] [phone] documented as of this encounter Procedures Procedure Name Priority Date/Time Associated Diagnosis Comments MR LUMBAR SPINE WO CONTRAST Routine 05/29/2025 9:17 AM EDT Chronic bilateral low back pain with bilateral sciatica documented in this encounter Results * MR Lumbar Spine wo Contrast (05/29/2025 9:17 AM EDT) Anatomical Region Laterality Modality L-spine, Spine Magnetic Resonan ce 06/01/2025 7:47 PM EDT Impressions 06/01/2025 7:53 PM EDT Slight progression degenerative changes at L3-4 without significant foraminal or spinal canal stenosis and lumbar spine. Advanced facet arthritis bilaterally at L3-4 and L4-5. -------- FINAL REPORT -------- Dictated By: GUILLERMO TYLER Dictated Date: 06/01/2025 19:47 ET Assigned Physician: GUILLERMO TYLER Reviewed and Electronically Signed By: GUILLERMO TYLER Signed Date: 06/01/2025 19:53 ET Workstation ID: [id number] Transcribed By: Self Edit Transcribed Date: 06/01/2025 19:47 ET Narrative 06/01/2025 7:53 PM EDT PROCEDURE: Lumbar spine MRI INDICATION: Pain TECHNIQUE: Multiplanar, multisequence MRI of the lumbar spine Without contrast. COMPARISON: Radiograph 04/28/2025 and MRI 10/14/2021 FINDINGS: Mild anterolisthesis at L4-5 related to degenerative facet arthropathy. No fracture or suspicious marrow replacing lesion. Degenerative loss of normal disc height and signal at L5-S1 with associated endplate spurring. Advanced lumbar facet arthritis at L3-4 and L4-5 Conus medullaris is normal and terminates at L1-2. No epidural collection or mass is seen within the spinal canal. Paraspinal muscles are within normal limits. Visualized intra-abdominal and pelvic structures are within normal limits. Findings by level: L1-2: No foraminal or spinal canal stenosis L2-3: No foraminal or spinal canal stenosis L3-4: Diffuse disc bulge and bilateral facet arthropathy. Mild foraminal stenosis bilaterally. Mild spinal canal stenosis. Findings are slightly increased compared to prior. L4-5: Diffuse disc bulge and bilateral facet arthropathy and ligamentum flavum thickening. No foraminal stenosis. Mild spinal canal stenosis. Findings are similar compared to prior. L5-S1: Diffuse disc bulge with endplate spurring, eccentric to the left. Mild left and no right foraminal stenosis. No spinal canal stenosis. Findings are similar compared to prior. Procedure Note Guillermo Tyler MD - 06/01/2025 PROCEDURE: Lumbar spine MRI INDICATION: Pain TECHNIQUE: Multiplanar, multisequence MRI of the lumbar spine Withoutcontrast. COMPARISON: Radiograph 04/28/2025 and MRI 10/14/2021 FINDINGS: Mild anterolisthesis at L4-5 related to degenerative facet arthropathy. No fracture or suspicious marrow replacing lesion. Degenerative loss of normal disc height and signal at L5-S1 withassociated endplate spurring. Advanced lumbar facet arthritis at L3-4 and L4-5 Conus medullaris is normal and terminates at L1-2. No epidural collectionor mass is seen within the spinal canal. Paraspinal muscles are within normal limits. Visualized intra-abdominaland pelvic structures are within normal limits. Findings by level: L1-2: No foraminal or spinal canal stenosis L2-3: No foraminal or spinal canal stenosis L3-4: Diffuse disc bulge and bilateral facet arthropathy. Mild foraminalstenosis bilaterally. Mild spinal canal stenosis. Findings are slightlyincreased compared to prior. L4-5: Diffuse disc bulge and bilateral facet arthropathy and ligamentumflavum thickening. No foraminal stenosis. Mild spinal canal stenosis.Findings are similar compared to prior. L5-S1: Diffuse disc bulge with endplate spurring, eccentric to the left.Mild left and no right foraminal stenosis. No spinal canal stenosis.Findings are similar compared to prior. IMPRESSION: Slight progression degenerative changes at L3-4 without significantforaminal or spinal canal stenosis and lumbar spine. Advanced facet arthritis bilaterally at L3-4 and L4-5. -------- FINAL REPORT -------- Dictated By: GUILLERMO TYLER Dictated Date: 06/01/2025 19:47 ET Assigned Physician: GUILLERMO TYLER Reviewed and Electronically Signed By: GUILLERMO TYLER Signed Date: 06/01/2025 19:53 ET Workstation ID: [id number] Transcribed By: Self Edit Transcribed Date: 06/01/2025 19:47 ET Junior VALLEJO IMG MRI PROCEDURES Final Resu lt documented in this encounter Visit Diagnoses Diagnosis Chronic bilateral low back pain with bilateral sciatica documented in this encounter Care Teams Oil Lease Operator Relationship Specialty Start Date End Date Brielle Ruiz MD [address] [place] [address] PCP - General Internal Medicine 01/11/16 documented as of this encounter
--- NOTE | 2025-06-02 14:47 | A.OFFVIS_ITS ---
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: No Information Interpreted: non-clinical & clinical Accompanied by: Spouse Allergies cyclobenzaprine (From FLEXERIL) Allergy (Intermediate, Verified 06/02/25 14:50) SWELLING naproxen (NAPROXEN) Allergy (Mild, Verified 06/02/25 14:50) HEART PALPATATIONS hydrocodone Adverse Reaction (Intermediate, Verified 06/02/25 14:50) Gastrointestinal Upset milk Adverse Reaction (Intermediate, Verified 06/02/25 14:50) Gastrointestinal Upset oxycodone (From PERCOCET) Adverse Reaction (Intermediate, Verified 06/02/25 14:50) VOMITING Post menopausal: Yes HPI Comments Details: The patient is presenting post hysteroscopy D&C no complaints minimal vaginal bleeding no feverishness chills or abdominal pain. The pathology showed the following: A. Endometrium, polypectomy: - Polypoid fragments of endometrium with pseudo-decidualized stroma and inactive endometrial glands consistent with progestin effect; negative for atypia, hyperplasia or malignancy. - Background secretory endometrium identified. B. Endometrium, curettage: Polypoid fragments of endometrium with pseudo- decidualized stroma and inactive endometrial glands consistent with progestin effect; negative for atypia, hyperplasia or malignancy The following workup was done so far: H&H 9.9/30.4 TSH, hCG negative FSH/LH= 5.3/2.2 05/11/2025 Pelvic ultrasound done on 05/11/25 which showed the following: Uterus: The uterus is normal in size, measuring 10.1 x 5.3 x 8.1 cm. Myometrium has a normal echotexture. No fibroids are identified. Endometrium: The endometrial stripe measures 20 mm in thickness and is heterogeneous in appearance. There are nabothian cysts in the cervix. Right ovary: The right ovary measures 5.6 x 4.6 x 5.0 cm. There is a 4.2 x 4.1 x 4.8 cm cystic structure which demonstrates internal echoes. Left ovary: The left ovary measures 3.6 x 1.8 x 1.1 cm. The left ovary is normal in size and echotexture. Pelvic fluid: none. US/US pelvic and transvaginal IMPRESSION: 1. Thickened heterogeneous endometrial stripe measuring 20 mm in thickness. Direct visualization is suggested. 2. 4.2 x 4.1 x 4.8 cm right ovarian cystic structure demonstrating internal echoes. Follow-up is recommended. 05/28/25 pelvic MRI showed the following: IMPRESSION: No solid or cystic lesion in the adnexa. Uterus is in retroversion flexion position with multiple Nabothian cyst. No uterine fibroid. Normal junctional zone CA 125, CA 19-9 and CEA within normal PFSH Medical History Endometrial thickening on ultrasound Iron deficiency anemia Vitamin D deficiency Numbness and tingling of both lower extremities Left anterior knee pain Achilles tendinitis of left lower extremity Intractable left heel pain Acquired deformity of toenail Migraines Heel spur Snoring Encounter for screening colonoscopy Cervical spondylosis Complicated migraine Left-sided weakness Brain TIA Eczema of lower extremity Anxiety and depression Normocytic normochromic anemia Heavy menstrual bleeding Bulging of lumbar intervertebral disc Left ankle pain Constipation Obesity (BMI 30-39.9) Navel cellulitis Hallux valgus (acquired) Degenerative disc disease, cervical History of gallstones Impaired fasting glucose Depression Surgical History Status post section History of bilateral tubal ligation History of bunionectomy of both great toes History of laparoscopic cholecystectomy History of cervical discectomy History of bunionectomy Family History Mother Hypertension Depression Diabetes mellitus Hypercholesteremia SUZIE (obstructive sleep apnea) COPD (chronic obstructive pulmonary disease) Substance use disorder Mental health disorder Sister Breast cancer Uterine cancer Mental health disorder Maternal Grandmother Mental health disorder Maternal Aunt Mental health disorder Social History Housing: Apartment Are you a primary pet caretaker to a significant other at home: No Do you presently have visiting nurse or other home services: No Alcohol intake: never Patient Tobacco Use Status: Never used Tobacco e-Cigarette/Vaping Use: Never Used service: No Current occupational status: unemployed Cognitive needs: No Hearing needs: No Vision needs: Yes Review of Systems Const All systems reviewed & are unremarkable except as noted in HPI and below Reports as per HPI and Reports no additional complaints GI Reports no additional complaints Reports no additional complaints Physical Exam Vital Signs: BMI result Body Mass Index 40.5 Assessment & Plan Assessment & Plan (1) Abnormal uterine bleeding (AUB): Comment: With a anemia Code(s): N93.9 - Abnormal uterine and vaginal bleeding, unspecified Category: Medical Plan: Instructions given the patient to discontinue Provera daily. Discussed with the patient the results of the work up done and options of treatment including but not limited to BCP's, cyclic Progesterone, Mirena IUD, endometrial ablation and hysterectomy. All pros, cons, risks and benefits of each option were discussed with the patient and the patient decided to go ahead with cyclic Provera, so a more detailed discussion re: Progesterone treatment including mechanism of action, benefits (regular menses, endometrial protection form unopposed estrogen and reduction in the risk of endometrial hyperplasia and/or cancer ...), risks (Thrombosis, mood changes, weight gain, breast soreness, ? increased breast ca, others). Instructions were given to use a back- up method for contraception since this is not a method control, take the medication 1 tablet daily starting day 15-24 and to schedule a 3 months follow-up appointment; patient verbalized understanding and agreed with the plan. (2) Endometrial thickening on ultrasound: Code(s): R93.89 - Abnormal findings on diagnostic imaging of other specified body struc tures Category: Medical Plan: Discussed with the patient the hysteroscopic intraoperative finding and the pathology report, all questions answered, the patient verbalized understanding (3) Complex ovarian cyst: Code(s): N83.299 - Other ovarian cyst, unspecified side Category: Medical Plan: Discussed with the patient the results of the pelvic MRI showing no adnexal abnormality, normal CA 125, CEA and CA 19-9. The patient was reassured. Orders: Orders Complete Blood Count no Diff 3 Months N93.9 - Abnormal uterine and vaginal bleeding, unspecified Medications: New medroxyprogesterone (Provera) start Provera 1 tablet daily from day 15-24 cyclically every months, day 1 being 1st day of menses 10 mg PO DAILY 30 tabs 0RF 10 days Coding Level of Care Code Est Pt Level 3 (42938) Diagnoses Abnormal uterine bleeding (AUB) N93.9 Endometrial thickening on ultrasound R93.89 Complex ovarian cyst N83.299
[2025-06-02 14:49] VITALS: BMI 40.5
--- OUTSIDE RECORDS SUMMARY | 2025-06-02 17:10 | XMS_ITS | Patient Health Record ---
Author Organization [facility] Address [address] [place] [address] Care Team Providers Care Recreation Activities Coordinator Name Role Phone Joseph MARIO, Brielle Barkley Primary Care Provider Un available Angel López Unavailable [phone] Allergies Allergen (clinical drug ingredient) Drug/Non Drug [...] Status Risk Notes Problem Acquired hallux valgus (31207541) Hallux valgus (acquired), left foot (M20.12) Active confirmed Problem Achilles bursitis (747270911) Achilles tendinitis, left leg (M76.62) Active confirmed Encounters Encounter Location Date Provider Diagnosis [facility] [address] [place] [address] 03/31/2025 Angel López Plan Of Treatment No Information Insurance Providers Payer Name Payer Address Payer Phone Subscriber Number Group Number Insured Name Patient Relationship to Insured Coverage Start Date Coverage End Date [facility] [address] [place] [address] [phone] [id number] Amanda Stapleton Self - patient is the insured Medical (General) History Medical History History ICD Code Anxiety Arthritis Back,Hip,and Knee pain Depression Gall bladder problems Headaches Sciatica Joint implants/screws Surgical History Surgery Date(Month/Year) Fusion C4,C5 11/2016 Fusion C5,C6,C7 02/02 section 11/24/1996 Bunionectomy B/L 1989
--- OUTSIDE RECORDS SUMMARY | 2025-06-02 17:10 | XMS_ITS | Clinical Summary ---
Author Organization 175 [facility] Address [address] [place] [address] Phone Care Team Providers Care Recovery Advocate Name Role Phone Brielle Ruiz MD Primary [...] Encounters Date Type Department Care Team Description 05/29/2025 7:50 AM EDT - 05/29/2025 11:59 PM EDT Hospital Encounter [facility] MRI [address] [place] [address] Chronic bilateral low back pain with bilateral sciatica Discharge Disposition: Home or Self Care 05/29/2025 7:45 AM EDT - 05/29/2025 11:59 PM EDT Hospital Encounter [facility] MRI [address] [place] [address] Mid back pain Discharge Disposition: Home or Self Care 05/01/2025 Telephone Neurosurgery [facility] [address] [address] Junior Brar PA 04/28/2025 4:40 PM EDT - 04/28/2025 11:59 PM EDT Hospital Encounter [facility] Xray [address] [place] [address] Mid back pain Discharge Disposition: Home or Self Care 04/28/2025 4:39 PM EDT - 04/28/2025 11:59 PM EDT Hospital Encounter [facility] Xray [address] [place] [address] Chronic bilateral low back pain with bilateral sciatica Discharge Disposition: Home or Self Care 04/28/2025 3:15 PM EDT Office Visit Neurosurgery [facility] [address] [address] Junior Brar PA Mid back pain (Primary [...] 06/05/2025 10:00 AM EDT Office Visit Neurosurgery [facility] [address] [phone] Junior Brar PA [address] [address] 07/30/2025 3:30 PM EST Office Visit Orthopedic Surgery [facility] [address] [phone] Stephen Pop DPM [address] [phone] Health Maintenance Due Date Last Done Comments [...] Screening 08/27/2022 Depression Screening 09/24/2024 COVID-19 Vaccine (3 - season) 2025 02/03/2021, 01/06/2021 Influenza Vaccine [...] bilateral low back pain with bilateral sciatica MR THORACIC SPINE WO CONTRAST Routine 05/29/2025 9:10 AM EDT Mid back pain XR THORACIC SPINE 2 VIEWS Routine 04/28/2025 4:57 PM EDT Mid back pain XR LUMBAR SPINE 4+ VIEWS Routine 04/28/2025 4:57 PM EDT Chronic bilateral low back pain with bilateral sciatica from Last 3 Months Results * MR Lumbar Spine wo Contrast [...] Signed Date: 06/01/2025 19:53 ET Workstation ID: [id number] Transcribed By: Self Edit Transcribed Date: 06/01/2025 [...] Signed Date: 06/01/2025 19:53 ET Workstation ID: [id number] Transcribed By: Self Edit Transcribed Date: 06/01/2025 19:47 ET us Junior VALLEJO IMG MRI PROCEDURES Final Resu lt * MR Thoracic Spine wo Contrast (05/29/2025 [...] Signed Date: 06/01/2025 16:39 ET Workstation ID: [id number] Transcribed By: Self Edit Transcribed Date: 06/01/2025 [...] T5-6 as well as on the left [id number]. Paraspinal muscles are within normal limits. Visualized [...] Signed Date: 06/01/2025 16:39 ET Workstation ID: [id number] Transcribed By: Self Edit Transcribed Date: 06/01/2025 16:18 ET us Junior VALLEJO IMG MRI PROCEDURES Final Resu lt * XR Lumbar Spine 4+ Views (04/28/2025 [...] spine. There is evidence of constipation. Code 49449 -------- FINAL REPORT -------- Dictated By: Kevin Hart Dictated Date: 04/29/2025 08:13 ET Assigned Physician: Kevin Hart Reviewed and Electronically Signed By: Kevin Hart Signed Date: 04/29/2025 08:16 ET Workstation ID: [id number] Transcribed By: Self Edit Transcribed Date: 04/29/2025 [...] thoracic spine. There isevidence of constipation. Code 18446 -------- FINAL REPORT -------- Dictated By: Kevin Hart Dictated Date: 04/29/2025 08:13 ET Assigned Physician: Kevin Hart Reviewed and Electronically Signed By: Kevin Hart Signed Date: 04/29/2025 08:16 ET Workstation ID: [id number] Transcribed By: Self Edit Transcribed Date: 04/29/2025 [...] fusion in the lower cervical spine. Code 28445 -------- FINAL REPORT -------- Dictated By: Kevin Hart Dictated Date: 04/29/2025 08:10 ET Assigned Physician: Kevin Hart Reviewed and Electronically Signed By: Kevin Hart Signed Date: 04/29/2025 08:13 ET Workstation ID: [id number] Transcribed By: Self Edit Transcribed Date: 04/29/2025 [...] fusion in the lower cervical spine. Code 67714 -------- FINAL REPORT -------- Dictated By: Kevin Hart Dictated Date: 04/29/2025 08:10 ET Assigned Physician: Kevin Hart Reviewed and Electronically Signed By: Kevin Hart Signed Date: 04/29/2025 08:13 ET Workstation ID: [id number] Transcribed By: Self Edit Transcribed Date: 04/29/2025 08:10 ET us Junior VALLEJO IMG XR PROCEDURES Final Resul t from Last 3 Months Insurance [employer] [address] Care Teams Recovery Advocate Relationship Specialty Start Date End Date Brielle Ruiz MD [address] [place] [address] PCP - General Internal Medicine 01/11/16
--- OUTSIDE RECORDS SUMMARY | 2025-06-02 17:10 | XMS_ITS | Clinical Summary ---
Author Organization [facility] Address [address] [facility] [place] [address] Phone Care Team Providers Care Movement Assembly Final Inspector Name Role Phone Unavailable Primary Care Provider [...]
== END 2025-06-02 15:30 | disposition home or self-care (01) ==
LOC: HO.HWS 14:39
PROVIDERS: PCP Internal Medicine; Visit Provider Obstetrics & Gynecology
DX: N93.9 Abnormal uterine and vaginal bleeding, unspecified (principal); R93.89 Abnormal findings on diagnostic imaging of other specified body structures; N83.299 Other ovarian cyst, unspecified side
CPT/HCPCS: 99213

== ENCOUNTER → 2025-06-02 14:39 | Outpatient (BNVA) | payer OTHER, SELFPAY | PROVIDERS: PCP Internal Medicine; Visit Provider Obstetrics & Gynecology | DX: N93.9 Abnormal uterine and vaginal bleeding, unspecified (principal); R93.89 Abnormal findings on diagnostic imaging of other specified body structures; N83.299 Other ovarian cyst, unspecified side | CPT/HCPCS: 99212 ==

== ENCOUNTER 2025-06-26 08:33 | Outpatient (AMB) | payer OTHER, SELFPAY ==
--- NOTE | 2025-06-26 08:37 | A.OFFVIS_ITS ---
Vital Signs 06/26/25 08:44 Height 5 ft 8.5 in Weight 270 lb BMI 40.5 Intake Visit Reasons: OV- Left knee pain Intake Note: Leonela is a 54 year old female who presents today for a follow up on left knee OA, with complaints of knee pain, last injection 10/08/24. Patient reports a little relief with the last injection, and had lasted about 3 months. She wishes to repeat injection today. Patient mentions that she was recently prescribed gabapentin. Allergies cyclobenzaprine (From FLEXERIL) Allergy (Intermediate, Verified 06/26/25 08:45) SWELLING naproxen (NAPROXEN) Allergy (Mild, Verified 06/26/25 08:45) HEART PALPATATIONS hydrocodone Adverse Reaction (Intermediate, Verified 06/26/25 08:45) Gastrointestinal Upset milk Adverse Reaction (Intermediate, Verified 06/26/25 08:45) Gastrointestinal Upset oxycodone (From PERCOCET) Adverse Reaction (Intermediate, Verified 06/26/25 08:45) VOMITING HPI HPI OV- Left knee pain: Details: 84-year-old female presents to the office today for a follow-up left knee pain status post injection. She states the injection lasted for approximately 3 months and she was able to get around and perform activities much easier. Recently her pain returned and she finds it difficult to go up and down stairs and walk for long distances. [facility] Medical History Endometrial thickening on ultrasound Iron deficiency anemia Vitamin D deficiency Numbness and tingling of both lower extremities Left anterior knee pain Achilles tendinitis of left lower extremity Intractable left heel pain Acquired deformity of toenail Migraines Heel spur Snoring Encounter for screening colonoscopy Cervical spondylosis Complicated migraine Left-sided weakness Brain TIA Eczema of lower extremity Anxiety and depression Normocytic normochromic anemia Heavy menstrual bleeding Bulging of lumbar intervertebral disc Left ankle pain Constipation Obesity (BMI 30-39.9) Navel cellulitis Hallux valgus (acquired) Degenerative disc disease, cervical History of gallstones Impaired fasting glucose Depression Surgical History Status post section History of bilateral tubal ligation History of bunionectomy of both great toes History of laparoscopic cholecystectomy History of cervical discectomy History of bunionectomy Family History Mother Hypertension Depression Diabetes mellitus Hypercholesteremia SUZIE (obstructive sleep apnea) COPD (chronic obstructive pulmonary disease) Substance use disorder Mental health disorder Sister Breast cancer Uterine cancer Mental health disorder Maternal Grandmother Mental health disorder Maternal Aunt Mental health disorder Social History Housing: Apartment Are you a primary home care nurse to a significant other at home: No Do you presently have visiting nurse or other home services: No Alcohol intake: never Patient Tobacco Use Status: Never used Tobacco e-Cigarette/Vaping Use: Never Used service: No Current occupational status: unemployed Cognitive needs: No Hearing needs: No Vision needs: Yes Review of Systems Const All systems reviewed & are unremarkable except as noted in HPI and below Physical Exam Vital Signs: BMI result Body Mass Index 40.5 Const General: cooperative and no acute distress Orientation/consciousness: patient oriented x3 Resp Effort & Inspection: normal respiratory effort and able to speak in complete sentences Cardio Peripheral pulses: Peripheral pulses 2+ throughout Neuro General: patient oriented x3 Extrem Other: Left knee normal to inspection no joint effusion present she has full range of motion with crepitus. Lateral retropatellar tenderness. Pain with patellar grind. Calf supple nontender neurovascularly intact. Office Procedures AMB Joint Injection/Aspiration Joint Injection/Aspiration Primary Site: left knee Prep: site was prepped using aseptic technique, ethochloride spray was applied and injection warnings given Injected: 40 mg of, with 3 mL of, 1% plain lidocaine, 0.25% bupivacaine, in the joint and decadron Approach Used: anterolateral Procedure: The patient tolerated the procedure well and there was some relief with the local anesthesia Coding 66478 - Glenohumeral/Tronchanteric Bursa/Intraarticular Procedure code (CPT) selection complete Assessment & Plan Assessment & Plan (1) Osteoarthritis of left knee: Code(s): M17.12 - Unilateral primary osteoarthritis, left knee Category: Medical Plan: We discussed options today which include physical therapy and cortisone injections. She is interested in cortisone injection today. Proceed with injection which she tolerated well. If symptoms persist or worsen she will contact our office otherwise follow up as needed. Coding Level of Care Code Est Pt Level 3 (85970) Complex EM visit Add On G2211 Diagnoses Osteoarthritis of left knee M17.12 CPT Codes Coding - Joint 7: 88412 - Glenohumeral/Tronchanteric Bursa/Intraarticular ([id number])
[2025-06-26 08:44] VITALS: BMI 40.5
--- OUTSIDE RECORDS SUMMARY | 2025-06-26 08:54 | XMS_ITS | Clinical Summary ---
Author Organization 175 [facility] Address [address] [place] [address] Phone Care Team Providers Care Manager Market Research Name Role Phone Brielle Ruiz MD Primary [...] needed. Active Ventolin HFA 90 mcg/actuation inhaler 5 Active amoxicillin-cla vulanate (AUGMENTIN) 875-125 mg [...] INSOMNIA 5 Active ciclopirox (LOPROX) 0.77 % gel Apply 1 Application topically 2 (two) times a day. APPLY TO AFFECTED AREA 5 Active gabapentin (NEURONTIN) 300 mg capsuleIndicati ons:Chronic bilateral low back pain with bilateral sciatica Take 1 capsule (300 mg total) by mouth 3 (three) times a day. Take first dose at bedtime. If you aren't feeling tired, rundown or hungover in the morning, you can take another dose then. Take it twice daily for 5 days before attempting to increase to 3 times daily 90 each 2 09/21/20 25 Active Active Problems Problem Noted Date Diagnosed Date Chronic bilateral low back pain with bilateral s ciatica 04/28/2025 Assessment & Plan (06/05/2025 10:41 AM EDT): Ms. Stapleton continues with low back pain into the left greater than right anterior thigh stopping at the knee. It limits how far she can walk her dog. She has pain if she stands too long in the kitchen as an cooking or cleaning dishes. She is neurologically intact. There are no myelopathic findings. An MRI of the lumbar spine from May 29, 2025 revealed degenerative changes most significant at L3-4 without any foraminal or spinal canal stenosis. She showed me an EMG report from [address] Reeves at [facility]. This did reveal a mixed sensory and motor peripheral neuropathy and did not reveal any evidence of radiculopathy. I told the patient that it seemed like the problem was in the nerves themselves in her legs and not from the arthritis in her back. There is nothing surgical to offer. We talked about gabapentin but given that she is on psych meds, I was hesitant to start her on that medication. It could certainly be considered or Lyrica could be considered if her psychiatrist agrees. I did tell her I would put in a referral to neurology to see if there was anything else that could be done for her neuropathy. She is welcome to follow-up with us in the future on an as-needed basis. Assessment & Plan (04/28/2025 4:34 PM EDT): [...] neck and mid back. Assessment & Plan (06/05/2025 10:36 AM EDT): Ms. Stapletno continues with right greater than left mid back pain. It is not incapacitating but not insignificant. She does get some relief when laying flat and she tries to sleep that way. Her MRI of the thoracic spine from [facility] dated May 29, 2025 revealed exaggerated thoracic kyphosis with a levoconvex thoracic scoliosis and multilevel degenerative disc and facet changes without significant foraminal or spinal canal stenosis. I explained that there was nothing surgical and that she could continue with conservative treatments including physical therapy, acupuncture, healthcare specialist, and yoga. Assessment & Plan (04/28/2025 4:32 PM EDT): [...] Encounters Date Type Department Care Team Description 06/05/2025 10:00 AM EDT Office Visit [facility] [address] [phone] Junior Brar PA Mid back pain (Primary Dx); Chronic bilateral low back pain with bilateral sciatica; Peripheral polyneuropathy 06/05/2025 Telephone Neurosurgery [address] [phone] Junior Brar PA 05/29/2025 7:50 AM EDT - 05/29/2025 11:59 PM EDT Hospital Encounter [facility] MRI [address] [place] [address] Chronic bilateral low back pain with bilateral sciatica Discharge Disposition: Home or Self Care 05/29/2025 7:45 AM EDT - 05/29/2025 11:59 PM EDT Hospital Encounter [facility] MRI [address] [place] [address] Mid back pain Discharge Disposition: Home or Self Care 05/01/2025 Telephone Neurosurgery [facility] [address] [phone] Junior Brar PA 04/28/2025 4:40 PM EDT - 04/28/2025 11:59 PM EDT Hospital Encounter [facility] Xray [address] [place] [address] Mid back pain Discharge Disposition: Home or Self Care 04/28/2025 4:39 PM EDT - 04/28/2025 11:59 PM EDT Hospital Encounter [facility] Xray [address] [place] [phone] Chronic bilateral low back pain with bilateral sciatica Discharge Disposition: Home or Self Care 04/28/2025 3:15 PM EDT Office Visit Neurosurgery [place] 175 [facility] [address] [place] [phone] Junior Brar PA Mid back pain (Primary Dx); Chronic bilateral low back pain with bilateral sciatica from Last 3 Months Immunizations Immunization Administration Dates Next Due Influenza trivalent, 0.5mL, [...] - - Weight 118 kg (260 lb) 06/05/2025 10:16 AM EDT Height 172.7 cm (5' 8 ) 06/05/2025 10:16 AM EDT Body Mass Index 39.53 06/05/2025 10:16 AM EDT Plan of Treatment Upcoming Encounters Date Type Department Care Team (Late st Contact Info) Description 07/30/2025 3:30 PM EST Office Visit Orthopedic Surgery [facility] [address] [phone] Stephen Pop, DPM [address] [phone] Health Maintenance Due Date Last Done Comments Breast Cancer Screening 1972 Colorectal Cancer Screening: Colonoscopy 1972 Hepatitis B Vaccines (1 of 3 - 19+ 3-dose series) 1991 Cervical Cancer Screening: Pap Smear 1993 Pneumococcal Vaccine: 50+ Years (1 of 1 - PCV) 2022 Zoster Vaccines (1 of 2) 2022 HIV Screening 08/27/2022 Hepatitis C Screening 08/27/2022 Social Influencers of Health Screening 08/27/2022 Depression Screening 09/24/2024 COVID-19 Vaccine (3 - season) 2025 02/03/2021, 01/06/2021 Influenza Vaccine (#1) 2025 , 09/02/2024, 11/02/2022, Additional history exists DTaP,Tdap,and Td Vaccines (2 - Td or Tdap) 12/20/2028 12/20/2018 RSV Immunization Adult Patients (1 - 1-dose 75+ series) 2047 HIB Vaccines Aged Out No longer eligi [...] Signed Date: 06/01/2025 19:53 ET Workstation ID: [id number] Transcribed By: Self Edit Transcribed Date: 06/01/2025 [...] Signed Date: 06/01/2025 19:53 ET Workstation ID: [id number] Transcribed By: Self Edit Transcribed Date: 06/01/2025 [...] Signed Date: 06/01/2025 16:39 ET Workstation ID: [id number] Transcribed By: Self Edit Transcribed Date: 06/01/2025 [...] T5-6 as well as on the left [id number]. Paraspinal muscles are within normal limits. Visualized [...] Signed Date: 06/01/2025 16:39 ET Workstation ID: [id number] Transcribed By: Self Edit Transcribed Date: 06/01/2025 [...] spine. There is evidence of constipation. Code 58701 -------- FINAL REPORT -------- Dictated By: Kevin Hart Dictated Date: 04/29/2025 08:13 ET Assigned Physician: Kevin Hart Reviewed and Electronically Signed By: Kevin Hart Signed Date: 04/29/2025 08:16 ET Workstation ID: [id number] Transcribed By: Self Edit Transcribed Date: 04/29/2025 [...] thoracic spine. There isevidence of constipation. Code 21244 -------- FINAL REPORT -------- Dictated By: Kevin Hart Dictated Date: 04/29/2025 08:13 ET Assigned Physician: Kevin Hart Reviewed and Electronically Signed By: Kevin Hart Signed Date: 04/29/2025 08:16 ET Workstation ID: [id number] Transcribed By: Self Edit Transcribed Date: 04/29/2025 [...] fusion in the lower cervical spine. Code 78302 -------- FINAL REPORT -------- Dictated By: Kevin Hart Dictated Date: 04/29/2025 08:10 ET Assigned Physician: Kevin Hart Reviewed and Electronically Signed By: Kevin Hart Signed Date: 04/29/2025 08:13 ET Workstation ID: [id number] Transcribed By: Self Edit Transcribed Date: 04/29/2025 [...] fusion in the lower cervical spine. Code 48804 -------- FINAL REPORT -------- Dictated By: Kevin Hart Dictated Date: 04/29/2025 08:10 ET Assigned Physician: Kevin Hart Reviewed and Electronically Signed By: Kevin Hart Signed Date: 04/29/2025 08:13 ET Workstation ID: [id number] Transcribed By: Self Edit Transcribed Date: 04/29/2025 08:10 ET us Junior VALLEJO IMG XR PROCEDURES Final Resul t from Last 3 Months Insurance [facility] Care Teams Manager Market Research Relationship Specialty Start Date End Date Brielle Ruiz MD [address] [place] [address] PCP - General Internal Medicine 01/11/16
--- OUTSIDE RECORDS SUMMARY | 2025-06-26 08:54 | XMS_ITS | Clinical Summary ---
Author Organization [facility] Address [address] [facility] [address] [place] [address] Phone Care Team Providers Care Cork Insulator Helper Name Role Phone Unavailable Primary Care Provider [...] It is not the complete legal health record.[facility]
--- OUTSIDE RECORDS SUMMARY | 2025-06-26 08:54 | XMS_ITS | Patient Health Record ---
Author Organization [facility] Address [address] [place] [address] Care Team Providers Care Direct Marketing Manager Name Role Phone Joseph MARIO, Brielle Barkley Primary Care Provider Un available Angel López Unavailable [phone] Allergies Allergen (clinical drug ingredient) Drug/Non Drug [...] Status Risk Notes Problem Acquired hallux valgus (40386725) Hallux valgus (acquired), left foot (M20.12) Active confirmed Problem Achilles bursitis (754453544) Achilles tendinitis, left leg (M76.62) Active confirmed Encounters Encounter Location Date Provider Diagnosis [facility] [address] [place] [address] 03/31/2025 Angel López Plan Of Treatment No Information Insurance Providers Payer Name Payer Address Payer Phone Subscriber Number Group Number Insured Name Patient Relationship to Insured Coverage Start Date Coverage End Date [facility] [address] [place] [address] [phone] [id number] 300 Amanda Stapleton Self - patient is the insured Medical (General) History Medical History History ICD Code Anxiety Arthritis Back,Hip,and Knee pain Depression Gall bladder problems Headaches Sciatica Joint implants/screws Surgical History Surgery Date(Month/Year) Fusion C4,C5 11/2016 Fusion C5,C6,C7 02/02 section 11/24/1996 Bunionectomy B/L 1989
== END 2025-06-26 09:22 | disposition home or self-care (01) ==
LOC: HO.HOS 08:34
PROVIDERS: PCP Internal Medicine; Visit Provider Physician Assistant
DX: M17.12 Unilateral primary osteoarthritis, left knee (principal)
CPT/HCPCS: 20610; 99213

== ENCOUNTER → 2025-06-26 08:33 | Outpatient (BNVA) | payer OTHER, SELFPAY | PROVIDERS: PCP Internal Medicine; Visit Provider Physician Assistant | DX: M17.12 Unilateral primary osteoarthritis, left knee (principal); M25.562 Pain in left knee | CPT/HCPCS: 20610; 99212; J0665; J1100; J2003 ==

== ENCOUNTER 2025-07-23 08:44 | Outpatient (AMB) | payer OTHER, SELFPAY ==
--- NOTE | 2025-07-23 08:47 | A.OFFVIS_ITS ---
Vital Signs 07/23/25 08:49 Height 5 ft 8 in Weight 273 lb 5.971 oz BMI 41.6 BP 111/62 Blood Pressure Location Lt brachial Position Sitting Pulse 80 Intake Visit Reasons: I'm choking when I'm eating, and not eating Intake Note: Amanda presents in the office as a follow up that she made online. CC: she states that she chokes when she eats and drinks - she has to gasp for air when he drinks. She states that she has the feeling of burning or feeling of something stuck in her throat. She is having issues with heartburn and issues with her weight. Acute Coordinator Required: No Allergies cyclobenzaprine (From FLEXERIL) Allergy (Intermediate, Verified 07/23/25 08:50) SWELLING naproxen (NAPROXEN) Allergy (Mild, Verified 07/23/25 08:50) HEART PALPATATIONS hydrocodone Adverse Reaction (Intermediate, Verified 07/23/25 08:50) Gastrointestinal Upset milk Adverse Reaction (Intermediate, Verified 07/23/25 08:50) Gastrointestinal Upset oxycodone (From PERCOCET) Adverse Reaction (Intermediate, Verified 07/23/25 08:50) VOMITING Medication List - Last Reconciled 07/23/25 by Ethel Cook MD albuterol sulfate 90 mcg/actuation 2 puffs inhalation Q6H PRN bupropion HCl 75 mg PO ONCE cane As directed cholecalciferol (vitamin D3) 1,250 mcg PO QWEEK 3 months escitalopram oxalate 20 mg PO DAILY ferrous fumarate 324 mg PO DAILY gabapentin mg PO loratadine (Allergy Relief (loratadine)) 10 mg PO DAILY medroxyprogesterone (Provera) 10 mg PO DAILY 10 days multivitamin 1 tab PO DAILY omeprazole 20 mg PO DAILY prazosin 1 mg PO BEDTIME psyllium husk (with sugar) 3 gram/7 gram (Metamucil Free (with sugar)) 1 tbsp PO DAILY PRN sumatriptan succinate 50 mg PO Q2-4H PRN topiramate 50 mg PO BID trazodone 100 mg PO BEDTIME PRN HPI HPI I'm choking when I'm eating, and not eating: Details: GI clinic visit for this 55 YF for dysphagia and FU of colon polyps TODAY'S VISIT: Amanda presents in the office as a follow up that she made online. Pt complains of choking when she eats and drinks - she has to gasp for air when he drinks. She states that she has the feeling of burning or feeling of something stuck in her throat. She is having issues with heartburn and issues with her weight. I am choking a lot a little bit before the colonoscopy Getting frequent heartburn and using Tums more frequently Noted dysphagia with solids, followed by liquids and now even with swallowing air. Symptoms are intermittent She was drinking hot chocolate yesterday and was choking on it. Feels she was running out of air Forces herself to cough to open the pathway and breath Patient denies symptoms of nausea, vomiting. Appetite fluctuates and has been gaining weight - wt gain from 263 to 273 over 4 months Also notes constipation - takes 3 days to have a BM Denies recent black stools or rectal bleeding. Patient denies major cardiac or pulmonary problems, loud snoring or sleep apnea Was checked a year ago and was toled she did not have sleep apnea Denies problems with anesthesia in the past. Denies being on chronic anticoagulation. SOCIAL HISTORY: - Alcohol/Tobacco/Drug Use: Denies - Occupation: Worked at the [employer] and now on disability (Migraine HAs with TIAs) FAMILY HISTORY: Patient denies known family history of colon polyps, colon cancer or other GI malignancies. GM of a renal attack LABS IN [place] : Reviewed IMAGING STUDIES: Reviewed ENDOSCOPIC STUDIES: 02/2025 FLEXIBLE SIGMOIDOSCOPY SHOWED: Polypectomy site visualized with residual polypoidal tissue - removed with a stiff hot snare. Moderate diverticulosis seen in the sigmoid colon Moderate hemorrhoids on retroflexed exam. Plan: Repeat Colonoscopy in 3 years if polyps are adenomatous and due to history of adenomatous colon polyps Above findings were reviewed with the patient and relevant handouts were given and the discharge area. Letter sent to the patient with biopsy results. Patient was placed on the colonoscopy recall list for repeat colonoscopy in 3 years. COUNT INCLUDES THE [facility] Medical History Endometrial thickening on ultrasound Iron deficiency anemia Vitamin D deficiency Numbness and tingling of both lower extremities Left anterior knee pain Achilles tendinitis of left lower extremity Intractable left heel pain Acquired deformity of toenail Migraines Heel spur Snoring Encounter for screening colonoscopy Cervical spondylosis Complicated migraine Left-sided weakness Brain TIA Eczema of lower extremity Anxiety and depression Normocytic normochromic anemia Heavy menstrual bleeding Bulging of lumbar intervertebral disc Left ankle pain Constipation Obesity (BMI 30-39.9) Navel cellulitis Hallux valgus (acquired) Degenerative disc disease, cervical History of gallstones Impaired fasting glucose Depression Surgical History Hx of colonoscopy History of esophagogastroduodenoscopy (EGD) Status post section History of bilateral tubal ligation History of bunionectomy of both great toes History of laparoscopic cholecystectomy History of cervical discectomy History of bunionectomy Family History Mother Hypertension Depression Diabetes mellitus Hypercholesteremia SUZIE (obstructive sleep apnea) COPD (chronic obstructive pulmonary disease) Substance use disorder Mental health disorder Sister Breast cancer Uterine cancer Mental health disorder Maternal Grandmother Mental health disorder Maternal Aunt Mental health disorder Social History Housing: Apartment Are you a primary workforce investment act career manager to a significant other at home: No Do you presently have visiting nurse or other home services: No Alcohol intake: never Patient Tobacco Use Status: Never used Tobacco e-Cigarette/Vaping Use: Never Used service: No Current occupational status: unemployed Cognitive needs: No Hearing needs: No Vision needs: Yes Review of Systems Const All systems reviewed & are unremarkable except as noted in HPI and below Physical Exam Vital Signs: Last Vital Signs Pulse 80 07/23/25 08:49 BP 111/62 07/23/25 08:49 BMI result Body Mass Index 41.6 Const General: no acute distress Nutritional Appearance: obese Orientation/consciousness: patient oriented x3 Limitations: ambulation with cane HEENT Head: Yes normal to inspection Ears: hearing grossly normal bilaterally Eyes Sclerae: sclerae normal Pupils: Equal, round and reactive pupils present Neck Neck: Yes normal visual inspection Chest Chest palpation & inspection: normal inspection of the chest Resp Effort & Inspection: normal respiratory effort Auscultation: clear to auscultation bilaterally Cardio Palpation: normal PMI Rate: regular rate Rhythm: regular rhythm Heart sounds: S1 normal heart sound present, S2 normal heart sound present and no murmurs GI Palpation (GI): Soft to palpation, nontender and No hepatosplenomegaly present Auscultation: normal bowel sounds Rectal Exam - Female: deferred Skin General skin exam: no rashes or lesions noted Neuro General: patient oriented x3, gait normal and moves all extremities Cranial nerves: Yes Equal, round and reactive pupils present Psych Appearance: grossly normal Mental Status: mental status grossly normal Assessment & Plan Assessment & Plan (1) Chronic constipation: Code(s): K59.09 - Other constipation Category: Medical (2) Dysphagia: Code(s): R13.10 - Dysphagia, unspecified Category: Medical Plan 55-year-old female with history of iron deficiency anemia, depression/anxiety, PTSD and hx of adenomatous colon polyps Pt seen today for evaluation of frequent heartburn and dysphagia - complains of choking when she eats and drinks - she has to gasp for air when he drinks. She states that she has the feeling of burning or feeling of something stuck in her throat. Dysphagia can be due to GERD with esophageal spasm, erosive esophagitis, esophageal stricture or Schatzki's ring or EOE Patient was advised to schedule an urgent upper endoscopy - scheduled on 07/24/25. EGD procedure and potential complications were reviewed with the patient. Follow-up in 6 weeks. Orders: Referrals GI Procedure Notification R13.10 - Dysphagia, unspecified Coding Level of Care Code Est Pt Level 4 (93995) Diagnoses Chronic constipation K59.09 Dysphagia R13.10 Time Spent (min) 21
[2025-07-23 08:49] VITALS: BP 111/62; PULSE 80; BMI 41.6
--- OUTSIDE RECORDS SUMMARY | 2025-07-23 09:35 | XMS_ITS | Clinical Summary ---
Author Organization [facility] Address [address] [place] [id number] Phone Care Team Providers Care Driver Medic Name Role Phone Unavailable Primary Care Provider [...] It is not the complete legal health record.[facility]
--- OUTSIDE RECORDS SUMMARY | 2025-07-23 09:35 | XMS_ITS | Clinical Summary ---
Author Organization [facility] Address [address] [place] [address] Phone Care Team Providers Care Sorority Mother Name Role Phone Brielle Ruiz MD Primary [...] from May [address] Reeves at [facility]. This did reveal a mixed [...] & Plan (06/05/2025 10:36 AM EDT): Ms. Stapleton continues with right greater than left mid back pain. It is not incapacitating but not insignificant. She does get some relief when laying flat and she tries to sleep that way. Her MRI of the thoracic spine from [facility] dated May 29, 2025 revealed exaggerated thoracic kyphosis with a levoconvex thoracic scoliosis and multilevel degenerative disc and facet changes without significant foraminal or spinal canal stenosis. I explained that there was nothing surgical and that she could continue with conservative treatments including physical therapy, acupuncture, care trainer, and yoga. Assessment & Plan (04/28/2025 4:32 [...] Description 06/05/2025 10:00 AM EDT Office Visit [facility] [address] [phone] Junior Brar PA Mid back pain (Primary Dx); Chronic bilateral low back pain with bilateral sciatica; Peripheral polyneuropathy 06/05/2025 Telephone Neurosurgery [address] [address] Junior Brar PA 05/29/2025 7:50 AM EDT - 05/29/2025 11:59 PM EDT Hospital Encounter [facility] MRI [address] [place] [address] Chronic bilateral low back pain with bilateral sciatica Discharge Disposition: Home or Self Care 05/29/2025 7:45 AM EDT - 05/29/2025 11:59 PM EDT Hospital Encounter [facility] MRI [address] [place] [address] Mid back pain Discharge Disposition: Home or Self Care 05/01/2025 Telephone Neurosurgery [facility] [address] [address] Junior Brar PA 04/28/2025 4:40 PM EDT - 04/28/2025 11:59 PM EDT Hospital Encounter [facility] Xray [address] [place] [address] Mid back pain Discharge Disposition: Home or Self Care 04/28/2025 4:39 PM EDT - 04/28/2025 11:59 PM EDT Hospital Encounter [facility] Xray [address] [place] [phone] Chronic bilateral low back pain with bilateral sciatica Discharge Disposition: Home or Self Care 04/28/2025 3:15 PM EDT Office Visit Neurosurgery [place] [facility] [address] [facility] [address] [place] [phone] Junior Brar PA Mid back pain (Primary [...] 3:30 PM EST Office Visit Orthopedic Surgery [facility] [address] [facility] [address] [place] [phone] Stephen Pop, DPM [address] [place] [address] Health Maintenance Due Date Last Done Comments [...] Signed Date: 06/01/2025 19:53 ET Workstation ID: [id number] Transcribed By: Self Edit Transcribed Date: 06/01/2025 [...] Signed Date: 06/01/2025 19:53 ET Workstation ID: [id number] Transcribed By: Self Edit Transcribed Date: 06/01/2025 [...] Signed Date: 06/01/2025 16:39 ET Workstation ID: [id number] Transcribed By: Self Edit Transcribed Date: 06/01/2025 [...] T5-6 as well as on the left [id number]. Paraspinal muscles are within normal limits. Visualized [...] Signed Date: 06/01/2025 16:39 ET Workstation ID: [id number] Transcribed By: Self Edit Transcribed Date: 06/01/2025 [...] spine. There is evidence of constipation. Code 87670 -------- FINAL REPORT -------- Dictated By: Kevin Hart Dictated Date: 04/29/2025 08:13 ET Assigned Physician: Kevin Hart Reviewed and Electronically Signed By: Kevin Hart Signed Date: 04/29/2025 08:16 ET Workstation ID: [id number] Transcribed By: Self Edit Transcribed Date: 04/29/2025 [...] thoracic spine. There isevidence of constipation. Code 40698 -------- FINAL REPORT -------- Dictated By: Kevin Hart Dictated Date: 04/29/2025 08:13 ET Assigned Physician: Kevin Hart Reviewed and Electronically Signed By: Kevin Hart Signed Date: 04/29/2025 08:16 ET Workstation ID: [id number] Transcribed By: Self Edit Transcribed Date: 04/29/2025 [...] fusion in the lower cervical spine. Code 04646 -------- FINAL REPORT -------- Dictated By: Kevin Hart Dictated Date: 04/29/2025 08:10 ET Assigned Physician: Kevin Hart Reviewed and Electronically Signed By: Kevin Hart Signed Date: 04/29/2025 08:13 ET Workstation ID: [id number] Transcribed By: Self Edit Transcribed Date: 04/29/2025 [...] fusion in the lower cervical spine. Code 73064 -------- FINAL REPORT -------- Dictated By: Kevin Hart Dictated Date: 04/29/2025 08:10 ET Assigned Physician: Kevin Hart Reviewed and Electronically Signed By: Kevin Hart Signed Date: 04/29/2025 08:13 ET Workstation ID: [id number] Transcribed By: Self Edit Transcribed Date: 04/29/2025 08:10 ET us Junior VALLEJO IMG XR PROCEDURES Final Resul t from Last 3 Months Insurance [facility] Care Teams Sorority Mother Relationship Specialty Start Date End Date Brielle Ruiz MD [address] [place] [address] PCP - General Internal Medicine 01/11/16
--- OUTSIDE RECORDS SUMMARY | 2025-07-23 09:36 | XMS_ITS | Patient Health Record ---
[facility] Address [address] [place] [address] Care Team Providers Care Re Etcher Name Role Phone Joseph MARIO, Brielle Barkley Primary Care Provider Un available Angel López Unavailable [phone] Allergies Allergen (clinical drug ingredient) Drug/Non Drug [...] Status Risk Notes Problem Acquired hallux valgus (00300036) Hallux valgus (acquired), left foot (M20.12) Active confirmed Problem Achilles bursitis (655164382) Achilles tendinitis, left leg (M76.62) Active confirmed Encounters Encounter Location Date Provider Diagnosis [facility] [place] [address] [place] [address] 03/31/2025 Angel López Plan Of Treatment No Information Insurance Providers Payer Name Payer Address Payer Phone Subscriber Number Group Number Insured Name Patient Relationship to Insured Coverage Start Date Coverage End Date [facility] [address] [place] [address] [phone] [id number] Amanda Stapleton Self - patient is the insured Medical (General) History Medical History History ICD Code Anxiety Arthritis Back,Hip,and Knee pain Depression Gall bladder problems Headaches Sciatica Joint implants/screws Surgical History Surgery Date(Month/Year) Fusion C4,C5 11/2016 Fusion C5,C6,C7 02/02 section 11/24/1996 Bunionectomy B/L 1989
== END 2025-07-23 09:40 | disposition home or self-care (01) ==
LOC: HO.HGI 08:45
PROVIDERS: PCP Internal Medicine; Visit Provider Internal Medicine Gastroenterology
DX: K59.09 Other constipation (principal); R13.10 Dysphagia, unspecified
CPT/HCPCS: 99214

== ENCOUNTER → 2025-07-23 08:44 | Outpatient (BNVA) | payer OTHER, SELFPAY | PROVIDERS: PCP Internal Medicine; Visit Provider Internal Medicine Gastroenterology | DX: K59.09 Other constipation (principal); R13.10 Dysphagia, unspecified | CPT/HCPCS: 99212 ==

== ENCOUNTER 2025-07-24 12:12 | Day surgery (SDC) | payer OTHER, SELFPAY ==
[2025-07-24 13:03] VITALS: BMI 41.7
--- NOTE | 2025-07-24 13:22 | MHC.SHP ---
Pre-Procedural Eval Section A - 24 Hr Update-Section A only Date of Service: 07/24/25 The patient is an INPATIENT: No Changes since office visit: Yes Patient answered all questions; No Cold of Flu in the past 2 weeks, No New Medical Problems and No Changes in Medication The patient has been examined within 24 hours of the surgical procedure. The History & Physical has been completed within 30 days and I have reviewed it.: Yes Section B - Complete if H&P > 30 days Chief Complaint: Dysphagia, unspecified Allergies: Allergies Allergy/AdvReac Type Severity Reaction Status Date / Time cyclobenzaprine (From Allergy Intermediate SWELLING Verified 07/24/25 13:13 FLEXERIL) naproxen (NAPROXEN) Allergy Mild HEART Verified 07/24/25 13:13 PALPATATIONS hydrocodone AdvReac Intermediate Gastrointestinal Verified 07/24/25 13:13 Upset milk AdvReac Intermediate Gastrointestinal Verified 07/24/25 13:13 Upset oxycodone (From PERCOCET) AdvReac Intermediate VOMITING Verified 07/24/25 13:13 Plan Diagnosis/Plan: Unchanged I have reviewed the history and physical and performed a pertinent physical examination on my patient. No changes have occurred unless specified. Time Spent With Patient Time: Total time managing care of this patient today ____ minutes.
[2025-07-24 13:28] VITALS: BP 110/66; PULSE 81; RESP 21; TEMP 36.8; O2SAT 98
[2025-07-24] MEDS: Lactated Ringers 1,000 ML 100 ML IVCONT (13:37)
--- NOTE | 2025-07-24 13:56 | HO.ANESPROP2 ---
[facility], [facility] Active Problems Active Problems: All Active Problems (Updated 07/24/25 @ 13:38 by Trisha Muller RN) Dysphagia (Acute) Complex ovarian cyst (Acute) Osteoarthritis of left knee (Acute) Uterine myoma (Acute) Calcific Achilles tendinitis of right lower extremity (Acute) Chronic constipation (Acute) Hirsutism (Acute) Abnormal uterine bleeding (AUB) (Acute) Dysmenorrhea (Acute) Endometrial thickening on ultrasound (Acute) Iron deficiency anemia (Acute) Vitamin D deficiency (Acute) Numbness and tingling of both lower extremities (Acute) Left anterior knee pain (Acute) Achilles tendinitis of left lower extremity (Acute) Acquired deformity of toenail (Acute) Heel spur (Acute) Complicated migraine (Acute) Anxiety and depression (Acute) Heavy menstrual bleeding (Acute) Bulging of lumbar intervertebral disc (Acute) Obesity (BMI 30-39.9) (Acute) Degenerative disc disease, cervical (Acute) Impaired fasting glucose (Acute) Depression (Acute) Past Medical History Medical History History of prediabetes Hx of osteoarthritis Endometrial thickening on ultrasound Iron deficiency anemia Vitamin D deficiency Numbness and tingling of both lower extremities Left anterior knee pain Achilles tendinitis of left lower extremity Intractable left heel pain Acquired deformity of toenail Migraines Heel spur Snoring Encounter for screening colonoscopy Cervical spondylosis Complicated migraine Left-sided weakness Brain TIA Eczema of lower extremity Anxiety and depression Normocytic normochromic anemia Heavy menstrual bleeding Bulging of lumbar intervertebral disc Left ankle pain Constipation Obesity (BMI 30-39.9) Hallux valgus (acquired) Degenerative disc disease, cervical History of gallstones Impaired fasting glucose Depression Family History Family History Mother Hypertension Depression Diabetes mellitus Hypercholesteremia SUZIE (obstructive sleep apnea) COPD (chronic obstructive pulmonary disease) Substance use disorder Mental health disorder Sister Breast cancer Uterine cancer Mental health disorder Maternal Grandmother Mental health disorder Maternal Aunt Mental health disorder Family history of problems with anesthesia: No Surgical History Surgical History Hx of cystoscopy Hx of colonoscopy History of esophagogastroduodenoscopy (EGD) Status post section History of bilateral tubal ligation History of bunionectomy of both great toes History of laparoscopic cholecystectomy History of cervical discectomy History of bunionectomy History of Problems with Anesthesia: No Social History Social History Housing: Apartment Are you a primary care consultant to a significant other at home: No Do you presently have visiting nurse or other home services: No Alcohol intake: never Patient Tobacco Use Status: Never used Tobacco e-Cigarette/Vaping Use: Never Used Use of substances other than those prescribed or required for medical reasons: No Are you DNR?: No Advance Directives: No Advance Directives Information Provided: Yes service: No Current occupational status: unemployed Cognitive needs: No Hearing needs: No Vision needs: Yes Meds Allergies Allergy/AdvReac Type Severity Reaction Status Date / Time cyclobenzaprine (From Allergy Intermediate SWELLING Verified 07/24/25 13:13 FLEXERIL) naproxen (NAPROXEN) Allergy Mild HEART Verified 07/24/25 13:13 PALPATATIONS hydrocodone AdvReac Intermediate Gastrointestinal Verified 07/24/25 13:13 Upset milk AdvReac Intermediate Gastrointestinal Verified 07/24/25 13:13 Upset oxycodone (From PERCOCET) AdvReac Intermediate VOMITING Verified 07/24/25 13:13 Active Medications: Current Medications Lactated Ringer's (Lr) 1,000 mls @ 100 mls/hr IVCONT .Q10H HERSON Last Admin: 07/24/25 13:37 Dose: 100 mls/hr Home Medications ?Medication ?Instructions ?Recorded ?Confirmed ?Last Taken ?Type multivitamin 1 tab PO DAILY 12/12/22 07/24/25 12/12/22 History topiramate 50 mg tablet 50 mg PO BID 12/17/23 07/24/25 07/24/25 07:00 History prazosin 1 mg capsule 1 mg PO BEDTIME 06/30/24 07/24/25 Unknown History trazodone 50 mg tablet 100 mg PO BEDTIME PRN Insomnia 06/30/24 07/24/25 Unknown History loratadine 10 mg tablet (Allergy 10 mg PO DAILY 10/08/24 07/24/25 Unknown History Relief (loratadine)) bupropion HCl 75 mg tablet 75 mg PO ONCE 04/06/25 07/24/25 Unknown History gabapentin 300 mg capsule 300 mg PO TID 06/26/25 07/24/25 07/24/25 07:00 History escitalopram oxalate 20 mg tablet 20 mg PO DAILY 07/23/25 07/24/25 Unknown History Exam Height,Weight and Vital Signs: Height 5 ft 8 in Weight 124.4 kg Last Vital Signs Temp 98.3 F 07/24/25 13:28 Pulse 81 07/24/25 13:28 Resp 21 H 07/24/25 13:28 BP 110/66 07/24/25 13:28 Pulse Ox 98 07/24/25 13:28 O2 Del Method Room Air 07/24/25 13:28 Airway Mallampati Class: II TM Dist: >3cm Neck ROM: Full Loose/Missing/Broken Teeth: No Heart: RRR Lungs: CTA Assessment and Plan Assessment Anesthesia Assessment: Anesthesia Plan Discussed and Chart Reviewed Final Anesthetic Review Family History of Problems with Anesthesia: No History of Problems with Anesthesia: No NPO: Yes ASA Class: III Final Preanesthetic Review: Meds/Allgs Chart Reviewed, Consent Obtained/Reviewed and Anes Risks/Benef Reviewed Patient Risk: Intermediate Procedure Risk: Intermediate Anesthetic Plan Anesthetic Plan: MAC: Disposition: Standard PACU
--- NOTE | 2025-07-24 14:35 | P.OP_ITS ---
Operative Note Operative Note Date of Service: 07/24/25 Narrative: FLEXIBLE TRANSORAL UPPER GASTROINTESTINAL ENDOSCOPY WITH BIOPSIES Pre-op diagnosis: GERD, Dysphagia Post-op diagnosis: GERD, Gastritis, erosive esophagitis Endoscopist:? Ethel Cook MD Anesthesia:?MAC UPPER ENDOSCOPY Consent: Indications for the procedure and potential complications of bleeding, perforation, reaction to medications and missed diagnosis were discussed with the patient and informed consent was obtained. Instrument: Olympus GIF H 190 mid size upper endoscope Monitoring: Vital signs and clinical assessment, continuous EKG monitoring, Pulse oximetry, Carbon Dioxide monitoring and blood pressure monitoring were done throughout the procedure. Procedure: The patient was placed in the left lateral decubitis position and pre-procedure medications were administered and a bite block was placed. The endoscope was inserted into the mouth and advanced under direct vision to the third part of duodenum. A careful inspection was made as the upper endoscope was withdrawn including a retroflexed examination of the proximal stomach; Findings and interventions are described below. Findings: Larynx: Normal Esophagus: GE junction at 35 cms. Mildly tortuous esophagus without stricture or ring. Severe erosive esophagitis (LA Grade C) with linear ulcers and erosions from 30- 35 cms Biopsies were obtained from proximal and distal esophagus to check for EOE Stomach: Mild gastric antral erythema - biopsies were obtained from the antrum. Grade 2 flap valve on retroflexed examination of the cardia. Duodenum: Normal bulb and descending duodenum. Biopsies were obtained from 3rd part of the duodenum to check for celiac sprue Intervention: Biopsies as noted above Impression and Post Procedure Diagnosis: Endoscopy Findings: ESOPHAGUS: Severe erosive esophagitis (LA Grade C) with linear ulcers and erosions from 30-35 cms STOMACH: Mild antral gastritis DUODENUM: Normal - biopsied to check for celiac sprue. Dysphagia is likely due to severe GERD with erosive esophagitis since no stricture was visualized Plan: I will contact the patient for with biopsy results. Pt advised to increase Omerazole to 20 mg twice daily and take simethicone 3 to 4 times a day p.r.n. for heartburn and abdominal bloating. Pt advised to call my office if symptoms do not improve in the next 1-2 weeks Repeat EGD in 3-4 months to confirm esophagitis has healed. Above findings were reviewed with the patient and relevant handouts were given and the discharge area.
[2025-07-24 14:37] VITALS: BP 98/50; PULSE 81; RESP 16; TEMP 36.3; O2SAT 95
[2025-07-24 15:01] VITALS: BP 108/83; PULSE 86; RESP 16; TEMP 36.1; O2SAT 95
== END 2025-07-24 15:32 | disposition home or self-care (01) ==
PROVIDERS: PCP Internal Medicine; Visit Provider Internal Medicine Gastroenterology
PROC: 0DJ08ZZ Inspection of Upper Intestinal Tract, Via Natural or Artificial Opening Endoscopic (ICD-10-PCS; CPT 43235; principal; 2025-07-24 13:40)
DX: R13.10 Dysphagia, unspecified (principal); K21.00 Gastro-esophageal reflux disease with esophagitis, without bleeding; K29.70 Gastritis, unspecified, without bleeding
CPT/HCPCS: 43239; 88305; 88313; J2704

== ENCOUNTER → 2025-07-24 12:12 | Outpatient (BNV) | payer OTHER, SELFPAY | PROVIDERS: PCP Internal Medicine; Visit Provider Internal Medicine Gastroenterology | DX: R13.10 Dysphagia, unspecified (principal); K21.00 Gastro-esophageal reflux disease with esophagitis, without bleeding; K29.70 Gastritis, unspecified, without bleeding | CPT/HCPCS: 43239 ==

== ENCOUNTER 2025-08-18 15:00 | Outpatient (REF) | payer OTHER, SELFPAY ==
--- OUTSIDE RECORDS SUMMARY | 2025-08-11 09:00 | XMS_ITS | Continuity of Care Document ---
Author Organization [facility] Address [address] [place] [address] Phone Care Team Providers Care Street Cleaner Name Role Phone Suman MARIO, RVT, RPJOHANNA, Kenneth Unavailable U navailable Allergies, Adverse Reactions, Alerts Substance Reaction Status Criticality No Known Allergies Active No Inform ation Procedures Procedure Date Duplex Scan-extrem Veins; Uni/ CT & [place] N Duplex Scan-extrem Veins; Uni/ CT & [place] N Ultrason Guidan Needle Bx-rad- CT & [place] N Inj Sclerosing Solution; Sngl- CT & [place] N Inj Scleros Solut; Mx Veins 1- CT & MA N Ultrason Guidan Needle Bx-rad- CT & MA N Offic/outpt E&m Estab 5 Min Trial- Telem edicine CT & [place] Offic Cons New/estab Low 30 Mi- CT & [place] Surgical Stockings CVR Reveal Knee High 20- Duplex Scan-extrem Veins; Comp- CT & [place] Advance Directives Directive Yes / No Effective Date File Name No Information Encounters Encounter Description Practice Location Reason(s) For Visit Diagnoses Date Provider Providers Copied on Encounter [facility], [address], [place], [id number], [place] tel:[phone] CVR - [facility] Encounter for follow-up examination after completed treatment for conditions other than malignant neoplasmVaric ose veins of left lower extremity with pain 5 Suman MARIO, KITTY, WALTER Cooper. [address] [place] [address], [place] [address], [place], [id number], [place]. tel:[phone] Referring Provider: Kenneth Will MD, KITTY, WALTER, [address] [place] [address] [address], [place], [address] . tel:[phone] [facility], [address] [place] [address] [facility] [address], [id number], [place] tel:[phone] CVR [facility] Encounter for follow-up examination after completed treatment for conditions other than malignant neoplasmChron ic venous hypertension (idiopathic) with other complications of right lower extremity 5 Suman MARIO RVT, WALTER Cooper. [address] [place] [address], [place] [address], [place], [id number], [place]. tel:[phone] Referring Provider: Kenneth Will MD, KITTY, WALTER, [address] [place] [address] Suite [facility], [place], [address] . tel:[phone] [facility], [address] [place] [address] [facility] [address], [id number], [place] tel:[phone] [facility] venous hypertension (idiopathic) with inflammation of left lower extremity 5 Heather Reilly. [address] [place] [address], [place], [id number], [place]. tel:[phone] Referring Provider: Melba Romero NP, [address] [place] [address] Suite [facility], [place], [address] . tel:[phone] [facility], [address] [place] [address] [facility] [address], [id number], [place] tel:[phone] CVR - [facility] Chronic venous hypertension (idiopathic) with inflammation of right lower extremity 5 Heather Reilly. [address] [place] [address] [address], [facility] [place], [id number], [place]. tel:[phone] Referring Provider: Melba Romero DINING ROOM ATTENDANT, [address] [place] [address], [place], [address] . tel:[phone] [facility], [address] [place] [address] [address] [address], [place], [id number], [place] tel:[phone] CVR - [place] [facility] No Information 5 Suman MARIO, RVT, RPJOHANNA Cooper. [address] [place] [address], [place]usty [place], [id number], [place]. tel:[phone] Offic/outpt E&m Estab 5 Min Trial- Telemedicine CT & [place] [facility], [address] [place] [address] [facility] [address] [address], [place], [id number], [place] tel:[phone] CVR [place] [facility] [place] Restless legs syndromeVenou s insufficiency (chronic) (peripheral)P ruritus, unspecifiedLo calized edema Jun- 5 Lizz Garcia. [address] [place] [address] [address], [place], [id number], [place]. tel:[phone] Referring Provider: Brielle Barkley, [address] [place] [address], [place], [address]. tel:[phone] Offic Cons New/estab Low 30 Mi- CT & [place] [facility], [address] [place] [address] [address], [place], [id number], [place] tel:[phone] CVR - [place] [facility] [place] Pain in right lower legPain in left lower legPain in right legPain in left legRestless legs syndromePruri tus, unspecifiedLo calized edema 5 Wu [place]. [address] [facility], [address], [place], [place], [id number], [place]. tel:[phone] Referring Provider: Brielle Barkley, [address] [facility] [address] [facility], [place], [address]. tel:[phone] [facility], [address], [place], [id number], [place] tel:[phone] [facility] Chronic venous hypertension (idiopathic) with other complications of bilateral lower extremity April Miller. [address] [place] [address], [address], [place], [place], [id number], [place]. tel:[phone] Referring Provider: Angela Chen, [address] [place] [address] [address], [place], [address] . tel:[phone] Family History Family Member Type Diagnosis Age At Onset No Information Payers Payer name Insurance type Covered democrat ID Authorraine allan(s) [facility] [id number] Social History Type Description Quantity Date Captured Comments Sex Female Smoking Status No Information Chief Complaint And Reason For Visit No [...] Information Instructions Date Instruction Additional Infor mation Patient education booklet given Related to Localized edema Pre and post instruc tions reviewed and provided Related to Localized edema Diet education Related to Body mass index [...]
--- NOTE | ~2025-08-18 | MM_ITS ---
EXAMINATION: MM SCREENING DIGITAL BREAST TOMOSYNTHESIS, BILATERAL CLINICAL INFORMATION: Screening. Asymptomatic. COMPARISON: Comparison made to multiple prior, most recent August 12, 2024, and most remote October 04, 2017. TECHNIQUE: Digital breast tomosynthesis is performed in mediolateral oblique and craniocaudal views along with computer-aided detection (CAD). Synthesized 2D images are generated from the tomosynthesis. FINDINGS: BREAST COMPOSITION: The breasts are heterogeneously dense, which may obscure small masses. BILATERAL BREASTS: No significant masses, suspicious calcifications or other abnormalities are seen in either breast. MM/MM tomosynthesis screening BI IMPRESSION: BILATERAL BREASTS: Negative, no mammographic evidence of malignancy. Normal interval follow-up is recommended in 12 months. ASSESSMENT: BI-RADS: Category 1: Negative RECOMMENDATION: Routine annual mammography screening. FOLLOW-UP: 1 year F/U This examination should not preclude the clinical evaluation of a suspicious palpable abnormality. This patient's information was entered into a reminder system with a target due date for their next mammogram. Electronically signed by: Krishna Ye MD 08/19/2025 07:21 PM MARCK
--- OUTSIDE RECORDS SUMMARY | 2025-08-18 18:43 | XMS_ITS | Patient Health Record ---
Author Organization [facility] Address [address] [place] [address] Care Team Providers Care Caster Operator Name Role Phone Joseph MARIO, Brielle Barkley Primary Care Provider Un available Angel López Unavailable [phone] Allergies Allergen (clinical drug ingredient) Drug/Non Drug [...] Status Risk Notes Problem Acquired hallux valgus (37467322) Hallux valgus (acquired), left foot (M20.12) Active confirmed Problem Achilles bursitis (926939803) Achilles tendinitis, left leg (M76.62) Active confirmed Encounters Encounter Location Date Provider Diagnosis [facility] [place] [address] [place] [address] 03/31/2025 Angel López Plan Of Treatment No Information Insurance Providers Payer Name Payer Address Payer Phone Subscriber Number Group Number Insured Name Patient Relationship to Insured Coverage Start Date Coverage End Date [facility] [address] [place] [address] [phone] [id number] Amanda Stapleton Self - patient is the insured Medical (General) History Medical History History ICD Code Anxiety Arthritis Back,Hip,and Knee pain Depression Gall bladder problems Headaches Sciatica Joint implants/screws Surgical History Surgery Date(Month/Year) Fusion C4,C5 11/2016 Fusion C5,C6,C7 02/02 section 11/24/1996 Bunionectomy B/L 1989
--- OUTSIDE RECORDS SUMMARY | 2025-08-18 18:43 | XMS_ITS | Clinical Summary ---
Author Organization [facility] Address [address] [place] [address] Phone Care Team Providers Care Civil Preparedness Officer Name Role Phone Unavailable Primary Care Provider [...] It is not the complete legal health record.[facility]
--- OUTSIDE RECORDS SUMMARY | 2025-08-18 18:43 | XMS_ITS | Clinical Summary ---
Author Organization [facility] Address [address] [place] [address] Phone Care Team Providers Care Political Aide Name Role Phone Brielle Ruiz MD Primary [...] daily 90 each 2 09/21/20 25 Active Hospital, Clinic, or Other Facility Administered Medication Ordered Dose Route Frequency Start Date End Date Status lidocaine (PF) (XYLOCAINE-MPF) 1 % injection 0.5 mLIndications:Achill es tendinitis, left leg .5 mL Once PRN Procedure 07/30/2025 07/30/2025 Ended triamcinolone acetonide (KENALOG-40) 40 mg/mL injection 20 mgIndications:Achill es tendinitis, left leg 20 mg Once PRN Procedure 07/30/2025 07/30/2025 Ended Active Problems Problem Noted Date Diagnosed Date Chronic bilateral low back pain with bilateral s ciatica 04/28/2025 Assessment & Plan (06/05/2025 10:41 AM EDT): Ms. Morris continues with low back pain into the [...] from May [address] Reeves at [facility]. This did reveal a mixed sensory and [...] & Plan (04/28/2025 4:34 PM EDT): Ms. Morris describes worsening low back pain with radiation [...] Overview (10/07/2024): Last Assessment & Plan: Ms. Morris describes significant mid back pain that radiates [...] & Plan (06/05/2025 10:36 AM EDT): Ms. Morris continues with right greater than left mid back pain. It is not incapacitating but not insignificant. She does get some relief when laying flat and she tries to sleep that way. Her MRI of the thoracic spine from [facility] dated May 29, 2025 revealed exaggerated thoracic kyphosis with a levoconvex thoracic scoliosis and multilevel degenerative disc and facet changes without significant foraminal or spinal canal stenosis. I explained that there was nothing surgical and that she could continue with conservative treatments including physical therapy, acupuncture, manager care, and yoga. Assessment & Plan (04/28/2025 4:32 PM EDT): Ms. Morris describes worsening mid back pain between her [...] from the CT in detail with Ms. Morris and suspect that she has cord compression [...] Encounters Date Type Department Care Team Description 07/30/2025 3:30 PM EST Office Visit Orthopedic Surgery [facility] [address] [facility] [address] [place] [phone] Stephen Pop DPM Achilles tendinitis, left leg (Primary Dx); Dermatophytosis of nail 06/05/2025 10:00 AM EDT Office Visit Neuro[facility] [address] [phone] Junior Brar PA Mid back pain (Primary Dx); Chronic bilateral low back pain with bilateral sciatica; Peripheral polyneuropathy 06/05/2025 Telephone [facility]surgery [facility] [address] [phone] Junior Brar PA 05/29/2025 7:50 AM EDT - 05/29/2025 11:59 PM EDT Hospital Encounter [facility] MRI [address] [place] [id number] Chronic bilateral low back pain with bilateral sciatica Discharge Disposition: Home or Self Care 05/29/2025 7:45 AM EDT - 05/29/2025 11:59 PM EDT Hospital Encounter [facility] MRI [address] [place] [address] Mid back pain Discharge Disposition: Home or Self Care from Last 3 Months Immunizations Immunization Administration [...] Care Team (Late st Contact Info) Description 08/31/2025 3:15 PM EST Office Visit Orthopedic Surgery - Mobile [address] [address] Stephen Pop, DPM [address] [address] Health Maintenance Due Date Last [...] Procedure Name Priority Date/Time Associated Diagnosis Comments INJECTION TENDON OR LIGAMENT Routine 07/30/2025 3:30 PM EST Achilles tendinitis, left leg MR LUMBAR SPINE WO CONTRAST Routine 05/29/2025 9:17 AM EDT Chronic bilateral low back pain with bilateral sciatica MR THORACIC SPINE WO CONTRAST Routine 05/29/2025 9:10 AM EDT Mid back pain from Last 3 Months Results * Injection tendon or ligament (07/30/2025 3:30 PM EST) Stephen Feliciano DPM - 07/30/2025 3:30 PM EST Stephen Pop DPM 07/30/2025 5:41 PM Injection tendon or ligament Indications: pain Details: 25 G needle Medications: 0.5 mL lidocaine (PF) 1 %; 20 mg triamcinolone acetonide 40 mg/mL Informed Consent: Site: Foot ligament tendon us Stephen Pop DPM IN CLINIC/BEDSIDE ORDERAB LES Final Result * MR Lumbar Spine wo Contrast (05/29/2025 [...] Signed Date: 06/01/2025 19:53 ET Workstation ID: [id number] Transcribed By: Self Edit Transcribed Date: 06/01/2025 [...] Signed Date: 06/01/2025 19:53 ET Workstation ID: [id number] Transcribed By: Self Edit Transcribed Date: 06/01/2025 [...] Signed Date: 06/01/2025 16:39 ET Workstation ID: [id number] Transcribed By: Self Edit Transcribed Date: 06/01/2025 [...] T5-6 as well as on the left obA61-22. Paraspinal muscles are within normal limits. Visualized [...] Signed Date: 06/01/2025 16:39 ET Workstation ID: [id number] Transcribed By: Self Edit Transcribed Date: 06/01/2025 16:18 ET Junior VALLEJO IMG MRI PROCEDURES Final Resu lt from Last 3 [place] [id number] [facility] Care Teams Political Aide Relationship Specialty Start Date End Date Brielle Ruiz MD [address] [place] [address] PCP - General Internal Medicine 01/11/16
== END 2025-08-18 15:01 | disposition home or self-care (01) ==
LOC: HO.MAMMO 15:00
PROVIDERS: PCP Internal Medicine; Visit Provider Internal Medicine
DX: Z12.31 Encounter for screening mammogram for malignant neoplasm of breast (principal)
CPT/HCPCS: 77063; 77067

== ENCOUNTER → 2025-08-18 15:00 | Outpatient (BNV) | payer OTHER, SELFPAY | PROVIDERS: PCP Internal Medicine; Visit Provider Radiology Body Imaging | DX: Z12.31 Encounter for screening mammogram for malignant neoplasm of breast (principal) | CPT/HCPCS: 77063; 77067 ==

== ENCOUNTER 2025-09-01 11:29 | Outpatient (AMB) | payer OTHER, SELFPAY ==
--- NOTE | 2025-09-01 11:31 | A.OFFVIS_ITS ---
Vital Signs 09/01/25 11:36 Height 5 ft 8 in Weight 275 lb BMI 41.8 BP 111/61 Blood Pressure Location Lt brachial Pulse 82 Intake Visit Reasons: f/u Chronic constipation/EGD results Intake Note: Patient follow up for Chronic constipation/EGD results Patient cc: constipation, chocking sensation/food stuck on her esophagus, chronic acid reflux and abdominal bloating. Patient have question about medication time taking. Marketing And Outreach Coordinator Required: No Accompanied by: Self / Same As Patient Allergies cyclobenzaprine (From FLEXERIL) Allergy (Intermediate, Verified 09/01/25 11:35) SWELLING naproxen (NAPROXEN) Allergy (Mild, Verified 09/01/25 11:35) HEART PALPATATIONS hydrocodone Adverse Reaction (Intermediate, Verified 09/01/25 11:35) Gastrointestinal Upset milk Adverse Reaction (Intermediate, Verified 09/01/25 11:35) Gastrointestinal Upset oxycodone (From PERCOCET) Adverse Reaction (Intermediate, Verified 09/01/25 11:35) VOMITING Medication List - Last Reconciled 09/01/25 by Ethel Cook MD albuterol sulfate 90 mcg/actuation 2 puffs inhalation Q6H PRN bupropion HCl 75 mg PO ONCE cane As directed cholecalciferol (vitamin D3) 1,250 mcg PO QWEEK 3 months escitalopram oxalate 20 mg PO DAILY ferrous fumarate 324 mg PO DAILY gabapentin 300 mg PO TID loratadine (Allergy Relief (loratadine)) 10 mg PO DAILY medroxyprogesterone (Provera) 10 mg PO DAILY 10 days multivitamin 1 tab PO DAILY omeprazole 20 mg PO BID 60 days prazosin 1 mg PO BEDTIME psyllium husk (with sugar) 3 gram/7 gram (Metamucil Free (with sugar)) 1 tbsp PO DAILY PRN simethicone (Gas Relief (simethicone)) 250 mg (2 x 125 mg) PO BID-QID PRN 30 days sumatriptan succinate 50 mg PO Q2-4H PRN topiramate 50 mg PO BID trazodone 100 mg PO BEDTIME PRN HPI HPI f/u Chronic constipation/EGD results: Details: GI clinic visit for this 55 YF for dysphagia and FU of colon polyps to review EGD results. TODAY'S VISIT: Patient reports constipation, chocking sensation/food stuck on her esophagus, chronic acid reflux and abdominal bloating. EGD and biopsy results reviewed Notes significant improvement in dysphagia - only had 1 episode of choking since the EGD Takes gabapentin and concerned about presence of aluminum and magnesium in Omeprazole and simethicone Does not eat breakfast and takes lunch at 11 am and dinner at 6 pm - advised to take Omeprazole at 10;30 am and 5:30 pm Has gained weight since she is unable to exercise due to foot pain (overgrown heel spur, over streched achillis tendon and plantar fascitis) and being scheduled for surgery PAST VISITS Amanda presents in the office as a follow up that she made online. Pt complains of choking when she eats and drinks - she has to gasp for air when he drinks. She states that she has the feeling of burning or feeling of something stuck in her throat. She is having issues with heartburn and issues with her weight. I am choking a lot a little bit before the colonoscopy Getting frequent heartburn and using Tums more frequently Noted dysphagia with solids, followed by liquids and now even with swallowing air. Symptoms are intermittent She was drinking hot chocolate yesterday and was choking on it. Feels she was running out of air Forces herself to cough to open the pathway and breath Patient denies symptoms of nausea, vomiting. Appetite fluctuates and has been gaining weight - wt gain from 263 to 273 over 4 months Also notes constipation - takes 3 days to have a BM Denies recent black stools or rectal bleeding. Patient denies major cardiac or pulmonary problems, loud snoring or sleep apnea Was checked a year ago and was toled she did not have sleep apnea Denies problems with anesthesia in the past. Denies being on chronic anticoagulation. SOCIAL HISTORY: - Alcohol/Tobacco/Drug Use: Denies - Occupation: Worked at the [employer] and now on disability (Migraine HAs with TIAs) FAMILY HISTORY: Patient denies known family history of colon polyps, colon cancer or other GI malignancies. GM of a renal attack LABS IN Signicat : Reviewed IMAGING STUDIES: Reviewed ENDOSCOPIC STUDIES: 02/2025 FLEXIBLE SIGMOIDOSCOPY SHOWED: Polypectomy site visualized with residual polypoidal tissue - removed with a stiff hot snare. Moderate diverticulosis seen in the sigmoid colon Moderate hemorrhoids on retroflexed exam. Plan: Repeat Colonoscopy in 3 years if polyps are adenomatous and due to history of adenomatous colon polyps Above findings were reviewed with the patient and relevant handouts were given and the discharge area. Letter sent to the patient with biopsy results. Patient was placed on the colonoscopy recall list for repeat colonoscopy in 3 years [facility] Medical History (Updated 07/24/25 @ 15:01 by Ethel Cook MD) History of prediabetes Hx of osteoarthritis Endometrial thickening on ultrasound Iron deficiency anemia Vitamin D deficiency Numbness and tingling of both lower extremities Left anterior knee pain Achilles tendinitis of left lower extremity Intractable left heel pain Acquired deformity of toenail Migraines Heel spur Snoring Encounter for screening colonoscopy Cervical spondylosis Complicated migraine Left-sided weakness Brain TIA Eczema of lower extremity Anxiety and depression Normocytic normochromic anemia Heavy menstrual bleeding Bulging of lumbar intervertebral disc Left ankle pain Constipation Obesity (BMI 30-39.9) Hallux valgus (acquired) Degenerative disc disease, cervical History of gallstones Impaired fasting glucose Depression Surgical History Hx of cystoscopy Hx of colonoscopy History of esophagogastroduodenoscopy (EGD) Status post section History of bilateral tubal ligation History of bunionectomy of both great toes History of laparoscopic cholecystectomy History of cervical discectomy History of bunionectomy Family History Mother Hypertension Depression Diabetes mellitus Hypercholesteremia SUZIE (obstructive sleep apnea) COPD (chronic obstructive pulmonary disease) Substance use disorder Mental health disorder Sister Breast cancer Uterine cancer Mental health disorder Maternal Grandmother Mental health disorder Maternal Aunt Mental health disorder Social History Housing: Apartment Are you a primary toddler caregiver to a significant other at home: No Do you presently have visiting nurse or other home services: No Alcohol intake: never Patient Tobacco Use Status: Never used Tobacco e-Cigarette/Vaping Use: Never Used service: No Current occupational status: unemployed Cognitive needs: No Hearing needs: No Vision needs: Yes Review of Systems Const All systems reviewed & are unremarkable except as noted in HPI and below Physical Exam Vital Signs: Last Vital Signs Pulse 82 09/01/25 11:36 BP 111/61 09/01/25 11:36 BMI result Body Mass Index 41.8 Const General: no acute distress Nutritional Appearance: obese Orientation/consciousness: patient oriented x3 Limitations: ambulation with cane HEENT Head: Yes normal to inspection Ears: hearing grossly normal bilaterally Eyes Sclerae: sclerae normal Pupils: Equal, round and reactive pupils present Neck Neck: Yes normal visual inspection Chest Chest palpation & inspection: normal inspection of the chest Resp Effort & Inspection: normal respiratory effort Auscultation: clear to auscultation bilaterally Cardio Palpation: normal PMI Rate: regular rate Rhythm: regular rhythm Heart sounds: S1 normal heart sound present, S2 normal heart sound present and no murmurs GI Palpation (GI): Soft to palpation, nontender and No hepatosplenomegaly present Auscultation: normal bowel sounds Rectal Exam - Female: deferred Skin General skin exam: no rashes or lesions noted Neuro General: patient oriented x3, gait normal and moves all extremities Cranial nerves: Yes Equal, round and reactive pupils present Psych Appearance: grossly normal Mental Status: mental status grossly normal Assessment & Plan Assessment & Plan (1) Dysphagia: Code(s): R13.10 - Dysphagia, unspecified Category: Medical (2) Erosive esophagitis: Code(s): K22.10 - Ulcer of esophagus without bleeding Category: Medical (3) Chronic constipation: Code(s): K59.09 - Other constipation Category: Medical (4) Iron deficiency anemia: Code(s): D50.9 - Iron deficiency anemia, unspecified Category: Medical Plan 55-year-old female with history of iron deficiency anemia, depression/anxiety, PTSD and hx of adenomatous colon polyps Pt seen today for evaluation of frequent heartburn and dysphagia - complains of choking when she eats and drinks - she has to gasp for air when she drinks. She states that she has the feeling of burning or feeling of something stuck in her throat. Dysphagia can be due to GERD with esophageal spasm, erosive esophagitis, esophageal stricture or Schatzki's ring or EOE 07/24/25 EGD SHOWED: ESOPHAGUS: Severe erosive esophagitis (LA Grade C) with linear ulcers and erosi ons from 30-35 cms STOMACH: Mild antral gastritis DUODENUM: Normal - biopsied to check for celiac sprue. Dysphagia is likely due to severe GERD with erosive esophagitis since no stricture was visualized Plan: Pt advised to increase Omerazole to 20 mg twice daily and take simethicone 3 to 4 times a day p.r.n. for heartburn and abdominal bloating. Repeat EGD in 3-4 months to confirm esophagitis has healed. BIOPSIES SHOWED: A. Small bowel, biopsy: Duodenal mucosa within normal limits. B. Stomach, antrum, biopsy: Antral-type and oxyntic mucosa with mild chronic inactive inflammation; no Helicobacter organisms seen. C. Esophagus, distal, biopsy: Active esophagitis (maximum eosinophil count 17 per high powered field). D. Esophagus, proximal, biopsy: Squamous epithelium within normal limits; no inflammation seen. Comment: Diagnostic morphologic features of celiac disease or eosinophilic esophagitis are not seen 09/01/25 Pt advised to schedule an EGD in spring 2025 (FU of erosive esophagitis) Continue Omeprazole 20 mg twice daily for GERD Work on loosing weight Follow-up in 6 months Orders: Referrals GI Procedure Notification K22.10 - Ulcer of esophagus without bleeding Medications: Changed From omeprazole Take 30 min before breakfast and dinner or bedtime 20 mg PO BID 60 days 120 caps 2RF To omeprazole Take 30 min before breakfast and dinner 20 mg PO BID 180 caps 1RF 90 days Coding Level of Care Code Est Pt Level 3 (05806) Diagnoses Dysphagia R13.10 Erosive esophagitis K22.10 Chronic constipation K59.09 Iron deficiency anemia D50.9 Time Spent (min) 19
[2025-09-01 11:36] VITALS: BP 111/61; PULSE 82; BMI 41.8
== END 2025-09-01 12:14 | disposition home or self-care (01) ==
LOC: HO.HGI 11:30
PROVIDERS: PCP Internal Medicine; Visit Provider Internal Medicine Gastroenterology
DX: R13.10 Dysphagia, unspecified (principal); K22.10 Ulcer of esophagus without bleeding; K59.09 Other constipation; D50.9 Iron deficiency anemia, unspecified
CPT/HCPCS: 99213

== ENCOUNTER → 2025-09-01 11:29 | Outpatient (BNVA) | payer OTHER, SELFPAY | PROVIDERS: PCP Internal Medicine; Visit Provider Internal Medicine Gastroenterology | DX: R13.10 Dysphagia, unspecified (principal); K22.10 Ulcer of esophagus without bleeding; K59.09 Other constipation; D50.9 Iron deficiency anemia, unspecified; Z79.899 Other long term (current) drug therapy; R09.89 Other specified symptoms and signs involving the circulatory and respiratory systems | CPT/HCPCS: 99212 ==

== ENCOUNTER 2025-09-09 11:00 | Outpatient (AMB) | payer OTHER, SELFPAY ==
--- NOTE | 2025-09-09 11:24 | A.OFFVIS_ITS ---
Vital Signs 09/09/25 11:26 Height 5 ft 8 in Weight 275 lb BMI 41.8 BP 126/74 Intake Visit Reasons: medication follow up Second Vp Hr Assessment Required: No Information Interpreted: non-clinical & clinical Accompanied by: Self / Same As Patient Allergies cyclobenzaprine (From FLEXERIL) Allergy (Intermediate, Verified 09/09/25 11:30) SWELLING naproxen (NAPROXEN) Allergy (Mild, Verified 09/09/25 11:30) HEART PALPATATIONS hydrocodone Adverse Reaction (Intermediate, Verified 09/09/25 11:30) Gastrointestinal Upset milk Adverse Reaction (Intermediate, Verified 09/09/25 11:30) Gastrointestinal Upset oxycodone (From PERCOCET) Adverse Reaction (Intermediate, Verified 09/09/25 11:30) VOMITING HPI Comments Details: Presenting for three-month follow-up appointment, the patient has been taking Provera 10 mg p.o. q.d. cyclicly with regular menstrual cycles no complaints Last mammogram was negative in 08/18 [facility] Medical History History of prediabetes Hx of osteoarthritis Endometrial thickening on ultrasound Iron deficiency anemia Vitamin D deficiency Numbness and tingling of both lower extremities Left anterior knee pain Achilles tendinitis of left lower extremity Intractable left heel pain Acquired deformity of toenail Migraines Heel spur Snoring Encounter for screening colonoscopy Cervical spondylosis Complicated migraine Left-sided weakness Brain TIA Eczema of lower extremity Anxiety and depression Normocytic normochromic anemia Heavy menstrual bleeding Bulging of lumbar intervertebral disc Left ankle pain Constipation Obesity (BMI 30-39.9) Hallux valgus (acquired) Degenerative disc disease, cervical History of gallstones Impaired fasting glucose Depression Surgical History Hx of cystoscopy Hx of colonoscopy History of esophagogastroduodenoscopy (EGD) Status post section History of bilateral tubal ligation History of bunionectomy of both great toes History of laparoscopic cholecystectomy History of cervical discectomy History of bunionectomy Family History Mother Hypertension Depression Diabetes mellitus Hypercholesteremia SUZIE (obstructive sleep apnea) COPD (chronic obstructive pulmonary disease) Substance use disorder Mental health disorder Sister Breast cancer Uterine cancer Mental health disorder Maternal Grandmother Mental health disorder Maternal Aunt Mental health disorder Social History Housing: Apartment Are you a primary client care consultant to a significant other at home: No Do you presently have visiting nurse or other home services: No Alcohol intake: never Patient Tobacco Use Status: Never used Tobacco e-Cigarette/Vaping Use: Never Used service: No Current occupational status: unemployed Cognitive needs: No Hearing needs: No Vision needs: Yes Review of Systems Const All systems reviewed & are unremarkable except as noted in HPI and below Reports as per HPI and Reports no additional complaints GI Reports no additional complaints Reports no additional complaints Physical Exam Vital Signs: Last Vital Signs BP 126/74 09/09/25 11:26 BMI result Body Mass Index 41.8 Assessment & Plan Assessment & Plan (1) Abnormal uterine bleeding (AUB): Code(s): N93.9 - Abnormal uterine and vaginal bleeding, unspecified Category: Medical Plan: Recommended to continue taking cyclic Provera 10 mg p.o. q.d. day 15-24 and report back if the patient misses her period. All questions answered, the patient verbalized understanding Medications: Changed From medroxyprogesterone (Provera) start Provera 1 tablet daily from day 15-24 cyclically every months, day 1 being 1st day of menses 10 mg PO DAILY 10 days 30 tabs 0RF To medroxyprogesterone (Provera) start Provera 1 tablet daily from day 15-24 cyclically every months, day 1 being 1st day of menses 10 mg PO DAILY 30 tabs 0RF 90 days Coding Level of Care Code Est Pt Level 3 (28449) Diagnoses Abnormal uterine bleeding (AUB) N93.9
[2025-09-09 11:26] VITALS: BP 126/74; BMI 41.8
--- OUTSIDE RECORDS SUMMARY | 2025-09-09 14:27 | XMS_ITS | Patient Health Record ---
[facility] Address [address] [place] [address] Care Team Providers Care Logistics Solution Manager Name Role Phone Joseph MARIO, Brielle Barkley Primary Care Provider Un available Angel López Unavailable [phone] Allergies Allergen (clinical drug ingredient) Drug/Non Drug [...] Status Risk Notes Problem Acquired hallux valgus (23823318) Hallux valgus (acquired), left foot (M20.12) Active confirmed Problem Achilles bursitis (357380312) Achilles tendinitis, left leg (M76.62) Active confirmed Encounters Encounter Location Date Provider Diagnosis [facility] [place] [address] [place] [address] 03/31/2025 Angel López Plan Of Treatment No Information Insurance Providers Payer Name Payer Address Payer Phone Subscriber Number Group Number Insured Name Patient Relationship to Insured Coverage Start Date Coverage End Date [facility] [address] [place] [address] [phone] [id number] Amanda Stapleton Self - patient is the insured Medical (General) History Medical History History ICD Code Anxiety Arthritis Back,Hip,and Knee pain Depression Gall bladder problems Headaches Sciatica Joint implants/screws Surgical History Surgery Date(Month/Year) Fusion C4,C5 11/2016 Fusion C5,C6,C7 02/02 section 11/24/1996 Bunionectomy B/L 1989
--- OUTSIDE RECORDS SUMMARY | 2025-09-09 14:27 | XMS_ITS | Clinical Summary ---
Author Organization [facility] Address [address] [place] [phone] Phone Care Team Providers Care Machine Made Shoe Unit Worker Name Role Phone Unavailable Primary Care Provider [...] It is not the complete legal health record.[facility]
--- OUTSIDE RECORDS SUMMARY | 2025-09-09 14:27 | XMS_ITS | Clinical Summary ---
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 Reeves at [facility]. This did reveal a mixed sensory and [...] Her MRI of the thoracic spine from [facility] dated May 29, 2025 revealed exaggerated thoracic kyphosis with a levoconvex thoracic scoliosis and multilevel degenerative disc and facet changes without significant foraminal or spinal canal stenosis. I explained that there was nothing surgical and that she could continue with conservative treatments including physical therapy, acupuncture, date night caregiver, and yoga. Assessment & Plan (04/28/2025 4:32 [...] Encounters Date Type Department Care Team Description 09/09/2025 Telephone Orthopedic Surgery [place] [address] [phone] Annabelle Tapia [place] 08/31/2025 3:15 PM EST Office Visit Orthopedic Surgery [place] [address] [phone] Stephen Pop, DPM Achilles tendinitis, left leg (Primary Dx); Bilateral foot pain; Juan Jose's deformity, left 07/30/2025 3:30 PM EST Office Visit Orthopedic [place] [address] [phone] Stephen Pop, DPM Achilles tendinitis, left leg (Primary Dx); Dermatophytosis of nail from Last 3 Months Immunizations Immunization Administration [...] Orientation Straight 04/30/2025 12 :32 PM EDT Last Filed Vital Signs Vital Sign Reading [...] Care Team (Late st Contact Info) Description 09/10/2025 8:30 AM EST Office Visit Orthopedic Surgery - [place] [address] [phone] Stephen Pop, DPM [address] [phone] Scheduled Procedures Name Priority Associated Diagnoses Date/Ti me REPAIR TENDON ACHILLES Achilles tendinitis, left leg Juan Jose's deformity, left Health Maintenance Due Date Last Done Comments [...] on patient's age to complete this topic Goals Goal Patient Goal Type Associated Problems Recent Progress Patient-Stated? Author Autogenera lorena Goal Care Plan Autogenerated Problem No Stephen Pop DPM Procedures Procedure Name Priority Date/Time Associated Diagnosis Comments XR FOOT 3+ VIEWS BILAT Routine 08/31/2025 3:21 PM EST Bilateral foot pain INJECTION TENDON OR LIGAMENT Routine 07/30/2025 3:30 PM EST Achilles tendinitis, left leg from Last 3 Months Results * XR Foot 3+ Views bilat (08/31/2025 3:21 PM EST) Anatomical Region Laterality Modality Lower Extremities, Foot Bilateral Computed Radiography Narrative 08/31/2025 6:54 PM EST Right foot 3 views No fracture. No radiopaque foreign joint spaces Arthritis mild Severe retrocalcaneal spur Foot position Pes planus with Talus navicular uncovering decreased calcaneal inclination anterior displaced symes line talus navicular joint to calcaneal cuboid joint Left foot 3 views No fracture. No radiopaque foreign joint spaces Arthritis mild Severe retrocalcaneal spur Foot position Pes planus with Talus navicular uncovering decreased calcaneal inclination anterior displaced symes line talus navicular joint to calcaneal cuboid joint us Stephen Pop DPM IMG XR PROCEDURES Final R esult * Injection tendon or ligament (07/30/2025 3:30 PM EST) Stephen Feliciano DPM - 07/30/2025 3:30 PM EST Stephen Pop DPM 07/30/2025 5:41 PM Injection tendon or ligament Indications: pain Details: 25 G needle Medications: 0.5 mL lidocaine (PF) 1 %; 20 mg triamcinolone acetonide 40 mg/mL Informed Consent: Site: Foot ligament tendon us Stephen Pop DPM IN CLINIC/BEDSIDE ORDERAB LES Final Result from Last 3 Months Additional Health Concerns Active Problems Noted Date Diagnosed Date Autogenerated Problem 08/31/2025 Insurance [facility] [employer] Care Teams Facilities Plant Engineer Relationship Specialty Start Date End Date Brielle Ruiz MD [address] [place] [address] PCP - General Internal Medicine 01/11/16
--- OUTSIDE RECORDS SUMMARY | 2025-09-09 14:27 | XMS_ITS | Encounter Summary ---
Author Organization [facility] Address [address] [place] [address] Care Team Providers Care Resist Coater Developer Name Role Phone Brielle Ruiz MD Primary Care Provider Reason for Visit * Reason Onset Date Comments Appointment 09/09/2025 Encounter Details Date Type Department Care Team (Late Contact Info) Description 09/09/2025 Telephone Orthopedic Surgery - [place] [address] [place] [phone] Annabelle Tapia [place] Social History Tobacco Use Types Packs/Day Years [...] as of this encounter Progress Notes * Annabelle Tapia MA - 09/09/2025 11:30 AM EST Outreach to patient to schedule appt. LVM to inform patient there is an opening tomorrow at 8:30 am09/10/25. Please schedule patient if she calls back. documented in this encounter Plan of Treatment Upcoming Encounters Date Type Department Care Team (Late Contact Info) Description 09/10/2025 8:30 AM EST Office Visit Orthopedic Surgery - [place] [address] [phone] Stephen Pop DPM 175 [facility] [address] [place] [address] Scheduled Procedures Name Priority Associated Diagnoses Date/Ti me REPAIR TENDON ACHILLES Achilles tendinitis, left leg Juan Jose's deformity, left documented as of this encounter Goals Goal Patient Goal Type Associated Problems Recent Progress Patient-Stated? Author Autogenera lorena Goal Care Plan Autogenerated Problem No Stephen Pop DPM documented as of this encounter Visit Diagnoses Not on filedocumented in this encounter Additional Health Concerns Active Problems Noted Date Diagnosed Date Autogenerated Problem 08/31/2025 documented as of this encounter Care Teams Resist Coater Developer Relationship Specialty Start Date End Date Brielle Ruiz MD [address] [place] [address] PCP - General Internal Medicine 01/11/16 documented as of this encounter
== END 2025-09-09 11:36 | disposition home or self-care (01) ==
LOC: HO.HWS 11:01
PROVIDERS: PCP Internal Medicine; Visit Provider Obstetrics & Gynecology
DX: N93.9 Abnormal uterine and vaginal bleeding, unspecified (principal)
CPT/HCPCS: 99213

== ENCOUNTER → 2025-09-09 11:00 | Outpatient (BNVA) | payer OTHER, SELFPAY | PROVIDERS: PCP Internal Medicine; Visit Provider Obstetrics & Gynecology | DX: N93.9 Abnormal uterine and vaginal bleeding, unspecified (principal); Z79.3 Long term (current) use of hormonal contraceptives | CPT/HCPCS: 99212 ==